=== PATIENT | male | born 1945 | race Caucasian/White ===

== ENCOUNTER 2018-08-02 14:25 | Emergency (ER) | payer OTHER ==
--- NOTE | 2018-08-02 15:14 | ED Physician Documentation ---
PD HPI FOCAL NEURO - Stated complaint Stated Complaint: L ARM NUMBNESS - Chief complaint Chief Complaint: Neuro - History obtained from History obtained from: Patient - History of Present Illness Timing - onset: Other (This is a 72-year-old gentleman with history of stroke with left leg deficits not currently bothering him. He has A. fib and is on warfarin with a pacemaker in place. He also has COPD. For the last 3 days he has had intermittent episodes where his left arm will go down on him and he cannot use it at all. He estimates this last for 20-30 minutes at a time and has happened about 3 times each day for the last 3 days. He also feels generally weak, but the left arm is worse. He also has increased cough and shortness of breath with his underlying COPD. He does still smoke.) Review of Systems Ten Systems: 10 systems reviewed and negative Constitutional: reports: Reviewed and negative Throat: reports: Reviewed and negative Cardiac: reports: Reviewed and negative Respiratory: reports: Dyspnea, Cough GI: reports: Reviewed and negative PD PAST MEDICAL HISTORY - Past Medical History Cardiovascular: Hypertension, Arrhythmia Respiratory: None Endocrine/Autoimmune: None GI: Other : None HEENT: Other Psych: None Musculoskeletal: Rheumatoid arthritis - Past Surgical History Past Surgical History: Yes Ortho: Other Cardiovascular: Pacemaker - Present Medications Home Medications: Ambulatory Orders Medication Instructions Recorded Confirmed Lisinopril/Hydrochlorothiazide 1 mg ORAL DAILY 07/06/15 07/06/15 [Lisinopril-Hctz 10-12.5 mg Tab] RX: Adalimumab [Humira Pediatric 40 mg SUBQ TITR 07/06/15 07/06/15 Crohn's] RX: Albuterol [Ventolin Hfa] 1 puffs INH Q4H PRN 07/06/15 07/06/15 RX: Budesonide [Pulmicort 1 inh INH DAILY 07/06/15 07/06/15 Flexhaler] RX: Docusate Sodium [Col-Rite] 250 mg ORAL BID 07/06/15 07/06/15 RX: Folic Acid 1 mg ORAL DAILY 07/06/15 07/06/15 RX: Gabapentin 300 mg ORAL BID 07/06/15 07/06/15 RX: Methotrexate 2.5 mg ORAL TITR 07/06/15 07/06/15 RX: Metoprolol Tartrate 100 mg ORAL BID 07/06/15 07/06/15 RX: Multivitamin [Multivitamins] 1 tab ORAL DAILY 07/06/15 07/06/15 RX: Psyllium [Metamucil] 1 each ORAL BID 07/06/15 07/06/15 RX: Warfarin [Coumadin] 2.5 mg ORAL DAILY 07/06/15 07/06/15 RX: Warfarin [Coumadin] 5 mg ORAL DAILY 07/06/15 07/06/15 RX: Cetirizine [ZyrTEC] 08/02/18 08/02/18 - Allergies Allergies/Adverse Reactions: Allergies Allergy/AdvReac Type Severity Reaction Status Date / Time No Known Drug Allergies Allergy Verified 08/02/18 14:38 - Social History Does the pt smoke?: Yes Smoking Status: Current every day smoker Does the pt drink ETOH?: No Does the pt have substance abuse?: No - Immunizations Immunizations are current?: Yes PD ED PE NORMAL - Vitals Vital signs reviewed: Yes - General General: Alert and oriented X 3, No acute distress - HEENT HEENT: PERRL, EOMI - Neck Neck: Supple, no meningeal sign, No bony TTP - Cardiac Cardiac: RRR, No murmur - Respiratory Respiratory: No respiratory distress, Other (Diminished throughout without focal findings) - Abdomen Abdomen: Soft, Non tender - Extremities Extremities: No edema, No calf tenderness / cord - Neuro Neuro: Alert and oriented X 3, roof truss machine tender 2-12 intact, Normal speech - Psych Psych: Normal mood, Normal affect NIHSS - Time Time: 15:10 - Level of Consciousness Level of consciousness: (0) Alert, Keenly responsive LOC Questions: (0) Answers both Q's correct LOC Commands: (0) Performs both correctly - Gaze Best Gaze: (0) Normal - Visual Visual: (0) No loss - Facial Palsy Facial Palsy: (0) Normal, symmetrical movement - Motor Arms (both separate) Motor Arm (right): (0) No drift Motor Arm (left): (0) No drift - Motor Legs (both separate) Motor Leg (right): (0) No drift Motor Leg (left): (0) No drift - Limb Ataxia Limb Ataxia: (0) Absent - Sensory Sensory: (0) Normal - Best Language Best Language: (0) No aphasia - Dysarthria Dysarthria: (0) Normal - Extinction and Inattention (formally neg Extinction and inattention: (0) No abnormality - Total Score/Results Total Score/Result: 0 Results - Vitals Vitals: Vital Signs - 24 hr 08/02/18 08/02/18 14:33 20:32 Temperature 36.8 C 36.2 C L Heart Rate 80 68 Respiratory 25 H 20 Rate Blood Pressure 145/93 H 114/70 O2 Saturation 95 98 Oxygen O2 Source Room air - EKG (time done) 1440 Rate: Rate (enter#) (68) Rhythm: NSR [place]: Normal Intervals: Normal IN Ischemia: Non specific changes Computer interpretation: Agree with computer - Labs Labs: Laboratory Tests 08/02/18 08/02/18 08/02/18 15:19 15:19 15:19 WBC 10.5 RBC 4.29 L Hgb 16.6 Hct 47.6 MCV 111.0 H MCH 38.7 H MCHC 34.8 RDW 14.8 Plt Count 233 MPV 8.2 Neut # (Auto) 7.7 H Lymph # (Auto) 1.8 [place] # (Auto) 0.6 Eos # (Auto) 0.2 Baso # (Auto) 0.1 Absolute Nucleated RBC 0.01 Nucleated RBC % 0.1 PT 24.3 H INR 2.2 H Sodium 137 Potassium 3.8 Chloride 103 Carbon Dioxide 24 Anion Gap 10.0 BUN 20 Creatinine 1.3 H Estimated GFR (MDRD) 54 L Glucose 157 H Calcium 9.0 Total Bilirubin 0.5 AST 25 ALT 27 Alkaline Phosphatase 74 Troponin I Total Protein 7.3 Albumin 3.8 Globulin 3.5 Albumin/Globulin Ratio 1.1 Lipase 197 H Blood Type Blood Type Recheck 08/02/18 08/02/18 08/02/18 15:19 15:19 18:45 WBC RBC Hgb Hct MCV MCH MCHC RDW Plt Count MPV Neut # (Auto) Lymph # (Auto) [place] # (Auto) Eos # (Auto) Baso # (Auto) Absolute Nucleated RBC Nucleated RBC % PT INR Sodium Potassium Chloride Carbon Dioxide Anion Gap BUN Creatinine Estimated GFR (MDRD) Glucose Calcium Total Bilirubin AST ALT Alkaline Phosphatase Troponin I < 0.04 Total Protein Albumin Globulin Albumin/Globulin Ratio Lipase Blood Type O POSITIVE Blood Type Recheck O POSITIVE - Rads (name of study) CT Head Radiology: EMP read contemporaneously (Acute right parietal stroke with hemorrhagic transformation) CT Head neck Radiology: EMP read contemporaneously (Carotid plaques with less than 50% stenosis bilaterally, poor visualization of the left vertebral, no large vessel occlusion.) PD MEDICAL DECISION MAKING - ED course ED course: 72-year-old gentleman with history of atrial fibrillation on warfarin presents with strokelike symptoms that are intermittent. On CT he looks like he had a right parietal stroke with a small amount of hemorrhagic transformation. [facility] was called and I spoke with Dr. Goodwin who will review the images and call me back. Updated daughter Meghan by phone [phone]. Dr. Goodwin reviewed the images and feels he should be transported down there. Recommended giving K Centra which was ordered to reverse his INR. [facility] and do not have beds. We spoke with the [facility]. Note that we did not have the full dose of K Centra in the hospital. Only 1500 units were available so we also transfused a unit of FFP. - Critical Care Time(min): 42 Time Includes: Direct patient care, Review records, Reassess patient, Document care, Coordinate care, Medical consult, Family consult for tx dec Data interpretation: Labs Procedures included in critical care time: Peripheral IV Procedures excluded from critical care time: EKG Departure - Departure Disposition: 02 Transfer Acute Care Hosp Clinical Impression: Cerebrovascular accident (CVA), Subarachnoid bleed Condition: Serious
[2018-08-02] MEDS ORDERED: IOVERSOL 320 100 ML VIAL IVP ONE (15:25)
[2018-08-02 15:29] LABS: BASOPHILS # (AUTO) 0.1 10^3/uL (0.0-0.1); BASOPHILS % (AUTO) 1.3 %; EOSINOPHILS # (AUTO) 0.2 10^3/uL (0.0-0.7); EOSINOPHILS % (AUTO) 1.8 %; HGB - HEMOGLOBIN 16.6 g/dL (14.0-18.0); LYMPHOCYTES # (AUTO) 1.8 10^3/uL (1.5-3.5); LYMPHOCYTES % (AUTO) 17.5 %; MEAN CORPUSCULAR HEMOGLOBIN 38.7 pg (27.0-31.0); MEAN CORPUSCULAR HGB CONC 34.8 g/dL (32.0-36.0); MEAN PLATELET VOLUME 8.2 fL (7.4-11.4); MONOCYTES # (AUTO) 0.6 10^3/uL (0.0-1.0); NEUTROPHILS # (AUTO) 7.7 10^3/uL (1.5-6.6); NEUTROPHILS % (AUTO) 73.4 %; PLT - PLATELET COUNT 233 10^3/uL (130-450); RED BLOOD COUNT 4.29 10^6/uL (4.70-6.10); RED CELL DISTRIBUTION WIDTH 14.8 % (12.0-15.0); WHITE BLOOD COUNT 10.5 x10^3/uL (4.8-10.8)
[2018-08-02 15:33] LABS: INR 2.2 (0.8-1.2); PT - PROTHROMBIN TIME 24.3 secs (9.9-12.6)
[2018-08-02 15:39] LABS: ALBUMIN 3.8 g/dL (3.2-5.5); ALBUMIN/GLOBULIN RATIO 1.1 (1.0-2.2); BILIRUBIN,TOTAL 0.5 mg/dL (0.2-1.0); CREATININE 1.3 mg/dL (0.6-1.2); TOTAL PROTEIN 7.3 g/dL (6.7-8.2)
--- NOTE | 2018-08-02 15:43 | XRAY Report ---
Reason: dyspnea Procedure Date: 08/02/2018 Accession Number: [id number] / [id number] Procedure: XR - Chest 1 View X-Ray CPT Code: 42014 FULL RESULT: EXAM: CHEST RADIOGRAPHY EXAM DATE: 08/02/2018 03:25 PM. CLINICAL HISTORY: Dyspnea. Increasing week with cough, shortness of breath, history of COPD. COMPARISON: ABDOMEN/PELVIS W/O 07/06/2015 11:04 AM. TECHNIQUE: 1 view. FINDINGS: Left mid and lower lung opacification is new, could represent layering pleural effusion, airspace disease and/or consolidation. Mass not excluded. An upright PA and lateral chest x-ray or chest CT could further evaluate. Multiple old left lateral rib fracture deformities are again noted. Pacemaker. IMPRESSION: Left mid and lower lung opacification is new, could represent layering pleural effusion, airspace disease and/or consolidation. Mass not excluded. An upright PA and lateral chest x-ray or chest CT could further evaluate. RADIA
[2018-08-02] MEDS: IOVERSOL 320 100 ML VIAL IVP ONE (16:11)
--- NOTE | 2018-08-02 16:53 | CT Report ---
Reason: L sided arm weak Procedure Date: 08/02/2018 Accession Number: [id number] / [id number] Procedure: CT - Head W/O CPT Code: FULL RESULT: EXAM: CT HEAD EXAM DATE: 08/02/2018 04:02 PM. CLINICAL HISTORY: L sided arm weak. COMPARISON: None. TECHNIQUE: Multiaxial CT images were obtained from the foramen magnum to the vertex. Reformats: Coronal. IV contrast: None. In accordance with CT protocol optimization, one or more of the following dose reduction techniques were utilized for this exam: automated exposure control, adjustment of mA and/or KV based on patient size, or use of iterative reconstructive technique. FINDINGS: Parenchyma: A subtle increased density primarily cortical involving right posterior parietal lobe and extending to the vertex with minimal localized mass-effect. No midline shift. No other evidence of hemorrhage. Diffuse chronic microangiopathic white matter changes. Extraaxial Spaces: Normal for age. No subdural or epidural collections. Ventricles: The ventricles and cortical sulci are enlarged, consistent with age-related tissue loss. Sinuses and orbits: Opacification of small left maxillary sinus. Right maxillary sinus mucus retention cyst. Mucosal thickening in ethmoid air cells. No air-fluid level. Bones: Unremarkable. Other: None. IMPRESSION: 1. Acute right posterior parietal infarction with subtle hemorrhagic changes. 2. Underlying atrophy with associated chronic findings. 3. Chronic sinusitis. RADIA The above findings were discussed with Jose Li by Dr. Franissco Mohan at 16:52 hrs on 08/02/18.
--- NOTE | 2018-08-02 17:04 | CT Report ---
Reason: L sided arm weak Procedure Date: 08/02/2018 Accession Number: [id number] / [id number] Procedure: CT - Head Angio CPT Code: FULL RESULT: EXAM: CT ANGIOGRAM HEAD AND NECK. CT SCAN HEAD WITH CONTRAST. EXAM DATE:08/02/2018 04:02 PM. CLINICAL HISTORY:72-year-old with left-sided arm weakness. COMPARISON:Noncontrast CT head 08/02/2018. TECHNIQUE: Routine axial helical CTA imaging was performed from the aortic arch through the [place] of [place]. Routine axial CT imaging of the head was performed following contrast administration. Reconstructions: Routine multiplanar 3D MIP reconstructions. IV contrast: 80 cc Optiray 320. NASCET Criteria are used for stenosis measurements. In accordance with CT protocol optimization, one or more of the following dose reduction techniques were utilized for this exam: automated exposure control, adjustment of mA and/or KV based on patient size, or use of iterative reconstructive technique. FINDINGS: POSTCONTRAST CT HEAD: Parenchyma: No acute parenchymal hemorrhage, mass, or midline shift. There is mild to moderate bilateral areas of white matter hypoattenuation seen that are age-indeterminate but appear chronic. There is no convincing CT evidence of acute infarct. There is mild to moderate cortical volume loss that appears age-appropriate. No abnormal postcontrast enhancement. Extraaxial Spaces: There is small volume subarachnoid hemorrhage seen within the sulci of the right central sulcus unchanged from earlier noncontrast CT 08/02/2018. No new abnormal extra axial fluid collection/mass seen. Ventricles: Normal in size and position. Sinuses and orbits: The orbits appear normal. There is moderate right maxillary mucosal retention cyst versus polyp. There is atretic left maxillary sinus that is totally opacified. There is mild to moderate mucosal thickening of the ethmoid air cells. Mastoid air cells and middle ear cavities are clear. Bones: No evidence of fracture or calvarial defect. Other: Vascular calcifications of the cavernous ICA segments. CT ANGIOGRAM HEAD AND NECK: Mild atherosclerotic plaque involving the aortic arch with no significant stenosis. There is normal three-vessel takeoff of the great vessels. There is atherosclerotic plaque involving the origins of the left subclavian artery, left common carotid artery, right brachiocephalic artery, right subclavian artery, and right common carotid artery with no high-grade stenosis. RIGHT: Common Carotid Artery: Patent without significant stenosis. Carotid Bulb: There is moderate atherosclerotic plaque at the bifurcation and siphon. Stenosis at the bifurcation by NASCET criteria: Less than 50% stenosis. Internal Carotid Artery: The cervical ICA appears normal. There is vascular calcifications of the cavernous ICA segment with no definite high-grade stenosis seen. No evidence of aneurysm along the intracranial ICA. External Carotid Artery: Unremarkable. Vertebral Artery: There is atherosclerotic plaque involving the origin of the right vertebral artery with no high-grade stenosis. The remainder of the right vertebral artery appears patent with no definite dissection or stenosis seen. No aneurysm. Anterior Cerebral Artery: Patent without significant stenosis, aneurysm, or vascular malformation. Middle Cerebral Artery: Patent without significant stenosis, aneurysm, or vascular malformation. Posterior Cerebral Artery: Patent without significant stenosis, aneurysm, or vascular malformation. Posterior Communicating Artery: Patent. No aneurysm. LEFT: Common Carotid Artery: Patent without significant stenosis. Carotid Bulb: There is moderate atherosclerotic plaque at the bifurcation and siphon. Stenosis at the bifurcation by NASCET criteria: Less than 50% stenosis. Internal Carotid Artery: The cervical ICA appears normal. There is vascular calcifications of the cavernous ICA segment with no definite high-grade stenosis seen. No evidence of aneurysm along the intracranial ICA. External Carotid Artery: Unremarkable. Vertebral Artery: Poor visualization of the origin of the left vertebral artery due to surrounding streak artifact from high density contrast within the venous system. The remainder of the left vertebral artery appears normal with no definite dissection or stenosis seen. No aneurysm. Anterior Cerebral Artery: Patent without significant stenosis, aneurysm, or vascular malformation. Middle Cerebral Artery: Patent without significant stenosis, aneurysm, or vascular malformation. Posterior Cerebral Artery: Patent without significant stenosis, aneurysm, or vascular malformation. Posterior Communicating Artery: Patent. No aneurysm. CENTRAL: Anterior Communicating Artery: Patent. No aneurysm. Basilar Artery: Patent without significant stenosis. No aneurysm. DURAL VENOUS SINUSES AND MAJOR CENTRAL VEINS: Patent. OTHER: The visualized pharynx and larynx appear normal. Major salivary glands appear normal. Thyroid gland appears normal. No cervical lymphadenopathy or necrotic lymph nodes seen. Soft tissues of the neck appear normal. Mild right and moderate left pleural parenchymal scarring. No acute fracture or traumatic subluxation of the cervical spine. Multilevel degenerative changes. No suspicious osseous lesion. IMPRESSION: CT SCAN HEAD: 1. Small volume subarachnoid hemorrhage seen within the sulci of the right central sulcus unchanged from earlier noncontrast CT 08/02/2018. Given location finding may be posttraumatic or secondary to reversible vasoconstrictive syndrome. 2. No definite acute infarct, parenchymal hemorrhage, mass, hydrocephalus, or midline shift. No abnormal postcontrast enhancement. 3. Mild to moderate white matter changes that are age-indeterminate but appear chronic suggesting potential sequelae of chronic small vessel ischemic disease. CT ANGIOGRAM NECK: 1. Poor visualization of the origin of the left vertebral artery due to surrounding streak artifact from high density contrast within the venous system. The remainder of the left vertebral artery appears patent. 2. Moderate atherosclerotic plaque seen at the carotid bifurcations with less than 50% stenosis seen bilaterally, right greater than left. CT ANGIOGRAM HEAD: 1. No definite large vessel occlusion. 2. No definite intracranial aneurysm. No high-grade stenosis. RADIA
[2018-08-02] MEDS: PROTHROMBIN COMPLEX CONC 500 UNIT VIAL IVP STA ×2 (19:03→19:21)
[2018-08-02 20:32] VITALS: BP 114/70
== END 2018-08-02 20:50 | disposition short-term general hospital (02) ==
LOC: ED 14:25
DX: I60.9 Nontraumatic subarachnoid hemorrhage, unspecified (principal); I69.398 Other sequelae of cerebral infarction; I48.91 Unspecified atrial fibrillation; Z79.01 Long term (current) use of anticoagulants; Z95.0 Presence of cardiac pacemaker; I10 Essential (primary) hypertension; F17.200 Nicotine dependence, unspecified, uncomplicated
CPT/HCPCS: 36415; 36430; 70450; 70496; 70498; 71045; 80053; 83690; 84484; 85025; 85610; 86900; 86901; 93005; 96374; 99284; 99291; C9132; P9017; Q9967

== ENCOUNTER 2018-08-08 09:04 | Outpatient (CLI) | payer OTHER | END 2018-08-08 09:05 | disposition short-term general hospital (02) | LOC: EMS 09:04 | PROVIDERS: ATTEND Surgery | DX: R53.1 Weakness (principal); R51 Headache | CPT/HCPCS: A0425; A0427 ==

== ENCOUNTER 2019-05-07 08:36 | Outpatient (CLI) | payer OTHER | END 2019-05-07 08:37 | disposition critical access hospital (66) | LOC: EMS 08:36 | PROVIDERS: ATTEND Surgery | DX: R52 Pain, unspecified (principal); R05 Cough | CPT/HCPCS: A0425; A0429 ==

== ENCOUNTER 2019-05-07 08:48 | Emergency (ER) | payer OTHER ==
[2019-05-07] MEDS ORDERED: SODIUM CHLORIDE 0.9% 1,000 ML IV ONE (09:10)
--- NOTE | 2019-05-07 09:13 | ED Physician Documentation ---
History of Present Illness - Stated complaint Stated Complaint: GENERAL WEAKNESS - Chief complaint Chief Complaint: General - History obtained from History obtained from: Patient - History of Present Illness Timing: How many days ago (3) - Additonal information Additional information: 73-year-old male with a prior history of a hemorrhagic transformation CVA in [facility] of last year left him with some left-sided weakness as weakness confusion and headache today. He states that he has been working on this for about 3 days with increasing weakness. He felt today that if he got up his legs would not hold him up. He called the ambulance. He does not have diarrhea or vomiting. Review of Systems Constitutional: denies: Fever Eyes: denies: Decreased vision Ears: denies: Ear pain Nose: denies: Congestion Throat: denies: Sore throat Cardiac: denies: Chest pain / pressure, Palpitations, Pedal edema, Calf pain Respiratory: reports: Cough, Wheezing. denies: Dyspnea GI: reports: Nausea. denies: Abdominal Pain, Vomiting, Constipation, Diarrhea : denies: Dysuria, Frequency Skin: denies: Rash Musculoskeletal: denies: Neck pain, Back pain, Extremity pain PD PAST MEDICAL HISTORY - Past Medical History Cardiovascular: Hypertension, Arrhythmia Respiratory: None Endocrine/Autoimmune: None GI: Other : None HEENT: Other Psych: None Musculoskeletal: Rheumatoid arthritis - Past Surgical History Past Surgical History: Yes Ortho: Other Cardiovascular: Pacemaker - Present Medications Home Medications: Ambulatory Orders Medication Instructions Recorded Confirmed Adalimumab [Humira Pediatric 40 mg SUBQ OAW 07/06/15 05/07/19 Crohn's] Albuterol [Ventolin Hfa] 1 puffs INH Q4H PRN 07/06/15 05/07/19 Folic Acid 1 mg ORAL DAILY 07/06/15 05/07/19 Gabapentin 300 mg ORAL DAILY 07/06/15 05/07/19 Lisinopril/Hydrochlorothiazide 1 tab ORAL DAILY 07/06/15 05/07/19 [Lisinopril-Hctz 10-12.5 mg Tab] Methotrexate 8 tab PO OAW 07/06/15 05/07/19 Multivitamin [Multivitamins] 1 tab ORAL DAILY 07/06/15 05/07/19 Cetirizine [ZyrTEC] 10 mg PO BID 08/02/18 05/07/19 Apixaban [Eliquis] 5 mg PO BID 05/07/19 05/07/19 Atorvastatin Calcium 40 mg PO DAILY PM 05/07/19 05/07/19 Cholecalciferol (Vitamin D3) 1,000 unit PO DAILY 05/07/19 05/07/19 [Vitajoy Daily D] Levetiracetam [Keppra] 2 tab PO BID 05/07/19 05/07/19 Methocarbamol 750 mg PO TID PRN 05/07/19 05/07/19 Metoprolol Succinate 75 mg PO BID 05/07/19 05/07/19 Prednisone [Manasa] 1 mg PO DAILY 05/07/19 05/07/19 - Allergies Allergies/Adverse Reactions: Allergies Allergy/AdvReac Type Severity Reaction Status Date / Time No Known Drug Allergies Allergy Verified 05/07/19 08:55 - Social History Does the pt smoke?: Yes Smoking Status: Current every day smoker Does the pt drink ETOH?: No Does the pt have substance abuse?: No - Immunizations Immunizations are current?: Yes PD ED PE NORMAL - Vitals Vital signs reviewed: Yes (normal ) - General General: Alert and oriented X 3, No acute distress, Well developed/nourished - HEENT HEENT: Atraumatic, PERRL, EOMI - Neck Neck: Supple, no meningeal sign, No bony TTP - Cardiac Cardiac: RRR, No murmur - Respiratory Respiratory: No respiratory distress, Clear bilaterally - Abdomen Abdomen: Soft, Non tender - Back Back: No CVA TTP, No spinal TTP - Derm Derm: Normal color, Warm and dry, No rash - Extremities Extremities: No deformity, No edema - Neuro Neuro: Alert and oriented X 3, chief librarian branch 2-12 intact, No motor deficit, No sensory deficit, Normal speech Eye Opening: Spontaneous Motor: Obeys Commands Verbal: Oriented GCS Score: 15 - Psych Psych: Normal mood, Normal affect Results - Vitals Vitals: Vital Signs - 24 hr 05/07/19 05/07/19 05/07/19 08:52 10:55 11:10 Temperature 36.5 C Heart Rate 89 75 71 Respiratory 15 15 16 Rate Blood Pressure 119/75 108/73 O2 Saturation 97 98 05/07/19 05/07/19 12:00 14:00 Temperature Heart Rate 71 87 Respiratory 18 20 Rate Blood Pressure 96/58 L 123/85 H O2 Saturation 95 96 Oxygen O2 Source Room air - Labs Labs: Laboratory Tests 05/07/19 05/07/19 05/07/19 09:30 09:30 11:21 WBC 8.8 RBC 4.26 L Hgb 16.2 Hct 46.9 MCV 110.1 H MCH 38.0 H MCHC 34.5 RDW 13.7 Plt Count 163 MPV 10.6 Neut # (Auto) 6.2 Lymph # (Auto) 1.5 [place] # (Auto) 0.7 Eos # (Auto) 0.3 Baso # (Auto) 0.1 Absolute Nucleated RBC 0.00 Nucleated RBC % 0.0 Sodium 137 Potassium 3.9 Chloride 102 Carbon Dioxide 26 Anion Gap 9.0 BUN 22 H Creatinine 1.1 Estimated GFR (MDRD) 65 L Glucose 168 H Calcium 9.2 Total Bilirubin 0.7 AST 24 ALT 27 Alkaline Phosphatase 73 Total Protein 7.4 Albumin 3.8 Globulin 3.6 Albumin/Globulin Ratio 1.1 Lipase 39 Urine Color DARK YELLOW Urine Clarity CLEAR Urine pH 6.0 Ur Specific [place] 1.020 Urine Protein NEGATIVE Urine Glucose (UA) NEGATIVE Urine Ketones NEGATIVE Urine Occult Blood NEGATIVE Urine Nitrite NEGATIVE Urine Bilirubin NEGATIVE Urine Urobilinogen 0.2 (NORMAL) Ur Leukocyte Esterase NEGATIVE Ur Microscopic Review NOT INDICATED Urine Culture Comments NOT INDICATED - Rads (name of study) CT head without Radiology: Prelim report reviewed (Impression: No acute intracranial hemorrhage or calvarial fracture detected.), EMP read indepedently, See rad report Chest Radiology: Prelim report reviewed (Impression: No acute consolidations or pulmonary edema detected.), EMP read indepedently, See rad report Procedures - IVC sono (time) 0900 Bedside IVC sono: IVC measures (cm) (1.22), Dehydration (est 1 liter deficit) PD MEDICAL DECISION MAKING - ED course Complexity details: reviewed old records, reviewed results, re-evaluated patient, considered differential, d/w patient, d/w family ED course: 73-year-old male with prior history of CVA with hemorrhagic transformation is on Eliquis and he has developed weakness to the. He feels he is more weak on the left side than the right and he is generally weak. He is found to be dehydrated on interrogation the inferior vena cava and he has mildly elevated BUN and he is on some hydrochlorothiazide with lisinopril. He is administered intravenous saline with some improvement. He is road tested in the ED and he does well with this. The social media editor is consulted in the case and is able to provide additional resources for [place] Departure - Departure Disposition: 01 Home, Self Care Clinical Impression: Dehydration Condition: Stable Instructions: ED Dehydration Follow-Up: [facility] [Provider Group]
[2019-05-07 09:41] LABS: BASOPHILS # (AUTO) 0.1 10^3/uL (0.0-0.1); BASOPHILS % (AUTO) 0.7 %; EOSINOPHILS # (AUTO) 0.3 10^3/uL (0.0-0.7); EOSINOPHILS % (AUTO) 2.8 %; HGB - HEMOGLOBIN 16.2 g/dL (14.0-18.0); LYMPHOCYTES # (AUTO) 1.5 10^3/uL (1.5-3.5); LYMPHOCYTES % (AUTO) 16.7 %; MEAN CORPUSCULAR HGB CONC 34.5 g/dL (32.0-36.0); MEAN CORPUSCULAR VOLUME 110.1 fL (80.0-94.0); MEAN PLATELET VOLUME 10.6 fL (7.4-11.4); MONOCYTES # (AUTO) 0.7 10^3/uL (0.0-1.0); MONOCYTES % (AUTO) 7.8 %; NEUTROPHILS # (AUTO) 6.2 10^3/uL (1.5-6.6); NEUTROPHILS % (AUTO) 70.4 %; PLT - PLATELET COUNT 163 10^3/uL (130-450); RED BLOOD COUNT 4.26 10^6/uL (4.70-6.10); RED CELL DISTRIBUTION WIDTH 13.7 % (12.0-15.0); WHITE BLOOD COUNT 8.8 x10^3/uL (4.8-10.8)
--- NOTE | 2019-05-07 09:48 | XRAY Report ---
Reason: chest pain Procedure Date: 05/07/2019 Accession Number: [id number] / [id number] Procedure: XR - Chest 1 View X-Ray CPT Code: 60793 FULL RESULT: EXAM: CHEST RADIOGRAPHY EXAM DATE: 05/07/2019 09:21 AM. CLINICAL HISTORY: Chest pain. COMPARISON: CHEST 1 VIEW 08/02/2018 3:14 PM. TECHNIQUE: 1 view. FINDINGS: Lungs/Pleura: No acute consolidation is identified. Evidence of healed previous posterior and lateral left rib fractures. Slight hemithorax volume loss on the left appears stable. Mediastinum: Within exam limitations, the cardiomediastinal contour is normal. Other: Bipolar cardiac pacer left chest. IMPRESSION: No acute consolidations or pulmonary edema detected. RADIA
[2019-05-07 10:01] LABS: ALBUMIN 3.8 g/dL (3.2-5.5); ALBUMIN/GLOBULIN RATIO 1.1 (1.0-2.2); BILIRUBIN,TOTAL 0.7 mg/dL (0.2-1.0); CALCIUM 9.2 mg/dL (8.5-10.3); CREATININE 1.1 mg/dL (0.6-1.2); TOTAL PROTEIN 7.4 g/dL (6.7-8.2)
--- NOTE | 2019-05-07 10:18 | CT Report ---
Reason: weakness headache prior bleed Procedure Date: 05/07/2019 Accession Number: [id number] / [id number] Procedure: CT - HEAD WO CPT Code: FULL RESULT: EXAM: CT HEAD EXAM DATE: 05/07/2019 09:41 AM. CLINICAL HISTORY: Weakness, headache, prior bleed. COMPARISON: HEAD ANGIO 08/02/2018 3:45 PM HEAD W/O 08/02/2018 3:45 PM NECK ANGIO 08/02/2018 3:45 PM. TECHNIQUE: Multiaxial CT images were obtained from the foramen magnum to the vertex. Reformats: Sagittal and coronal. IV contrast: None. In accordance with CT protocol optimization, one or more of the following dose reduction techniques were utilized for this exam: automated exposure control, adjustment of mA and/or KV based on patient size, or use of iterative reconstructive technique. FINDINGS: Parenchyma: No intraparenchymal hemorrhage. No evidence of mass, midline shift, or CT findings of infarction. Deshpande-white differentiation is distinct. Extraaxial Spaces: Normal for age. No subdural or epidural collections identified. Ventricles: Normal in size and position. Sinuses and Orbits: Soft tissue opacification of hypoplastic left maxillary sinus. Mucous retention cyst in right maxillary sinus. Bones: No evidence of fracture or calvarial defect. Other: None. IMPRESSION: No acute intracranial hemorrhage or calvarial fracture detected. RADIA
[2019-05-07] MEDS ORDERED: IPRATROPIUM/ALBUTEROL 3 ML NEB INH STA (10:44)
[2019-05-07 11:31] LABS: BILIRUBIN,URINE NEGATIVE (NEGATIVE); GLUCOSE, URINE (UA) NEGATIVE (NEGATIVE); KETONES,URINE (UA) NEGATIVE (NEGATIVE); LEUKOCYTE ESTERASE, URINE NEGATIVE (NEGATIVE); NITRITE,URINE NEGATIVE (NEGATIVE); OCCULT BLOOD,URINE NEGATIVE (NEGATIVE); PROTEIN,URINE NEGATIVE (NEGATIVE); UROBILINOGEN,URINE 0.2 (NORMAL) E.U./dL (NORMAL)
[2019-05-07 11:32] LABS: CLARITY,URINE CLEAR (CLEAR)
[2019-05-07 14:03] VITALS: BP 123/85
== END 2019-05-07 14:32 | disposition home or self-care (01) ==
LOC: EDUNIT# → ED 08:48
DX: E86.0 Dehydration (principal); I69.354 Hemiplegia and hemiparesis following cerebral infarction affecting left non-dominant side; Z79.01 Long term (current) use of anticoagulants; I10 Essential (primary) hypertension; F17.200 Nicotine dependence, unspecified, uncomplicated
CPT/HCPCS: 36415; 70450; 71045; 80053; 81001; 81003; 83690; 85025; 87040; 87086; 94640; 96360; 99284

== ENCOUNTER 2019-05-15 15:16 | Outpatient (CLI) | payer OTHER ==
[2019-05-15 19:14] LABS: ALBUMIN 3.9 g/dL (3.2-5.5); ALKALINE PHOSPHATASE 82 IU/L (42-121); ALT ALANINE AMINOTRANSFERASE 41 IU/L (10-60); AST ASPARTATE AMINOTRANSFERASE 35 IU/L (10-42); BASOPHILS # (AUTO) 0.1 10^3/uL (0.0-0.1); BASOPHILS % (AUTO) 0.7 %; BILIRUBIN,DIRECT 0.2 mg/dL (0.1-0.5); BILIRUBIN,TOTAL 1.1 mg/dL (0.2-1.0); BUN - BLOOD UREA NITROGEN 8 mg/dL (6-20); CALCIUM 9.4 mg/dL (8.5-10.3); CARBON DIOXIDE - CO2 26 mmol/L (21-32); CHLORIDE 104 mmol/L (101-111); CHOL/HDL RATIO 3.3 (<5.0); CHOLESTEROL 116 mg/dL; EOSINOPHILS # (AUTO) 0.2 10^3/uL (0.0-0.7); GFR - MDRD 73 (>89); GLUCOSE 123 mg/dL (70-100); HDL CHOLESTEROL 35 mg/dL; LDL CHOLESTEROL,CALCULATED 55 mg/dL; LDL/HDL RATIO 1.6 (<3.6); LYMPHOCYTES # (AUTO) 1.7 10^3/uL (1.5-3.5); LYMPHOCYTES % (AUTO) 18.7 %; MEAN CORPUSCULAR HGB CONC 33.9 g/dL (32.0-36.0); MEAN CORPUSCULAR VOLUME 112.1 fL (80.0-94.0); MEAN PLATELET VOLUME 11.9 fL (7.4-11.4); MONOCYTES # (AUTO) 0.5 10^3/uL (0.0-1.0); MONOCYTES % (AUTO) 5.4 %; NEUTROPHILS # (AUTO) 6.6 10^3/uL (1.5-6.6); NEUTROPHILS % (AUTO) 72.4 %; PLT - PLATELET COUNT 208 10^3/uL (130-450); RED BLOOD COUNT 4.21 10^6/uL (4.70-6.10); RED CELL DISTRIBUTION WIDTH 13.6 % (12.0-15.0); SODIUM 138 mmol/L (135-145); TOTAL PROTEIN 7.9 g/dL (6.7-8.2); VLDL CHOLESTEROL 26 mg/dL; WHITE BLOOD COUNT 9.1 x10^3/uL (4.8-10.8)
[2019-05-15 19:36] LABS: PLATELET ESTIMATE, MANUAL NORMAL (130-450,000) (NORMAL); PLATELET MORPHOLOGY NORMAL APPEARANCE (NORMAL)
[2019-05-15 19:39] LABS: HB2 TOTAL 15.9 g/dL; HEMOGLOBIN A1C 0.78 g/dL; HEMOGLOBIN A1C % 6.6 % (4.6-6.2)
== END 2019-05-15 23:59 | disposition home or self-care (01) ==
LOC: LAB.N 15:16
PROVIDERS: ATTEND Family Medicine
DX: L40.50 Arthropathic psoriasis, unspecified (principal); M19.90 Unspecified osteoarthritis, unspecified site; M06.9 Rheumatoid arthritis, unspecified; E78.5 Hyperlipidemia, unspecified; I10 Essential (primary) hypertension
CPT/HCPCS: 36415; 80053; 80061; 80076; 83036; 83721; 84443; 85025

== ENCOUNTER 2019-05-29 15:19 | Outpatient (CLI) | payer MEDICARE, OTHER | END 2019-05-29 23:59 | disposition home or self-care (01) | LOC: LAB.N 15:19 | PROVIDERS: ATTEND Family Medicine | DX: R06.09 Other forms of dyspnea (principal) | CPT/HCPCS: 36415; 83880 ==

== ENCOUNTER 2019-06-10 14:34 | Outpatient (CLI) | payer MEDICARE, OTHER ==
--- NOTE | 2019-06-10 16:41 | XRAY Report ---
Reason: DYSPNEA ON EXERTION Procedure Date: 06/10/2019 Accession Number: [id number] / [id number] Procedure: XR - Chest 2 View X-Ray CPT Code: 14394 FULL RESULT: EXAM: Chest 2 View X-Ray DATE: 06/10/2019 3:01 PM CLINICAL HISTORY: DYSPNEA ON EXERTION COMPARISON: 05/07/2019 TECHNIQUE: 2 views. FINDINGS: Lungs/Pleura: Possible developing density left midlung and right base, early airspace disease not excluded. Chronic changes left base and CP angle.. Clear upper lungs.. No pneumothorax or pleural effusion. Mediastinum: Borderline heart size. Dual-lead left subclavian transvenous pacemaker. Other: Mild degenerative change in the spine. Healed deformity left ribs. IMPRESSION: Possible developing left midlung and right basilar airspace disease. Chronic changes left base. Suggest follow-up chest x-ray 6-8 weeks.
== END 2019-06-10 14:35 | disposition home or self-care (01) ==
LOC: DI 14:34
PROVIDERS: ATTEND Family Medicine
DX: R06.00 Dyspnea, unspecified (principal)
CPT/HCPCS: 71046

== ENCOUNTER 2019-07-03 08:27 | Outpatient (CLI) | payer MEDICARE, OTHER ==
--- NOTE | 2019-07-07 08:23 | CT Report ---
Reason: DYSPNEA ON EXERTION, COPD Procedure Date: 07/03/2019 Accession Number: [id number] / [id number] Procedure: CT - CHEST WO CPT Code: Final Report FULL RESULT: EXAM: CT CHEST EXAM DATE: 07/03/2019 08:44 AM. CLINICAL HISTORY: Dyspnea on exertion, COPD. COMPARISONS: CHEST 1 VIEW 08/02/2018 3:14 PM. TECHNIQUE: Routine helical CT imaging was performed through the chest. IV contrast: None. Reconstructions: Coronal and sagittal. In accordance with CT protocol optimization, one or more of the following dose reduction techniques were utilized for this exam: automated exposure control, adjustment of mA and/or KV based on patient size, or use of iterative reconstructive technique. FINDINGS: Lungs/Pleura: Chronic left hemithorax volume loss. Minimal paraseptal emphysematous cystic changes anterior and lateral right upper lobe. No significant interstitial thickening within either lung. No lung consolidations or pleural fluid collection. Minimal atelectasis versus thickening along the left major fissure. Mediastinum: Mild aneurysmal dilatation of the ascending thoracic aorta, measured at 4.5 cm transversely. No aneurysm of the aortic arch or descending thoracic aorta. Coronary arterial calcifications. Bones: Healed previous lateral and posterior left rib fractures. Visualized Abdomen: Cystic foci of both mildly atrophic kidneys. The abdomen is partially imaged. Other: Cardiac pacer left chest. IMPRESSION: Chronic left hemithorax volume loss. Minimal emphysematous changes right upper lung. No significant fibrotic changes. Mild aneurysm of the ascending thoracic aorta. RADIA
== END 2019-07-03 08:28 | disposition home or self-care (01) ==
LOC: DI 08:27
PROVIDERS: ATTEND Family Medicine
DX: J44.9 Chronic obstructive pulmonary disease, unspecified (principal); I71.2 Thoracic aortic aneurysm, without rupture
CPT/HCPCS: 71250

== ENCOUNTER 2019-07-15 10:00 | Outpatient (CLI) | payer MEDICARE, OTHER | END 2019-07-15 10:01 | disposition home or self-care (01) | LOC: DI 10:00 | PROVIDERS: ATTEND Family Medicine | DX: R01.1 Cardiac murmur, unspecified (principal); I27.20 Pulmonary hypertension, unspecified; I77.810 Thoracic aortic ectasia; I51.7 Cardiomegaly | CPT/HCPCS: 93306 ==

== ENCOUNTER 2019-07-23 13:22 | Outpatient (CLI) | payer MEDICARE, OTHER ==
[2019-07-23] MEDS ORDERED: ALBUTEROL NEB 2.5 MG/3 ML INH SCH (13:55)
== END 2019-07-23 13:23 | disposition home or self-care (01) ==
LOC: RT 13:22
PROVIDERS: ATTEND Family Medicine
DX: R06.09 Other forms of dyspnea (principal)
CPT/HCPCS: 94060

== ENCOUNTER 2019-08-11 17:10 | Outpatient (CLI) | payer OTHER | END 2019-08-11 17:11 | disposition critical access hospital (66) | LOC: EMS 17:10 | PROVIDERS: ATTEND Surgery | DX: S59.902A Unspecified injury of left elbow, initial encounter (principal); W10.2XXA Fall (on)(from) incline, initial encounter; Y93.01 Activity, walking, marching and hiking; Y92.008 Other place in unspecified non-institutional (private) residence as the place of occurrence of the external cause | CPT/HCPCS: A0425; A0429 ==

== ENCOUNTER 2019-08-11 17:22 | Emergency (ER) | payer OTHER ==
--- NOTE | 2019-08-11 18:26 | XRAY Report ---
Reason: fall, elbow pain Procedure Date: 08/11/2019 Accession Number: [id number] / [id number] Procedure: XR - Elbow 3 View LT CPT Code: Final Report FULL RESULT: EXAM: LEFT ELBOW RADIOGRAPHY EXAM DATE: 08/11/2019 06:00 PM. CLINICAL HISTORY: Fall, elbow pain. COMPARISON: None. TECHNIQUE: 4 views. FINDINGS: Bones: Intra-articular fracture of the proximal ulna. Possible fracture of the radial head. Joints: Joint effusion at the elbow. Soft Tissues: Normal. No soft tissue swelling. IMPRESSION: 1. Intra-articular fracture of the proximal ulna. 2. Possible fracture of the radial head. RADIA
[2019-08-11] MEDS ORDERED: HYDROmorphone 1 MG/ML CARPUJECT IM STA (18:32)
--- NOTE | 2019-08-11 18:33 | ED Physician Documentation ---
History of Present Illness - Stated complaint Stated Complaint: FALL - Chief complaint Chief Complaint: Trauma Ext - History obtained from History obtained from: Patient, EMS - History of Present Illness Timing: Today Pain level max: 9 Pain level now: 9 - Additonal information Additional information: 73-year-old male was walking on a wheelchair ramp, slipped fell landing on the left elbow. Faulk a crack and has pain. Declined pain medication at the ambulance. Worse with movement and better with rest. He is right-handed. Review of Systems Ten Systems: 10 systems reviewed and negative Constitutional: denies: Fever, Chills GI: denies: Vomiting, Diarrhea Skin: denies: Rash Musculoskeletal: denies: Neck pain, Back pain Neurologic: denies: Headache PD PAST MEDICAL HISTORY - Past Medical History Cardiovascular: Hypertension, Arrhythmia Respiratory: None Neuro: CVA Endocrine/Autoimmune: None GI: Other : None HEENT: Other Psych: None Musculoskeletal: Rheumatoid arthritis Derm: None - Past Surgical History Past Surgical History: Yes Ortho: Other Cardiovascular: Pacemaker - Present Medications Home Medications: Ambulatory Orders Medication Instructions Recorded Confirmed Adalimumab [Humira Pediatric 40 mg SUBQ OAW 07/06/15 05/07/19 Crohn's] Albuterol [Ventolin Hfa] 1 puffs INH Q4H PRN 07/06/15 05/07/19 Folic Acid 1 mg ORAL DAILY 07/06/15 05/07/19 Gabapentin 300 mg ORAL DAILY 07/06/15 05/07/19 Lisinopril/Hydrochlorothiazide 1 tab ORAL DAILY 07/06/15 05/07/19 [Lisinopril-Hctz 10-12.5 mg Tab] Methotrexate 8 tab PO OAW 07/06/15 05/07/19 Multivitamin [Multivitamins] 1 tab ORAL DAILY 07/06/15 05/07/19 Cetirizine [ZyrTEC] 10 mg PO BID 08/02/18 05/07/19 Apixaban [Eliquis] 5 mg PO BID 05/07/19 05/07/19 Atorvastatin Calcium 40 mg PO DAILY PM 05/07/19 05/07/19 Cholecalciferol (Vitamin D3) 1,000 unit PO DAILY 05/07/19 05/07/19 [Vitajoy Daily D] Levetiracetam [Keppra] 2 tab PO BID 05/07/19 05/07/19 Methocarbamol 750 mg PO TID PRN 05/07/19 05/07/19 Metoprolol Succinate 75 mg PO BID 05/07/19 05/07/19 Prednisone [Manasa] 1 mg PO DAILY 05/07/19 05/07/19 Oxycodone HCl/Acetaminophen 1 - 2 each PO Q6H PRN #14 tablet 08/11/19 [Percocet 5-325 mg Tablet] - Allergies Allergies/Adverse Reactions: Allergies Allergy/AdvReac Type Severity Reaction Status Date / Time No Known Drug Allergies Allergy Verified 08/11/19 17:31 - Social History Does the pt smoke?: Yes Smoking Status: Current every day smoker Does the pt drink ETOH?: No Does the pt have substance abuse?: No - Immunizations Immunizations are current?: Yes PD ED PE NORMAL - Vitals Vital signs reviewed: Yes - General General: Alert and oriented X 3, No acute distress, Well developed/nourished - HEENT HEENT: Atraumatic, PERRL, Moist mucous membranes - Neck Neck: Supple, no meningeal sign, No bony TTP - Cardiac Cardiac: RRR, Strong equal pulses - Respiratory Respiratory: No respiratory distress, Clear bilaterally - Abdomen Abdomen: Soft, Non tender, Non distended - Back Back: No spinal TTP - Derm Derm: Warm and dry - Extremities Extremities: Other (Swelling and tenderness to the left elbow.Neurovascular intact.) - Neuro Neuro: Alert and oriented X 3 - Psych Psych: Normal mood, Normal affect Results - Vitals Vitals: Vital Signs - 24 hr 08/11/19 08/11/19 08/11/19 17:27 19:07 19:20 Temperature 37.1 C Heart Rate 77 82 90 Respiratory 20 18 18 Rate Blood Pressure 119/69 124/69 O2 Saturation 96 97 100 08/11/19 21:04 Temperature Heart Rate 84 Respiratory 18 Rate Blood Pressure 122/74 O2 Saturation 98 Oxygen O2 Source Room air - Rads (name of study) L elbow xray Radiology: Prelim report reviewed, EMP read contemporaneously, See rad report (1. Intra-articular fracture of the proximal ulna. 2. Possible fracture of the r adial head. ) Procedures - Splint (location) L arm Splint applied by: Physician, Tech Type of splint: Long arm, Posterior Other: Patient tolerated well, No complications, Neurovascular intact, Good alignment, Sling provided PD MEDICAL DECISION MAKING - ED course Complexity details: reviewed results, re-evaluated patient, considered differential, d/w patient, d/w [employer] consultant ED course: 73-year-old male presents to the emergency department with a left elbow fracture. Discussed the case with Dr. Perez, orthopedics who recommends posterior splint and sling. He did recommend that I contact [facility]. I contacted [facility] orthopedics and spoke with Dr. Michael Oconnor. He recommends following up in their clinic in 1 week. He states that this will likely need operative repair. Patient placed into the splint and sling. Neurovascularly intact. No compartment syndrome. No dislocation. The clinic numbers were given to the patient. Patient counseled regarding signs and symptoms for which I believe and urgent re-evaluation would be necessary. Patient with good understanding of and agreement to plan and is comfortable going home at this time This document was made in part using voice recognition software. While efforts are made to proofread this document, sound alike and grammatical errors may occur. Chart notes can be faxed to [phone] Departure - Departure Disposition: 01 Home, Self Care Clinical Impression: Elbow fracture, left Qualifiers: Encounter type: initial encounter Fracture type: closed Qualified Code(s): S42.402A - Unspecified fracture of lower end of left humerus, initial encounter for closed fracture Condition: Good Instructions: ED Fx Elbow Follow-Up: [facility] [Provider Group] - Within 1 week Prescriptions: Oxycodone HCl/Acetaminophen [Percocet 5-325 mg Tablet] 1 - 2 each PO Q6H PRN #14 tablet PRN Reason: pain Comments: Follow-up with orthopedics for further care. Return if you worsen. Do not drink alcohol or drive while on narcotic pain medicine. Note that many narcotic pain relievers also contain tylenol/acetaminophen. Please ensure that your total dose of acetaminophen from all sources does not exceed 3 grams (3000mg) per day. You may constipated on this medication, take a stool softener such as "Colace" twice a day while you are on it. Also recommend a [id number] laxative such as senna or MiraLAX any day that you do not have a bowel movement. If you received narcotic pain medication in the emergency department, do not drive or operate machinery for the next [address] with [address] Michael hutchinson, call the orthopedic office at [phone] or [phone] for a follow-up appointment. Discharge Date/Time: 08/11/19 21:04
[2019-08-11] MEDS ORDERED: oxyCODONE 5 MG TABLET PO STA (19:04)
[2019-08-11] MEDS ORDERED: oxyCODONE/ACET 5/325 Prepack 4 PO STA (20:49)
[2019-08-11 21:05] VITALS: BP 122/74
== END 2019-08-11 21:04 | disposition home or self-care (01) ==
LOC: EDUNIT# → EDBD → ED 17:22
DX: S52.002A Unspecified fracture of upper end of left ulna, initial encounter for closed fracture (principal); W10.2XXA Fall (on)(from) incline, initial encounter; Y93.01 Activity, walking, marching and hiking; I10 Essential (primary) hypertension; Z86.73 Personal history of transient ischemic attack (TIA), and cerebral infarction without residual deficits; Z79.01 Long term (current) use of anticoagulants; F17.200 Nicotine dependence, unspecified, uncomplicated
CPT/HCPCS: 29105; 73080; 96372; 99283; 99284; A9270; J1170

== ENCOUNTER 2019-08-15 16:08 | Emergency (ER) | payer MEDICARE, OTHER ==
[2019-08-15 16:18] VITALS: BP 146/90
--- NOTE | 2019-08-15 16:38 | ED Physician Documentation ---
History of Present Illness - Stated complaint Stated Complaint: LT ELBOW PX/RECENT FX - Chief complaint Chief Complaint: Trauma Ext - History obtained from History obtained from: Patient - History of Present Illness Timing: How many days ago (4) Pain level max: 7 Pain level now: 7 - Additonal information Additional information: L elbow px s/p fracture 4 days ago. [place] [facility] [place]. Nothing makes it better or worse. No numbness or tingling. He is out of Percocet and would like his splint redone. Review of Systems Constitutional: denies: Fever, Chills GI: denies: Vomiting Skin: denies: Rash Musculoskeletal: denies: Neck pain, Back pain Neurologic: denies: Headache PD PAST MEDICAL HISTORY - Past Medical History Cardiovascular: Hypertension, Arrhythmia Respiratory: None Neuro: CVA Endocrine/Autoimmune: None GI: Other : None HEENT: Other Psych: None Musculoskeletal: Rheumatoid arthritis Derm: None - Past Surgical History Past Surgical History: Yes Ortho: Other Cardiovascular: Pacemaker - Present Medications Home Medications: Ambulatory Orders Medication Instructions Recorded Confirmed Adalimumab [Humira Pediatric 40 mg SUBQ OAW 07/06/15 05/07/19 Crohn's] Albuterol [Ventolin Hfa] 1 puffs INH Q4H PRN 07/06/15 05/07/19 Folic Acid 1 mg ORAL DAILY 07/06/15 05/07/19 Gabapentin 300 mg ORAL DAILY 07/06/15 05/07/19 Lisinopril/Hydrochlorothiazide 1 tab ORAL DAILY 07/06/15 05/07/19 [Lisinopril-Hctz 10-12.5 mg Tab] Methotrexate 8 tab PO OAW 07/06/15 05/07/19 Multivitamin [Multivitamins] 1 tab ORAL DAILY 07/06/15 05/07/19 Cetirizine [ZyrTEC] 10 mg PO BID 08/02/18 05/07/19 Apixaban [Eliquis] 5 mg PO BID 05/07/19 05/07/19 Atorvastatin Calcium 40 mg PO DAILY PM 05/07/19 05/07/19 Cholecalciferol (Vitamin D3) 1,000 unit PO DAILY 05/07/19 05/07/19 [Vitajoy Daily D] Levetiracetam [Keppra] 2 tab PO BID 05/07/19 05/07/19 Metoprolol Succinate 75 mg PO BID 05/07/19 05/07/19 Prednisone [Manasa] 1 mg PO DAILY 05/07/19 05/07/19 methocarbamoL [Methocarbamol] 750 mg PO TID PRN 05/07/19 05/07/19 Oxycodone HCl/Acetaminophen 1 - 2 each PO Q6H PRN #14 tablet 08/11/19 [Percocet 5-325 mg Tablet] Oxycodone HCl/Acetaminophen 1 - 2 each PO Q6H PRN #20 tablet 08/15/19 [Percocet 5-325 mg Tablet] - Allergies Allergies/Adverse Reactions: Allergies Allergy/AdvReac Type Severity Reaction Status Date / Time No Known Drug Allergies Allergy Verified 08/15/19 16:17 - Social History Does the pt smoke?: Yes Smoking Status: Current every day smoker Does the pt drink ETOH?: No Does the pt have substance abuse?: No - Immunizations Immunizations are current?: Yes PD ED PE NORMAL - Vitals Vital signs reviewed: Yes - General General: Alert and oriented X 3, No acute distress - HEENT HEENT: Moist mucous membranes - Neck Neck: Supple, no meningeal sign - Cardiac Cardiac: RRR - Derm Derm: Warm and dry - Extremities Extremities: Other (Tender to palpation over the left elbow. Neurovascular intact. Mild swelling. Compartments are soft.) - Neuro Neuro: Alert and oriented X 3 Results - Vitals Vitals: Vital Signs - 24 hr 08/15/19 16:13 Temperature 36.4 C L Heart Rate 81 Respiratory 16 Rate Blood Pressure 146/90 H O2 Saturation 94 Oxygen O2 Source Room air Procedures - Splint (location) L elbow Splint applied by: Physician, Nurse Type of splint: Fiberglass, Long arm, Posterior Other: Patient tolerated well, No complications, Neurovascular intact, Sling provided PD MEDICAL DECISION MAKING - ED course Complexity details: reviewed old records, considered differential, d/w patient ED course: Sling replaced. Will prescribe Percocet for pain. We will have him follow-up with orthopedics as scheduled. No evidence of compartment syndrome. Neurovascular intact. Patient counseled regarding signs and symptoms for which I believe and urgent re-evaluation would be necessary. Patient with good understanding of and agreement to plan and is comfortable going home at this time This document was made in part using voice recognition software. While efforts are made to proofread this document, sound alike and grammatical errors may occur. Departure - Departure Disposition: 01 Home, Self Care Clinical Impression: Elbow fracture, left Qualifiers: Encounter type: initial encounter Fracture type: closed Qualified Code(s): S42.402A - Unspecified fracture of lower end of left humerus, initial encounter for closed fracture Condition: Good Instructions: ED Fx Elbow Follow-Up: orthopedics,as scheduled [Other] Prescriptions: Oxycodone HCl/Acetaminophen [Percocet 5-325 mg Tablet] 1 - 2 each PO Q6H PRN #20 tablet PRN Reason: pain Comments: Follow-up with orthopedics on August 19 as scheduled. Return if you worsen. Your splint was changed today. Do not drink alcohol or drive while on narcotic pain medicine. Note that many narcotic pain relievers also contain tylenol/acetaminophen. Please ensure that your total dose of acetaminophen from all sources does not exceed 3 grams (3000mg) per day. You may constipated on this medication, take a stool softener such as "Colace" twice a day while you are on it. Also recommend a [id number] laxative such as senna or MiraLAX any day that you do not have a bowel movement. If you received narcotic pain medication in the emergency department, do not drive or operate machinery for the next 24 hours. Elevate your arm whenever possible.
== END 2019-08-15 17:26 | disposition home or self-care (01) ==
LOC: ED 16:08
DX: S42.402A Unspecified fracture of lower end of left humerus, initial encounter for closed fracture (principal); W01.0XXA Fall on same level from slipping, tripping and stumbling without subsequent striking against object, initial encounter; I10 Essential (primary) hypertension; Z86.73 Personal history of transient ischemic attack (TIA), and cerebral infarction without residual deficits; Z79.01 Long term (current) use of anticoagulants; F17.200 Nicotine dependence, unspecified, uncomplicated
CPT/HCPCS: 29105

== ENCOUNTER 2019-08-25 09:11 | Emergency (ER) | payer MEDICARE, OTHER ==
[2019-08-25 09:24] VITALS: BP 142/102
[2019-08-25] MEDS ORDERED: LORazepam 1 MG TABLET PO STA (10:07)
--- NOTE | 2019-08-25 10:16 | ED Physician Documentation ---
History of Present Illness - Stated complaint Stated Complaint: LT ARM PX - Chief complaint Chief Complaint: Ext Problem - History obtained from History obtained from: Patient - History of Present Illness Timing: How many weeks ago (2) Pain level max: 6 Pain level now: 4 - Additonal information Additional information: 73-year-old male with a left elbow fracture. Had a cast applied at the [facility]. He states that he is feeling claustrophobic from the cast. He feels anxious. Nothing makes it better or worse. Review of Systems Constitutional: denies: Fever GI: denies: Vomiting Skin: denies: Rash Musculoskeletal: denies: Neck pain, Back pain PD PAST MEDICAL HISTORY - Past Medical History Cardiovascular: Hypertension, Arrhythmia Respiratory: None Neuro: CVA Endocrine/Autoimmune: None GI: Other : None HEENT: Other Psych: None Musculoskeletal: Rheumatoid arthritis Derm: None - Past Surgical History Past Surgical History: Yes Ortho: Other Cardiovascular: Pacemaker - Present Medications Home Medications: Ambulatory Orders Medication Instructions Recorded Confirmed Adalimumab [Humira Pediatric 40 mg SUBQ OAW 07/06/15 05/07/19 Crohn's] Albuterol [Ventolin Hfa] 1 puffs INH Q4H PRN 07/06/15 05/07/19 Folic Acid 1 mg ORAL DAILY 07/06/15 05/07/19 Gabapentin 300 mg ORAL DAILY 07/06/15 05/07/19 Lisinopril/Hydrochlorothiazide 1 tab ORAL DAILY 07/06/15 05/07/19 [Lisinopril-Hctz 10-12.5 mg Tab] Methotrexate 8 tab PO OAW 07/06/15 05/07/19 Multivitamin [Multivitamins] 1 tab ORAL DAILY 07/06/15 05/07/19 Cetirizine [ZyrTEC] 10 mg PO BID 08/02/18 05/07/19 Apixaban [Eliquis] 5 mg PO BID 05/07/19 05/07/19 Atorvastatin Calcium 40 mg PO DAILY PM 05/07/19 05/07/19 Cholecalciferol (Vitamin D3) 1,000 unit PO DAILY 05/07/19 05/07/19 [Vitajoy Daily D] Levetiracetam [Keppra] 2 tab PO BID 05/07/19 05/07/19 Metoprolol Succinate 75 mg PO BID 05/07/19 05/07/19 Prednisone [Manasa] 1 mg PO DAILY 05/07/19 05/07/19 methocarbamoL [Methocarbamol] 750 mg PO TID PRN 05/07/19 05/07/19 Oxycodone HCl/Acetaminophen 1 - 2 each PO Q6H PRN #14 tablet 08/11/19 [Percocet 5-325 mg Tablet] Oxycodone HCl/Acetaminophen 1 - 2 each PO Q6H PRN #20 tablet 08/15/19 [Percocet 5-325 mg Tablet] LORazepam [Ativan] 1 mg PO Q8H PRN #10 tablet 08/25/19 - Allergies Allergies/Adverse Reactions: Allergies Allergy/AdvReac Type Severity Reaction Status Date / Time No Known Drug Allergies Allergy Verified 08/25/19 09:24 - Social History Does the pt smoke?: Yes Smoking Status: Current every day smoker Does the pt drink ETOH?: No Does the pt have substance abuse?: No - Immunizations Immunizations are current?: Yes - POLST Patient has POLST: No PD ED PE NORMAL - Vitals Vital signs reviewed: Yes - General General: Alert and oriented X 3, No acute distress, Well developed/nourished - HEENT HEENT: PERRL, Moist mucous membranes - Neck Neck: Supple, no meningeal sign - Cardiac Cardiac: RRR, Strong equal pulses - Respiratory Respiratory: No respiratory distress, Clear bilaterally - Abdomen Abdomen: Soft, Non tender, Non distended - Derm Derm: Warm and dry - Extremities Extremities: Other (Left arm is in a cast. Neurovascular intact. No evidence of compartment syndrome) - Neuro Neuro: Alert and oriented X 3 - Psych Psych: Normal mood, Normal affect Results - Vitals Vitals: Vital Signs - 24 hr 08/25/19 09:21 Temperature 36.3 C L Heart Rate 76 Respiratory 16 Rate Blood Pressure 142/102 H O2 Saturation 97 Oxygen O2 Source Room air PD MEDICAL DECISION MAKING - ED course Complexity details: considered differential, d/w patient ED course: Patient with what appears to be anxiety secondary to confinement from the cast. Given Ativan and feels better. Will prescribe a small amount of Ativan for home. No evidence of compartment syndrome. The cast is loose at the hand and humerus. Patient counseled regarding signs and symptoms for which I believe and urgent re-evaluation would be necessary. Patient with good understanding of and agreement to plan and is comfortable going home at this time This document was made in part using voice recognition software. While efforts are made to proofread this document, sound alike and grammatical errors may occur. Departure - Departure Disposition: 01 Home, Self Care Clinical Impression: Anxiety Condition: Good Instructions: ED Panic Attack Follow-Up: MOHAN LARA MD [Primary Care Provider] - Within 1 week Prescriptions: LORazepam [Ativan] 1 mg PO Q8H PRN #10 tablet PRN Reason: Anxiety Comments: Return if you worsen. Follow-up with your doctor for further care. Do not drive or operate heavy machinery while taking the Ativan.
== END 2019-08-25 10:20 | disposition home or self-care (01) ==
LOC: ED 09:11
DX: F41.9 Anxiety disorder, unspecified (principal); S42.402D Unspecified fracture of lower end of left humerus, subsequent encounter for fracture with routine healing; X58.XXXD Exposure to other specified factors, subsequent encounter; I10 Essential (primary) hypertension; Z86.73 Personal history of transient ischemic attack (TIA), and cerebral infarction without residual deficits; Z79.01 Long term (current) use of anticoagulants; F17.200 Nicotine dependence, unspecified, uncomplicated
CPT/HCPCS: 99282; 99284; J8499

== ENCOUNTER 2019-08-28 10:00 | Emergency (ER) | payer MEDICARE, OTHER ==
--- NOTE | 2019-08-28 11:26 | XRAY Report ---
Reason: GLF// RT SIDED RIB PAIN Procedure Date: 08/28/2019 Accession Number: [id number] / [id number] Procedure: XR - Ribs w/PA Chest RT CPT Code: Final Report FULL RESULT: EXAM: RIGHT RIB RADIOGRAPHY EXAM DATE: 08/28/2019 11:11 AM. CLINICAL HISTORY: Right-sided rib pain after ground-level fall COMPARISON: CHEST 2 VIEW 06/10/2019 2:41 PM CHEST 1 VIEW 05/07/2019 9:05 AM CHEST 1 VIEW 08/02/2018 3:14 PM CHEST W/O 07/03/2019 8:38 AM. TECHNIQUE: 1 view of the chest and 2 views of the right ribs. FINDINGS: Bones: No fracture or bone lesion is seen. Lungs: Chronic mild elevation of the left hemidiaphragm. Mild right basilar reticular opacity, possibly representing fibrosis or interstitial lung disease given the appearance of the right base on prior CT chest. No focal consolidation, pleural effusion or pneumothorax. Mediastinum: Unchanged borderline cardiomegaly. The aortic arch is mildly tortuous, as before. Left-sided bipolar pacemaker generator with atrial and ventricular leads in similar positions. Other: None. IMPRESSION: No acute cardiopulmonary or bony abnormality. RADIA
--- NOTE | 2019-08-28 12:20 | ED Physician Documentation ---
History of Present Illness - Stated complaint Stated Complaint: RIB PX - Chief complaint Chief Complaint: General - History obtained from History obtained from: Patient (73-year-old gentleman who about 2 weeks ago sustained a fall, had an elbow fracture which is been treated conservatively by the [facility]. Subsequent to that has noted that he also injured the right chest wall during that fall. He has pain near the eighth rib, anterior to mid axillary line on the right. He is not more short of breath than normal, he is a heavy smoker and has COPD. He has a constant cough which is not worse than normal, but it hurts to cough. No fevers, chills. No leg pain or pedal edema.) Review of Systems Constitutional: denies: Fever, Chills Cardiac: denies: Chest pain / pressure, Palpitations Respiratory: reports: Dyspnea, Cough GI: denies: Abdominal Pain, Nausea, Vomiting PD PAST MEDICAL HISTORY - Past Medical History Cardiovascular: Hypertension, Murmur, Arrhythmia, Valve disorder Respiratory: None Neuro: CVA Endocrine/Autoimmune: None GI: Other : None HEENT: Other Psych: Anxiety Musculoskeletal: Osteoarthritis, Rheumatoid arthritis Derm: None - Past Surgical History Past Surgical History: Yes Ortho: Other Cardiovascular: Pacemaker - Present Medications Home Medications: Ambulatory Orders Medication Instructions Recorded Confirmed Adalimumab [Humira Pediatric 40 mg SUBQ OAW 07/06/15 05/07/19 Crohn's] Albuterol [Ventolin Hfa] 1 puffs INH Q4H PRN 07/06/15 05/07/19 Folic Acid 1 mg ORAL DAILY 07/06/15 05/07/19 Gabapentin 300 mg ORAL DAILY 07/06/15 05/07/19 Lisinopril/Hydrochlorothiazide 1 tab ORAL DAILY 07/06/15 05/07/19 [Lisinopril-Hctz 10-12.5 mg Tab] Methotrexate 8 tab PO OAW 07/06/15 05/07/19 Multivitamin [Multivitamins] 1 tab ORAL DAILY 07/06/15 05/07/19 Cetirizine [ZyrTEC] 10 mg PO BID 08/02/18 05/07/19 Apixaban [Eliquis] 5 mg PO BID 05/07/19 05/07/19 Atorvastatin Calcium 40 mg PO DAILY PM 05/07/19 05/07/19 Cholecalciferol (Vitamin D3) 1,000 unit PO DAILY 05/07/19 05/07/19 [Vitajoy Daily D] Levetiracetam [Keppra] 2 tab PO BID 05/07/19 05/07/19 Metoprolol Succinate 75 mg PO BID 05/07/19 05/07/19 Prednisone [Manasa] 1 mg PO DAILY 05/07/19 05/07/19 methocarbamoL [Methocarbamol] 750 mg PO TID PRN 05/07/19 05/07/19 Oxycodone HCl/Acetaminophen 1 - 2 each PO Q6H PRN #14 tablet 08/11/19 [Percocet 5-325 mg Tablet] Oxycodone HCl/Acetaminophen 1 - 2 each PO Q6H PRN #20 tablet 08/15/19 [Percocet 5-325 mg Tablet] LORazepam [Ativan] 1 mg PO Q8H PRN #10 tablet 08/25/19 Oxycodone HCl/Acetaminophen 1 - 2 each PO Q6H PRN #14 tablet 08/28/19 [Percocet 5-325 mg Tablet] - Allergies Allergies/Adverse Reactions: Allergies Allergy/AdvReac Type Severity Reaction Status Date / Time No Known Drug Allergies Allergy Verified 08/28/19 10:03 - Social History Does the pt smoke?: Yes Smoking Status: Current every day smoker Does the pt drink ETOH?: No Does the pt have substance abuse?: No - Immunizations Immunizations are current?: Yes - POLST Patient has POLST: No PD ED PE NORMAL - Vitals Vital signs reviewed: Yes - General General: Alert and oriented X 3, No acute distress - Neck Neck: Supple, no meningeal sign, No bony TTP - Cardiac Cardiac: RRR, No murmur - Respiratory Respiratory: No respiratory distress, Other (Wheezy and rhonchorous throughout without focal findings, tender about rib 8 anterior axillary line. No overlying evidence of trauma or deformity.) - Abdomen Abdomen: Non tender - Extremities Extremities: No edema, No calf tenderness / cord - Neuro Neuro: Normal speech Results - Vitals Vitals: Vital Signs - 24 hr 08/28/19 10:03 Temperature 36.5 C Heart Rate 88 Respiratory 16 Rate Blood Pressure 146/92 H O2 Saturation 96 Oxygen O2 Source Room air - Rads (name of study) X-rays the right ribs and chest Radiology: EMP read contemporaneously (Negative) PD MEDICAL DECISION MAKING - ED course ED course: 73-year-old gentleman with a right chest wall injury, x-rays were negative. He wanted refills of both Ativan and Percocet, I discussed with him that I was unwilling to do both, but was happy to refill his pain medications. Departure - Departure Disposition: 01 Home, Self Care Clinical Impression: Chest wall contusion Qualifiers: Encounter type: initial encounter Laterality: right Qualified Code(s): S20.211A - Contusion of right front wall of thorax, initial encounter Condition: Good Record reviewed to determine appropriate education?: Yes Instructions: ED Contusion Rib Prescriptions: Oxycodone HCl/Acetaminophen [Percocet 5-325 mg Tablet] 1 - 2 each PO Q6H PRN #14 tablet PRN Reason: pain Comments: As discussed, I am happy to refill your pain medication, further refills must come from your primary care physician, I cannot safely refill both pain medications and benzodiazepines at the same time. Call your doctor to arrange a follow-up appointment, make the next available appointment. In the interim, return anytime if worse or if new symptoms develop. Do not drink or drive while taking narcotic pain medication. Note that many narcotic pain relievers also contain Tylenol/acetaminophen. Please ensure that your total dose of acetaminophen from all sources does not exceed 3 g (3000 mg) per day. You may get constipated while on this medication. Take a stool softener such as Colace twice a day while you are on it. Also add an [id number] laxative such as senna or MiraLAX on any day that you do not have a bowel movement. If you received a narcotic pain medication or sedative while in the emergency department, do not drive for the next 24 hours.
[2019-08-28 12:30] VITALS: BP 137/93
== END 2019-08-28 12:30 | disposition home or self-care (01) ==
LOC: ED 10:00
DX: S20.211A Contusion of right front wall of thorax, initial encounter (principal); W19.XXXA Unspecified fall, initial encounter; F17.200 Nicotine dependence, unspecified, uncomplicated; J44.9 Chronic obstructive pulmonary disease, unspecified; R05 Cough; I10 Essential (primary) hypertension; I38 Endocarditis, valve unspecified; F41.9 Anxiety disorder, unspecified; M06.9 Rheumatoid arthritis, unspecified; M19.90 Unspecified osteoarthritis, unspecified site; Z79.891 Long term (current) use of opiate analgesic; Z79.51 Long term (current) use of inhaled steroids; Z79.01 Long term (current) use of anticoagulants; Z79.52 Long term (current) use of systemic steroids; Z86.73 Personal history of transient ischemic attack (TIA), and cerebral infarction without residual deficits; Z95.0 Presence of cardiac pacemaker
CPT/HCPCS: 99283; 99284

== ENCOUNTER 2019-09-16 08:00 | Outpatient (CLI) | payer MEDICARE, OTHER | END 2019-09-16 08:01 | disposition home or self-care (01) | LOC: LAB.N 08:00 | PROVIDERS: ATTEND Internal Medicine Cardiovascular Disease | DX: R06.09 Other forms of dyspnea (principal) | CPT/HCPCS: 36415; 83880 ==

== ENCOUNTER 2019-10-27 09:31 | Emergency (ER) | payer MEDICARE, OTHER ==
[2019-10-27 10:08] LABS: BASOPHILS % (AUTO) 0.4 %; EOSINOPHILS # (AUTO) 0.4 10^3/uL (0.0-0.7); EOSINOPHILS % (AUTO) 4.8 %; HGB - HEMOGLOBIN 15.6 g/dL (14.0-18.0); LYMPHOCYTES # (AUTO) 1.6 10^3/uL (1.5-3.5); LYMPHOCYTES % (AUTO) 17.1 %; MEAN CORPUSCULAR HEMOGLOBIN 35.5 pg (27.0-31.0); MEAN CORPUSCULAR HGB CONC 32.3 g/dL (32.0-36.0); MEAN PLATELET VOLUME 10.6 fL (7.4-11.4); MONOCYTES # (AUTO) 0.5 10^3/uL (0.0-1.0); MONOCYTES % (AUTO) 5.7 %; NEUTROPHILS # (AUTO) 6.5 10^3/uL (1.5-6.6); NEUTROPHILS % (AUTO) 71.3 %; PLT - PLATELET COUNT 145 10^3/uL (130-450); RED BLOOD COUNT 4.39 10^6/uL (4.70-6.10); RED CELL DISTRIBUTION WIDTH 15.5 % (12.0-15.0); WHITE BLOOD COUNT 9.1 x10^3/uL (4.8-10.8)
[2019-10-27] MEDS ORDERED: IPRATROPIUM/ALBUTEROL 3 ML NEB INH STA (10:08)
[2019-10-27] MEDS ORDERED: methylPREDNISolone SUCCINATE 125 MG/2 ML VIAL IVP STA (10:08)
[2019-10-27] MEDS ORDERED: DILTIAZEM 50 MG/10 ML VIAL IVP STA (10:08)
--- NOTE | 2019-10-27 10:10 | ED Physician Documentation ---
PD HPI DYSPNEA - Stated complaint Stated Complaint: SOA/WEAKNESS/COUGH - Chief complaint Chief Complaint: Resp - History obtained from History obtained from: Patient - History of Present Illness Timing - onset: Last night (74-year-old gentleman with history of COPD and atrial fibrillation presents with shortness of breath since last night. It is worse when he is flat or exerting himself. He denies chest pain. He does have a mild cough but no other upper respiratory symptoms. The cough is nonproductive. No pedal edema or calf pain. Has been taking his inhalers at home without improvement.) Review of Systems Constitutional: reports: Myalgias, Fatigue. denies: Fever, Chills Nose: denies: Rhinorrhea / runny nose Throat: denies: Sore throat Cardiac: denies: Chest pain / pressure, Palpitations, Pedal edema, Calf pain Respiratory: reports: Dyspnea, Cough PD PAST MEDICAL HISTORY - Past Medical History Cardiovascular: Hypertension, Murmur, Arrhythmia, Valve disorder Respiratory: None Neuro: CVA Endocrine/Autoimmune: None GI: Other : None HEENT: Other Psych: Anxiety Musculoskeletal: Osteoarthritis, Rheumatoid arthritis Derm: None - Past Surgical History Past Surgical History: Yes Ortho: Other Cardiovascular: Pacemaker - Present Medications Home Medications: Ambulatory Orders Medication Instructions Recorded Confirmed Adalimumab [Humira Pediatric 40 mg SUBQ OAW 07/06/15 05/07/19 Crohn's] Albuterol [Ventolin Hfa] 1 puffs INH Q4H PRN 07/06/15 05/07/19 Folic Acid 1 mg ORAL DAILY 07/06/15 05/07/19 Gabapentin 300 mg ORAL DAILY 07/06/15 05/07/19 Lisinopril/Hydrochlorothiazide 1 tab ORAL DAILY 07/06/15 05/07/19 [Lisinopril-Hctz 10-12.5 mg Tab] Methotrexate 8 tab PO OAW 07/06/15 05/07/19 Multivitamin [Multivitamins] 1 tab ORAL DAILY 07/06/15 05/07/19 Cetirizine [ZyrTEC] 10 mg PO BID 08/02/18 05/07/19 Apixaban [Eliquis] 5 mg PO BID 05/07/19 05/07/19 Atorvastatin Calcium 40 mg PO DAILY PM 05/07/19 05/07/19 Cholecalciferol (Vitamin D3) 1,000 unit PO DAILY 05/07/19 05/07/19 [Vitajoy Daily D] Levetiracetam [Keppra] 2 tab PO BID 05/07/19 05/07/19 Metoprolol Succinate 75 mg PO BID 05/07/19 05/07/19 Prednisone [Manasa] 1 mg PO DAILY 05/07/19 05/07/19 methocarbamoL [Methocarbamol] 750 mg PO TID PRN 05/07/19 05/07/19 Oxycodone HCl/Acetaminophen 1 - 2 each PO Q6H PRN #14 tablet 08/11/19 [Percocet 5-325 mg Tablet] Oxycodone HCl/Acetaminophen 1 - 2 each PO Q6H PRN #20 tablet 08/15/19 [Percocet 5-325 mg Tablet] LORazepam [Ativan] 1 mg PO Q8H PRN #10 tablet 08/25/19 Oxycodone HCl/Acetaminophen 1 - 2 each PO Q6H PRN #14 tablet 08/28/19 [Percocet 5-325 mg Tablet] Furosemide [Lasix] 20 mg PO DAILY #3 tablet 10/27/19 Potassium Chloride 10 meq PO DAILY #3 tablet.er 10/27/19 predniSONE [Deltasone] 20 mg PO [id number] #21 tab 10/27/19 - Allergies Allergies/Adverse Reactions: Allergies Allergy/AdvReac Type Severity Reaction Status Date / Time No Known Drug Allergies Allergy Verified 10/27/19 09:46 - Social History Does the pt smoke?: Yes Smoking Status: Current every day smoker Does the pt drink ETOH?: No Does the pt have substance abuse?: No - Family History Family history: reports: Non contributory - Immunizations Immunizations are current?: Yes - POLST Patient has POLST: No PD ED PE NORMAL - Vitals Vital signs reviewed: Yes - General General: Alert and oriented X 3, No acute distress - HEENT HEENT: PERRL, EOMI - Neck Neck: Supple, no meningeal sign, No bony TTP - Cardiac Cardiac: Other (Irregularly irregular without murmur, tachycardic) - Respiratory Respiratory: Other (Wheezy and rhonchorous throughout) - Abdomen Abdomen: Soft, Non tender - Back Back: No CVA TTP, No spinal TTP - Derm Derm: Normal color, Warm and dry - Extremities Extremities: No edema, No calf tenderness / cord - Neuro Neuro: Alert and oriented X 3, Normal speech Results - Vitals Vitals: Vital Signs - 24 hr 10/27/19 10/27/19 10/27/19 09:42 10:20 10:27 Temperature 36.0 C L Heart Rate 115 H 127 H 85 Respiratory 20 24 20 Rate Blood Pressure 127/100 H 132/119 H O2 Saturation 97 96 10/27/19 10/27/19 10/27/19 10:31 10:43 11:08 Temperature Heart Rate 79 88 95 Respiratory 19 20 20 Rate Blood Pressure 94/75 105/83 H 108/73 O2 Saturation 99 94 95 Oxygen O2 Source Room air - EKG (time done) 0944 Rate: Rate (enter#) (134) Rhythm: Atrial fibrillation (With frequent PVCs) Ischemia: Other (Inferior Q waves with lateral ST depression, no ST elevation.). No: ST elevation c/w ischemia Compare to prior EKG: Changed from prior EKG (Compared with most recent EKG on the chart dated August 022017, he is now in atrial fibrillation which he was not then. The anterior Q waves are old and the lateral ST depression is worse than prior but potentially rate related since at that time the rate was in the 60s.) Computer interpretation: Agree with computer - Labs Labs: Laboratory Tests 10/27/19 10/27/19 10/27/19 09:50 09:50 09:50 WBC 9.1 RBC 4.39 L Hgb 15.6 Hct 48.3 MCV 110.0 H MCH 35.5 H MCHC 32.3 RDW 15.5 H Plt Count 145 MPV 10.6 Neut # (Auto) 6.5 Lymph # (Auto) 1.6 [place] # (Auto) 0.5 Eos # (Auto) 0.4 Baso # (Auto) 0.0 Absolute Nucleated RBC 0.02 Nucleated RBC % 0.2 Sodium 139 Potassium 3.4 L Chloride 102 Carbon Dioxide 28 Anion Gap 9.0 BUN 19 Creatinine 1.1 Estimated GFR (MDRD) 65 L Glucose 141 H Calcium 9.1 Total Bilirubin 0.9 AST 23 ALT 28 Alkaline Phosphatase 81 Troponin I High Sens 33.5 H* B-Natriuretic Peptide Total Protein 7.6 Albumin 3.8 Globulin 3.8 Albumin/Globulin Ratio 1.0 Lipase 23 03/16/20 03/16/20 09:50 11:38 WBC RBC Hgb Hct MCV MCH MCHC RDW Plt Count MPV Neut # (Auto) Lymph # (Auto) [place] # (Auto) Eos # (Auto) Baso # (Auto) Absolute Nucleated RBC Nucleated RBC % Sodium Potassium Chloride Carbon Dioxide Anion Gap BUN Creatinine Estimated GFR (MDRD) Glucose Calcium Total Bilirubin AST ALT Alkaline Phosphatase Troponin I High Sens 29.6 H* B-Natriuretic Peptide 847 H Total Protein Albumin Globulin Albumin/Globulin Ratio Lipase - Rads (name of study) 1v chest Radiology: EMP read contemporaneously (Pulmonary vascular congestion and left pleural effusion compatible with CHF) PD MEDICAL DECISION MAKING - ED course ED course: 74-year-old gentleman presents with some respiratory complaints that seems like a combination of COPD and CHF with a little bit of atrial fibrillation with RVR. After the administration of a DuoNeb here and some IV diltiazem he was feeling and looking much better. He was able to ambulate in the department with a walker without supplemental oxygen and no hypoxemia. We will start him on some extra diuretics and prednisone for the next few days pending follow-up. Departure - Departure Disposition: Home, Self Care Clinical Impression: Moderate COPD (chronic obstructive pulmonary disease) Congestive heart failure Qualifiers: Heart failure type: unspecified Heart failure chronicity: acute Qualified Code(s): I50.9 - Heart failure, unspecified Condition: Good Record reviewed to determine appropriate education?: Yes Instructions: COPD Dc Prescriptions: Furosemide [Lasix] 20 mg PO DAILY #3 tablet Potassium Chloride 10 meq PO DAILY #3 tablet.er predniSONE [Deltasone] 20 mg PO [id number] #21 tab Comments: Follow-up with your doctor in 2 to 3 days for recheck, return for new or worsening symptoms. In addition to your usual medications we are putting you on some steroids which should help with your lungs and some Lasix, a diuretic which should help with your heart. Along with the Lasix you do need to take potassium supplementation. Continue your efforts to try to quit smoking, if your physician has not done an echocardiogram recently he or she may want to order one on you.
[2019-10-27] MEDS ORDERED: diltiaZEM INJ 5 MG/ML VIAL IVP STA (10:14)
[2019-10-27 10:19] LABS: ALBUMIN 3.8 g/dL (3.2-5.5); BILIRUBIN,TOTAL 0.9 mg/dL (0.2-1.0); CALCIUM 9.1 mg/dL (8.5-10.3); CREATININE 1.1 mg/dL (0.6-1.2); TOTAL PROTEIN 7.6 g/dL (6.7-8.2)
--- NOTE | 2019-10-27 10:43 | XRAY Report ---
Reason: dyspnea Procedure Date: 10/27/2019 Accession Number: [id number] / [id number] Procedure: XR - Chest 1 View X-Ray CPT Code: 57188 Final Report FULL RESULT: EXAM: CHEST RADIOGRAPHY EXAM DATE: 10/27/2019 10:24 AM. CLINICAL HISTORY: Dyspnea. COMPARISON: RIBS W/PA CHEST RT 08/28/2019 10:55 AM. TECHNIQUE: 1 view. FINDINGS: Lungs/Pleura: Interval development of pulmonary vascular congestion and interstitial edema. Interval increase in size of the left pleural effusion obscuration of the left lower lobe laterally. The right costophrenic recess is sharp. No pneumothorax bilaterally. Mediastinum: Cardiomegaly. Tortuous thoracic aorta with arteriosclerosis. Stable position of the dual lead left subclavian cardiac pacer and battery pack. Other: Multilevel cervical and thoracic spondylosis. Stable multiple healed posterior and lateral left rib fractures. IMPRESSION: 1. Interval development of pulmonary vascular congestion, interstitial edema, left pleural effusion and cardiomegaly, compatible with congestive heart failure. 2. Other stable chronic degenerative, posttraumatic and postsurgical changes. RADIA
[2019-10-27] MEDS ORDERED: FUROSEMIDE 40 MG/4 ML VIAL IVP STA (10:50)
[2019-10-27 12:39] VITALS: BP 126/90
== END 2019-10-27 12:39 | disposition home or self-care (01) ==
LOC: ED 09:31
DX: I11.0 Hypertensive heart disease with heart failure (principal); I50.9 Heart failure, unspecified; J44.9 Chronic obstructive pulmonary disease, unspecified; F17.210 Nicotine dependence, cigarettes, uncomplicated
CPT/HCPCS: 36415; 71045; 80053; 83690; 83880; 84484; 85025; 93005; 94640; 94664; 96374; 96375; 99284

== ENCOUNTER 2019-12-20 05:10 | Inpatient (IN) | payer MEDICARE, OTHER ==
--- NOTE | 2019-12-20 05:19 | ED Physician Documentation ---
History of Present Illness - Stated complaint Stated Complaint: SOA - History obtained from History obtained from: Patient (The patient is a 74-year-old male who presents he is got a known history of COPD as well as congestive heart failure and atrial fibrillation. He reports a worsening cough without hemoptysis and denies fevers.) Review of Systems Constitutional: reports: Reviewed and negative Eyes: reports: Reviewed and negative Ears: reports: Reviewed and negative Nose: reports: Reviewed and negative Throat: reports: Reviewed and negative Cardiac: reports: Palpitations Respiratory: reports: Dyspnea, Cough GI: reports: Reviewed and negative : reports: Reviewed and negative Skin: reports: Reviewed and negative Musculoskeletal: reports: Reviewed and negative Neurologic: reports: Reviewed and negative Psychiatric: reports: Reviewed and negative Endocrine: reports: Reviewed and negative Immunocompromised: reports: Reviewed and negative PD PAST MEDICAL HISTORY - Past Medical History Cardiovascular: Hypertension, Murmur, Arrhythmia, Valve disorder Respiratory: None Neuro: CVA Endocrine/Autoimmune: None GI: Other : None HEENT: Other Psych: Anxiety Musculoskeletal: Osteoarthritis, Rheumatoid arthritis Derm: None - Past Surgical History Past Surgical History: Yes Ortho: Other Cardiovascular: Pacemaker - Present Medications Home Medications: Ambulatory Orders Medication Instructions Recorded Confirmed Folic Acid 2 mg PO DAILY 07/06/15 12/20/19 Methotrexate 20 mg PO MO@1400 07/06/15 12/20/19 Apixaban [Eliquis] 5 mg PO BID 05/07/19 12/20/19 Atorvastatin Calcium 40 mg PO QPM 05/07/19 12/20/19 Cholecalciferol (Vitamin D3) 1,000 unit PO DAILY 05/07/19 12/20/19 [Vitajoy Daily D] Metoprolol Succinate 75 mg PO BID 05/07/19 12/20/19 Adalimumab [Humira(Cf) Pen] 40 mg SUBQ SA@1200 12/20/19 12/20/19 Albuterol Sulfate [Albuterol 2 puffs INH Q4H PRN 12/20/19 12/20/19 Sulfate Hfa] Aspirin [Aspirin EC] 81 mg PO DAILY 12/20/19 12/20/19 Budesonide/Formoterol Fumarate 2 puffs INH BID 12/20/19 12/20/19 [Symbicort 160-4.5 Mcg Inhaler] Cetirizine HCl 10 mg PO BID 12/20/19 12/20/19 Gabapentin 600 mg PO TID PRN 12/20/19 12/20/19 Hydrochlorothiazide 12.5 mg PO DAILY 12/20/19 12/20/19 Multivitamin W/Minerals [Theragran 1 tab PO DAILY 12/20/19 12/20/19 M] Ondansetron [Ondansetron Odt] 4 mg PO Q6H PRN 12/20/19 12/20/19 Oxycodone HCl/Acetaminophen 2 tab PO Q6H PRN 12/20/19 12/20/19 [Oxycodone-Acetaminophen 5-325] levETIRAcetam [Levetiracetam] 1,000 mg PO BID 12/20/19 12/20/19 predniSONE [Prednisone] 2 mg PO DAILY 12/20/19 12/20/19 - Allergies Allergies/Adverse Reactions: Allergies Allergy/AdvReac Type Severity Reaction Status Date / Time No Known Drug Allergies Allergy Verified 10/27/19 09:46 - Social History Does the pt smoke?: Yes Smoking Status: Current every day smoker Does the pt drink ETOH?: No Does the pt have substance abuse?: No - Immunizations Immunizations are current?: Yes - POLST Patient has POLST: No PD ED PE NORMAL - Vitals Vital signs reviewed: Yes - General General: Alert and oriented X 3, Other (Dyspneic on exertion) - HEENT HEENT: Atraumatic, PERRL - Neck Neck: Supple, no meningeal sign, No JVD - Cardiac Cardiac: Other (Irregularly irregular) - Respiratory Respiratory: Other (Tachypneic, no use of accessory muscles diffuse crackles at the bases bilaterally diffuse wheezing throughout bilateral lung ramos as well) - Abdomen Abdomen: Normal bowel sounds, Soft, Non tender, Non distended - Back Back: No CVA TTP, No spinal TTP - Derm Derm: Normal color, Warm and dry, No rash - Extremities Extremities: No deformity, Other (1+ edema to bilateral lower extremities) - Neuro Neuro: Alert and oriented X 3, tile mechanic 2-12 intact, No motor deficit, No sensory deficit, Normal speech - Psych Psych: Normal mood, Normal affect Results - Vitals Vitals: Vital Signs - 24 hr 12/20/19 12/20/19 12/20/19 05:15 05:49 06:09 Temperature 36.5 C Heart Rate 109 H 106 H 99 Respiratory 40 H 24 22 Rate Blood Pressure 131/97 H 130/96 H O2 Saturation 96 96 12/20/19 12/20/19 12/20/19 06:32 08:06 08:16 Temperature 36.9 C Heart Rate 120 H 108 H 115 H Respiratory 22 22 20 Rate Blood Pressure 122/79 106/82 H O2 Saturation 96 93 12/20/19 12/20/19 08:50 09:04 Temperature Heart Rate 144 H 116 H Respiratory 24 22 Rate Blood Pressure 107/89 H O2 Saturation 87 L 94 Oxygen O2 Source Room air - EKG (time done) 05:25 Rate: Other (no stemi) - Labs Labs: Laboratory Tests 12/20/19 12/20/19 12/20/19 05:30 05:30 05:30 WBC 12.0 H RBC 3.48 L Hgb 15.1 Hct 45.8 MCV 112.5 H MCH 36.4 H MCHC 32.3 RDW 18.3 H Plt Count 175 MPV 10.9 Neut # (Auto) 9.3 H Lymph # (Auto) 1.6 [place] # (Auto) 0.6 Eos # (Auto) 0.4 Baso # (Auto) 0.1 Absolute Nucleated RBC 0.00 Nucleated RBC % 0.0 Manual Slide Review Indicated Platelet Estimate NORMAL (130-450,000) Platelet Morphology NORMAL APPEARANCE RBC Morph Micro Appear 2+ MACROCYTOSIS PT 15.9 H INR 1.4 H APTT 30.3 Sodium 138 Potassium 3.4 L Chloride 104 Carbon Dioxide 25 Anion Gap 9.0 BUN 18 Creatinine 1.0 Estimated GFR (MDRD) 73 L Glucose 143 H Calcium 8.8 Total Bilirubin 1.0 AST 25 ALT 24 Alkaline Phosphatase 74 Total Creatine Kinase 45 Troponin I High Sens B-Natriuretic Peptide Total Protein 7.1 Albumin 3.5 Globulin 3.6 Albumin/Globulin Ratio 1.0 Lipase 27 12/20/19 12/20/19 05:30 05:30 WBC RBC Hgb Hct MCV MCH MCHC RDW Plt Count MPV Neut # (Auto) Lymph # (Auto) [place] # (Auto) Eos # (Auto) Baso # (Auto) Absolute Nucleated RBC Nucleated RBC % Manual Slide Review Platelet Estimate Platelet Morphology RBC Morph Micro Appear PT INR APTT Sodium Potassium Chloride Carbon Dioxide Anion Gap BUN Creatinine Estimated GFR (MDRD) Glucose Calcium Total Bilirubin AST ALT Alkaline Phosphatase Total Creatine Kinase Troponin I High Sens 32.1 H* B-Natriuretic Peptide 997 H Total Protein Albumin Globulin Albumin/Globulin Ratio Lipase PD MEDICAL DECISION MAKING - ED course Complexity details: considered differential (COPD, CHF, atrial fibrillation, Pneumonia, bronchitis), other (Patient turned over to Dr. Lyons at shift change.) Departure - Departure Disposition: 66 [facility] DC/Xfer Clinical Impression: Dyspnea, Hypoxia COPD (chronic obstructive pulmonary disease) Qualifiers: COPD type: unspecified COPD Qualified Code(s): J44.9 - Chronic obstructive pulmonary disease, unspecified Atrial fibrillation Qualifiers: Atrial fibrillation type: unspecified Qualified Code(s): I48.91 - Unspecified atrial fibrillation CHF (congestive heart failure) Qualifiers: Heart failure type: unspecified Heart failure chronicity: unspecified Qualified Code(s): I50.9 - Heart failure, unspecified Condition: Stable Discharge Date/Time: 12/20/19 10:36
[2019-12-20] MEDS ORDERED: ALBUTEROL 1 PUFF INH STA (05:56)
[2019-12-20] MEDS ORDERED: methylPREDNISolone SUCCINATE 125 MG/2 ML VIAL IVP STA (05:57)
[2019-12-20] MEDS ORDERED: cefTRIAXone 1 GM in SODIUM CHLORIDE 0.9% MINIBAG 100 ML IV STA (05:57)
[2019-12-20 06:09] LABS: BASOPHILS # (AUTO) 0.1 10^3/uL (0.0-0.1); BASOPHILS % (AUTO) 0.7 %; EOSINOPHILS # (AUTO) 0.4 10^3/uL (0.0-0.7); EOSINOPHILS % (AUTO) 2.9 %; HGB - HEMOGLOBIN 15.1 g/dL (14.0-18.0); LYMPHOCYTES # (AUTO) 1.6 10^3/uL (1.5-3.5); LYMPHOCYTES % (AUTO) 13.2 %; MEAN PLATELET VOLUME 10.9 fL (7.4-11.4); MONOCYTES # (AUTO) 0.6 10^3/uL (0.0-1.0); MONOCYTES % (AUTO) 5.1 %; NEUTROPHILS # (AUTO) 9.3 10^3/uL (1.5-6.6); NEUTROPHILS % (AUTO) 77.2 %; PLT - PLATELET COUNT 175 10^3/uL (130-450); RED BLOOD COUNT 3.48 10^6/uL (4.70-6.10); RED CELL DISTRIBUTION WIDTH 18.3 % (12.0-15.0)
[2019-12-20] MEDS ORDERED: MORPHINE 2 MG/ML CARPUJECT IVP STA (06:14)
[2019-12-20] MEDS ORDERED: ONDANSETRON 4 MG/2 ML VIAL IVP STA (06:14)
[2019-12-20 06:16] LABS: INR 1.4 (0.8-1.2); PT - PROTHROMBIN TIME 15.9 secs (9.9-12.6)
[2019-12-20 06:21] LABS: ALBUMIN 3.5 g/dL (3.2-5.5); CALCIUM 8.8 mg/dL (8.5-10.3); TOTAL PROTEIN 7.1 g/dL (6.7-8.2)
[2019-12-20 06:23] LABS: PARTIAL THROMBOPLASTIN TIME 30.3 secs (24.9-33.3)
[2019-12-20] MEDS ORDERED: FUROSEMIDE 40 MG/4 ML VIAL IVP STA ×2 (06:41→07:55)
--- NOTE | 2019-12-20 07:01 | XRAY Report ---
Reason: sob Procedure Date: 12/20/2019 Accession Number: [id number] / [id number] Procedure: XR - Chest 2 View X-Ray CPT Code: 86034 Final Report FULL RESULT: EXAM: CHEST RADIOGRAPHY EXAM DATE: 12/20/2019 06:31 AM CLINICAL HISTORY: Sob. COMPARISON: CHEST 1 VIEW 10/27/2019 10:05 AM. TECHNIQUE: 2 views. FINDINGS: Lungs/Pleura: Mild interstitial and airspace opacities throughout both lungs. No pleural effusion. No pneumothorax. Mediastinum: Mild cardiomegaly. Other: Cardiac device with tips in the regions of the right atrial appendage and right ventricular apex. IMPRESSION: Interstitial and airspace opacities throughout both lungs, which may reflect mild pulmonary edema. Limited evaluation on the frontal projection due to technique/underpenetration. RADIA
[2019-12-20 07:51] LABS: MEAN CORPUSCULAR VOLUME 112.5 fL (80.0-94.0)
[2019-12-20 07:52] LABS: MEAN CORPUSCULAR HEMOGLOBIN 36.4 pg (27.0-31.0); MEAN CORPUSCULAR HGB CONC 32.3 g/dL (32.0-36.0)
[2019-12-20] MEDS ORDERED: IPRATROPIUM/ALBUTEROL 3 ML NEB INH STA (07:55)
[2019-12-20] MEDS ORDERED: METOPROLOL 5 MG/5 ML VIAL IVP STA (07:56)
[2019-12-20 08:16] LABS: PLATELET ESTIMATE, MANUAL NORMAL (130-450,000) (NORMAL); PLATELET MORPHOLOGY NORMAL APPEARANCE (NORMAL)
--- NOTE | 2019-12-20 09:19 | ED Physician Documentation ---
ED Addendum - Addendum Addendum: 12/20/19 09:14 The patient was seen after change of shift. He is conversant with some conversational dyspnea but able to speak in full sentences. His oxygenation is running between 92 and 95% but he is still having some work of breathing with prolonged expiratory phase. Exam shows diffuse expiratory wheezing and prolonged expiratory phase. There is also some crackles at the bases and the lower third of the lung ramos bilaterally. He has only mild 1+ edema in both legs. His heart rate is running at 10 5-1 15 in fibrillation. He states he is in chronic fibrillation but typically runs 60-80 heart rate. His blood pressure is normal. Treatment he had not urinated from the first diuretic dose. He is given Lasix 40 mg repeat dose. He is also given a DuoNeb nebulizer treatment. He is given metoprolol 5 mg IV to decrease his fibrillation rate. Some of that may be appro priate reflex tachycardia from the trouble breathing but he does have an element of failure as well. After the repeat interventions with repeat nebulizer and slowing his heart rate, his oxygenation is still adequate at rest but walking just in the room just several yards or so, he desaturates to 87% and is quite dyspneic and generally weak. He does not normally use oxygen at home. I think there is enough concurrent factors and persistent minimal exertion hypoxia to warrant further treatment in the hospital. Diagnoses acute dyspnea with exertional hypoxia #2 rapid rate atrial fibrillation #3 exacerbation of COPD #4 congestive heart failure exacerbation Disposition I will talk to the hospitalist for further care and in the hospital.
[2019-12-20] MEDS ORDERED: MORPHINE 2 MG/ML CARPUJECT IVP PRN (10:29)
[2019-12-20] MEDS ORDERED: ONDANSETRON 4 MG/2 ML VIAL IVP PRN (10:29)
[2019-12-20] MEDS ORDERED: ACETAMINOPHEN 325 MG TABLET PO PRN ×2 (10:29→19:37)
[2019-12-20] MEDS ORDERED: SODIUM CHLORIDE 0.9% 500 ML IV SCH (11:00)
[2019-12-20] MEDS: guaiFENesin 600 MG TABLET PO SCH ×2 (11:14→20:27)
[2019-12-20] MEDS: POTASSIUM CHLOR 10 MEQ/100 ML 10 MEQ/100 ML BAG IV SCH ×3 (11:19→15:21)
--- NOTE | 2019-12-20 11:24 | PHARMACY PROGRESS NOTE ---
- Best Possible Medication History Admit Date and Time: 12/20/19927 Processed by: Pharmacy Medication History completed: Yes Patient Interview: Completed Secondary Source(s): Prescription bottles, Pharmacy records, Insurance records As the person ultimately responsible for medication therapy, providers are able to order a medication from an existing home medication list in [facility] via the "Reconcile Routine" prior to Confirmation of that medication by learning support resource room teacher. Such practice is discouraged except when the physician, in their clinical judgment, deems that a medical need exists for a medication without regard to previous use.
[2019-12-20] MEDS: NICOTINE 21 MG PATCH TOP SCH (11:44)
[2019-12-20] MEDS: methylPREDNISolone SUCCINATE 40 MG/ML VIAL IVP SCH ×2 (13:40→21:52)
[2019-12-20] MEDS: SODIUM CHLORIDE FLUSH 0.9% 10 ML SYRINGE IVP PRN ×2 (13:41→21:57)
[2019-12-20] MEDS: FUROSEMIDE 20 MG/2 ML VIAL IVP SCH (13:41)
[2019-12-20] MEDS ORDERED: AZITHROMYCIN 250 MG TABLET PO SCH (15:00)
[2019-12-20] MEDS: SODIUM CHLORIDE FLUSH 0.9% 10 ML SYRINGE IVP SCH (16:35)
[2019-12-20] MEDS ORDERED: GABAPENTIN 300 MG CAPSULE PO PRN (18:27)
[2019-12-20] MEDS ORDERED: oxyCODONE/ACET 5/325 Prepack 4 PO PRN (18:27)
[2019-12-20] MEDS: APIXABAN 5 MG TABLET PO SCH (20:25)
[2019-12-20] MEDS: FAMOTIDINE 20 MG TABLET PO SCH (20:26)
[2019-12-20] MEDS: ATORVASTATIN 40 MG TABLET PO SCH (20:26)
[2019-12-20] MEDS: CETIRIZINE 10 MG TABLET PO SCH (20:27)
[2019-12-20] MEDS: levETIRAcetam 250 MG TABLET PO SCH (20:27)
[2019-12-20] MEDS: MONTELUKAST 10 MG TABLET PO SCH (20:30)
[2019-12-20] MEDS ORDERED: ALBUTEROL 1 PUFF INH PRN (21:18)
[2019-12-20] MEDS: METOPROLOL SUCCINATE 50 MG TABLET PO SCH (21:52)
--- NOTE | 2019-12-20 22:29 | HISTORY & PHYSICAL EXAMINATION ---
DATE OF SERVICE: 12/20/2019 Physician: Liss Vergara MD HISTORY OF PRESENT ILLNESS: This is a 74-year-old white male with a history of atrial fibrillation, on anticoagulation and a pacemaker, history of CHF, unknown if it is systolic or diastolic, and a history of chronic obstructive pulmonary disease, an ex-smoker who has decreased down to two cigarettes per day. The patient presents with complaints of two days of orthopnea, dyspnea on exertion for two days, and a wet cough. He denies any fever. There has been no leg edema. In the emergency room, he was worked up and found to have CHF on chest x-ray and BNP in the 1000s (his baseline BNP is in the 500s). He was given a puffer treatment, as well as a DuoNeb nebulizer treatment, and still had dyspnea and desaturated on room air to 87% with walking. He was given Lasix IV x2 and had continued shortness of breath despite some diuresis. He was also found to have atrial fibrillation with a rate of 120. He is being admitted for the above. PAST MEDICAL HISTORY 1. Chronic atrial fibrillation, on Eliquis. 2. History of prior CVAs with left-sided weakness. 3. COPD. 4. CHF, unknown type. 5. Pacemaker. 6. Rheumatoid arthritis, on immunosuppressive therapy. SOCIAL HISTORY: The patient lives alone; he has been an on and off smoker for 50 years, most recently tapering down to two cigarettes per day. He drinks no alcohol, uses no illicit drugs. He used to have [facility], but no longer. He has two potato chip cooker machine at [facility]. REVIEW OF SYSTEMS: A comprehensive review of systems was performed, and the pertinent positives are listed, the rest are negative. FAMILY HISTORY: No inherited diseases in the family. ALLERGIES: NONE. MEDICATIONS 1. Albuterol inhaler p.r.n. 2. Symbicort inhaler b.i.d. 3. Ondansetron tablets p.r.n. nausea. 4. HCTZ 12.5 mg daily. 5. Prednisone 2 mg daily. 6. Humira pen every week. 7. Eliquis 5 mg b.i.d. 8. Baby aspirin daily. 9. Lipitor 40 mg every night. 10. Cetirizine 10 mg b.i.d. PHYSICAL EXAMINATION GENERAL: Elderly white male. He has mild respiratory distress, wearing nasal cannula oxygen. He is breathing with pursed lips and needing to take breaths between sentences. VITAL SIGNS: Blood pressure 108/81, pulse 90-100 in atrial fibrillation, room air saturation was 91%, which decreased to 87% with walking, now he is saturating at 93% on nasal cannula at 2 liters per minute. He is afebrile. HEENT: Moist oral mucosa. He has a large white dacosta. He appears well kempt. NECK: Not visible because of the dacosta. CHEST: Diffuse prolonged expiratory phase and scattered wheezes. There are bibasilar rales as well. CARDIAC: Heart sounds distant, tachycardic. ABDOMEN: Soft, mildly distended, nontender. Normal bowel sounds. EXTREMITIES: 1+ edema of the left ankle and no edema on the right. NEUROLOGIC: Grossly intact with mild weakness of the left upper extremity only. LABORATORY DATA: Sodium 138, potassium 3.4, BUN 18, creatinine 1.0. Normal liver tests. Troponin high sensitivity 32 and the next is 27. BNP 997. Liver tests normal. White blood count 12 with a left shift, hemoglobin 15 with MCV of 112, platelet count 175. Coagulation tests show an INR of 1.4, but this is not reliable in a patient on Eliquis. IMAGING: Chest x-ray shows mild interstitial bilateral edema. EKG: Atrial fibrillation, rate 105. There were rare ventricular demand pacing seen and a single PVC. IMPRESSION/DIAGNOSES 1. Atrial fibrillation with rapid ventricular response. 2. Chronic obstructive pulmonary disease with exacerbation. 3. COVID suspected. 4. Congestive heart failure exacerbation. 5. Tobacco abuse. 6. Hypokalemia. 7. Elevated troponin. 8. Elevated white blood count. 9. Rheumatoid arthritis, on immunosuppressants. 10. Thoracic aortic aneurysm history (this was seen on echo in July 2019 and measured 4.7 cm). 11. History of cerebrovascular accident with left-sided weakness. 12. Immunosuppressed status, on steroids and Humira and Methotrexate. PLAN: Admit the patient to a telemetry bed med/surg unit. Continue with nebulizers for his COPD exacerbation and start high-dose steroids IV. Obtain sputum for culture and start empiric Zithromax to treat a COPD exacerbation with bronchitis. Follow his CBC daily. Continue with IV b.i.d. diuretics, follow the BNP daily. The troponins appear to be flat, indicating he is ruling out for acute coronary event. Obtain an echo to establish LV and RV contractility. Continue with oxygen supplemental. Continue with his medications for rate control, probably increasing his metoprolol for better rate. Offer a nicotine patch for his tobacco use. Replace the low potassium and follow BMP daily. Continue with his methotrexate and Humira as being dosed, and because he was on steroids, the high dose Solu-Medrol for his COPD will substitute for a stress dose of steroids for his immunosuppressed state. The patient may need an oxygen walk test to determine if he needs chronic home O2. CODE STATUS: FULL CODE. DEEP VENOUS THROMBOSIS PROPHYLAXIS: SCDs and pharmacotherapy. ATTESTATION: The patient is expected to be discharged or transferred to another facility within 96 hours: Yes. cc: Valentino Corado MD TD: 12/20/2019 18:47 MTDD
[2019-12-21] MEDS: SODIUM CHLORIDE FLUSH 0.9% 10 ML SYRINGE IVP SCH ×3 (00:03→21:50)
[2019-12-21] MEDS: diphenhydrAMINE 25 MG CAPSULE PO PRN ×2 (00:15→22:11)
[2019-12-21] MEDS: oxyCODONE 5 MG TABLET PO PRN ×2 (05:26→18:36)
[2019-12-21] MEDS: methylPREDNISolone SUCCINATE 40 MG/ML VIAL IVP SCH ×3 (05:28→22:05)
[2019-12-21] MEDS: SODIUM CHLORIDE FLUSH 0.9% 10 ML SYRINGE IVP PRN (05:30)
[2019-12-21] MEDS: FUROSEMIDE 20 MG/2 ML VIAL IVP SCH (05:36)
[2019-12-21 05:45] LABS: BASOPHILS % (AUTO) 0.1 %; HGB - HEMOGLOBIN 14.8 g/dL (14.0-18.0); LYMPHOCYTES # (AUTO) 0.5 10^3/uL (1.5-3.5); LYMPHOCYTES % (AUTO) 3.9 %; MEAN CORPUSCULAR HEMOGLOBIN 41.3 pg (27.0-31.0); MEAN CORPUSCULAR HGB CONC 35.8 g/dL (32.0-36.0); MEAN CORPUSCULAR VOLUME 115.4 fL (80.0-94.0); MEAN PLATELET VOLUME 10.9 fL (7.4-11.4); MONOCYTES # (AUTO) 0.3 10^3/uL (0.0-1.0); MONOCYTES % (AUTO) 1.9 %; NEUTROPHILS # (AUTO) 12.5 10^3/uL (1.5-6.6); NEUTROPHILS % (AUTO) 93.4 %; PLT - PLATELET COUNT 155 10^3/uL (130-450); RED BLOOD COUNT 3.58 10^6/uL (4.70-6.10); RED CELL DISTRIBUTION WIDTH 15.9 % (12.0-15.0); WHITE BLOOD COUNT 13.4 x10^3/uL (4.8-10.8)
[2019-12-21 05:50] LABS: CALCIUM 8.7 mg/dL (8.5-10.3); CREATININE 1.2 mg/dL (0.6-1.2); MAGNESIUM 1.7 mg/dL (1.7-2.8)
[2019-12-21 06:46] LABS: RBC MORPHOLOGY (MULTIPLE) 2+ MACROCYTOSIS (NORMAL)
[2019-12-21 06:47] LABS: PLATELET ESTIMATE, MANUAL NORMAL (130-450,000) (NORMAL); PLATELET MORPHOLOGY NORMAL APPEARANCE (NORMAL)
[2019-12-21] MEDS: LEVALBUTEROL 1.25 MG/3 ML NEB INH PRN ×3 (07:39→21:29)
[2019-12-21] MEDS: METOPROLOL SUCCINATE 50 MG TABLET PO SCH ×3 (09:00→22:06)
[2019-12-21] MEDS: NICOTINE 21 MG PATCH TOP SCH (09:18)
[2019-12-21] MEDS: levETIRAcetam 250 MG TABLET PO SCH ×2 (09:19→22:05)
[2019-12-21] MEDS: CHOLECALCIFEROL 1,000 UNIT TABLET PO SCH (09:19)
[2019-12-21] MEDS: ASPIRIN EC 81 MG TABLET PO SCH (09:20)
[2019-12-21] MEDS: MULTIVITAMIN W/MINERALS TABLET PO SCH (09:20)
[2019-12-21] MEDS: CETIRIZINE 10 MG TABLET PO SCH ×2 (09:20→22:06)
[2019-12-21] MEDS: guaiFENesin 600 MG TABLET PO SCH ×2 (09:20→22:06)
[2019-12-21] MEDS: APIXABAN 5 MG TABLET PO SCH ×2 (09:20→22:06)
[2019-12-21] MEDS: FOLIC ACID 1 MG TABLET PO SCH (09:21)
[2019-12-21] MEDS: AZITHROMYCIN 250 MG TABLET PO SCH (09:21)
[2019-12-21] MEDS: FAMOTIDINE 20 MG TABLET PO SCH ×2 (09:27→22:10)
--- NOTE | 2019-12-21 15:49 | PROVIDER PROGRESS NOTE ---
Assessment/Plan - Problem List (1) Atrial fibrillation with RVR Assessment/Plan: HR is controlled now on current meds (2) COPD with exacerbation Assessment/Plan: Better with iv steroids nebs, Mucinex. Will add chest PT. Continue O2 supplemental He will need a walk test at [facility] to see if he needs home O2, in which he is very interested. (3) CHF exacerbation Assessment/Plan: iv Lasix helped leg edema and SOB. Awaiting Echo to evaluate EF (today is Sun and we have no rf technician [facility]) (4) Hypokalemia Assessment/Plan: Replace Follow BMP (5) Rheumatoid arthritis Assessment/Plan: Mild hand deformity noted (6) Thoracic aortic aneurysm (TAA) Assessment/Plan: As per Hx (7) History of CVA (cerebrovascular accident) Assessment/Plan: Some trivial weakness and memory problem (8) Immunosuppressed status Assessment/Plan: For his RA he was on MTX, a monthly immuno med and daily steroid. Stress dose steroids ordered now, for COPD - Current Meds Current Meds: Current Medications Generic Name Dose Route Start Last Admin Trade Name Freq PRN Reason Stop Dose Admin Acetaminophen 325 mg 12/20/19 19:37 12/21/19 05:26 Tylenol PO 325 mg Q6HR PRN Administration PAIN Apixaban 5 mg 12/20/19 21:00 12/21/19 09:20 Eliquis PO 5 mg BID BERTHA Administration Aspirin 81 mg 12/21/19 09:00 12/21/19 09:20 Ecotrin PO 81 mg DAILY BERTHA Administration Atorvastatin Calcium 40 mg 12/20/19 21:00 12/20/19 20:26 Lipitor PO 40 mg QPM BERTHA Administration Azithromycin 250 mg 12/21/19 09:00 12/21/19 09:21 Zithromax PO 12/25/19 00:00 250 mg DAILY BERTHA Administration Cetirizine HCl 10 mg 12/20/19 21:00 12/21/19 09:20 Zyrtec PO 10 mg BID BERTHA Administration Cholecalciferol 1,000 unit 12/21/19 09:00 12/21/19 09:19 Vitamin D3 PO 1,000 unit DAILY BERTHA Administration Diltiazem HCl 60 mg 12/21/19 13:00 12/21/19 14:01 Cardizem PO 60 mg Q8H BERTHA Administration Diphenhydramine HCl 25 mg 12/20/19 23:07 12/21/19 00:15 Benadryl PO 25 mg QPM PRN Administration Insomnia Famotidine 20 mg 12/20/19 21:00 12/21/19 09:27 Pepcid PO 20 mg BID BERTHA Administration Folic Acid 2 mg 12/21/19 09:00 12/21/19 09:21 PO 2 mg DAILY BERTHA Administration Gabapentin 600 mg 12/20/19 18:27 12/21/19 09:20 Neurontin PO 600 mg TID PRN Administration BACK PAIN Guaifenesin 600 mg 12/20/19 11:00 12/21/19 09:20 Mucinex PO 600 mg BID BERTHA Administration Levalbuterol HCl 1.25 mg 12/20/19 15:00 12/21/19 14:36 Xopenex INH 1.25 mg RTQ4H PRN Administration SHORTNESS OF AIR/WHEEZING Levetiracetam 1,000 mg 12/20/19 21:00 12/21/19 09:19 Keppra PO 1,000 mg BID BERTHA Administration Methylprednisolone 80 mg 12/20/19 14:00 12/21/19 14:02 Solu-Medrol (40mg Vial) IVP 40 mg TID BERTHA Administration Metoprolol Succinate 50 mg 12/21/19 12:13 12/21/19 12:47 Toprol Xl PO 50 mg BID BERTHA Administration Montelukast Sodium 10 mg 12/20/19 21:00 12/20/19 20:30 Singulair PO 10 mg QPM BERTHA Administration Multivitamins/Minerals 1 tab 12/21/19 09:00 12/21/19 09:20 Theragran M PO 1 tab DAILY BERTHA Administration Nicotine 1 patch 12/20/19 11:00 12/21/19 09:18 Nicoderm TOP 1 patch DAILY BERTHA Administration Oxycodone HCl 5 mg 12/20/19 19:36 12/21/19 05:26 Roxicodone PO 5 mg Q6HR PRN Administration PAIN Sodium Chloride 10 ml 12/20/19 10:29 12/21/19 05:30 Normal Saline Flush 0.9% IVP 10 ml PRN PRN Administration NEEDED PER PROVIDER ORDERS Sodium Chloride 10 ml 12/20/19 17:00 12/21/19 09:22 Normal Saline Flush 0.9% IVP 10 ml 0100,0900,1700 BERTHA Administration - Lab Result Fish Bone Diagrams: 12/22/19 05:12 12/22/19 05:12 - Additional Planning My Orders: My Active Orders 12/20/19 15:00 Levalbuterol [Xopenex] 1.25 mg INH RTQ4H PRN 12/20/19 17:00 Sodium Chloride Flush 0.9% [Normal Saline Flush 0.9%] 10 ml IVP 0100,0900,1700 12/20/19 18:27 Gabapentin [Neurontin] 600 mg PO TID PRN 12/20/19 19:36 oxyCODONE [Roxicodone] 5 mg PO Q6HR PRN 12/20/19 19:37 Acetaminophen [Tylenol] 325 mg PO Q6HR PRN 12/20/19 20:45 CUL, RESPIRATORY [RM] Urgent 12/20/19 21:00 Apixaban [Eliquis] 5 mg PO BID Atorvastatin [Lipitor] 40 mg PO QPM Cetirizine [ZyrTEC] 10 mg PO BID Famotidine [Pepcid] 20 mg PO BID Montelukast [Singulair] 10 mg PO QPM levETIRAcetam [Keppra] 1,000 mg PO BID 12/21/19 09:00 Aspirin EC [Ecotrin] 81 mg PO DAILY Azithromycin [Zithromax] 250 mg PO DAILY Cholecalciferol [Vitamin D3] 1,000 unit PO DAILY Folic Acid 2 mg PO DAILY Multivitamin W/Minerals [Theragran M] 1 tab PO DAILY 12/21/19 12:13 Metoprolol Succinate [Toprol Xl] 50 mg PO BID 12/21/19 13:00 diltiaZEM [Cardizem] 60 mg PO Q8H 12/22/19 05:00 BMP - BASIC METABOLIC PANEL [CHEM] DAILYLAB BNP - B-NATRIURETIC PEPTIDE [IAI] DAILYLAB CBC - COMP BLD CT W/AUTO DIFF [HEME] DAILYLAB MAGNESIUM [CHEM] DAILYLAB 12/22/19 08:00 Echo Transthoracic Complete [ECHO] Routine 12/22/19 09:00 Furosemide [Lasix] 20 mg PO DAILY 12/22/19 14:00 Methotrexate 20 mg PO MO@1400 12/23/19 05:00 BMP - BASIC METABOLIC PANEL [CHEM] DAILYLAB CBC - COMP BLD CT W/AUTO DIFF [HEME] DAILYLAB MAGNESIUM [CHEM] DAILYLAB 12/27/19 12:00 Adalimumab [Humira(Cf) Pen] 40 mg SUBQ SA@1200 Subjective - Subjective Patient Reports: Feeling Better (Slightly improved dyspnea, still orthopneic but less SOB with walking) Objective Vital Signs: Vital Signs - 24 hr 12/20/19 12/20/19 12/20/19 16:00 17:00 20:40 Temperature 36.2 C L 36.3 C L Heart Rate Heart Rate [ 95 105 H Brachial] Respiratory 18 18 Rate Blood Pressure 120/78 Blood Pressure [Left Brachial artery] Blood Pressure 108/81 H 101/74 [Right Brachial artery] O2 Saturation 93 95 12/20/19 12/20/19 12/21/19 21:52 23:52 00:03 Temperature 36.8 C Heart Rate Heart Rate [ 99 92 Brachial] Respiratory 18 Rate Blood Pressure 114/73 Blood Pressure 98/72 114/73 [Left Brachial artery] Blood Pressure 101/76 104/77 [Right Brachial artery] O2 Saturation 94 12/21/19 12/21/19 12/21/19 05:23 05:35 07:40 Temperature 36.5 C Heart Rate 101 H Heart Rate [ 105 H Brachial] Respiratory 19 16 Rate Blood Pressure 111/88 H Blood Pressure [Left Brachial artery] Blood Pressure 111/88 H [Right Brachial artery] O2 Saturation 93 12/21/19 12/21/19 12/21/19 07:50 08:15 12:20 Temperature 36.3 C L 36.3 C L 36.5 C Heart Rate 84 Heart Rate [ 84 100 Brachial] Respiratory 20 16 20 Rate Blood Pressure Blood Pressure 95/69 124/81 H [Left Brachial artery] Blood Pressure [Right Brachial artery] O2 Saturation 97 93 96 12/21/19 12/21/19 14:01 14:36 Temperature Heart Rate 84 Heart Rate [ Brachial] Respiratory 16 Rate Blood Pressure 124/81 H Blood Pressure [Left Brachial artery] Blood Pressure [Right Brachial artery] O2 Saturation Oxygen O2 Source Nasal cannula I&O (Last 24 Hrs): Intake and Output Totals x24h 12/19/19 12/20/19 12/21/19 23:59 23:59 23:59 Intake Total 2320 1260 Output Total 2410 275 Balance -90 985 General: Alert, Oriented x3 HEENT: Mucous membr. moist/pink Neck: Supple, Other (Large dacosta prevents neck exam) Neuro: Alert, Non Focal Cardiovascular: Regular rate, No murmurs Respiratory: Other (Prolonged exp phase, scattered wheezes and rales) Abdomen: Soft, Other (Obese) Extremities: No edema - Results Results: Laboratory Results WBC 13.4 x10^3/uL (4.8-10.8) H 12/21/19 04:30 RBC 3.58 10^6/uL (4.70-6.10) L 12/21/19 04:30 Hgb 14.8 g/dL (14.0-18.0) 12/21/19 04:30 Hct 41.3 % (42.0-52.0) L 12/21/19 04:30 MCV 115.4 fL (80.0-94.0) H 12/21/19 04:30 MCH 41.3 pg (27.0-31.0) H 12/21/19 04:30 MCHC 35.8 g/dL (32.0-36.0) 12/21/19 04:30 RDW 15.9 % (12.0-15.0) H 12/21/19 04:30 Plt Count 155 10^3/uL (130-450) 12/21/19 04:30 MPV 10.9 fL (7.4-11.4) 12/21/19 04:30 Neut # (Auto) 12.5 10^3/uL (1.5-6.6) H 12/21/19 04:30 Lymph # (Auto) 0.5 10^3/uL (1.5-3.5) L 12/21/19 04:30 [place] # (Auto) 0.3 10^3/uL (0.0-1.0) 12/21/19 04:30 Eos # (Auto) 0.0 10^3/uL (0.0-0.7) 12/21/19 04:30 Baso # (Auto) 0.0 10^3/uL (0.0-0.1) 12/21/19 04:30 Absolute Nucleated RBC 0.00 x10^3/uL 12/21/19 04:30 Nucleated RBC % 0.0 /100WBC 12/21/19 04:30 Manual Slide Review Indicated 12/21/19 04:30 WBC Morphology NORMAL APPEARANCE (NORMAL) 12/21/19 04:30 Platelet Estimate NORMAL (130-450,000) (NORMAL) 12/21/19 04:30 Platelet Morphology NORMAL APPEARANCE (NORMAL) 12/21/19 04:30 RBC Morph Micro Appear 1+ ANISOCYTOSIS (NORMAL) 2+ MACROCYTOSIS (NORMAL) 12/20/19 05:30 RBC Morph Micro Appear 2+ MACROCYTOSIS (NORMAL) 12/21/19 04:30 PT 15.9 secs (9.9-12.6) H 12/20/19 05:30 INR 1.4 (0.8-1.2) H 12/20/19 05:30 APTT 30.3 secs (24.9-33.3) 12/20/19 05:30 Sodium 136 mmol/L (135-145) 12/21/19 04:30 Potassium 4.1 mmol/L (3.5-5.0) 12/21/19 04:30 Chloride 100 mmol/L (101-111) L 12/21/19 04:30 Carbon Dioxide 29 mmol/L (21-32) 12/21/19 04:30 Anion Gap 7.0 (6-13) 12/21/19 04:30 BUN 24 mg/dL (6-20) H 12/21/19 04:30 Creatinine 1.2 mg/dL (0.6-1.2) 12/21/19 04:30 Estimated GFR (MDRD) 59 (>89) L 12/21/19 04:30 Glucose 188 mg/dL (70-100) H 12/21/19 04:30 Calcium 8.7 mg/dL (8.5-10.3) 12/21/19 04:30 Magnesium 1.7 mg/dL (1.7-2.8) 12/21/19 04:30 Total Bilirubin 1.0 mg/dL (0.2-1.0) 12/20/19 05:30 AST 25 IU/L (10-42) 12/20/19 05:30 ALT 24 IU/L (10-60) 12/20/19 05:30 Alkaline Phosphatase 74 IU/L (42-121) 12/20/19 05:30 Total Creatine Kinase 45 IU/L (22-269) 12/20/19 05:30 Troponin I High Sens 26.8 ng/L (2.3-19.7) H* 12/20/19 11:01 B-Natriuretic Peptide 494 pg/mL (5-100) H 12/21/19 04:30 Total Protein 7.1 g/dL (6.7-8.2) 12/20/19 05:30 Albumin 3.5 g/dL (3.2-5.5) 12/20/19 05:30 Globulin 3.6 g/dL (2.1-4.2) 12/20/19 05:30 Albumin/Globulin Ratio 1.0 (1.0-2.2) 12/20/19 05:30 Lipase 27 U/L (22-51) 12/20/19 05:30 Coronavirus (PCR) NEGATIVE 12/20/19 15:14
[2019-12-21] MEDS: ATORVASTATIN 40 MG TABLET PO SCH (22:05)
[2019-12-21] MEDS: MONTELUKAST 10 MG TABLET PO SCH (22:11)
[2019-12-22] MEDS: SODIUM CHLORIDE FLUSH 0.9% 10 ML SYRINGE IVP SCH ×3 (00:09→17:28)
[2019-12-22 05:56] LABS: BASOPHILS % (AUTO) 0.2 %; HGB - HEMOGLOBIN 13.9 g/dL (14.0-18.0); LYMPHOCYTES # (AUTO) 0.5 10^3/uL (1.5-3.5); LYMPHOCYTES % (AUTO) 2.6 %; MEAN CORPUSCULAR HEMOGLOBIN 36.7 pg (27.0-31.0); MEAN CORPUSCULAR HGB CONC 32.9 g/dL (32.0-36.0); MEAN CORPUSCULAR VOLUME 111.3 fL (80.0-94.0); MONOCYTES # (AUTO) 0.5 10^3/uL (0.0-1.0); MONOCYTES % (AUTO) 2.8 %; NEUTROPHILS # (AUTO) 17.9 10^3/uL (1.5-6.6); PLT - PLATELET COUNT 144 10^3/uL (130-450); RED BLOOD COUNT 3.79 10^6/uL (4.70-6.10); RED CELL DISTRIBUTION WIDTH 15.8 % (12.0-15.0); WHITE BLOOD COUNT 19.2 x10^3/uL (4.8-10.8)
[2019-12-22 06:05] LABS: CALCIUM 8.5 mg/dL (8.5-10.3); CREATININE 1.4 mg/dL (0.6-1.2); MAGNESIUM 1.9 mg/dL (1.7-2.8)
[2019-12-22] MEDS: SODIUM CHLORIDE FLUSH 0.9% 10 ML SYRINGE IVP PRN ×2 (06:16→22:01)
[2019-12-22] MEDS: methylPREDNISolone SUCCINATE 40 MG/ML VIAL IVP SCH ×3 (06:16→22:00)
[2019-12-22 06:22] LABS: PLATELET ESTIMATE, MANUAL NORMAL (130-450,000) (NORMAL); PLATELET MORPHOLOGY NORMAL APPEARANCE (NORMAL); RBC MORPHOLOGY (MULTIPLE) 2+ MACROCYTOSIS (NORMAL)
[2019-12-22] MEDS: LEVALBUTEROL 1.25 MG/3 ML NEB INH PRN ×2 (07:12→13:31)
[2019-12-22] MEDS: guaiFENesin 600 MG TABLET PO SCH ×2 (09:41→20:45)
[2019-12-22] MEDS: levETIRAcetam 250 MG TABLET PO SCH ×2 (09:41→20:48)
[2019-12-22] MEDS: ASPIRIN EC 81 MG TABLET PO SCH (09:41)
[2019-12-22] MEDS: AZITHROMYCIN 250 MG TABLET PO SCH (09:41)
[2019-12-22] MEDS: APIXABAN 5 MG TABLET PO SCH ×2 (09:41→20:45)
[2019-12-22] MEDS: FUROSEMIDE 20 MG TABLET PO SCH (09:41)
[2019-12-22] MEDS: CHOLECALCIFEROL 1,000 UNIT TABLET PO SCH (09:41)
[2019-12-22] MEDS: METOPROLOL SUCCINATE 50 MG TABLET PO SCH ×2 (09:42→20:45)
[2019-12-22] MEDS: FAMOTIDINE 20 MG TABLET PO SCH ×2 (09:42→20:45)
[2019-12-22] MEDS: FOLIC ACID 1 MG TABLET PO SCH (09:42)
[2019-12-22] MEDS: MULTIVITAMIN W/MINERALS TABLET PO SCH (09:42)
[2019-12-22] MEDS: NICOTINE 21 MG PATCH TOP SCH (09:42)
[2019-12-22] MEDS: CETIRIZINE 10 MG TABLET PO SCH ×2 (09:42→20:45)
[2019-12-22] MEDS ORDERED: METHOTREXATE 2.5 MG TABLET PO SCH (14:00)
[2019-12-22] MEDS: diphenhydrAMINE 25 MG CAPSULE PO PRN (20:45)
[2019-12-22] MEDS: MONTELUKAST 10 MG TABLET PO SCH (20:45)
[2019-12-22] MEDS: ATORVASTATIN 40 MG TABLET PO SCH (20:45)
--- NOTE | 2019-12-22 20:46 | PROVIDER PROGRESS NOTE ---
Assessment/Plan - Problem List (1) COPD with exacerbation Assessment/Plan: Even better after chest PT was done, but his ribs hurt from that, will use it prn. Continue nebs, steroids, O2 tapering down. Continue empiric antibiotic for his cough. COVID was ruled out, isolation discontinued He will need an oxygen sat test with walking at [facility] for possibly needing new Home O2. (2) CHF exacerbation Assessment/Plan: Echo was done today, prelim report showed mildly depressed LVEF, awaiting final report. Continue diuresis Follow I's and O's and daily wts (3) Atrial fibrillation Qualifiers: Atrial fibrillation type: unspecified Qualified Code(s): I48.91 - Unspecified atrial fibrillation Assessment/Plan: HR is now controlled on current meds and with less dyspnea. (4) Hypokalemia Assessment/Plan: Resolved with replacement Follow BMP and Mg daily (5) Rheumatoid arthritis Assessment/Plan: Per Hx (6) Thoracic aortic aneurysm (TAA) Assessment/Plan: Per Hx (7) History of CVA (cerebrovascular accident) Assessment/Plan: Minimal weakness and memory problem sequalae. (8) Immunosuppressed status Assessment/Plan: He was on Methotrexate, daily Prednisone and monthly immuno suppressant for his RA. - Current Meds Current Meds: Current Medications Generic Name Dose Route Start Last Admin Trade Name Freq PRN Reason Stop Dose Admin Acetaminophen 325 mg 12/20/19 19:37 12/21/19 05:26 Tylenol PO 325 mg Q6HR PRN Administration PAIN Apixaban 5 mg 12/20/19 21:00 12/22/19 09:41 Eliquis PO 5 mg BID BERTHA Administration Aspirin 81 mg 12/21/19 09:00 12/22/19 09:41 Ecotrin PO 81 mg DAILY BERTHA Administration Atorvastatin Calcium 40 mg 12/20/19 21:00 12/21/19 22:05 Lipitor PO 40 mg QPM BERTHA Administration Azithromycin 250 mg 12/21/19 09:00 12/22/19 09:41 Zithromax PO 12/25/19 00:00 250 mg DAILY BERTHA Administration Cetirizine HCl 10 mg 12/20/19 21:00 12/22/19 09:42 Zyrtec PO 10 mg BID BERTHA Administration Cholecalciferol 1,000 unit 12/21/19 09:00 12/22/19 09:41 Vitamin D3 PO 1,000 unit DAILY BERTHA Administration Diltiazem HCl 60 mg 12/21/19 13:00 12/22/19 13:58 Cardizem PO 60 mg Q8H BERTHA Administration Diphenhydramine HCl 25 mg 12/20/19 23:07 12/21/19 22:11 Benadryl PO 25 mg QPM PRN Administration Insomnia Famotidine 20 mg 12/20/19 21:00 12/22/19 09:42 Pepcid PO 20 mg BID BERTHA Administration Folic Acid 2 mg 12/21/19 09:00 12/22/19 09:42 PO 2 mg DAILY BERTHA Administration Furosemide 20 mg 12/22/19 09:00 12/22/19 09:41 Lasix PO 20 mg DAILY BERTHA Administration Gabapentin 600 mg 12/20/19 18:27 12/21/19 09:20 Neurontin PO 600 mg TID PRN Administration BACK PAIN Guaifenesin 600 mg 12/20/19 11:00 12/22/19 09:41 Mucinex PO 600 mg BID BERTHA Administration Levalbuterol HCl 1.25 mg 12/20/19 15:00 12/22/19 13:31 Xopenex INH 1.25 mg RTQ4H PRN Administration SHORTNESS OF AIR/WHEEZING Levetiracetam 1,000 mg 12/20/19 21:00 12/22/19 09:41 Keppra PO 1,000 mg BID BERTHA Administration Methotrexate Sodium 20 mg 12/22/19 14:00 12/22/19 13:59 PO 20 mg MO@1400 BERTHA Administration Methylprednisolone 80 mg 12/20/19 14:00 12/22/19 14:00 Solu-Medrol (40mg Vial) IVP 80 mg TID BERTHA Administration Metoprolol Succinate 50 mg 12/21/19 12:13 12/22/19 09:42 Toprol Xl PO 50 mg BID BERTHA Administration Montelukast Sodium 10 mg 12/20/19 21:00 12/21/19 22:11 Singulair PO 10 mg QPM BERTHA Administration Multivitamins/Minerals 1 tab 12/21/19 09:00 12/22/19 09:42 Theragran M PO 1 tab DAILY BERTHA Administration Nicotine 1 patch 12/20/19 11:00 12/22/19 09:42 Nicoderm TOP 1 patch DAILY BERTHA Administration Oxycodone HCl 5 mg 12/20/19 19:36 12/21/19 18:36 Roxicodone PO 5 mg Q6HR PRN Administration PAIN Sodium Chloride 10 ml 12/20/19 10:29 12/22/19 06:16 Normal Saline Flush 0.9% IVP 10 ml PRN PRN Administration NEEDED PER PROVIDER ORDERS Sodium Chloride 10 ml 12/20/19 17:00 12/22/19 17:28 Normal Saline Flush 0.9% IVP 10 ml 0100,0900,1700 BERTHA Administration - Lab Result Fish Bone Diagrams: 12/22/19 05:12 12/22/19 05:12 - Additional Planning My Orders: My Active Orders 12/22/19 Evaluate and Treat OT [OT] Routine Evaluate and Treat PT [PT] Routine 12/22/19 08:00 Echo Transthoracic Complete [ECHO] Routine 12/22/19 09:00 Docusate Sodium 250Mg Capsule [Colace 250Mg Capsule] 250 - 500 mg PO DAILY Furosemide [Lasix] 20 mg PO DAILY polyethylene glycoL 3350 [Miralax] 17 gm PO DAILY 12/22/19 14:00 Methotrexate 20 mg PO MO@1400 12/23/19 05:00 BMP - BASIC METABOLIC PANEL [CHEM] DAILYLAB CBC - COMP BLD CT W/AUTO DIFF [HEME] DAILYLAB MAGNESIUM [CHEM] DAILYLAB 12/27/19 12:00 Adalimumab [Humira(Cf) Pen] 40 mg SUBQ SA@1200 Objective Vital Signs: Vital Signs - 24 hr 12/21/19 12/21/19 12/21/19 21:00 21:30 22:11 Temperature 36.8 C Heart Rate 88 Heart Rate [ 103 H Brachial] Heart Rate [ Sitting] Respiratory 19 18 Rate Blood Pressure 113/82 H Blood Pressure [Left Brachial artery] Blood Pressure 113/82 H [Right Brachial artery] Blood Pressure [Sitting] O2 Saturation 96 O2 Saturation [ Sitting] 12/22/19 12/22/19 12/22/19 00:50 05:00 05:52 Temperature 36.6 C 36.3 C L Heart Rate Heart Rate [ 102 H 61 Brachial] Heart Rate [ Sitting] Respiratory 16 20 Rate Blood Pressure 97/60 Blood Pressure [Left Brachial artery] Blood Pressure 112/73 83/55 L [Right Brachial artery] Blood Pressure [Sitting] O2 Saturation 94 96 O2 Saturation [ Sitting] 12/22/19 12/22/19 12/22/19 06:00 07:00 07:20 Temperature Heart Rate 84 Heart Rate [ 88 Brachial] Heart Rate [ Sitting] Respiratory 18 Rate Blood Pressure Blood Pressure 97/60 [Left Brachial artery] Blood Pressure [Right Brachial artery] Blood Pressure [Sitting] O2 Saturation 94 O2 Saturation [ Sitting] 12/22/19 12/22/19 12/22/19 08:10 11:10 11:20 Temperature 36.7 C 36.4 C L Heart Rate Heart Rate [ 116 H 106 H Brachial] Heart Rate [ 143 H Sitting] Respiratory 20 20 Rate Blood Pressure Blood Pressure [Left Brachial artery] Blood Pressure 133/87 H 125/85 H [Right Brachial artery] Blood Pressure 125/85 H [Sitting] O2 Saturation 92 94 O2 Saturation [ Sitting] 12/22/19 12/22/19 12/22/19 12:45 13:32 13:58 Temperature Heart Rate 84 Heart Rate [ Brachial] Heart Rate [ 110 H Sitting] Respiratory 20 Rate Blood Pressure 118/84 H Blood Pressure [Left Brachial artery] Blood Pressure [Right Brachial artery] Blood Pressure 117/71 [Sitting] O2 Saturation O2 Saturation [ 96 Sitting] 12/22/19 15:55 Temperature 36.3 C L Heart Rate Heart Rate [ 109 H Brachial] Heart Rate [ Sitting] Respiratory 20 Rate Blood Pressure Blood Pressure [Left Brachial artery] Blood Pressure 103/79 [Right Brachial artery] Blood Pressure [Sitting] O2 Saturation 94 O2 Saturation [ Sitting] Oxygen O2 Source Room air I&O (Last 24 Hrs): Intake and Output Totals x24h 12/20/19 12/21/19 12/22/19 23:59 23:59 23:59 Intake Total 2320 2110 840 Output Total 2410 675 1500 Balance -90 1435 -660 General: Alert, Oriented x3 HEENT: Mucous membr. moist/pink Neck: Supple, Other (LKarge dacosta prevents neck exam) Neuro: Alert, Non Focal Cardiovascular: Regular rate, No murmurs Respiratory: Other (Scattered wheezes and rales) Abdomen: Soft, Other (Obese with pannus) Extremities: Other (1+ edema above ankles) - Results Results: Laboratory Results WBC 19.2 x10^3/uL (4.8-10.8) H 12/22/19 05:12 RBC 3.79 10^6/uL (4.70-6.10) L 12/22/19 05:12 Hgb 13.9 g/dL (14.0-18.0) L 12/22/19 05:12 Hct 42.2 % (42.0-52.0) 12/22/19 05:12 MCV 111.3 fL (80.0-94.0) H 12/22/19 05:12 MCH 36.7 pg (27.0-31.0) H 12/22/19 05:12 MCHC 32.9 g/dL (32.0-36.0) 12/22/19 05:12 RDW 15.8 % (12.0-15.0) H 12/22/19 05:12 Plt Count 144 10^3/uL (130-450) 12/22/19 05:12 MPV 11.0 fL (7.4-11.4) 12/22/19 05:12 Neut # (Auto) 17.9 10^3/uL (1.5-6.6) H 12/22/19 05:12 Lymph # (Auto) 0.5 10^3/uL (1.5-3.5) L 12/22/19 05:12 [place] # (Auto) 0.5 10^3/uL (0.0-1.0) 12/22/19 05:12 Eos # (Auto) 0.0 10^3/uL (0.0-0.7) 12/22/19 05:12 Baso # (Auto) 0.0 10^3/uL (0.0-0.1) 12/22/19 05:12 Absolute Nucleated RBC 0.02 x10^3/uL 12/22/19 05:12 Nucleated RBC % 0.1 /100WBC 12/22/19 05:12 Manual Slide Review Indicated 12/22/19 05:12 WBC Morphology NORMAL APPEARANCE (NORMAL) 12/21/19 04:30 Platelet Estimate NORMAL (130-450,000) (NORMAL) 12/22/19 05:12 Platelet Morphology NORMAL APPEARANCE (NORMAL) 12/22/19 05:12 RBC Morph Micro Appear 2+ MACROCYTOSIS (NORMAL) 12/21/19 04:30 RBC Morph Micro Appear 2+ MACROCYTOSIS (NORMAL) 12/22/19 05:12 PT 15.9 secs (9.9-12.6) H 12/20/19 05:30 INR 1.4 (0.8-1.2) H 12/20/19 05:30 APTT 30.3 secs (24.9-33.3) 12/20/19 05:30 Sodium 133 mmol/L (135-145) L 12/22/19 05:12 Potassium 3.8 mmol/L (3.5-5.0) 12/22/19 05:12 Chloride 97 mmol/L (101-111) L 12/22/19 05:12 Carbon Dioxide 27 mmol/L (21-32) 12/22/19 05:12 Anion Gap 9.0 (6-13) 12/22/19 05:12 BUN 39 mg/dL (6-20) H 12/22/19 05:12 Creatinine 1.4 mg/dL (0.6-1.2) H 12/22/19 05:12 Estimated GFR (MDRD) 49 (>89) L 12/22/19 05:12 Glucose 191 mg/dL (70-100) H 12/22/19 05:12 Calcium 8.5 mg/dL (8.5-10.3) 12/22/19 05:12 Magnesium 1.9 mg/dL (1.7-2.8) 12/22/19 05:12 Total Bilirubin 1.0 mg/dL (0.2-1.0) 12/20/19 05:30 AST 25 IU/L (10-42) 12/20/19 05:30 ALT 24 IU/L (10-60) 12/20/19 05:30 Alkaline Phosphatase 74 IU/L (42-121) 12/20/19 05:30 Total Creatine Kinase 45 IU/L (22-269) 12/20/19 05:30 Troponin I High Sens 26.8 ng/L (2.3-19.7) H* 12/20/19 11:01 B-Natriuretic Peptide 239 pg/mL (5-100) H 12/22/19 05:12 Total Protein 7.1 g/dL (6.7-8.2) 12/20/19 05:30 Albumin 3.5 g/dL (3.2-5.5) 12/20/19 05:30 Globulin 3.6 g/dL (2.1-4.2) 12/20/19 05:30 Albumin/Globulin Ratio 1.0 (1.0-2.2) 12/20/19 05:30 Lipase 27 U/L (22-51) 12/20/19 05:30 Coronavirus (PCR) NEGATIVE 12/20/19 15:14
[2019-12-23] MEDS: SODIUM CHLORIDE FLUSH 0.9% 10 ML SYRINGE IVP SCH ×2 (00:32→09:20)
[2019-12-23] MEDS: ASPIRIN EC 81 MG TABLET PO SCH (05:12)
[2019-12-23] MEDS: NICOTINE 21 MG PATCH TOP SCH (05:12)
[2019-12-23] MEDS: SODIUM CHLORIDE FLUSH 0.9% 10 ML SYRINGE IVP PRN ×3 (05:29→14:53)
[2019-12-23] MEDS: methylPREDNISolone SUCCINATE 40 MG/ML VIAL IVP SCH (05:29)
[2019-12-23 06:25] LABS: BASOPHILS # (AUTO) 0.1 10^3/uL (0.0-0.1); BASOPHILS % (AUTO) 0.3 %; LYMPHOCYTES # (AUTO) 0.5 10^3/uL (1.5-3.5); LYMPHOCYTES % (AUTO) 2.4 %; MEAN CORPUSCULAR HEMOGLOBIN 36.4 pg (27.0-31.0); MEAN CORPUSCULAR HGB CONC 32.9 g/dL (32.0-36.0); MEAN CORPUSCULAR VOLUME 110.7 fL (80.0-94.0); MEAN PLATELET VOLUME 10.7 fL (7.4-11.4); MONOCYTES # (AUTO) 0.7 10^3/uL (0.0-1.0); MONOCYTES % (AUTO) 3.6 %; NEUTROPHILS # (AUTO) 17.5 10^3/uL (1.5-6.6); NEUTROPHILS % (AUTO) 92.1 %; PLT - PLATELET COUNT 172 10^3/uL (130-450); RED BLOOD COUNT 4.12 10^6/uL (4.70-6.10); RED CELL DISTRIBUTION WIDTH 16.2 % (12.0-15.0)
[2019-12-23 06:37] LABS: CREATININE 1.1 mg/dL (0.6-1.2); MAGNESIUM 2.2 mg/dL (1.7-2.8)
[2019-12-23] MEDS ORDERED: METOPROLOL SUCCINATE 50 MG TABLET PO SCH (09:00)
[2019-12-23] MEDS ORDERED: diltiaZEM CD 120 MG CAPSULE PO SCH ×2 (09:00→11:00)
[2019-12-23] MEDS: CETIRIZINE 10 MG TABLET PO SCH (09:11)
[2019-12-23] MEDS: FOLIC ACID 1 MG TABLET PO SCH (09:12)
[2019-12-23] MEDS: CHOLECALCIFEROL 1,000 UNIT TABLET PO SCH (09:12)
[2019-12-23] MEDS: FAMOTIDINE 20 MG TABLET PO SCH (09:12)
[2019-12-23] MEDS: MULTIVITAMIN W/MINERALS TABLET PO SCH (09:12)
[2019-12-23] MEDS: AZITHROMYCIN 250 MG TABLET PO SCH (09:12)
[2019-12-23] MEDS: FUROSEMIDE 20 MG TABLET PO SCH (09:13)
[2019-12-23] MEDS: levETIRAcetam 250 MG TABLET PO SCH (09:13)
[2019-12-23] MEDS: guaiFENesin 600 MG TABLET PO SCH (09:13)
[2019-12-23] MEDS: APIXABAN 5 MG TABLET PO SCH (09:13)
[2019-12-23] MEDS ORDERED: methylPREDNISolone SUCCINATE 125 MG/2 ML VIAL IVP SCH (14:00)
--- NOTE | 2019-12-23 14:11 | ADVANCE CARE PLANNING NOTE ---
Advance Care Planning - Planning Encounter Date: 12/23/19 Time: 11:00 Purpose: advanced care plan for pt Parties in Attendance: pt and me Decisional Capacity of the Patient: pt is alert and oriented and has capacity to make her own decision - Diagnosis for Encounter (1) Congestive heart failure Qualifiers: Heart failure type: unspecified Heart failure chronicity: unspecified Qualified Code(s): I50.9 - Heart failure, unspecified - Encounter Subjective/Patient's Story: Patient reports he is living alone, and that he has been on and off smoking for 50 years, recently down to 2 cigarettes/day. he drinks no alcohol or use no illicit drug use. Patient say he still see his manager grocery couple months ago. the manager grocery say he has no issue for his heart. We have the echo and the radio frequency technician report he had a mild systolic heart failure. Finally report of ECHO is still pending. Patient report he requested oxygen to home but he never was assessed by his primary care or another physician, so patient hope we could do some oxygen study and to see whether or not he will be qualified for home oxygen. For quality life patient still request full code, and enjoy do what he is liking to do. pt is alert and oriented plus three. social worker school tried to arrange car to sent pt go to home after d/c from hospital, but pt refused, and he wanted to drive his car by himself. Objective/Medical Story: This is a 74 years old white male with a medical history of atrial fibrillation on anticoagulation Eliquis and a pacemaker. patient with history of CHF but unknow it is a systolic or diastolic and history COPD but pt is still smoking two cigarette per day per his report. pt was found to have dyspnea, elevated BNP, and COPD exacerbation. Goals of Care: discuss with pt and try to have advance care plan for pt Plan: pt report he still enjoy his quality of his life, want to keep his full code status. Code Status: Attempt Resuscitation Time spent on advance care plannin
--- NOTE | 2019-12-23 15:35 | Discharge Plan ---
Discharge Plan Problem Reviewed?: Yes Disposition: Home, Self Care Condition: Poor Prescriptions: Azithromycin [Zithromax] 250 mg PO DAILY #4 tablet diltiaZEM CD [Cardizem Cd] 120 mg PO DAILY #10 capsule Furosemide [Lasix] 20 mg PO DAILY #10 tablet Potassium Chloride 10 meq PO DAILY #10 tablet.er Diet: Cardiac Activity Restrictions: Activity as Tolerated Shower Restrictions: No (fall precaution) Instruction Topics: Heart Failure, COPD Dc, Atrial Fibrillation, Prednisone tablets Health Concerns: COPD exacerbation, heart failure Plan of Treatment: you were found to have COPD exacerbation, advise you quit cigarette smoking, resume your home as the scheduled, followup commodity director as out-pt, you are prescribed waned off lower dosage of Prednisone and short period of antibiotics Azithromycin. You were found to have afib with RVR and mild systolic heart failure. you are prescribed Cardizem and lower dosage of Lasix, advise you followup your senior instrumentation engineer as out-pt Care Goals: stabilization and improvement of your medical conditions Assessment: discussed with you the care plan, you understood Additional Instructions or Follow Up instructions: you may followup your PCP in one week, followup your commodity director and senior instrumentation engineer as out-pt. Should your symptoms return or worsen, you may present ER or call 911 for help. [facility] Care: [facility], [facility] No Smoking: If you smoke, Please STOP! Call for help. Follow-up with: MOHAN LARA MD [Primary Care Provider] -
--- NOTE | 2019-12-23 15:51 | DISCHARGE SUMMARY ---
Discharge Summary Admit Date: 12/20/19 Discharge Date: 12/23/19 Discharging Provider: Jordan Mir Primary Care Provider: Robb Levin Condition at Discharge: Poor Discharge Disposition: 01 Home, Self Care Discharge Facility Name: home - DIAGNOSES Admission Diagnoses: (1) Atrial fibrillation with RVR (2) COPD with exacerbation (3) CHF exacerbation (4) Hypokalemia (5) Rheumatoid arthritis (6) Thoracic aortic aneurysm (TAA) (7) History of CVA (cerebrovascular accident) (8) Immunosuppressed status Discharge Diagnoses with Status of Each Condition: (1) Atrial fibrillation with RVR stable and controlled. pt denies chest pain or palpitations. pt is prescribed Cardizem at lower dosage 120mg daily. advise pt followup brim pouncing machine operator as out-pt (2) COPD with exacerbation stable/ chronic. pt has 94% O2 sat on room air. pt had O2 desat study, pt is not qualified for home O2. pt is prescribed short period time of steroid and waned off dosage. advise pt followup board operator as out-pt Covid 19 test is negative (3) CHF exacerbation stable/chronic. pt is prescribed lower dosage of Lasix an 10 meq potassium (4) Hypokalemia resolved (5) Rheumatoid arthritis stable (6) Thoracic aortic aneurysm (TAA) stable, followup his surgeon as out-pt (7) History of CVA (cerebrovascular accident) stable (8) Immunosuppressed status stable - HPI History of Present Illness: This is a 74 years old male with a chief complaint of shortness of breath for 2 days.in the ER patient also show a fibrillation with rapid response from the ventricular.Patient was found to have COPD exacerbation,Patient was also found to have fluids overloaded - HOSPITAL COURSE Hospital Course: Patient was admitted for atrial fibrillation with RVR, COPD exacerbation, flu overloaded. After the patient was treated with sterile, breath treatment, and the patient was treated with diuretics, and the patient was given Cardizem for pulses control, Patient was stable can be discharged, detailed hospital course is as below. (1) Atrial fibrillation with RVR stable and controlled. pt denies chest pain or palpitations. pt is prescribed Cardizem at lower dosage 120mg daily. advise pt followup brim pouncing machine operator as out-pt (2) COPD with exacerbation stable/ chronic. pt has 94% O2 sat on room air. pt had O2 desat study, pt is not qualified for home O2. pt is prescribed short period time of steroid and waned off dosage. advise pt followup board operator as out-pt Covid 19 test is negative (3) CHF exacerbation stable/chronic. pt is prescribed lower dosage of Lasix an 10 meq potassium (4) Hypokalemia resolved (5) Rheumatoid arthritis stable (6) Thoracic aortic aneurysm (TAA) stable, followup his surgeon as out-pt (7) History of CVA (cerebrovascular accident) stable (8) Immunosuppressed status stable - ALLERGIES Allergies/Adverse Reactions: Allergies Allergy/AdvReac Type Severity Reaction Status Date / Time No Known Drug Allergies Allergy Verified 10/27/19 09:46 - MEDICATIONS Home Medications: Ambulatory Orders Medication Instructions Recorded Confirmed Folic Acid 2 mg PO DAILY 07/06/15 12/20/19 Methotrexate 20 mg PO MO@1400 07/06/15 12/20/19 Apixaban [Eliquis] 5 mg PO BID 05/07/19 12/20/19 Atorvastatin Calcium 40 mg PO QPM 05/07/19 12/20/19 Cholecalciferol (Vitamin D3) 1,000 unit PO DAILY 05/07/19 12/20/19 [Vitajoy Daily D] Metoprolol Succinate 75 mg PO BID 05/07/19 12/20/19 Adalimumab [Humira(Cf) Pen] 40 mg SUBQ SA@1200 12/20/19 12/20/19 Albuterol Sulfate [Albuterol 2 puffs INH Q4H PRN 12/20/19 12/20/19 Sulfate Hfa] Aspirin [Aspirin EC] 81 mg PO DAILY 12/20/19 12/20/19 Budesonide/Formoterol Fumarate 2 puffs INH BID 12/20/19 12/20/19 [Symbicort 160-4.5 Mcg Inhaler] Cetirizine HCl 10 mg PO BID 12/20/19 12/20/19 Gabapentin 600 mg PO TID PRN 12/20/19 12/20/19 Multivitamin W/Minerals [Theragran 1 tab PO DAILY 12/20/19 12/20/19 M] Ondansetron [Ondansetron Odt] 4 mg PO Q6H PRN 12/20/19 12/20/19 Oxycodone HCl/Acetaminophen 2 tab PO Q6H PRN 12/20/19 12/20/19 [Oxycodone-Acetaminophen 5-325] levETIRAcetam [Levetiracetam] 1,000 mg PO BID 12/20/19 12/20/19 predniSONE [Prednisone] 2 mg PO DAILY 12/20/19 12/20/19 Azithromycin [Zithromax] 250 mg PO DAILY #4 tablet 12/23/19 Furosemide [Lasix] 20 mg PO DAILY #10 tablet 12/23/19 Potassium Chloride 10 meq PO DAILY #10 tablet.er 12/23/19 diltiaZEM CD [Cardizem Cd] 120 mg PO DAILY #10 capsule 12/23/19 predniSONE [Deltasone] 10 mg PO [id number] #16 tab 12/23/19 - PHYSICAL EXAM AT DISCHARGE General Appearance: positive: No acute distress, Alert. negative: Lethargic Eyes Bilateral: positive: Normal inspection, PERRL, No lid inflammation ENT: positive: ENT inspection nml, Pharynx nml, No signs of dehydration. negative: Purulent nasal drainage Neck: positive: Nml inspection, Thyroid nml, No JVD, Trachea midline. negative: Thyromegaly, Stiff neck, Tracheal deviation Respiratory: positive: Chest non-tender, No respiratory distress. negative: Wheezes, Rales, Rhonchi Cardiovascular: positive: No murmur, No gallop, Irregularly irregular. negative: Tachycardia, Bradycardia, Systolic murmur, Diastolic murmur Peripheral Pulses: positive: 2+ Abdomen: positive: Non-tender, No organomegaly, Nml bowel sounds, No distention. negative: Tenderness, Guarding, Rebound Back: positive: Nml inspection. negative: CVA tenderness (R), CVA tenderness (L) Skin: positive: Color nml, No rash, Warm, Dry. negative: Cyanosis, Diaphoresis, Pallor Extremities: positive: Non-tender, Full ROM, Nml appearance. negative: Calf tenderness, Leonid's sign/cords Neurologic/Psychiatric: positive: Oriented x3, Motor nml, Sensation nml, Mood/affect nml. negative: Weakness, Sensory loss, Facial droop, Slurred/abnml speech - LABS Result Diagrams: 12/23/19 06:09 12/23/19 06:09 - FOLLOW UP Follow Up: you were found to have COPD exacerbation, advise you quit cigarette smoking, resume your home as the scheduled, followup board operator as out-pt, you are prescribed waned off lower dosage of Prednisone and short period of antibiotics Azithromycin. You were found to have afib with RVR and mild systolic heart failure. you are prescribed Cardizem and lower dosage of Lasix, advise you followup your brim pouncing machine operator as out-pt you may followup your PCP in one week, followup your board operator and brim pouncing machine operator as out-pt. Should your symptoms return or worsen, you may present ER or call 911 for help. - TIME SPENT Time Spent in Discharge (Minutes): 30
[2019-12-23 16:02] VITALS: BP 118/81
== END 2019-12-23 16:25 | disposition home or self-care (01) | DRG 292 ==
LOC: ED 05:10 → MS2 09:28 → UNDOADMIN 09:41 → MS2 09:41
PROVIDERS: ADMIT Internal Medicine; ATTEND Nurse Practitioner Gerontology
DX: I11.0 Hypertensive heart disease with heart failure (principal); I48.20 Chronic atrial fibrillation, unspecified; J44.1 Chronic obstructive pulmonary disease with (acute) exacerbation; I69.954 Hemiplegia and hemiparesis following unspecified cerebrovascular disease affecting left non-dominant side; I50.20 Unspecified systolic (congestive) heart failure; Z20.828 Contact with and (suspected) exposure to other viral communicable diseases; E87.6 Hypokalemia; M06.9 Rheumatoid arthritis, unspecified; I71.2 Thoracic aortic aneurysm, without rupture; F17.210 Nicotine dependence, cigarettes, uncomplicated; D72.829 Elevated white blood cell count, unspecified; R79.89 Other specified abnormal findings of blood chemistry; Z95.0 Presence of cardiac pacemaker; Z79.01 Long term (current) use of anticoagulants; Z79.899 Other long term (current) drug therapy; Z79.51 Long term (current) use of inhaled steroids; Z79.52 Long term (current) use of systemic steroids; Z79.82 Long term (current) use of aspirin
CPT/HCPCS: 36415; 71046; 80048; 80053; 82550; 83690; 83735; 83880; 84484; 85025; 85610; 85730; 87070; 87205; 87635; 93005; 93306; 94640; 94664; 94667; 94668; 96365; 96366; 96375; 96376; 97162; 97166; 99283; 99285; A9270; J8610; 81599

== ENCOUNTER 2020-01-15 22:42 | Outpatient (CLI) | payer OTHER | END 2020-01-15 22:43 | disposition critical access hospital (66) | LOC: EMS 22:42 | PROVIDERS: ATTEND Surgery | DX: R06.00 Dyspnea, unspecified (principal); R07.89 Other chest pain | CPT/HCPCS: A0425; A0427 ==

== ENCOUNTER 2020-01-15 22:53 | Inpatient (IN) | payer MEDICARE, OTHER ==
--- NOTE | 2020-01-15 22:57 | ED Physician Documentation ---
History of Present Illness - Stated complaint Stated Complaint: DYSPNEA - History obtained from History obtained from: Patient (Patient is a 74-year-old male who arrives via with chief complaint of shortness of breath and productive cough without fevers he reports worsening lower extremity swelling he is a daily smoker with a known history of congestive heart failure as well as COPD not on oxygen currently not taking any diuretics or steroids. Denies any chest pain currently patient has a known history of atrial fibrillation on Eliquis he has pacemaker as well.) Review of Systems Constitutional: reports: Reviewed and negative Eyes: reports: Reviewed and negative Ears: reports: Reviewed and negative Nose: reports: Reviewed and negative Throat: reports: Reviewed and negative Cardiac: reports: Pedal edema Respiratory: reports: Dyspnea, Cough, Wheezing GI: reports: Reviewed and negative : reports: Reviewed and negative Skin: reports: Reviewed and negative Musculoskeletal: reports: Reviewed and negative Neurologic: reports: Reviewed and negative Psychiatric: reports: Reviewed and negative Endocrine: reports: Reviewed and negative Immunocompromised: reports: Reviewed and negative PD PAST MEDICAL HISTORY - Past Medical History Cardiovascular: Hypertension, Atrial fibrillation, Murmur, Arrhythmia, Valve disorder Respiratory: None Neuro: CVA Endocrine/Autoimmune: None GI: Other : None HEENT: Other Psych: Anxiety Musculoskeletal: Osteoarthritis, Rheumatoid arthritis Derm: None - Past Surgical History Past Surgical History: Yes Ortho: Other Cardiovascular: Pacemaker - Present Medications Home Medications: Ambulatory Orders Medication Instructions Recorded Confirmed Folic Acid 2 mg PO DAILY 07/06/15 01/15/20 Methotrexate 20 mg PO MO@1400 07/06/15 01/15/20 Apixaban [Eliquis] 5 mg PO BID 05/07/19 01/15/20 Atorvastatin Calcium 40 mg PO QPM 05/07/19 01/15/20 Metoprolol Succinate 200 mg PO BID 05/07/19 01/15/20 Adalimumab [Humira(Cf) Pen] 40 mg SUBQ SA@1200 12/20/19 01/15/20 Albuterol Sulfate [Albuterol 2 puffs INH Q4H PRN 12/20/19 01/15/20 Sulfate Hfa] Aspirin [Aspirin EC] 81 mg PO DAILY 12/20/19 01/15/20 Budesonide/Formoterol Fumarate 2 puffs INH BID 12/20/19 01/15/20 [Symbicort 160-4.5 Mcg Inhaler] Cetirizine HCl 10 mg PO BID 12/20/19 01/15/20 Gabapentin 600 mg PO TID PRN 12/20/19 01/15/20 levETIRAcetam [Levetiracetam] 500 mg PO BID 12/20/19 01/15/20 predniSONE [Prednisone] 1 mg PO DAILY 12/20/19 01/15/20 - Allergies Allergies/Adverse Reactions: Allergies Allergy/AdvReac Type Severity Reaction Status Date / Time No Known Drug Allergies Allergy Verified 01/15/20 23:10 - Social History Does the pt smoke?: Yes Smoking Status: Current every day smoker Does the pt drink ETOH?: No Does the pt have substance abuse?: No - Immunizations Immunizations are current?: Yes - POLST Patient has POLST: No PD ED PE NORMAL - Vitals Vital signs reviewed: Yes - General General: Alert and oriented X 3, No acute distress, Other - HEENT HEENT: Atraumatic, PERRL, Dentition benign - Neck Neck: Supple, no meningeal sign - Cardiac Cardiac: No murmur, Strong equal pulses, Other (Irregularly irregular) - Respiratory Respiratory: Other (Breath sounds are present bilaterally, trachea midline, diffuse adventitious sounds to include crackles and rhonchi in bilateral lung ramos.) - Abdomen Abdomen: Normal bowel sounds, Soft, Non tender, Non distended, Other (No midline abdominal pulsatile mass) - Back Back: No CVA TTP, No spinal TTP - Derm Derm: Normal color, Warm and dry, No rash - Extremities Extremities: No deformity, Other (2+ pitting edema Gladys pretibial to bilateral lower extremities but symmetric.) - Neuro Neuro: Alert and oriented X 3, engineer station mainline 2-12 intact, No motor deficit, No sensory deficit, Normal speech - Psych Psych: Normal mood, Normal affect Results - Vitals Vitals: Vital Signs - 24 hr 01/15/20 01/15/20 01/15/20 22:58 23:05 23:19 Temperature 36.7 C Heart Rate 83 86 Respiratory 32 H 18 18 Rate Blood Pressure 104/91 H O2 Saturation 98 95 01/15/20 01/16/20 01/16/20 23:28 00:25 00:59 Temperature Heart Rate 101 H 95 78 Respiratory 22 19 17 Rate Blood Pressure 123/91 H O2 Saturation 94 87 L 01/16/20 01/16/20 01:03 01:07 Temperature Heart Rate 84 Respiratory 19 Rate Blood Pressure 110/83 H O2 Saturation 93 96 Oxygen O2 Source Nasal cannula Oxygen Flow Rate 3 - EKG (time done) 23:01 Rate: Other (no stemi) - Labs Labs: Laboratory Tests 01/15/20 01/15/20 01/15/20 23:25 23:25 23:25 WBC 7.5 RBC 3.76 L Hgb 14.6 Hct 43.3 MCV 115.2 H MCH 38.8 H MCHC 33.7 RDW 15.7 H Plt Count 176 MPV 10.3 Neut # (Auto) 5.7 Lymph # (Auto) 1.3 L Ogle # (Auto) 0.3 Eos # (Auto) 0.3 Baso # (Auto) 0.0 Absolute Nucleated RBC 0.00 Nucleated RBC % 0.0 Manual Slide Review Indicated Platelet Estimate NORMAL (130-450,000) Platelet Morphology NORMAL APPEARANCE RBC Morph Micro Appear 2+ MACROCYTOSIS PT 18.9 H INR 1.7 H APTT 33.3 Sodium 139 Potassium 3.7 Chloride 102 Carbon Dioxide 30 Anion Gap 7.0 BUN 14 Creatinine 0.9 Estimated GFR (MDRD) 82 L Glucose 130 H Lactic Acid Calcium 9.0 Total Bilirubin 1.3 H AST 17 ALT 21 Alkaline Phosphatase 78 Total Creatine Kinase 30 Troponin I High Sens B-Natriuretic Peptide Total Protein 6.4 L Albumin 3.2 Globulin 3.2 Albumin/Globulin Ratio 1.0 Lipase 26 Urine Color Urine Clarity Urine pH Ur Specific [place] Urine Protein Urine Glucose (UA) Urine Ketones Urine Occult Blood Urine Nitrite Urine Bilirubin Urine Urobilinogen Ur Leukocyte Esterase Ur Microscopic Review Urine Culture Comments Urine Opiates Screen Ur Oxycodone Screen Urine Methadone Screen Ur Propoxyphene Screen Ur Barbiturates Screen Ur Tricyclics Screen Ur Phencyclidine Scrn Ur Amphetamine Screen U Methamphetamines Scrn U Benzodiazepines Scrn Urine Cocaine Screen U Cannabinoids Screen Ethyl Alcohol < 5.0 01/15/20 01/15/20 01/15/20 23:25 23:25 23:25 WBC RBC Hgb Hct MCV MCH MCHC RDW Plt Count MPV Neut # (Auto) Lymph # (Auto) Ogle # (Auto) Eos # (Auto) Baso # (Auto) Absolute Nucleated RBC Nucleated RBC % Manual Slide Review Platelet Estimate Platelet Morphology RBC Morph Micro Appear PT INR APTT Sodium Potassium Chloride Carbon Dioxide Anion Gap BUN Creatinine Estimated GFR (MDRD) Glucose Lactic Acid 0.8 Calcium Total Bilirubin AST ALT Alkaline Phosphatase Total Creatine Kinase Troponin I High Sens 31.1 H* B-Natriuretic Peptide 1205 H Total Protein Albumin Globulin Albumin/Globulin Ratio Lipase Urine Color Urine Clarity Urine pH Ur Specific [place] Urine Protein Urine Glucose (UA) Urine Ketones Urine Occult Blood Urine Nitrite Urine Bilirubin Urine Urobilinogen Ur Leukocyte Esterase Ur Microscopic Review Urine Culture Comments Urine Opiates Screen Ur Oxycodone Screen Urine Methadone Screen Ur Propoxyphene Screen Ur Barbiturates Screen Ur Tricyclics Screen Ur Phencyclidine Scrn Ur Amphetamine Screen U Methamphetamines Scrn U Benzodiazepines Scrn Urine Cocaine Screen U Cannabinoids Screen Ethyl Alcohol 01/16/20 00:15 WBC RBC Hgb Hct MCV MCH MCHC RDW Plt Count MPV Neut # (Auto) Lymph # (Auto) Ogle # (Auto) Eos # (Auto) Baso # (Auto) Absolute Nucleated RBC Nucleated RBC % Manual Slide Review Platelet Estimate Platelet Morphology RBC Morph Micro Appear PT INR APTT Sodium Potassium Chloride Carbon Dioxide Anion Gap BUN Creatinine Estimated GFR (MDRD) Glucose Lactic Acid Calcium Total Bilirubin AST ALT Alkaline Phosphatase Total Creatine Kinase Troponin I High Sens B-Natriuretic Peptide Total Protein Albumin Globulin Albumin/Globulin Ratio Lipase Urine Color YELLOW Urine Clarity CLEAR Urine pH 7.0 Ur Specific [place] 1.010 Urine Protein NEGATIVE Urine Glucose (UA) NEGATIVE Urine Ketones NEGATIVE Urine Occult Blood TRACE-INTA Urine Nitrite NEGATIVE Urine Bilirubin NEGATIVE Urine Urobilinogen 0.2 (NORMAL) Ur Leukocyte Esterase NEGATIVE Ur Microscopic Review NOT INDICATED Urine Culture Comments NOT INDICATED Urine Opiates Screen NEGATIVE Ur Oxycodone Screen NEGATIVE Urine Methadone Screen NEGATIVE Ur Propoxyphene Screen NEGATIVE Ur Barbiturates Screen NEGATIVE Ur Tricyclics Screen NEGATIVE Ur Phencyclidine Scrn NEGATIVE Ur Amphetamine Screen NEGATIVE U Methamphetamines Scrn NEGATIVE U Benzodiazepines Scrn NEGATIVE Urine Cocaine Screen NEGATIVE U Cannabinoids Screen NEGATIVE Ethyl Alcohol PD MEDICAL DECISION MAKING - ED course Complexity details: reviewed old records, reviewed results, re-evaluated patient, considered differential (Atrial fibrillation, COPD exacerbation, congestive heart failure.), d/w patient - Consults Consults: Discussed case with (dr. longo. will admit patient.) - Critical Care Time(min): 30 Time Includes: Direct patient care, Review records, Reassess patient, Document care, Coordinate care, Medical consult Data interpretation: Labs Procedures included in critical care time: Peripheral IV Procedures excluded from critical care time: EKG Departure - Departure Disposition: 66 [facility] DC/Xfer Clinical Impression: Acute decompensated heart failure COPD (chronic obstructive pulmonary disease) Qualifiers: COPD type: unspecified COPD Qualified Code(s): J44.9 - Chronic obstructive pulmonary disease, unspecified Condition: Stable Discharge Date/Time: 01/16/20 01:50
[2020-01-15] MEDS ORDERED: methylPREDNISolone SUCCINATE 125 MG/2 ML VIAL IVP STA (23:09)
[2020-01-15] MEDS ORDERED: FUROSEMIDE 40 MG/4 ML VIAL IVP STA (23:10)
[2020-01-15] MEDS ORDERED: IPRATROPIUM/ALBUTEROL 3 ML NEB INH STA (23:10)
[2020-01-15] MEDS ORDERED: ALBUTEROL 1 PUFF INH STA (23:19)
[2020-01-15] MEDS ORDERED: SODIUM CHLORIDE 0.9% 1,000 ML IV STA (23:21)
[2020-01-15 23:30] LABS: BASOPHILS % (AUTO) 0.4 %; EOSINOPHILS # (AUTO) 0.3 10^3/uL (0.0-0.7); EOSINOPHILS % (AUTO) 3.3 %; HGB - HEMOGLOBIN 14.6 g/dL (14.0-18.0); LYMPHOCYTES # (AUTO) 1.3 10^3/uL (1.5-3.5); LYMPHOCYTES % (AUTO) 16.7 %; MEAN CORPUSCULAR HEMOGLOBIN 38.8 pg (27.0-31.0); MEAN CORPUSCULAR HGB CONC 33.7 g/dL (32.0-36.0); MEAN CORPUSCULAR VOLUME 115.2 fL (80.0-94.0); MEAN PLATELET VOLUME 10.3 fL (7.4-11.4); MONOCYTES # (AUTO) 0.3 10^3/uL (0.0-1.0); NEUTROPHILS # (AUTO) 5.7 10^3/uL (1.5-6.6); NEUTROPHILS % (AUTO) 74.9 %; PLT - PLATELET COUNT 176 10^3/uL (130-450); RED BLOOD COUNT 3.76 10^6/uL (4.70-6.10); RED CELL DISTRIBUTION WIDTH 15.7 % (12.0-15.0); WHITE BLOOD COUNT 7.5 x10^3/uL (4.8-10.8)
[2020-01-15 23:35] LABS: INR 1.7 (0.8-1.2); PT - PROTHROMBIN TIME 18.9 secs (9.9-12.6)
[2020-01-15 23:42] LABS: PARTIAL THROMBOPLASTIN TIME 33.3 secs (24.9-33.3)
[2020-01-15 23:45] LABS: ALBUMIN 3.2 g/dL (3.2-5.5); ALKALINE PHOSPHATASE 78 IU/L (42-121); ALT ALANINE AMINOTRANSFERASE 21 IU/L (10-60); AST ASPARTATE AMINOTRANSFERASE 17 IU/L (10-42); BILIRUBIN,TOTAL 1.3 mg/dL (0.2-1.0); BUN - BLOOD UREA NITROGEN 14 mg/dL (6-20); CARBON DIOXIDE - CO2 30 mmol/L (21-32); CHLORIDE 102 mmol/L (101-111); CK- CREATINE KINASE 30 IU/L (22-269); CREATININE 0.9 mg/dL (0.6-1.2); GLUCOSE 130 mg/dL (70-100); LIPASE 26 U/L (22-51); SODIUM 139 mmol/L (135-145); TOTAL PROTEIN 6.4 g/dL (6.7-8.2)
[2020-01-15 23:53] LABS: PLATELET ESTIMATE, MANUAL NORMAL (130-450,000) (NORMAL); PLATELET MORPHOLOGY NORMAL APPEARANCE (NORMAL); RBC MORPHOLOGY (MULTIPLE) 2+ MACROCYTOSIS (NORMAL)
[2020-01-16 00:27] LABS: BILIRUBIN,URINE NEGATIVE (NEGATIVE); GLUCOSE, URINE (UA) NEGATIVE (NEGATIVE); KETONES,URINE (UA) NEGATIVE (NEGATIVE); LEUKOCYTE ESTERASE, URINE NEGATIVE (NEGATIVE); MUDS CUTOFF CONCENTRATIONS CUTOFF CONC BELOW:; NITRITE,URINE NEGATIVE (NEGATIVE); OCCULT BLOOD,URINE TRACE-INTA (NEGATIVE); PROTEIN,URINE NEGATIVE (NEGATIVE); UROBILINOGEN,URINE 0.2 (NORMAL) E.U./dL (NORMAL)
[2020-01-16 00:28] LABS: CLARITY,URINE CLEAR (CLEAR)
[2020-01-16 00:38] LABS: AMPHETAMINE SCREEN,URINE NEGATIVE (NEGATIVE); BENZODIAZEPINES SCREEN, URINE NEGATIVE (NEGATIVE); COCAINE SCREEN URINE NEGATIVE (NEGATIVE); METHADONE SCREEN, URINE NEGATIVE (NEGATIVE); METHAMPHETAMINES SCREEN, URINE NEGATIVE (NEGATIVE); OPIATE SCREEN, URINE NEGATIVE (NEGATIVE); OXYCODONE SCREEN, URINE NEGATIVE (NEGATIVE); PROPOXYPHENE SCREEN, URINE NEGATIVE (NEGATIVE); TRICYCLIC ANTIDEPRESSANT,URINE NEGATIVE (NEGATIVE)
[2020-01-16] MEDS ORDERED: SODIUM CHLORIDE FLUSH 0.9% 10 ML SYRINGE IVP PRN (01:13)
[2020-01-16] MEDS ORDERED: IPRATROPIUM/ALBUTEROL 3 ML NEB INH PRN (01:19)
--- NOTE | 2020-01-16 01:21 | HISTORY & PHYSICAL EXAMINATION ---
Chief Complaint - Chief Complaint Chief Complaint: dyspnea History of Present Illness - Admitted From Admitted From:: [facility] ED - History Obtained From Records Reviewed: yes History obtained from: patient and ED physician - History of Present Illness HPI Comment/Other: Patient is a 74 y/o male with Hx of CHF, COPD, Atrial fibrillation on eliquis and rheumatoid arthritis on immunosuppresants who presented to the ED via EMS with complain of dyspnea. It has been going on for the past 2 weeks but was significantly worse today. He lives alone and does not use oxygen at home. However he has been getting progressively dyspneic. Ambulating from the bedroom to the kitchen has become more difficult. He uses about 3-5 pillows to prop himself up at night to sleep. He has a 2+ lower extremity edema. In the ED he had an O2Sat of 87 on room air. He was found to have a BNP of 1200. his last BNP prior to this was 240. He is currently very drowsy. He denied chest pain, abd pain, fever or chills. he reports occasional nausea and a clear productive cough. As a result of his presentation, he is being admitted for further treatment. History - Past Medical History Cardiovascular: reports: Hypertension, Atrial fibrillation, Murmur, Arrhythmia, Valve disorder Respiratory: reports: None Neuro: reports: CVA Endocrine/Autoimmune: reports: None GI: reports: Other : reports: None HEENT: reports: Other Psych: reports: Anxiety Musculoskeletal: reports: Osteoarthritis, Rheumatoid arthritis Derm: reports: None MRSA Hx?: No - Past Surgical History Ortho: reports: Other Cardiovascular: reports: Pacemaker - Family & Social History Family History Comment/Other: No significant family history reported Living arrangement: At home Living Situation: Alone Social History Notes: He has smoked on and off for 50 years. He denies alcohol or illicit drug use. He use to have [facility] [place], but not any longer. His cardiologists are out of [place] - POLST Patient has POLST: No POLST Status: Full Code Meds/Allgy - Home Medications Home Medications: Ambulatory Orders Medication Instructions Recorded Confirmed Folic Acid 2 mg PO DAILY 07/06/15 01/15/20 Methotrexate 20 mg PO MO@1400 07/06/15 01/15/20 Apixaban [Eliquis] 5 mg PO BID 05/07/19 01/15/20 Atorvastatin Calcium 40 mg PO QPM 05/07/19 01/15/20 Metoprolol Succinate 200 mg PO BID 05/07/19 01/15/20 Adalimumab [Humira(Cf) Pen] 40 mg SUBQ SA@1200 12/20/19 01/15/20 Albuterol Sulfate [Albuterol 2 puffs INH Q4H PRN 12/20/19 01/15/20 Sulfate Hfa] Aspirin [Aspirin EC] 81 mg PO DAILY 12/20/19 01/15/20 Budesonide/Formoterol Fumarate 2 puffs INH BID 12/20/19 01/15/20 [Symbicort 160-4.5 Mcg Inhaler] Cetirizine HCl 10 mg PO BID 12/20/19 01/15/20 Gabapentin 600 mg PO TID PRN 12/20/19 01/15/20 levETIRAcetam [Levetiracetam] 500 mg PO BID 12/20/19 01/15/20 predniSONE [Prednisone] 1 mg PO DAILY 12/20/19 01/15/20 - Allergies Allergies/Adverse Reactions: Allergies Allergy/AdvReac Type Severity Reaction Status Date / Time No Known Drug Allergies Allergy Verified 01/15/20 23:10 Review of Systems - Constitutional Constitutional: reports: Fatigue. denies: Fever, Chills - Eyes Eyes: denies: Pain - Ears, Nose & Throat Ears, Nose & Throat: denies: Ear pain, Vertigo - Cardiovascular Cariovascular: reports: Irregular heart rate, Edema, Exertional dyspnea. denies: Chest pain, Lightheadedness, Syncope - Respiratory Respiratory: reports: Cough, Sputum production, Wheezing, SOB at rest, SOB with exertion - Gastrointestinal Gastrointestinal: reports: Nausea. denies: Abdominal pain, Vomiting - Genitourinary Genitourinary: denies: Dysuria, Frequency, Urgency, Hematuria - Musculoskeletal Musculoskeletal: denies: Muscle pain, Muscle aches - Integumentary Integumentary: denies: Rash, Pruritis, Lesions - Neurological Neurological: reports: General weakness. denies: Headache - Psychiatric Psychiatric: denies: Depression, Anxiety - Endocrine Endocrine: denies: Polyuria, Polydypsia - Hematologic/Lymphatic Hematologic/Lymphatic: denies: Anemia, Bruising, Petechiae Prior Level of Functionality: He lives alone and is usually independent of activities of daily living Exam - Vital Signs Vital Signs: Vital Signs x48h Temp Pulse Resp BP Pulse Ox 01/16/20 01:16 82 17 97 01/16/20 01:07 84 96 01/16/20 01:03 19 110/83 H 93 01/16/20 00:59 78 17 87 L 01/16/20 00:25 95 19 123/91 H 94 01/15/20 23:28 101 H 22 01/15/20 23:19 18 01/15/20 23:05 86 18 95 01/15/20 22:58 36.7 C 83 32 H 104/91 H 98 - Physical Exam General Appearance: positive: Mild distress, Lethargic Eyes Bilateral: positive: PERRL, EOMI ENT: positive: No signs of dehydration Neck: positive: No JVD, Trachea midline Respiratory: positive: Chest non-tender, No respiratory distress, Wheezes Cardiovascular: positive: Irregularly irregular Abdomen: positive: Non-tender, No organomegaly, Nml bowel sounds, Other (obese abdomen). negative: Guarding, Rebound Back: positive: Nml inspection Skin: positive: Color nml, No rash, Warm, Dry Extremities: positive: Non-tender, Pedal edema (2+ pitting) Neurologic/Psychiatric: positive: Oriented x3, Depressed mood/affect Conclusion/Plan - Problem List (1) CHF exacerbation Conclusion/Plan: Patient given lasix 40mg IV in the ED Will continue lasix 20mg IV bid Daily weits. Low sodium diet Will continue metoprolol succinate once verified In light or recent 2D echo done within the past 1 month, I will not repeat an echo (2) Atrial fibrillation Conclusion/Plan: Rate controlled on metoprolol Will continue eliquis Qualifiers: Atrial fibrillation type: unspecified Qualified Code(s): I48.91 - Unspecified atrial fibrillation (3) COPD (chronic obstructive pulmonary disease) Conclusion/Plan: Not in exacerbation On formeterol and budesonid Duoneb ordered prn Patient given 1 dose of solumedrol in the ED. Will not continue Qualifiers: COPD type: unspecified COPD Qualified Code(s): J44.9 - Chronic obstructive pulmonary disease, unspecified (4) Rheumatoid arthritis Conclusion/Plan: On humira and methotrexate once a week on Saturdays and Mondays respectively (5) History of CVA (cerebrovascular accident) Conclusion/Plan: On atorvastatin, eliquis and aspiri - Lab Results Fish Bones: 01/15/20 23:25 01/15/20 23:25 Core Measures - Anticipated LOS I expect patient to be DC'd or transferred within 96 hours.: Yes - DVT/VTE - Prophylaxis VTE/DVT Device ordered at admit?: Yes VTE/DVT Prophylaxis med ordered at admit?: Yes
[2020-01-16 05:35] LABS: EOSINOPHILS % (AUTO) 0.1 %; HGB - HEMOGLOBIN 15.5 g/dL (14.0-18.0); LYMPHOCYTES # (AUTO) 0.2 10^3/uL (1.5-3.5); LYMPHOCYTES % (AUTO) 3.1 %; MEAN CORPUSCULAR HEMOGLOBIN 39.1 pg (27.0-31.0); MEAN CORPUSCULAR HGB CONC 33.5 g/dL (32.0-36.0); MEAN CORPUSCULAR VOLUME 116.7 fL (80.0-94.0); MEAN PLATELET VOLUME 10.6 fL (7.4-11.4); MONOCYTES # (AUTO) 0.1 10^3/uL (0.0-1.0); MONOCYTES % (AUTO) 0.8 %; NEUTROPHILS # (AUTO) 6.8 10^3/uL (1.5-6.6); NEUTROPHILS % (AUTO) 95.2 %; PLT - PLATELET COUNT 165 10^3/uL (130-450); RED BLOOD COUNT 3.96 10^6/uL (4.70-6.10); RED CELL DISTRIBUTION WIDTH 15.5 % (12.0-15.0); WHITE BLOOD COUNT 7.2 x10^3/uL (4.8-10.8)
[2020-01-16 05:45] LABS: CALCIUM 8.9 mg/dL (8.5-10.3); CREATININE 0.8 mg/dL (0.6-1.2)
[2020-01-16 05:58] LABS: PLATELET MORPHOLOGY NORMAL APPEARANCE (NORMAL); RBC MORPHOLOGY (MULTIPLE) 2+ MACROCYTOSIS (NORMAL)
[2020-01-16 05:59] LABS: PLATELET ESTIMATE, MANUAL NORMAL (130-450,000) (NORMAL)
[2020-01-16] MEDS: FUROSEMIDE 20 MG/2 ML VIAL IVP SCH ×2 (06:36→14:09)
[2020-01-16] MEDS: BUDESONIDE 0.5 MG/2 ML NEB INH SCH ×2 (07:23→19:22)
[2020-01-16] MEDS: FORMOTEROL FUMARATE NEB 20 MCG/2 ML INH SCH ×2 (07:23→19:22)
--- NOTE | 2020-01-16 08:05 | XRAY Report ---
Reason: sob Procedure Date: 01/15/2020 Accession Number: [id number] / [id number] Procedure: XR - Chest 1 View X-Ray CPT Code: 90772 Final Report FULL RESULT: PROCEDURE: Chest 1 View X-Ray INDICATIONS: sob TECHNIQUE: One view of the chest was acquired. COMPARISON: Chest x-ray 12/20/2019, 06/10/2019 FINDINGS: Surgical changes and devices: None. Lungs and pleura: There is a persistent appearance of left basilar opacitysince 10/27/2019. Superimposed increased appearance of pulmonary vascularity is present more prominent when compared to prior exam. Mediastinum: Mediastinal contours appear normal. Heart size is enlarged. Bones and chest wall: No suspicious bony lesions. Overlying soft tissues appear unremarkable. IMPRESSION: Persistent appearance of left basilar opacity suggestive chronic consolidative or effusion process. However, increased pulmonary vascularity is present suggestive of superimposed acute edema. Developing areas of acute airspace disease such as pneumonia and/or atelectasis cannot be excluded. The above findings are concordant with preliminary report. Reviewed by: Anita Thakur MD on 01/16/2020 8:04 AM PDT Approved by: Anita Thakur MD on 01/16/2020 8:04 AM PDT Station ID: [id number]
--- NOTE | 2020-01-16 08:41 | PHARMACY PROGRESS NOTE ---
- Best Possible Medication History Admit Date and Time: 01/16/20 0113 Processed by: Nursing Medication History completed: Yes As the person ultimately responsible for medication therapy, providers are able to order a medication from an existing home medication list in [facility] via the "Reconcile Routine" prior to Confirmation of that medication by operations support manager. Such practice is discouraged except when the physician, in their clinical judgment, deems that a medical need exists for a medication without regard to previous use.
[2020-01-16] MEDS ORDERED: GABAPENTIN 300 MG CAPSULE PO PRN (08:59)
[2020-01-16] MEDS ORDERED: levETIRAcetam 250 MG TABLET PO SCH (09:00)
[2020-01-16] MEDS: SODIUM CHLORIDE FLUSH 0.9% 10 ML SYRINGE IVP SCH ×2 (09:47→20:32)
[2020-01-16] MEDS: FOLIC ACID 1 MG TABLET PO SCH (09:47)
[2020-01-16] MEDS: APIXABAN 5 MG TABLET PO SCH ×2 (09:47→20:32)
[2020-01-16] MEDS: ASPIRIN EC 81 MG TABLET PO SCH (09:47)
[2020-01-16] MEDS: CETIRIZINE 10 MG TABLET PO SCH ×2 (09:47→20:33)
--- NOTE | 2020-01-16 12:18 | PHARMACY PROGRESS NOTE ---
- Best Possible Medication History Admit Date and Time: 01/16/20 0113 Processed by: Pharmacy Medication History completed: Yes Patient Interview: Completed Secondary Source(s): Physician records, Pharmacy records, Insurance records (PREVIOUS MEDICATION HISTORY BY NURSING,UPDATED CURRENTLY BY PHARMACIST) As the person ultimately responsible for medication therapy, providers are able to order a medication from an existing home medication list in [facility] via the "Reconcile Routine" prior to Confirmation of that medication by it support engineer. Such practice is discouraged except when the physician, in their clinical judgment, deems that a medical need exists for a medication without regard to previous use.
[2020-01-16 12:43] LABS: FOLATE > 49.60 ng/mL (5.90 - >24.8)
[2020-01-16] MEDS: guaiFENesin 600 MG TABLET PO SCH ×2 (14:09→20:33)
[2020-01-16] MEDS: IPRATROPIUM/ALBUTEROL 3 ML NEB INH PRN (19:22)
[2020-01-16] MEDS: MONTELUKAST 10 MG TABLET PO SCH (20:32)
[2020-01-16] MEDS: METOPROLOL SUCCINATE 50 MG TABLET PO SCH (20:32)
[2020-01-16] MEDS: ATORVASTATIN 40 MG TABLET PO SCH (20:33)
[2020-01-16] MEDS: levETIRAcetam 250 MG TABLET PO SCH (20:33)
[2020-01-17] MEDS: SODIUM CHLORIDE FLUSH 0.9% 10 ML SYRINGE IVP SCH ×3 (01:24→17:51)
[2020-01-17] MEDS: IPRATROPIUM/ALBUTEROL 3 ML NEB INH PRN ×3 (03:14→19:12)
[2020-01-17 05:23] LABS: BASOPHILS % (AUTO) 0.2 %; EOSINOPHILS % (AUTO) 0.1 %; HGB - HEMOGLOBIN 14.3 g/dL (14.0-18.0); LYMPHOCYTES # (AUTO) 0.9 10^3/uL (1.5-3.5); LYMPHOCYTES % (AUTO) 8.6 %; MEAN CORPUSCULAR HEMOGLOBIN 39.2 pg (27.0-31.0); MEAN CORPUSCULAR HGB CONC 34.3 g/dL (32.0-36.0); MEAN CORPUSCULAR VOLUME 114.2 fL (80.0-94.0); MEAN PLATELET VOLUME 10.2 fL (7.4-11.4); MONOCYTES # (AUTO) 0.6 10^3/uL (0.0-1.0); MONOCYTES % (AUTO) 5.4 %; NEUTROPHILS # (AUTO) 9.3 10^3/uL (1.5-6.6); NEUTROPHILS % (AUTO) 85.1 %; PLT - PLATELET COUNT 181 10^3/uL (130-450); RED BLOOD COUNT 3.65 10^6/uL (4.70-6.10); RED CELL DISTRIBUTION WIDTH 15.5 % (12.0-15.0)
[2020-01-17 05:37] LABS: CALCIUM 8.8 mg/dL (8.5-10.3); CREATININE 1.1 mg/dL (0.6-1.2)
[2020-01-17 06:02] LABS: RBC MORPHOLOGY (MULTIPLE) 2+ MACROCYTOSIS (NORMAL)
[2020-01-17 06:03] LABS: PLATELET ESTIMATE, MANUAL NORMAL (130-450,000) (NORMAL); PLATELET MORPHOLOGY NORMAL APPEARANCE (NORMAL)
[2020-01-17] MEDS: FUROSEMIDE 20 MG/2 ML VIAL IVP SCH ×2 (06:46→13:38)
[2020-01-17] MEDS: FORMOTEROL FUMARATE NEB 20 MCG/2 ML INH SCH ×2 (07:50→19:12)
[2020-01-17] MEDS: BUDESONIDE 0.5 MG/2 ML NEB INH SCH ×2 (07:50→19:12)
[2020-01-17] MEDS: ASPIRIN EC 81 MG TABLET PO SCH (08:27)
[2020-01-17] MEDS: APIXABAN 5 MG TABLET PO SCH ×2 (08:27→21:05)
[2020-01-17] MEDS: CETIRIZINE 10 MG TABLET PO SCH ×2 (08:27→21:05)
[2020-01-17] MEDS: guaiFENesin 600 MG TABLET PO SCH ×2 (08:27→21:05)
[2020-01-17] MEDS: FOLIC ACID 1 MG TABLET PO SCH (08:27)
[2020-01-17] MEDS: levETIRAcetam 250 MG TABLET PO SCH ×2 (08:28→21:04)
[2020-01-17] MEDS: METOPROLOL SUCCINATE 50 MG TABLET PO SCH ×2 (08:28→21:04)
[2020-01-17] MEDS ORDERED: ADALIMUMAB 40 MG SUBQ SCH (12:00)
[2020-01-17] MEDS: polyethylene glycoL 3350 17 GM PACKET PO SCH (13:38)
--- NOTE | 2020-01-17 16:12 | ADVANCE CARE PLANNING NOTE ---
Advance Care Planning - Planning Encounter Date: 01/17/20 Time: 15:00 Purpose: To confirm his CODE BLUE status wishes. To define his wishes regarding medical management and answer questions regarding his condition and prognosis. Parties in Attendance: I first spoke to the daughter, Meghan Yoder, by phone ( for 20 min) to get update her on his status and to get background information including her understanding of his CODE BLUE wishes. I then spoke to the patient in his room (for 30 min), who was in his bed, and his nurse, Garth walked in for a portion of the conversation. Decisional Capacity of the Patient: Patient admits that he has occasional short-term memory problems. He has occasional difficulty with the details of what have been told to him. There is a history of a stroke from 2019. He also had brain hemorrhage in his remote past. Overall the patient does make all his decisions, can carry on a conversation and appears lucid and able to make decisions. - Diagnosis for Encounter (1) Acute decompensated heart failure Summary: Patient has a history of chronic diastolic heart failure. The daughter admitted that he often cheats on a proper low-salt, cardiac diet because he requests pizza and Kielbasa. When I asked him about these dietary indiscretions, he said he only eats little bits and it is because everything else tastes bad. The daughter makes food for meetings, she has brought him healthy food and he wants either more sauce or different flavors and she has stopped bringing him meals that she makes. He has tried Meals on Wheels and it is not to his appetite and refuses to get it again. - Encounter Subjective/Patient's Story: This is a 74-year-old man who was not involved in his children's life except for holidays, he now lives alone, a daughter who lives on [facility] has stepped in to help him with driving him places, helping him with finances, decisions, checks on him, is his DPOA. The patient has a history of COPD, diastolic heart failure, atrial fib, has a pacemaker, [facility]. He lives alone and is planning to get a warehouse packaging supervisor/domestic aid. He was given resources for this at his admission 6 weeks ago and claims that he has not called anybody because he is letting his daughter interviewed the people and also because "he has not had time". This has been during the time that he is at home in COVID isolation. He claims that he has been hospitalized and therefore had no time: He has been hospitalized 4 days here, 4 days in [place] and 3 days here during this 6 weeks since those resources were given to him. Objective/Medical Story: This 74-year-old male has a history of diastolic heart failure, A. fib with recent RVRWhen his daughter picked him up he told her he had 2 clots that were found, 1 in the lung and 1 in the heart, records were reviewed from that [place] hospitalization and they found a nodule in his lung, no clot and an aortic aneurysm, no clot in the heart [place],. He is admitted now with CHF exacerbation which is improving with IV Lasix. This he had a hospitalization he Lasix was removed in order to give him fluids back to treat tachycardia. The patient wonders why his pacemaker can possibly still have battery life present which I explained to him. The patient states that this hospital food is terrible. The patient has refused to work with physical therapy because he claims he can walk the distance that he needs to walk at home which is approximately only 10 feet now. In his recent past he could walk about 60 feet 8, to the mailbox and back. 6 weeks ago the patient wanted to be full resuscitation which I confirmed with him, I repeated those comments to him. Patient now states he must of been crazy because his life is terrible and he does not want his life prolonged. He definitely repeats that he wants to be a DNR, DNI and is ready to sign a POLST form. 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 The daughter had told me that he is clean and hygienic and very tidy in his house. The daughter had told me she thinks he is forgetting his medications and request that a nurses aide check his medicines at home. The patient claims that he makes his own meals and does not like what his daughter brings which was supposedly "healthy food" but he does not like her cooking. The patient wants selective care and definitely wants to sign a POLST form indicating DNR, DNI, allow natural . Plan: Patient wanted to sign out AMA earlier today but agrees to stay. Patient understood the plan that was outlined for him regarding management of his CHF. The patient is requesting a better cane to use for ambulation, which will be requested of his nurse to get from central supply. He was told that he needs to be able to walk the distance that he needs to walk in his home and must show me this before he is discharged. A POLST form will be filled out and signed by himself and me. DNR orders will be started today. Code Status: Do Not Attempt Resuscitation Time spent on advance care plannin min
--- NOTE | 2020-01-17 16:24 | PROVIDER PROGRESS NOTE ---
Assessment/Plan - Problem List (1) Acute on chronic diastolic heart failure Assessment/Plan: The reason for going into heart failure appears to be dietary indiscretion which was reviewed at length with him today and the fact that he was taken off of Lasix when in [place] being treated for A. fib with RVR. Limited echo, 2D only yesterday, showed preserved LV systolic function and RV dilated. These findings were essentially unchanged from an echo done 1 month ago BNP is improving on IV twice daily Lasix. He still has rales but nearly no ankle edema now. We will change to p.o. diuretics starting tomorrow. (2) COPD without exacerbation Assessment/Plan: He requested to be on Mucinex for pulmonary toilet. His inhalers were changed to nebulizers while here. He does not need steroids, there was no exacerbation of his COPD this time. (3) Dementia Assessment/Plan: Patient forgot that he wants to be a full code just 6 weeks ago. Alternatively he may have change his mind since being admitted to [place] and back here again. The patient thought he had 2 clots found when he was in [place], on his heart and one in his lungs but I reviewed the discharge summary and that was not the proper diagnosis: He has a nodule in the lungs not a clot and he has an aortic aneurysm, not a clot in the heart. I spoke to the daughter today who agreed that his memory is failing. Patient himself says that he has bouts of very poor memory (forgets what he is doing when he walks into a room). The daughter had requested that a nurse be referred to the home to check his medications. I will order Home Health for bath aide and RN. (4) Atrial fibrillation Qualifiers: Atrial fibrillation type: unspecified Qualified Code(s): I48.91 - Unspecified atrial fibrillation Assessment/Plan: The heart rate has been upper end of normal since he has been here, because his metoprolol succinate 150 twice daily was decreased down to 100 twice daily. (5) Generalized weakness Assessment/Plan: I ordered PT to start today. The patient refused to work with PT saying that "he does not need to go to a gym and needs no PT in the house". He explained that he can only walk 10 feet now and is not planning to walk anything further. I said that he needs to show me he can at least do the distance that he needs to walk in his house before he can be safely discharged and the patient agreed. He would not go to SNF for rehab he stated. - Current Meds Current Meds: Current Medications Generic Name Dose Route Start Last Admin Trade Name Freq PRN Reason Stop Dose Admin Albuterol/Ipratropium 3 ml 01/16/20 08:40 01/17/20 07:50 Duoneb INH 3 ml RTQ4H PRN Administration Wheezing Apixaban 5 mg 01/16/20 09:00 01/17/20 08:27 Eliquis PO 5 mg BID BERTHA Administration Aspirin 81 mg 01/16/20 09:00 01/17/20 08:27 Ecotrin PO 81 mg DAILY BERTHA Administration Atorvastatin Calcium 40 mg 01/16/20 21:00 01/16/20 20:33 Lipitor PO 40 mg QPM BERTHA Administration Budesonide 0.5 mg 01/16/20 07:00 01/17/20 07:50 Pulmicort INH 0.5 mg RTBID BERTHA Administration Cetirizine HCl 10 mg 01/16/20 09:00 01/17/20 08:27 Zyrtec PO 10 mg BID BERTHA Administration Folic Acid 2 mg 01/16/20 09:00 01/17/20 08:27 PO 2 mg DAILY BERTHA Administration Formoterol Fumarate 20 mcg 01/16/20 07:00 01/17/20 07:50 Perforomist INH 20 mcg RTBID BERTHA Administration Furosemide 20 mg 01/16/20 06:00 01/17/20 13:38 Lasix Inj 20mg Vial IVP 01/17/20 17:00 20 mg BIDDIURETIC BERTHA Administration Guaifenesin 600 mg 01/16/20 14:00 01/17/20 08:27 Mucinex PO 600 mg BID BERTHA Administration Levetiracetam 1,000 mg 01/16/20 21:00 01/17/20 08:28 Keppra PO 1,000 mg BID BERTHA Administration Metoprolol Succinate 100 mg 01/16/20 21:00 01/17/20 08:28 Toprol Xl PO 100 mg BID BERTHA Administration Montelukast Sodium 10 mg 01/16/20 21:00 01/16/20 20:32 Singulair PO 10 mg QPM BERTHA Administration Polyethylene Glycol 17 gm 01/17/20 13:00 01/17/20 13:38 Miralax PO 17 gm DAILY BERTHA Administration Sodium Chloride 10 ml 01/16/20 01:13 01/16/20 06:36 Normal Saline Flush 0.9% IVP 10 ml PRN PRN Administration NEEDED PER PROVIDER ORDERS Sodium Chloride 10 ml 01/16/20 09:00 01/17/20 06:46 Normal Saline Flush 0.9% IVP 10 ml 0100,0900,1700 BERTHA Administration - Lab Result Fish Bone Diagrams: 01/17/20 04:45 01/17/20 04:45 - Additional Planning My Orders: My Active Orders 01/16/20 21:00 Atorvastatin [Lipitor] 40 mg PO QPM Metoprolol Succinate [Toprol Xl] 100 mg PO BID Montelukast [Singulair] 10 mg PO QPM levETIRAcetam [Keppra] 1,000 mg PO BID 01/17/20 Social Work Consult [CONS] Routine Evaluate and Treat PT [PT] Routine 01/17/20 13:00 polyethylene glycoL 3350 [Miralax] 17 gm PO DAILY 01/18/20 05:00 A1C [CHEM] DAILYLAB 01/18/20 09:00 Furosemide [Lasix] 40 mg PO DAILY 01/19/20 12:00 Adalimumab [Humira(Cf) Pen] 40 mg SUBQ MO@1200 01/19/20 14:00 Methotrexate 20 mg PO MO@1400 Subjective - Subjective Patient Reports: Other (Patient thinks that the food here is awful, that "this [facility] is a 711", that everyone is just "ordering things to raise health care costs". The patient refused to work with physical therapy today. Patient stated that his cane was lost and they gave him 1 from our [employer] that is crooked and unusable.) Objective Vital Signs: Vital Signs - 24 hr 01/16/20 01/16/20 01/17/20 19:22 20:47 00:53 Temperature 36.9 C 36.9 C Heart Rate 99 Heart Rate [ 104 H 99 Brachial] Respiratory 18 20 18 Rate Blood Pressure [Left Brachial artery] Blood Pressure 103/72 92/66 [Right Brachial artery] O2 Saturation 94 93 01/17/20 01/17/20 01/17/20 03:10 04:38 07:50 Temperature 36.3 C L Heart Rate 88 101 H Heart Rate [ 89 Brachial] Respiratory 18 18 20 Rate Blood Pressure [Left Brachial artery] Blood Pressure 93/59 L [Right Brachial artery] O2 Saturation 95 01/17/20 01/17/20 01/17/20 08:04 08:26 12:47 Temperature 36.4 C L 36.5 C Heart Rate Heart Rate [ 49 L 75 91 Brachial] Respiratory 22 24 Rate Blood Pressure 119/59 L [Left Brachial artery] Blood Pressure 147/124 H 95/71 [Right Brachial artery] O2 Saturation 96 93 01/17/20 15:42 Temperature 36.5 C Heart Rate Heart Rate [ 47 L Brachial] Respiratory 22 Rate Blood Pressure [Left Brachial artery] Blood Pressure 106/60 [Right Brachial artery] O2 Saturation 93 Oxygen O2 Source Room air Oxygen Flow Rate 3 I&O (Last 24 Hrs): Intake and Output Totals x24h 01/15/20 01/16/20 01/17/20 23:59 23:59 23:59 Intake Total 2410 1020 Output Total 3285 Balance -875 1020 General: Alert, Oriented x3 HEENT: Atraumatic, EOMI Neck: Supple, Other (Long large dacosta down to his nipple line) Neuro: Alert, Non Focal Cardiovascular: Regular rate, No murmurs Respiratory: Rales, Other (Bibasilar Rales, no wheezes) Abdomen: Soft, Other (Obese with a pannus versus ascites) Extremities: Other (Trace ankle edema) - Results Results: Laboratory Results WBC 11.0 x10^3/uL (4.8-10.8) H 01/17/20 04:45 RBC 3.65 10^6/uL (4.70-6.10) L 01/17/20 04:45 Hgb 14.3 g/dL (14.0-18.0) 01/17/20 04:45 Hct 41.7 % (42.0-52.0) L 01/17/20 04:45 MCV 114.2 fL (80.0-94.0) H 01/17/20 04:45 MCH 39.2 pg (27.0-31.0) H 01/17/20 04:45 MCHC 34.3 g/dL (32.0-36.0) 01/17/20 04:45 RDW 15.5 % (12.0-15.0) H 01/17/20 04:45 Plt Count 181 10^3/uL (130-450) 01/17/20 04:45 MPV 10.2 fL (7.4-11.4) 01/17/20 04:45 Neut # (Auto) 9.3 10^3/uL (1.5-6.6) H 01/17/20 04:45 Lymph # (Auto) 0.9 10^3/uL (1.5-3.5) L 01/17/20 04:45 Latimer # (Auto) 0.6 10^3/uL (0.0-1.0) 01/17/20 04:45 Eos # (Auto) 0.0 10^3/uL (0.0-0.7) 01/17/20 04:45 Baso # (Auto) 0.0 10^3/uL (0.0-0.1) 01/17/20 04:45 Absolute Nucleated RBC 0.04 x10^3/uL 01/17/20 04:45 Nucleated RBC % 0.4 /100WBC 01/17/20 04:45 Manual Slide Review Indicated 01/17/20 04:45 WBC Morphology NORMAL APPEARANCE (NORMAL) 01/17/20 04:45 Platelet Estimate NORMAL (130-450,000) (NORMAL) 01/17/20 04:45 Platelet Morphology NORMAL APPEARANCE (NORMAL) 01/17/20 04:45 RBC Morph Micro Appear 2+ MACROCYTOSIS (NORMAL) 01/17/20 04:45 PT 18.9 secs (9.9-12.6) H 01/15/20 23:25 INR 1.7 (0.8-1.2) H 01/15/20 23:25 APTT 33.3 secs (24.9-33.3) 01/15/20 23:25 Sodium 138 mmol/L (135-145) 01/17/20 04:45 Potassium 3.7 mmol/L (3.5-5.0) 01/17/20 04:45 Chloride 98 mmol/L (101-111) L 01/17/20 04:45 Carbon Dioxide 32 mmol/L (21-32) 01/17/20 04:45 Anion Gap 8.0 (6-13) 01/17/20 04:45 BUN 21 mg/dL (6-20) H 01/17/20 04:45 Creatinine 1.1 mg/dL (0.6-1.2) 01/17/20 04:45 Estimated GFR (MDRD) 65 (>89) L 01/17/20 04:45 Glucose 183 mg/dL (70-100) H 01/17/20 04:45 Lactic Acid 0.8 mmol/L (0.5-2.2) 01/15/20 23:25 Calcium 8.8 mg/dL (8.5-10.3) 01/17/20 04:45 Total Bilirubin 1.3 mg/dL (0.2-1.0) H 01/15/20 23:25 AST 17 IU/L (10-42) 01/15/20 23:25 ALT 21 IU/L (10-60) 01/15/20 23:25 Alkaline Phosphatase 78 IU/L (42-121) 01/15/20 23:25 Total Creatine Kinase 30 IU/L (22-269) 01/15/20 23:25 Troponin I High Sens 17.0 ng/L (2.3-19.7) 01/16/20 11:10 B-Natriuretic Peptide 372 pg/mL (5-100) H 01/17/20 04:45 Total Protein 6.4 g/dL (6.7-8.2) L 01/15/20 23:25 Albumin 3.2 g/dL (3.2-5.5) 01/15/20 23:25 Globulin 3.2 g/dL (2.1-4.2) 01/15/20 23:25 Albumin/Globulin Ratio 1.0 (1.0-2.2) 01/15/20 23:25 Lipase 26 U/L (22-51) 01/15/20 23:25 Vitamin B12 696 pg/mL (180-914) 01/16/20 11:10 Folate > 49.60 ng/mL (5.90 - >24.8) 01/16/20 11:10 Urine Color YELLOW 01/16/20 00:15 Urine Clarity CLEAR (CLEAR) 01/16/20 00:15 Urine pH 7.0 PH (5.0-7.5) 01/16/20 00:15 Ur Specific [place] 1.010 (1.002-1.030) 01/16/20 00:15 Urine Protein NEGATIVE mg/dL (NEGATIVE) 01/16/20 00:15 Urine Glucose (UA) NEGATIVE mg/dL (NEGATIVE) 01/16/20 00:15 Urine Ketones NEGATIVE mg/dL (NEGATIVE) 01/16/20 00:15 Urine Occult Blood TRACE-INTA (NEGATIVE) 01/16/20 00:15 Urine Nitrite NEGATIVE (NEGATIVE) 01/16/20 00:15 Urine Bilirubin NEGATIVE (NEGATIVE) 01/16/20 00:15 Urine Urobilinogen 0.2 (NORMAL) E.U./dL (NORMAL) 01/16/20 00:15 Ur Leukocyte Esterase NEGATIVE (NEGATIVE) 01/16/20 00:15 Ur Microscopic Review NOT INDICATED 01/16/20 00:15 Urine Culture Comments NOT INDICATED 01/16/20 00:15 Urine Opiates Screen NEGATIVE (NEGATIVE) 01/16/20 00:15 Ur Oxycodone Screen NEGATIVE (NEGATIVE) 01/16/20 00:15 Urine Methadone Screen NEGATIVE (NEGATIVE) 01/16/20 00:15 Ur Propoxyphene Screen NEGATIVE (NEGATIVE) 01/16/20 00:15 Ur Barbiturates Screen NEGATIVE (NEGATIVE) 01/16/20 00:15 Ur Tricyclics Screen NEGATIVE (NEGATIVE) 01/16/20 00:15 Ur Phencyclidine Scrn NEGATIVE (NEGATIVE) 01/16/20 00:15 Ur Amphetamine Screen NEGATIVE (NEGATIVE) 01/16/20 00:15 U Methamphetamines Scrn NEGATIVE (NEGATIVE) 01/16/20 00:15 U Benzodiazepines Scrn NEGATIVE (NEGATIVE) 01/16/20 00:15 Urine Cocaine Screen NEGATIVE (NEGATIVE) 01/16/20 00:15 U Cannabinoids Screen NEGATIVE (NEGATIVE) 01/16/20 00:15 Ethyl Alcohol < 5.0 mg/dL 01/15/20 23:25
[2020-01-17] MEDS ORDERED: traZODone 50 MG TABLET PO SCH (21:00)
[2020-01-17] MEDS: ATORVASTATIN 40 MG TABLET PO SCH (21:05)
[2020-01-17] MEDS: MONTELUKAST 10 MG TABLET PO SCH (21:05)
[2020-01-18] MEDS: SODIUM CHLORIDE FLUSH 0.9% 10 ML SYRINGE IVP SCH ×2 (01:04→10:22)
[2020-01-18 05:07] LABS: BASOPHILS # (AUTO) 0.1 10^3/uL (0.0-0.1); BASOPHILS % (AUTO) 0.6 %; EOSINOPHILS # (AUTO) 0.1 10^3/uL (0.0-0.7); EOSINOPHILS % (AUTO) 1.6 %; HGB - HEMOGLOBIN 13.7 g/dL (14.0-18.0); LYMPHOCYTES # (AUTO) 1.9 10^3/uL (1.5-3.5); LYMPHOCYTES % (AUTO) 24.3 %; MEAN CORPUSCULAR HEMOGLOBIN 39.4 pg (27.0-31.0); MEAN CORPUSCULAR HGB CONC 33.6 g/dL (32.0-36.0); MEAN CORPUSCULAR VOLUME 117.2 fL (80.0-94.0); MONOCYTES # (AUTO) 0.7 10^3/uL (0.0-1.0); MONOCYTES % (AUTO) 8.9 %; NEUTROPHILS % (AUTO) 63.3 %; PLT - PLATELET COUNT 154 10^3/uL (130-450); RED BLOOD COUNT 3.48 10^6/uL (4.70-6.10); WHITE BLOOD COUNT 7.9 x10^3/uL (4.8-10.8)
[2020-01-18 05:18] LABS: CALCIUM 8.5 mg/dL (8.5-10.3); CREATININE 1.2 mg/dL (0.6-1.2)
[2020-01-18 05:44] LABS: PLATELET ESTIMATE, MANUAL NORMAL (130-450,000) (NORMAL); PLATELET MORPHOLOGY NORMAL APPEARANCE (NORMAL); RBC MORPHOLOGY (MULTIPLE) 2+ MACROCYTOSIS (NORMAL)
[2020-01-18 05:45] LABS: HB2 TOTAL 13.8 g/dL; HEMOGLOBIN A1C 0.73 g/dL
--- NOTE | 2020-01-18 08:39 | Discharge Plan ---
Discharge Plan Problem Reviewed?: Yes Disposition: Home, Self Care Condition: Stable Prescriptions: Furosemide [Lasix] 40 mg PO DAILY #30 tablet guaiFENesin [Mucinex] 600 mg PO BID #30 tablet Montelukast [Singulair] 10 mg PO QPM #30 tablet Diet: Cardiac Activity Restrictions: Activity as Tolerated Shower Restrictions: No Driving Restrictions: Yes (No driving due to poor memory and your legs give-out) Assistance Devices: Cane Weight Bearing: Full Weight Instruction Topics: Tips Using Less Salt, Choices Low Salt, Foods Heart Healthy, COVID-19 [facility], COVID-[address] [facility] Department Statement, Flu and Cold: Nutrition, Prevention and Treatment Tips Health Concerns: You were admitted due to shortness of breath related to fluid overload. You are being discharged with recommendation to resume a daily Lasix tablet. A new prescription for Lasix was sent to your [facility] pharmacy in [place]. You were tested to see if you need oxygen at home, but your oxygen level does not drop when you are active, therefore no new oxygen was ordered. There are new prescriptions at [facility] for Mucinex, to take twice a day, and the nighttime Singulair, which is also for your lungs. Resume all your other medications as prehospitalization, including the recently raised dose of Metoprolol. You do need that higher dose to control a rapid heart rate. Please eat a diet that is low in salt to prevent fluid reaccumulation. Plan of Treatment: As above. Care Goals: Improvement in symptoms and stabilization are the goals. Assessment: The patient understands the plan. Additional Instructions or Follow Up instructions: If you have new or worsening symptoms, call your PCP or [employer] for advice, or come to the emergency. No Smoking: If you smoke, Please STOP! Call for help. Follow-up with: TRENA ORTEGA MD [Primary Care Provider] -
--- NOTE | 2020-01-18 08:56 | DISCHARGE SUMMARY ---
Discharge Summary Admit Date: 01/16/20 Discharge Date: 01/18/20 Discharging Provider: Dr Liss Vergara Primary Care Provider: Dr Alicia Freeman Code Status: Do Not Attempt Resuscitation Condition at Discharge: Stable Discharge Disposition: 01 Home, Self Care - HPI History of Present Illness: From the admission H&P of Dr. Lloyd Kay: Patient is a 74 y/o male with Hx of CHF, COPD, Atrial fibrillation on Eliquis and rheumatoid arthritis on immunosuppresants who presented to the ED via EMS with complain of dyspnea. It has been going on for the past 2 weeks but was significantly worse today. He lives alone and does not use oxygen at home. However he has been getting progressively dyspneic. Ambulating from the bedroom to the kitchen has become more difficult. He uses about 3-5 pillows to prop himself up at night to sleep. He has a 2+ lower extremity edema. In the ED he had an O2Sat of 87 on room air. He was found to have a BNP of 1200. his last BNP prior to this was 240. He is currently very drowsy. He denied chest pain, abd pain, fever or chills. he reports occasional nausea and a clear productive cough. As a result of his presentation, he is being admitted for further treatment. - HOSPITAL COURSE Hospital Course: 1) Acute on chronic diastolic heart failure The reason for going into heart failure appeared to be dietary indiscretion which was reviewed at length with him and the fact that he was taken off of Lasix when hospitalized 1 week previosuly in [place] being treated for A. fib with RVR. A limited echo, 2D only was done that showed preserved LV systolic function and RV dilated. These findings were essentially unchanged from an Echo done 1 month ago. His BNP improved on IV twice daily Lasix. This was changed to po Lasix at disacharge. He underwent an oximetry test while walking and did not desaturate, did not qualify for home oxygen. (2) COPD without exacerbation He requested to be on Mucinex for pulmonary toilet. His inhalers were changed to nebulizers while here. He did not need steroids, there was no exacerbation of his COPD this time. (3) Dementia The admitted to worsening memory: he had reported to his daughter that 2 clots were found when he was an inpatient in [place], one in his heart and one in his lungs but I reviewed the discharge summary and that was not the proper diagnosis. He has a nodule in the lungs, not a clot, and he has an aortic aneurysm, not a clot in the heart. Patient forgot that he requested to be a Full Code when hospitalized here just 6 weeks ago. During this hospitalization, advanced care planning was done, a POLST form was signed, as he was vehement about being a DNR and having selective treatment. The daughter agreed that his memory is failing. The daughter had requested that a nurse be referred to the home to check his medications, but the patient refuses any home visitors, nurses, aides or meals on wheels. (4) Atrial fibrillation The heart rate had been upper end of normal since he was here, because his recently increased Metoprolol Succinate 150 twice daily was decreased here, down to 100 twice daily. At discharge, the dose of Metoprolol Succinate 150 bid was advised to be resumed. He continued his previous Eliquis dose while here. (5) Generalized weakness PT was orderd. The patient refused to work with PT saying that "he does not need to go to a gym and needs no PT in the house". He explained that he can only walk 10 feet now and is not planning to walk anything further. He would not go to SNF for rehab he stated. (6) RA He is on scheduled MTX and Humira. - ALLERGIES Allergies/Adverse Reactions: Allergies Allergy/AdvReac Type Severity Reaction Status Date / Time No Known Drug Allergies Allergy Verified 01/15/20 23:10 - MEDICATIONS Home Medications: Ambulatory Orders Medication Instructions Recorded Confirmed Folic Acid 2 mg PO DAILY 07/06/15 01/16/20 Methotrexate 20 mg PO MO@1400 07/06/15 01/16/20 Apixaban [Eliquis] 5 mg PO BID 05/07/19 01/16/20 Atorvastatin Calcium 40 mg PO QPM 05/07/19 01/16/20 Metoprolol Succinate 150 mg PO BID 05/07/19 01/16/20 Adalimumab [Humira(Cf) Pen] 40 mg SUBQ MO@1200 12/20/19 01/16/20 Albuterol Sulfate [Albuterol 2 puffs INH Q4H PRN 12/20/19 01/16/20 Sulfate Hfa] Budesonide/Formoterol Fumarate 2 puffs INH BID 12/20/19 01/16/20 [Symbicort 160-4.5 Mcg Inhaler] Cetirizine HCl 10 mg PO BID 12/20/19 01/16/20 Gabapentin 600 mg PO TID PRN 12/20/19 01/16/20 levETIRAcetam [Levetiracetam] 1,000 mg PO BID 12/20/19 01/16/20 predniSONE [Prednisone] 2 mg PO QDBREAKFAST 12/20/19 01/16/20 Cholecalciferol (Vitamin D3) 25 mcg PO DAILY 01/16/20 01/16/20 [Vitamin D3] Fluticasone [Flonase] 2 sprays [place] DAILY 01/16/20 01/16/20 Multivitamin W/Minerals [Theragran 1 tab PO DAILY 01/16/20 01/16/20 M] Furosemide [Lasix] 40 mg PO DAILY #30 tablet 01/18/20 Montelukast [Singulair] 10 mg PO QPM #30 tablet 01/18/20 guaiFENesin [Mucinex] 600 mg PO BID #30 tablet 01/18/20 - PHYSICAL EXAM AT DISCHARGE General Appearance: positive: No acute distress, Alert Eyes Bilateral: positive: Normal inspection, EOMI ENT: positive: ENT inspection nml, No signs of dehydration Neck: positive: Other (Not visualized due to a long dacosta.) Respiratory: positive: Rales, Other (Poor air movement, no wheezing) Cardiovascular: positive: Irregularly irregular Abdomen: positive: Non-tender, Other (Obese with pannus) Skin: positive: Color nml Extremities: positive: No pedal edema Neurologic/Psychiatric: positive: Oriented x3, Other (Poor memory) - LABS Result Diagrams: 01/18/20 04:30 01/18/20 04:30 - FOLLOW UP Follow Up: See PCP and Cardiology as previously already scheduled. - TIME SPENT Time Spent in Discharge (Minutes): 60
[2020-01-18] MEDS ORDERED: FUROSEMIDE 40 MG TABLET PO SCH (09:00)
[2020-01-18] MEDS: BUDESONIDE 0.5 MG/2 ML NEB INH SCH (09:20)
[2020-01-18] MEDS: FORMOTEROL FUMARATE NEB 20 MCG/2 ML INH SCH (09:20)
[2020-01-18] MEDS: IPRATROPIUM/ALBUTEROL 3 ML NEB INH PRN (09:20)
[2020-01-18] MEDS: FOLIC ACID 1 MG TABLET PO SCH (10:20)
[2020-01-18] MEDS: levETIRAcetam 250 MG TABLET PO SCH (10:20)
[2020-01-18] MEDS: CETIRIZINE 10 MG TABLET PO SCH (10:20)
[2020-01-18] MEDS: APIXABAN 5 MG TABLET PO SCH (10:20)
[2020-01-18] MEDS: guaiFENesin 600 MG TABLET PO SCH (10:21)
[2020-01-18] MEDS: ASPIRIN EC 81 MG TABLET PO SCH (10:21)
[2020-01-18] MEDS: polyethylene glycoL 3350 17 GM PACKET PO SCH (10:21)
[2020-01-18] MEDS: METOPROLOL SUCCINATE 50 MG TABLET PO SCH (10:24)
[2020-01-18 11:19] VITALS: BP 108/76
[2020-01-19] MEDS ORDERED: ADALIMUMAB 40 MG SUBQ SCH (12:00)
[2020-01-19] MEDS ORDERED: METHOTREXATE 2.5 MG TABLET PO SCH (14:00)
== END 2020-01-18 11:18 | disposition home or self-care (01) | DRG 293 ==
LOC: EDUNIT# → ED 22:53 → MS2 01-16 01:13
PROVIDERS: ADMIT Internal Medicine; ATTEND Internal Medicine
DX: I11.0 Hypertensive heart disease with heart failure (principal); I50.33 Acute on chronic diastolic (congestive) heart failure; J44.9 Chronic obstructive pulmonary disease, unspecified; F03.90 Unspecified dementia, unspecified severity, without behavioral disturbance, psychotic disturbance, mood disturbance, and anxiety; I48.91 Unspecified atrial fibrillation; M06.9 Rheumatoid arthritis, unspecified; Z74.09 Other reduced mobility; Z66 Do not resuscitate; Z79.01 Long term (current) use of anticoagulants; Z86.73 Personal history of transient ischemic attack (TIA), and cerebral infarction without residual deficits; Z95.0 Presence of cardiac pacemaker; Z87.891 Personal history of nicotine dependence; Z79.899 Other long term (current) drug therapy; Z79.51 Long term (current) use of inhaled steroids; Z79.82 Long term (current) use of aspirin
CPT/HCPCS: 36415; 71045; 80048; 80053; 80306; 80320; 81003; 82550; 82607; 82746; 83036; 83605; 83690; 83880; 84484; 85025; 85610; 85730; 93005; 93308; 94640; 94761; 96374; 99285; 99291; A9270; J7626; 81001; 87086

== ENCOUNTER 2020-04-08 12:04 | Outpatient (CLI) | payer OTHER | END 2020-04-08 12:05 | disposition critical access hospital (66) | LOC: EMS 12:04 | PROVIDERS: ATTEND Surgery | DX: R42 Dizziness and giddiness (principal); R06.02 Shortness of breath; R09.89 Other specified symptoms and signs involving the circulatory and respiratory systems | CPT/HCPCS: A0425; A0427 ==

== ENCOUNTER 2020-04-08 12:20 | Observation (INO) | payer OTHER ==
--- NOTE | 2020-04-08 13:26 | XRAY Report ---
PROCEDURE: Chest 1 View X-Ray INDICATIONS: Chest Pain TECHNIQUE: One view of the chest was acquired. COMPARISON: 01/15/2020, 12/20/2019, 10/27/2019 FINDINGS: Surgical changes and devices: A pacer device can be seen. The leads are seen in the expected positi ons. Lungs and pleura: There is a moderately sized left-sided pleural effusion. Overlying presumed atelect asis is seen. On this supine study, no pneumothorax or large right-sided pleural effusion can be seen . Mediastinum: The aorta is prominent and tortuous. The cardiac silhouette is believed to be moderately enlarged, yet is obscured. Interstitial prominence is seen. Bones and chest wall: No suspicious bony lesions. Age-appropriate degenerative changes are seen. O verlying soft tissues appear unremarkable. IMPRESSION: Moderate left-sided pleural effusion, cardiomegaly, and interstitial prominence. Please correlate wit h patient examination, history, and laboratory values for underlying congestive heart failure. Postoperative and degenerative changes are seen. Reviewed by: Christopher Ramsey MD on 04/08/2020 12:25 PM AKDT Approved by: Christopher Ramsey MD on 04/08/2020 12:25 PM AKDT Station ID: [id number]
--- NOTE | 2020-04-08 13:29 | ED Physician Documentation ---
History of Present Illness - Stated complaint Stated Complaint: SOA - Chief complaint Chief Complaint: Neuro - Additonal information Additional information: 74-year-old male presents to the emergency department with chief complaint of dyspnea and difficulty controlling his phlegm. He has a history of CHF, COPD and atrial fibrillation. He is on Eliquis. He also has rheumatoid arthritis. He is on immunosuppressants. He states that for many years he has had a problem with cough and shortness of breath. This morning he stepped outside his home and bent over and did not think that he was going to " make it" He denies fevers or hemoptysis. He denies that he has chest pain but says that it is hard to tell if he has chest pain when he coughs. He denies abdominal pain dysuria urgency or frequency. He states that he is compliant with all of his medications. He has very minimal lower extremity edema right now and he states that for the last week he has been working hard to get the swelling down. Review of Systems Constitutional: denies: Fever, Chills Nose: denies: Rhinorrhea / runny nose, Congestion Cardiac: reports: Chest pain / pressure, Palpitations, Pedal edema. denies: Calf pain Respiratory: reports: Dyspnea, Cough, Wheezing. denies: Hemoptysis GI: reports: Nausea. denies: Abdominal Pain, Abdominal Swelling, Vomiting, Constipation, Diarrhea, Hematemesis : denies: Dysuria, Frequency, Hesitancy, Unable to Void Skin: denies: Rash Musculoskeletal: denies: Neck pain, Back pain Neurologic: denies: Generalized weakness, Focal weakness Endocrine: denies: Polydypsia, Polyuria PD PAST MEDICAL HISTORY - Past Medical History Past Medical History: Yes Cardiovascular: Hypertension, Atrial fibrillation, Murmur, Arrhythmia, Valve disorder Respiratory: None Neuro: CVA Endocrine/Autoimmune: None GI: Other : None HEENT: Other Psych: Anxiety Musculoskeletal: Osteoarthritis, Rheumatoid arthritis Derm: None - Past Surgical History Past Surgical History: Yes Ortho: Other Cardiovascular: Pacemaker - Present Medications Home Medications: Ambulatory Orders Medication Instructions Recorded Confirmed Folic Acid 2 mg PO DAILY 07/06/15 04/08/20 Methotrexate 20 mg PO MO@1400 07/06/15 04/08/20 Apixaban [Eliquis] 5 mg PO BID 05/07/19 04/08/20 Atorvastatin Calcium 40 mg PO QPM 05/07/19 04/08/20 Metoprolol Succinate 150 mg PO BID 05/07/19 04/08/20 Adalimumab [Humira(Cf) Pen] 40 mg SUBQ MO@1200 12/20/19 04/08/20 Albuterol Sulfate [Albuterol 2 puffs INH Q4H PRN 12/20/19 04/08/20 Sulfate Hfa] Budesonide/Formoterol Fumarate 2 puffs INH BID 12/20/19 04/08/20 [Symbicort 160-4.5 Mcg Inhaler] Cetirizine HCl 10 mg PO BID 12/20/19 04/08/20 Gabapentin 600 mg PO TID PRN 12/20/19 04/08/20 levETIRAcetam [Levetiracetam] 1,000 mg PO BID 12/20/19 04/08/20 predniSONE [Prednisone] 2 mg PO QDBREAKFAST 12/20/19 04/08/20 Cholecalciferol (Vitamin D3) 25 mcg PO DAILY 01/16/20 04/08/20 [Vitamin D3] Fluticasone [Flonase] 2 sprays [place] DAILY 01/16/20 04/08/20 Multivitamin W/Minerals [Theragran 1 tab PO DAILY 01/16/20 04/08/20 M] Furosemide [Lasix] 40 mg PO DAILY #30 tablet 01/18/20 04/08/20 Montelukast [Singulair] 10 mg PO QPM #30 tablet 01/18/20 04/08/20 guaiFENesin [Mucinex] 600 mg PO BID #30 tablet 01/18/20 04/08/20 - Allergies Allergies/Adverse Reactions: Allergies Allergy/AdvReac Type Severity Reaction Status Date / Time No Known Drug Allergies Allergy Verified 04/08/20 12:40 - Social History Does the pt smoke?: Yes Smoking Status: Current every day smoker Does the pt drink ETOH?: No Does the pt have substance abuse?: No - Immunizations Immunizations are current?: Yes - POLST Patient has POLST: No POLST Status: Full Code PD ED PE EXPANDED - General General: Alert, Anxious, Other (obese male supine in bed with dyspnea) - HEENT HEENT: Atraumatic, PERRL, EOMI, Moist mucous membranes - Neck Neck: Supple w/out meningeal sx. No: Adenopathy - Respiratory Respiratory: Labored, Wheezing, Rhonchi, Decreased breath sounds (Globally diminished breath sounds most dominant on the left side), Other (tachypnea) - Abdomen Abdomen: Normal Bowel sounds. No: Tender to palpation - Derm Derm: Normal color, Warm and dry - Extremities Extremities: Normal - Neuro Neuro: Alert and Oriented X 3, CNII-XII intact, Normal speech. No: Confused - GCS Eye Opening: Spontaneous Motor: Obeys Commands Verbal: Oriented Total: 15 Results - Vitals Vitals: Vital Signs - 24 hr 04/08/20 12:35 Temperature 36.8 C Heart Rate 83 Respiratory 14 Rate Blood Pressure 100/73 O2 Saturation 94 Oxygen O2 Source Room air - EKG (time done) 1231 Rate: Rate (enter#) (84) Rhythm: Atrial fibrillation [place]: LAD Intervals: Normal LA QRS: LVH Ischemia: Normal ST segments Compare to prior EKG: Unchanged from prior EKG Computer interpretation: Agree with computer - Labs Labs: Laboratory Tests 04/08/20 04/08/20 04/08/20 13:20 13:20 13:20 WBC 8.7 RBC 4.14 L Hgb 16.2 Hct 46.8 MCV 113.0 H MCH 39.1 H MCHC 34.6 RDW 13.8 Plt Count 147 MPV 10.5 Neut # (Auto) Not Reportable Lymph # (Auto) Not Reportable [place] # (Auto) Not Reportable Eos # (Auto) Not Reportable Baso # (Auto) Not Reportable Absolute Nucleated RBC Not Reportable Total Counted 100 Band Neuts % (Manual) 0 Abnorm Lymph % (Manual) 0 Nucleated RBC % Not Reportable Neutrophils # (Manual) 6.6 Lymphocytes # (Manual) 1.5 Monocytes # (Manual) 0.4 Eosinophils # (Manual) 0.2 Basophils # (Manual) 0.0 Differential Comment MANUAL DIFFERENTIAL WBC Morphology NORMAL APPEARANCE Platelet Estimate NORMAL (130-450,000) Platelet Morphology NORMAL ALCIDES RBC Morph Micro Appear 1+ MACROCYTOSIS Sodium 140 Potassium 3.5 Chloride 99 L Carbon Dioxide 31 Anion Gap 10.0 BUN 17 Creatinine 1.1 Estimated GFR (MDRD) 65 L Glucose 151 H Calcium 9.3 Total Bilirubin 1.5 H AST 21 ALT 22 Alkaline Phosphatase 90 Troponin I High Sens 17.3 B-Natriuretic Peptide Total Protein 6.6 L Albumin 3.7 Globulin 2.9 Albumin/Globulin Ratio 1.3 Lipase 33 04/08/20 13:20 WBC RBC Hgb Hct MCV MCH MCHC RDW Plt Count MPV Neut # (Auto) Lymph # (Auto) [place] # (Auto) Eos # (Auto) Baso # (Auto) Absolute Nucleated RBC Total Counted Band Neuts % (Manual) Abnorm Lymph % (Manual) Nucleated RBC % Neutrophils # (Manual) Lymphocytes # (Manual) Monocytes # (Manual) Eosinophils # (Manual) Basophils # (Manual) Differential Comment WBC Morphology Platelet Estimate Platelet Morphology RBC Morph Micro Appear Sodium Potassium Chloride Carbon Dioxide Anion Gap BUN Creatinine Estimated GFR (MDRD) Glucose Calcium Total Bilirubin AST ALT Alkaline Phosphatase Troponin I High Sens B-Natriuretic Peptide 223 H Total Protein Albumin Globulin Albumin/Globulin Ratio Lipase - Rads (name of study) cxr Radiology: Final report received (Moderate left-sided pleural effusion, cardiomegaly and interstitial prominence. Please correlate with patient examination history and laboratory values for underlying congestive heart amaury gorman.) PD MEDICAL DECISION MAKING - ED course Complexity details: reviewed results, considered differential, d/w patient, d/w family ED course: 74-year-old male presented to the emergency department with chief complaint that when he bent over this after noon he could not catch his air and felt very dizzy. He has been working hard over the last few weeks to help reduce his water weight. In fact he has very little edema on his lower extremities. On evaluation this gentleman he is not hypoxic but does appear to get dizzy with minimal ambulation. His chest x-ray shows a persistent left-sided pleural effusion not markedly different from baseline however there is very little cephalization of the vessels likely indicating that he is dry. His BNP is in fact less than 300 which is atypical for him. His EKG is nonischemic he remains in rate controlled atrial fib with a negative troponin. I have spoken with Dr. Aleksandra jauregui. At this time is appropriate to bring him in for a near syncopal episode likely related to volume depletion. He will be allowed to regain his volume status and likely discharged home tomorrow with medication optimization Departure - Departure Disposition: ED Place in Observation Clinical Impression: Heart failure Qualifiers: Heart failure type: diastolic Heart failure chronicity: acute on chronic Qualified Code(s): I50.33 - Acute on chronic diastolic (congestive) heart failure Atrial fibrillation Qualifiers: Atrial fibrillation type: longstanding persistent Qualified Code(s): I48.11 - Longstanding persistent atrial fibrillation
[2020-04-08 13:30] LABS: BASOPHILS % (AUTO) 0.5 %; HGB - HEMOGLOBIN 16.2 g/dL (14.0-18.0); LYMPHOCYTES % (AUTO) 13.8 %; MEAN CORPUSCULAR HEMOGLOBIN 39.1 pg (27.0-31.0); MEAN CORPUSCULAR HGB CONC 34.6 g/dL (32.0-36.0); MEAN PLATELET VOLUME 10.5 fL (7.4-11.4); MONOCYTES % (AUTO) 3.7 %; PLT - PLATELET COUNT 147 10^3/uL (130-450); RED BLOOD COUNT 4.14 10^6/uL (4.70-6.10); RED CELL DISTRIBUTION WIDTH 13.8 % (12.0-15.0); WHITE BLOOD COUNT 8.7 x10^3/uL (4.8-10.8)
[2020-04-08 13:34] LABS: ABNORMAL LYMPHS % (MANUAL) 0 %; BAND NEUTROPHILS % (MANUAL) 0 %
[2020-04-08 13:41] LABS: ALBUMIN 3.7 g/dL (3.2-5.5); ALBUMIN/GLOBULIN RATIO 1.3 (1.0-2.2); BILIRUBIN,TOTAL 1.5 mg/dL (0.2-1.0); CALCIUM 9.3 mg/dL (8.5-10.3); CREATININE 1.1 mg/dL (0.6-1.2); TOTAL PROTEIN 6.6 g/dL (6.7-8.2)
[2020-04-08 13:53] LABS: EOSINOPHILS # (MANUAL) 0.2 10^3/uL (0-0.7); LYMPHOCYTES # (MANUAL) 1.5 10^3/uL (1.5-3.5); LYMPHOCYTES % (MANUAL) 17 %; MONOCYTES # (MANUAL) 0.4 10^3/uL (0.0-1.0)
[2020-04-08 13:55] LABS: DIFFERENTIAL COMMENT MANUAL DIFFERENTIAL; PLATELET ESTIMATE, MANUAL NORMAL (130-450,000) (NORMAL); PLATELET MORPHOLOGY NORMAL APP (NORMAL); RBC MORPHOLOGY (MULTIPLE) 1+ MACROCYTOSIS (NORMAL)
[2020-04-08] MEDS ORDERED: SODIUM CHLORIDE FLUSH 0.9% 10 ML SYRINGE IVP PRN (15:39)
[2020-04-08] MEDS ORDERED: GABAPENTIN 300 MG CAPSULE PO PRN (15:50)
[2020-04-08] MEDS ORDERED: ALBUTEROL 1 PUFF INH PRN (15:55)
--- NOTE | 2020-04-08 16:20 | PHARMACY PROGRESS NOTE ---
- Best Possible Medication History Admit Date and Time: 04/08/20 1539 Processed by: Nursing Medication History completed: Yes As the person ultimately responsible for medication therapy, providers are able to order a medication from an existing home medication list in [facility] via the "Reconcile Routine" prior to Confirmation of that medication by clinical support associate. Such practice is discouraged except when the physician, in their clinical judgment, deems that a medical need exists for a medication without regard to previous use.
--- NOTE | 2020-04-08 17:49 | HISTORY & PHYSICAL EXAMINATION ---
Chief Complaint - Chief Complaint Chief Complaint: got up to got my pills, balance off, vision changeescaught self on way down History of Present Illness - Admitted From Admitted From:: ED (advised by PCP to go to ED - History Obtained From Records Reviewed: ED History obtained from: Patient and ED - History of Present Illness HPI Comment/Other: Mr Bocanegra is a 74 year old man who lives alone in a 3 bedroom trailer near [place] who after getting up this morning with his usual routine to get his morning meds and transmit his VS, weight to [facility] via his check in device, and get his coffee felt his balance was off, and the visual changes he gets ~ 2x/ day were more pronounced. he could tell he was going to fall, and was able to grab onto furniture to keep from falling. The whole event was "worse than usual" , called his PCP who advised him to go to the ED. He denies any associated chest pain, light headedness, admits shortness of breath but says hes "always" short of breath when gets up. No diaphroesis. Had not yet taken his morning pills. He denies that he lost consciousness, Thinks maybe he had to slowly speak , more deliberately "as usual with these episodes" but no dysarthria, or word ffinding difficulty. No one sided weakness He notes that he has had vision changes/occas diplopia depending on direction he is looking due to what he thinks is cataracts (Sep 13 surgery canceled due to Covid), and double vision that happens ~ 2 x / day, and all of a sudden his depth per spective will get funky. Today was especially bad. In the ED they note his complaint was of dyspnea and diffulty managing pheglm (of note was here 6/5 for progressive dyspnea, volume overload, orthopnea and acute diastolic heart failure w/ BNP 1200, RA sat 87% and required diuresis. Admits he does still smoke "maybe 3 cigs/ day" He denies any change in his medications since his January discharge although he admits theyre (admits) all running together. He is supposed to use CPAP but does not due to drooling into his dacosta Say s he has lost "5-6 lbs/ week since January. Was 320 last year, thinks he's about 240 now (264 by todays weight 120.2kg) Since ~ 1/2 year ago, his activity tolerance is much reduced. He spends much of his day in bed, might sit out on his deck with his coffee. Barely can do his housekeeping him self any more (trailer as noted). He can drive to the grocery store if he needs and rides the scooter, or his daughter helps He has a cane, walker and wheelchair at home History - Past Medical History Cardiovascular: reports: Hypertension, Atrial fibrillation (has pacemaker), Murmur, Arrhythmia, Valve disorder Respiratory: reports: None Neuro: reports: CVA Endocrine/Autoimmune: reports: None GI: reports: Other : reports: None HEENT: reports: Other Psych: reports: Anxiety Musculoskeletal: reports: Osteoarthritis, Rheumatoid arthritis Derm: reports: None MRSA Hx?: No - Past Surgical History Ortho: reports: Other Cardiovascular: reports: Pacemaker - Family & Social History Family History Comment/Other: No significant family history reported Living arrangement: At home (in a 3 BR trailer alone, daughter does check in on hime) Living Situation: Alone Social History Notes: He has smoked on and off for 50 years. he says he now smokes about 3 cigarettes/ day (although daughter reports likley closer to a pack) He denies alcohol or illicit drug use. Followed By Dr Zamudio from the [place]. His cardiologists are out of [facility] Patient has POLST: No POLST Status: Full Code Meds/Allgy - Home Medications Home Medications: Ambulatory Orders Medication Instructions Recorded Confirmed Folic Acid 2 mg PO DAILY 07/06/15 04/08/20 Methotrexate 20 mg PO MO@1400 07/06/15 04/08/20 Apixaban [Eliquis] 5 mg PO BID 05/07/19 04/08/20 Atorvastatin Calcium 40 mg PO QPM 05/07/19 04/08/20 Adalimumab [Humira(Cf) Pen] 40 mg SUBQ MO@1200 12/20/19 04/08/20 Albuterol Sulfate [Albuterol 2 puffs INH Q4H PRN 12/20/19 04/08/20 Sulfate Hfa] Budesonide/Formoterol Fumarate 2 puffs INH BID 12/20/19 04/08/20 [Symbicort 160-4.5 Mcg Inhaler] Cetirizine HCl 10 mg PO BID 12/20/19 04/08/20 Gabapentin 600 mg PO TID PRN 12/20/19 04/08/20 levETIRAcetam [Levetiracetam] 1,000 mg PO BID 12/20/19 04/08/20 predniSONE [Prednisone] 2 mg PO QDBREAKFAST 12/20/19 04/08/20 Cholecalciferol (Vitamin D3) 25 mcg PO DAILY 01/16/20 04/08/20 [Vitamin D3] Fluticasone [Flonase] 2 sprays [place] DAILY 01/16/20 04/08/20 Multivitamin W/Minerals [Theragran 1 tab PO DAILY 01/16/20 04/08/20 M] Furosemide [Lasix] 40 mg PO DAILY #30 tablet 01/18/20 04/08/20 Montelukast [Singulair] 10 mg PO QPM #30 tablet 01/18/20 04/08/20 guaiFENesin [Mucinex] 600 mg PO BID #30 tablet 01/18/20 04/08/20 Digoxin [Lanoxin] 125 mcg PO DAILY tablet 04/09/20 Metoprolol Succinate 200 mg PO BID #0 04/09/20 04/08/20 - Allergies Allergies/Adverse Reactions: Allergies Allergy/AdvReac Type Severity Reaction Status Date / Time No Known Drug Allergies Allergy Verified 04/08/20 12:40 Review of Systems - Constitutional Constitutional: reports: Weakness (less activity tolerance (not different than January)), Weight loss ("5-6 lbs per week since january, I used to weight ~ 320, now I'm ~ 240"). denies: Fever, Chills, Diaphoresis - Eyes Eyes: reports: Corrective lenses - Cardiovascular Cariovascular: reports: Edema (just pedal), Lightheadedness (as per HPI), Decr. exercise tolerance (as per HPI). denies: Palpitations, Chest pain - Respiratory Respiratory: reports: Cough (chornic, cant remember if he's taking mucinex Rx'd last discharge,), Sputum production (daily phlegm, denies different), SOB with exertion (unchanged from baseline, as per HPI), Other (not using CPAP for MEI bc drool gets in dacosta) - Gastrointestinal Gastrointestinal: denies: Abdominal pain, Constipation, Diarrhea, Black stools, Poor appetite - Genitourinary Genitourinary: denies: Dysuria, Frequency, Urgency - Musculoskeletal Musculoskeletal: denies: Muscle pain - Neurological Neurological: reports: Memory problems (all the hosopitalizations are "running together") - Endocrine Endocrine: denies: Polyuria, Polydypsia Exam - Vital Signs Vital Signs: Vital Signs x48h Temp Pulse Pulse Pulse Pulse Pulse Resp 04/08/20 16:23 36.3 C L 95 16 04/08/20 16:07 88 22 04/08/20 15:34 83 90 86 04/08/20 12:35 36.8 C 83 14 BP BP BP BP BP Pulse Ox 04/08/20 16:23 126/84 H 98 04/08/20 16:07 113/90 H 96 04/08/20 15:34 109/93 H 110/78 104/86 H 04/08/20 12:35 100/73 94 - Physical Exam General Appearance: positive: No acute distress, Other (pleasant male with long white hair, long dacosta lying in bed, NAD, alert, oriented, appropriate but admits he cant recall details of recent admits and cardiology visits bc they all run together) Eyes Bilateral: positive: Normal inspection, EOMI, Other (bifocals at bedside) Neck: positive: Nml inspection. negative: Lymphadenopathy (R), Lymphadenopathy (L), Carotid bruit Respiratory: positive: Chest non-tender, No respiratory distress, Breath sounds nml. negative: Wheezes, Rhonchi Cardiovascular: positive: Regular rate & rhythm (telemetry atrial fibrillation 70's to 80's, Telemetry caught rate breifly 2o 20's 30 (with mid QRS pacer spike when rate vey briefly 20.), Irregularly irregular. negative: Systolic murmur (slightly irregular on tele) Peripheral Pulses: positive: 2+ Abdomen: positive: No organomegaly (cant appreciate organomegaly due to habitus), Nml bowel sounds, Other (very generous abdomen, pannus, tolerating dinner). negative: No distention, Tenderness, Guarding, Rebound Back: negative: CVA tenderness (R), CVA tenderness (L) Skin: positive: Warm, Dry Extremities: positive: Pedal edema (slightly jaylen feet when dependent, 1+ pedal edema, no pretibial edema,) Neurologic/Psychiatric: positive: Oriented x3, Sensation nml, Mood/affect nml Conclusion/Plan - Problem List (1) Near syncope Conclusion/Plan: Initially over diuresis suspect, but not orthostatic and ~euvolemic on exam. CXR no acute pulm congestion, BNP 228 , well below BNP in January as is his weight He suspects altered depth perception and balance issues due to his occasional double vision Possible Pacer malfunction, tele print out suggestive of demand rate < 20 (?) Viewed by Dr Graham as well Otherwise in rate controlled afib ~ 70's, 80's If demand rate set too low, possibly having frequent brief episodes of br adycardia, Pacer from 2018, ? battery end of life [employer] rep contacted (Elder, ) contacted and will come tomorrow He advised battery trial w/ magnet. Afib ~ 80 before trial, V paced ~ 87 with magnet, per Elder, indicates intact battery Pacer check tomorrow -Will try to reach [facility] cardiology or Dr Zamudio ([place] cardiology ) tomorrow to learn what was recently changed -Do not suspect medication effect -Will check 02Sat with activity if alos having hypoxia w/ activity (not on 02, not using CPAP -Has been significantly macrocytic, ? is he not taking his folate w/ MTX? check B12, MMA, folate (? could that be cause of weakness and ocular problems) (2) Atrial fibrillation Conclusion/Plan: rate controlled, continue eliquis Qualifiers: Atrial fibrillation type: longstanding persistent Qualified Code(s): I48.11 - Longstanding persistent atrial fibrillation (3) Chronic diastolic heart failure Conclusion/Plan: compensated will hold tonighs lasix, but bid Lasix is maintaining euvolemia at home continue rate control with metoprolol 150 bid (4) COPD (chronic obstructive pulmonary disease) Conclusion/Plan: no exacerbation, chest clear continue prn albuterol sulfate, symbicort substitute Pulmicort here (5) Do not resuscitate status Conclusion/Plan: Patient indicated he prefers DNR "wouldnt want to wind up with more problems", "I err on the side of not wanting it" "unless you knew it would work (6) Muscular deconditioning Conclusion/Plan: PT eval (he refused last time, said "not going to gym, will only walkk 10 feet in his trailer, ), OT eval has been declining over ~ 1/2 yr, refused HHRN last time as well in January admit he is agreeable to consult (7) Macrocytosis without anemia Conclusion/Plan: as per #1; checking B12, folate MMA, incase not taking folate w/ his MTX tx for RA ? could that be affecting his vision/ falls? (8) Rheumatoid arthritis Conclusion/Plan: psoriatic arthritis/ on weekly MTX, continue daily folic acid - Lab Results Fish Bones: 04/09/20 06:40 04/09/20 06:40 - Diagnostic Imaging Results Diagnostic Imaging Results: positive: Final report reviewed (enlarged heart, mild increased vascularity,moderate L pleural effusion)
[2020-04-08] MEDS: SODIUM CHLORIDE FLUSH 0.9% 10 ML SYRINGE IVP SCH ×2 (18:27→23:38)
[2020-04-08 19:41] LABS: BILIRUBIN,URINE NEGATIVE (NEGATIVE); GLUCOSE, URINE (UA) >=1000 mg/dL (NEGATIVE); KETONES,URINE (UA) NEGATIVE (NEGATIVE); LEUKOCYTE ESTERASE, URINE NEGATIVE (NEGATIVE); NITRITE,URINE NEGATIVE (NEGATIVE); OCCULT BLOOD,URINE TRACE-INTA (NEGATIVE); PROTEIN,URINE NEGATIVE (NEGATIVE); UROBILINOGEN,URINE 1 (NORMAL) E.U./dL (NORMAL)
[2020-04-08 19:43] LABS: CLARITY,URINE CLEAR (CLEAR)
[2020-04-08] MEDS: levETIRAcetam 250 MG TABLET PO SCH (20:51)
[2020-04-08] MEDS: APIXABAN 5 MG TABLET PO SCH (20:51)
[2020-04-08] MEDS: METOPROLOL SUCCINATE 50 MG TABLET PO SCH (20:52)
[2020-04-08] MEDS ORDERED: ATORVASTATIN 40 MG TABLET PO SCH (21:00)
[2020-04-08] MEDS ORDERED: MONTELUKAST 10 MG TABLET PO SCH (21:00)
[2020-04-09] MEDS ORDERED: IPRATROPIUM/ALBUTEROL 3 ML NEB INH PRN (01:35)
[2020-04-09 06:48] LABS: HGB - HEMOGLOBIN 15.4 g/dL (14.0-18.0); MEAN CORPUSCULAR HEMOGLOBIN 38.7 pg (27.0-31.0); MEAN CORPUSCULAR HGB CONC 34.2 g/dL (32.0-36.0); MEAN CORPUSCULAR VOLUME 113.1 fL (80.0-94.0); MEAN PLATELET VOLUME 10.7 fL (7.4-11.4); RED BLOOD COUNT 3.98 10^6/uL (4.70-6.10); RED CELL DISTRIBUTION WIDTH 13.8 % (12.0-15.0)
[2020-04-09 06:59] LABS: ALBUMIN 3.4 g/dL (3.2-5.5); ALBUMIN/GLOBULIN RATIO 1.1 (1.0-2.2); BILIRUBIN,TOTAL 1.5 mg/dL (0.2-1.0); CALCIUM 9.1 mg/dL (8.5-10.3); CREATININE 1.2 mg/dL (0.6-1.2); TOTAL PROTEIN 6.4 g/dL (6.7-8.2)
[2020-04-09] MEDS ORDERED: BUDESONIDE 0.5 MG/2 ML NEB INH SCH (07:00)
[2020-04-09] MEDS ORDERED: FORMOTEROL FUMARATE NEB 20 MCG/2 ML INH SCH (07:00)
[2020-04-09] MEDS ORDERED: predniSONE 1 MG TABLET PO SCH (08:00)
[2020-04-09] MEDS: levETIRAcetam 250 MG TABLET PO SCH (08:36)
[2020-04-09] MEDS: METOPROLOL SUCCINATE 50 MG TABLET PO SCH (08:37)
[2020-04-09] MEDS: APIXABAN 5 MG TABLET PO SCH (08:38)
[2020-04-09] MEDS: SODIUM CHLORIDE FLUSH 0.9% 10 ML SYRINGE IVP SCH ×2 (08:39→17:25)
[2020-04-09] MEDS ORDERED: FLUTICASONE NASAL SPRAY NAS SCH (09:00)
[2020-04-09] MEDS ORDERED: guaiFENesin 600 MG TABLET PO SCH (09:00)
[2020-04-09] MEDS ORDERED: FOLIC ACID 1 MG TABLET PO SCH (09:00)
[2020-04-09] MEDS ORDERED: MULTIVITAMIN W/MINERALS TABLET PO SCH (09:00)
[2020-04-09] MEDS ORDERED: METOPROLOL SUCCINATE 50 MG TABLET PO SCH ×2 (11:00→13:04)
[2020-04-09] MEDS ORDERED: DOCUSATE SODIUM 250 MG CAPSULE PO SCH (12:00)
--- NOTE | 2020-04-09 12:49 | Discharge Plan ---
Discharge Plan Problem Reviewed?: Yes Disposition: Home Health Service Diet: Low Sodium Activity Restrictions: Activity as Tolerated (use your walker or cane or wheel chair as needed) Assistance Devices: Wheelchair, Walker, Cane Health Concerns: You came to the hospital after getting up in the morning and on your way to the kitchen you started to feel some imbalance along with the double vision /worsened depth perception that you sometimes get but it was worse than usual, you almost fell but were able to grab on to things. Dr Zamudio advised you to come to the ED. You clarified that you did not passout or get light headed. Oxygen level with activity was fine mid 90's In the ED you mentioned that you felt you had more trouble with phlegm . Your chest X ray did not show pneumonia or significant heart failure (fluid congestion in the lungs) like in January when you were here. Low blood pressure (lower than normal for you) Your blood pressure was much lower than usual with 100/60, 92/62, 107/85 and your heart rate was controlled (no Atrial fibrillation with rapid ventricular response) [facility] 200 twice daily and that Cardiology confirmed that dose with you 04/01 They also started digoxin 04/01 and you said you had started that drug (for atrial fibrillation rate control) They also ordered lisinopril 5 mg on 04/01. You indicated you have not yet started that. They also ordered Jardiance, . You noted you got that prescription in the mail but you have not started it. (so the lisinopril and jardiance are obviously NOT why your pressure is too low) >> Per cardiology [facility]; DO NOT START THE LISINOPRIL DO NOT START THE JARDIANCE You were not orthostatic (blood pressure did not drop changing from lying to sitting) , so it does not look like you were too "dried out"/diuresed from your lasix. Your weight was 248 lbs which might be precisely your "dry " weight or ideal body fluid weight. (if you diurese just a little below 148 you may get a little light headed with position change along with all your medications We held your metoprolol pm dose 04/08, and am dose on 04/09 because your pressure was still low 92/62 n the moring. Your lasix was held as well By mid day your blood pressure was improved 107/85. We gave you 100 mg metoprolol to be sure you tolerate the dose and your blood pressure did not drop OK to resume your 200 mg twice daily metoprolol. Resume all your home medications BUT do not start the lisinopril or the jardiance (empagliflozin) Lasix; Hold off on your daily Lasix until Sunday Continue your daily weights (and weigh yourself when you get home) As discussed before LOW SALT DIET IS VERY IMPORTANT. 3 GRAMS DAILY LIMIT (IT IS IN FOOD , LOOK AT THE LABELS) HOME HEALTH Services; were set up with [facility] for a nursing visit to make sure medication orders understood and for home health Occupational Therapy Follow-Up Care: Home Health - RN No Smoking: If you smoke, Please STOP! Call for help.
[2020-04-09] MEDS ORDERED: DIGOXIN 125 MCG TABLET PO SCH (13:06)
[2020-04-09 15:51] VITALS: BP 110/80
--- NOTE | 2020-04-09 19:50 | DISCHARGE SUMMARY ---
Discharge Summary Admit Date: 04/08/20 Discharge Date: 04/09/20 Discharging Provider: HEATH Andrade Primary Care Provider: Alicia Rodriguez JUICE [employer] TEAM MEMBER/cardiology Code Status: Do Not Attempt Resuscitation Condition at Discharge: Stable Discharge Disposition: Home Health Service [facility] - DIAGNOSES Admission Diagnoses: Near syncope Atrial fibrillation Pacemaker Chronic diastolic heart falure COPD Physical deconditioning Rheumatoid arthritis/Psoriatic arthritis Discharge Diagnoses with Status of Each Condition: Near syncope; no tachy/ron dysrhthmia, possible mild overdiuresis stable, no repeat episode near syncope Atrial fibrillation Chronic diastolic heart falure; no exacerbation/ Discharge weight 114 kg Pacemaker/ no malfunction COPD stable no exacerbation Physical deconditioning ; evaluated by PT, and OT, has needed assistive devices; for memory impairment HHRN and OT and continues [facility] Rheumatoid arthritis/Psoriatic arthritis stable - HPI History of Present Illness: Mr Bocanegra is a 74 year old man who lives alone in [place] 3 bedroom [place] who after getting up this morning with his usual routine to get his pills and use his "check-in" device (sends vitals and weight to [place]", and get his coffee felt his balance was off, and the visual changes he gets ~ 2x/ day were more pronounced. he could tell he was going to fall, and was able to grab onto furniture to keep from falling. The whole event was "worse than usual" , called his PCP who advised him to go to the ED. There is an element of "light headedness after he got up" and he denies vertiginous. He denies any associated chest pain, vertigo, admits shortness of breath but says hes "always" short of breath when gets up. No diaphroesis. Had not yet taken his morning pills. He denies that he lost consciousness, Thinks maybe he had to slowly speak , more deliberately "as usual with these episodes" but no dysarthria, or word finding difficulty. No one sided weakness He notes that he has had vision changes due to what he thinks is cataracts (Sep 2019 surgery canceled due to Covid), and double vision that happens ~ 2 x / day, and all of a sudden his depth perspective will get funky. Today was especially bad. In the ED his presentation was thought to be syncopal event, but he did not have syncope. Per the ED note he reported difficulty managing pheglm Mr Bocanegra was last admitted here early January ~ 2.5 mos ago for pregressive dyspnea, volume overload,significant LE edema, orthopnea and acute diastolic heart failure w/ BNP 1200, RA sat 87% and required diuresis. He does not have signs of volume overload this presentation, w BNP ~ 224 and no pretiobial edema, mild pedal edema and a weight of ~ 113 kg. He denies any change in his medications since his January discharge and he takes them as prescribed and adamantly denies missed doses. He is supposed to use CPAP but does not due to drooling into his dacosta Say s he has lost "5-6 lbs/ week since January. Was 320 last year, thinks he's about 240 now Since ~ 1/2 year ago, his activity tolerance is much reduced. He spends much of his day in bed, might sit out on his deck with his coffee. Barely can do his housekeeping him self any more (trailer as noted). He can drive to the grocery store if he needs and rides the scooter, or his daughter helps - CONSULTS | PROCEDURES Consultations: no subspecialist consultation, PT, OT eval Procedures: none - HOSPITAL COURSE Hospital Course: (1) Near syncope Conclusion/Plan: Likely multifactorial w/ very mild overdiuresis with full dose metoprolol resolved w/ holding doses 1 day. He was not orthostatic in the ED however his systolic was relatively low w/ SBP ~ 100. Metoprolol held pm of admission, and lasix held 04/09. BNP 223, high sens troponin 17 He was monitored on tele, no tachy or ron dysrhthmia (at one point pacer malfunction was suspect as it appeared the demand rate was set very low, however this proved to be due to a manipulation of calibration on the telemetry printout. There was no bradycardia , and after d/w [employer] rep, a battery check w/ magnet showed battery poser intact. There was no hypoxemia, ambulatory Sa02 mid 90's No evident infection Initially over diuresis suspect, but not orthostatic and euvolemic on exam In d/w his [facility] RN and [facility] cardiology JUICE BAR TEAM MEMBER, his metoprolol dose is 200 bid and as of 04/01 dig 0.125 mg daily rx'd (which he reports taking. His recent outpatient weights had been 249, 251.3, 253, 255. His weight here was ~ 248lb. As outpatient he was instructed to take lasix 40 daily and extra pm dose if weight up or edema. It may have been that his dry weight is right ~ 248 and slight diuresis beyond that along with his normal dose metoprolol resulted in mild orthostasis and near syncope. His BP tolerated a "test" dose of 100 mg metoprolol of afternoon of discharge w/ no orthostatic change and he was advised to resume his home dose of metoprolol 200 mg bid, hold daily lasix x 48 hrs til sunday am, continue dig. Per [place] cardiology JUICE BAR TEAM MEMBER Pete, they had ordered ACEI and empagliflozin due to systolics at home > 140 Per HAYLIE Freeman; He is NOT to start the lisinopril 5mg daily nor the empagliflozin which he just got in the mail.(and had not started) Reiterated importance of low salt / ~ 3 gram diet (he currently eats liberally despite instruction) Dr Zamudio [phone] [place] [phone] on future admissions request MANUAL BP checks by nursing, due to afib, the electronic BP measure was ~ 10-12 mmHg than palpated or auscultated BP (2) Atrial fibrillation on eliquis with history of RVR rate controlled, he continues on the metoprolol 200 mg bid, and digoxin 0.125 daily (per [place] cardiology) continues eliquis (Cardiology JUICE BAR TEAM MEMBER Pete ([place]) suggested he was not compliant w/ eliquis if his pre sentation represented TIA. he adamantly denies missing eliquis doses, he notes that "having more eliquis than he should have if taking as Rx'd was because excess bottles were delivered to him , not because of noncompliance/missed doses) (3) Physical deconditioning and memory deficit w/ complex self medial management eval (he refused eval January admit) but agreed to PT / OT eval w/ cognitive eval given his report of spending most time in bed. Daughter notes she thinks he is doing a little better since early summer. PT and OT noted decreased endurance w/ ADL and poor memory of which he is aware and concerned PT noted patient at baseline functional performance and has adequate DME at home OT recommended HHOT to address functional cognition to promote independence and HH nursing to help manage//ensure understanding of patients medications HEALTH Services; were set up with [facility] for RN to and for home health Occupational Therapy Pt is CGA-Charan with additional time for all ADL d/t decreased endurance and limited L UE function. Pt is CGA for sit to stand (4) Chronic diastolic heart failure Conclusion/Plan: compensated as above dry weight ~ 248 lbs (with mild pedal edema) resuming home meds and holding daily lasix til Wednesday 04/11 (5) COPD (chronic obstructive pulmonary disease) Conclusion/Plan: no exacerbation, chest clear continue prn albuterol sulfate, symbicort , mucinex prn for phlegm (6) Do not resuscitate status Conclusion/Plan: Patient indicated he prefers DNR "wouldnt want to wind up with more problems", "I err on the side of not wanting it" "unless you knew it would work 7) Macrocytosis; patient taking folic acid with MTX for psoriatic arthritis Folate level not low (>700) Given macrocytosis, B12 ordered with question of whether B12 def could contribute to his vision change, occas imbalance. B12 in low end of normal, MMA pending continues his weekly MTX and folic acid - ALLERGIES Allergies/Adverse Reactions: Allergies Allergy/AdvReac Type Severity Reaction Status Date / Time No Known Drug Allergies Allergy Verified 04/08/20 12:40 - MEDICATIONS Home Medications: Ambulatory Orders Medication Instructions Recorded Confirmed Folic Acid 2 mg PO DAILY 07/06/15 04/08/20 Methotrexate 20 mg PO MO@1400 07/06/15 04/08/20 Apixaban [Eliquis] 5 mg PO BID 05/07/19 04/08/20 Atorvastatin Calcium 40 mg PO QPM 05/07/19 04/08/20 Adalimumab [Humira(Cf) Pen] 40 mg SUBQ MO@1200 12/20/19 04/08/20 Albuterol Sulfate [Albuterol 2 puffs INH Q4H PRN 12/20/19 04/08/20 Sulfate Hfa] Budesonide/Formoterol Fumarate 2 puffs INH BID 12/20/19 04/08/20 [Symbicort 160-4.5 Mcg Inhaler] Cetirizine HCl 10 mg PO BID 12/20/19 04/08/20 Gabapentin 600 mg PO TID PRN 12/20/19 04/08/20 levETIRAcetam [Levetiracetam] 1,000 mg PO BID 12/20/19 04/08/20 predniSONE [Prednisone] 2 mg PO QDBREAKFAST 12/20/19 04/08/20 Cholecalciferol (Vitamin D3) 25 mcg PO DAILY 01/16/20 04/08/20 [Vitamin D3] Fluticasone [Flonase] 2 sprays [place] DAILY 01/16/20 04/08/20 Multivitamin W/Minerals [Theragran 1 tab PO DAILY 01/16/20 04/08/20 M] Furosemide [Lasix] 40 mg PO DAILY #30 tablet 01/18/20 04/08/20 Montelukast [Singulair] 10 mg PO QPM #30 tablet 01/18/20 04/08/20 guaiFENesin [Mucinex] 600 mg PO BID #30 tablet 01/18/20 04/08/20 Digoxin [Lanoxin] 125 mcg PO DAILY tablet 04/09/20 Metoprolol Succinate 200 mg PO BID #0 04/09/20 04/08/20 Home Medications Other | Comments: as per detail in summary patient to hold (not start) the lisisnopril and Jardiance that were just sent to him (Per JUICE BAR TEAM MEMBER Freeman) patient to hold Lasix one day and resume wednesday 04/11 40 mg daily as before - PHYSICAL EXAM AT DISCHARGE General Appearance: positive: No acute distress, Alert, Other (sitting up in chair, verbalizing understanding of discharge plan and teach back) Eyes Bilateral: positive: Normal inspection, EOMI Neck: positive: Other (full neck) Respiratory: positive: No respiratory distress, Wheezes (occasional scattered low pitch wheeze, occas (infrequent loose cough)). negative: Breath sounds nml Cardiovascular: positive: Regular rate & rhythm, No murmur, Irregularly irregular (rate ~ 80, I checked manual BP (machine bp SBP 88, manual, 110 sitting, 106 lying, 110 upright) Peripheral Pulses: positive: 2+ Abdomen: positive: Nml bowel sounds, No distention, Other (very generous abdomen with pannus). negative: Tenderness Skin: positive: Warm, Dry. negative: Pallor Extremities: positive: Pedal edema (tr to 1+ pedal edema, NO pretibial edema) Neurologic/Psychiatric: positive: Oriented x3, Sensation nml, Mood/affect nml - LABS Result Diagrams: 04/09/20 06:40 04/09/20 06:40 Other Lab Results: Chest X ray 04/08; Pacer w/ leads in expected positions, Moderate sized L pleural effusion, overlying presumed atelectasis, cardiomegaly - DIAGNOSTIC IMAGING Diagnostic Imaging Results: Final report reviewed (moderate left pleural effusion, cardiomegaly, some interstitial promience)
[2020-04-12 14:41] LABS: METHYLMALONIC ACID 448 nmol/L (87-318)
== END 2020-04-09 18:49 | disposition home health service (06) ==
LOC: EDUNIT# → ED 12:20 → MS2 15:39
PROVIDERS: ADMIT Nurse Practitioner; ATTEND Nurse Practitioner
DX: R55 Syncope and collapse (principal); I48.91 Unspecified atrial fibrillation; I50.32 Chronic diastolic (congestive) heart failure; I11.0 Hypertensive heart disease with heart failure; J44.9 Chronic obstructive pulmonary disease, unspecified; F17.210 Nicotine dependence, cigarettes, uncomplicated; M06.9 Rheumatoid arthritis, unspecified; L40.50 Arthropathic psoriasis, unspecified; D75.89 Other specified diseases of blood and blood-forming organs; R41.3 Other amnesia; R53.1 Weakness; H26.9 Unspecified cataract; H53.2 Diplopia; H53.8 Other visual disturbances; Z66 Do not resuscitate; Z95.0 Presence of cardiac pacemaker; Z79.51 Long term (current) use of inhaled steroids; Z79.01 Long term (current) use of anticoagulants; Z79.52 Long term (current) use of systemic steroids; Z79.899 Other long term (current) drug therapy; Z91.19 Patient's noncompliance with other medical treatment and regimen
CPT/HCPCS: 36415; 71045; 80053; 81003; 82248; 82607; 82747; 83690; 83880; 83921; 84484; 85025; 85027; 93005; 94640; 94761; 97161; 97165; 99285; A9270; G0378; J7512; J7626; 80048; 81001; 87086

== ENCOUNTER 2020-12-23 11:00 | Outpatient (CLI) | payer MEDICARE, OTHER | END 2020-12-23 11:01 | disposition critical access hospital (66) | LOC: EMS 11:00 | DX: R41.0 Disorientation, unspecified (principal); H53.8 Other visual disturbances; R42 Dizziness and giddiness | CPT/HCPCS: A0425; A0429 ==

== ENCOUNTER 2020-12-23 11:15 | Emergency (ER) | payer OTHER ==
[2020-12-23] MEDS ORDERED: ACETAMINOPHEN 325 MG TABLET PO STA (12:04)
[2020-12-23 12:16] LABS: BASOPHILS % (AUTO) 0.4 %; EOSINOPHILS # (AUTO) 0.2 10^3/uL (0.0-0.7); EOSINOPHILS % (AUTO) 1.8 %; HCT - HEMATOCRIT 48.5 % (42.0-52.0); HGB - HEMOGLOBIN 17.2 g/dL (14.0-18.0); LYMPHOCYTES # (AUTO) 1.6 10^3/uL (1.5-3.5); LYMPHOCYTES % (AUTO) 16.2 %; MEAN CORPUSCULAR HEMOGLOBIN 39.8 pg (27.0-31.0); MEAN CORPUSCULAR HGB CONC 35.5 g/dL (32.0-36.0); MEAN CORPUSCULAR VOLUME 112.3 fL (80.0-94.0); MEAN PLATELET VOLUME 10.9 fL (7.4-11.4); MONOCYTES # (AUTO) 0.5 10^3/uL (0.0-1.0); NEUTROPHILS # (AUTO) 7.7 10^3/uL (1.5-6.6); NEUTROPHILS % (AUTO) 75.9 %; PLT - PLATELET COUNT 143 10^3/uL (130-450); RED BLOOD COUNT 4.32 10^6/uL (4.70-6.10); RED CELL DISTRIBUTION WIDTH 13.6 % (12.0-15.0); WHITE BLOOD COUNT 10.1 x10^3/uL (4.8-10.8)
--- NOTE | 2020-12-23 12:17 | CT Report ---
PROCEDURE: Head W/O Stroke Protocol INDICATIONS: blindness in right eye resolved TECHNIQUE: Noncontrast 4.5 mm thick angled axial sections acquired from the foramen magnum to the vertex, with c oronal reformats. For radiation dose reduction, the following was used: automated exposure control, adjustment of mA and/or kV according to patient size. COMPARISON: CT brain 05/07/2019, 08/02/2018, CTA head and neck 08/02/2018 FINDINGS: Image quality: Excellent. The ventricular system and cortical sulci demonstrate atrophy, consistent for patient's stated age. There are areas of hypodensity in the periventricular and subcortical white matter. There is no acut e intra or extra-axial fluid collection. No acute hemorrhage, mass lesion or midline shift. Brainst em is unremarkable. Globes are symmetrical. Sinuses demonstrate mucosal thickening of the left maxillary sinus. Osseous s tructures are intact. IMPRESSION: 1. No acute intracranial process. 2. Mild to moderate atrophy and chronic microvascular ischemic changes. The above findings were discussed with Jyothi Fuentes RN, on 12/23/2020 at 12:10 PM, as Dr. Carl w as not immediately available for consultation. This study fulfills neurological imaging criteria for inclusion or exclusion of acute stroke therapie s based on available published neurological imaging guidelines. Reviewed by: Anita Thakur MD on 12/23/2020 12:15 PM PDT Approved by: Anita Thakur MD on 12/23/2020 12:15 PM PDT Station ID: [id number]
[2020-12-23 12:18] LABS: SLIDE REVIEW? Indicated
[2020-12-23 12:28] LABS: ALBUMIN 3.9 g/dL (3.2-5.5); ALBUMIN/GLOBULIN RATIO 1.2 (1.0-2.2); CALCIUM 9.4 mg/dL (8.5-10.3); TOTAL PROTEIN 7.2 g/dL (6.7-8.2)
[2020-12-23 12:36] LABS: RBC MORPHOLOGY (MULTIPLE) 4+ MACROCYTOSIS (NORMAL)
--- NOTE | 2020-12-23 13:54 | ED Physician Documentation ---
PD HPI FOCAL NEURO - Stated complaint Stated Complaint: R EYE BLURRY VISION - Chief complaint Chief Complaint: Neuro - History obtained from History obtained from: Patient - History of Present Illness Timing - onset: Enter time (1999), Last night Timing - duration: Minutes (10) Timing - details: Abrupt onset, Now resolved Severity of deficit: Severe Weakness: No: Face, Arm, Hand, Leg, Foot, Right, Left, Other Numbness: No: Face, Arm, Hand, Leg, Foot, Right, Left, Other Associated symptoms: Back pain. No: Headache, Nausea / vomiting, Seizure, Syncope, Fall, Head injury, Chest pain, Neck pain, Fever, Other Contributing factors: positive: Anticoagulated, Atrial fibrillation Baseline status: positive: A&OX3, ambulatory, indep, Cane, Walker Similar symptoms before: Diagnosis (TIA) Recently seen: Not recently seen - Additional information Additional information: 75-year-old male with a history of atrial fibrillation on Eliquis and a history of CHF and COPD, CVA, thoracic aortic aneurism, reports an episode last night of complete blindness into the right eye lasting 10 to 15 minutes. He states his symptoms did resolve he does have some pain in his eyes and feels that he may be has some photophobia today but nothing spectacular. He has his usual pains which are all over and he reports that at his home he requires a walker or cane to get around is unable to get outside spends most of his time in bed. He has had his cataracts fixed this year states it is far away site is now normal. Review of Systems Constitutional: denies: Fever Eyes: reports: Loss of vision, Photophobia. denies: Discharge Ears: denies: Ear pain Nose: reports: Rhinorrhea / runny nose, Congestion Throat: denies: Sore throat Cardiac: denies: Chest pain / pressure, Palpitations Respiratory: reports: Dyspnea (usual), Cough (smokers cough) GI: denies: Abdominal Pain, Nausea, Vomiting, Constipation, Diarrhea : denies: Dysuria Skin: denies: Rash Musculoskeletal: reports: Neck pain, Back pain, Joint pain Neurologic: denies: Generalized weakness, Focal weakness, Numbness, Difficulty speaking, Altered mental status, Headache, Head injury, LOC PD PAST MEDICAL HISTORY - Past Medical History Cardiovascular: Hypertension, Atrial fibrillation (has pacemaker), Murmur, Arrhythmia, Valve disorder Respiratory: None Neuro: CVA Endocrine/Autoimmune: None GI: Other : None HEENT: Other Psych: Anxiety Musculoskeletal: Osteoarthritis, Rheumatoid arthritis Derm: None - Past Surgical History Past Surgical History: Yes Ortho: Other Cardiovascular: Pacemaker - Present Medications Home Medications: Ambulatory Orders Medication Instructions Recorded Confirmed Folic Acid 2 mg PO DAILY 07/06/15 12/23/20 Methotrexate [Methotrexate Sodium] 20 mg PO MO@1400 07/06/15 12/23/20 Apixaban [Eliquis] 5 mg PO BID 05/07/19 12/23/20 Atorvastatin Calcium 40 mg PO QPM 05/07/19 12/23/20 Adalimumab [Humira(Cf) Pen] 40 mg SUBQ MO@1200 12/20/19 12/23/20 Albuterol Sulfate [Albuterol 2 puffs INH Q4H PRN 12/20/19 12/23/20 Sulfate Hfa] Budesonide/Formoterol Fumarate 2 puffs INH BID 12/20/19 12/23/20 [Symbicort 160-4.5 Mcg Inhaler] Cetirizine HCl 10 mg PO BID 12/20/19 04/08/20 Gabapentin 600 mg PO TID PRN 12/20/19 12/23/20 levETIRAcetam [Levetiracetam] 1,000 mg PO BID 12/20/19 04/08/20 predniSONE [Prednisone] 2 mg PO QDBREAKFAST 12/20/19 12/23/20 Cholecalciferol (Vitamin D3) 25 mcg PO DAILY 01/16/20 12/23/20 [Vitamin D3] Fluticasone [Flonase] 2 sprays [place] DAILY 01/16/20 04/08/20 Multivitamin W/Minerals [Theragran 1 tab PO DAILY 01/16/20 12/23/20 M] Furosemide [Lasix] 40 mg PO DAILY #30 tablet 01/18/20 12/23/20 Montelukast [Singulair] 10 mg PO QPM #30 tablet 01/18/20 12/23/20 guaiFENesin [Mucinex] 600 mg PO BID #30 tablet 01/18/20 04/08/20 Digoxin [Lanoxin] 125 mcg PO DAILY tablet 04/09/20 12/23/20 Metoprolol Succinate 200 mg PO BID #0 04/09/20 12/23/20 Empagliflozin [Jardiance] 10 mg PO DAILY 12/23/20 12/23/20 Lisinopril [Prinivil] 5 mg PO DAILY 12/23/20 12/23/20 - Allergies Allergies/Adverse Reactions: Allergies Allergy/AdvReac Type Severity Reaction Status Date / Time No Known Drug Allergies Allergy Verified 04/08/20 12:40 - Social History Does the pt smoke?: Yes Smoking Status: Current every day smoker Does the pt drink ETOH?: No Does the pt have substance abuse?: No - Immunizations Immunizations are current?: Yes - POLST Patient has POLST: No POLST Status: Full Code PD ED PE NORMAL - Vitals Vital signs reviewed: Yes (hypertensive mild ) - General General: Alert and oriented X 3, No acute distress, Well developed/nourished - HEENT HEENT: Atraumatic, PERRL, EOMI - Neck Neck: Supple, no meningeal sign, No bony TTP - Cardiac Cardiac: RRR, No murmur - Respiratory Respiratory: No respiratory distress, Other (diminished breath sounds with scattered wheezes light) - Abdomen Abdomen: Soft, Non tender - Back Back: No CVA TTP, No spinal TTP - Derm Derm: Normal color, Warm and dry, No rash - Extremities Extremities: No deformity, No edema - Neuro Neuro: Alert and oriented X 3, jigmaker 2-12 intact, No motor deficit, No sensory deficit, Normal speech Eye Opening: Spontaneous Motor: Obeys Commands Verbal: Oriented GCS Score: 15 - Psych Psych: Normal mood, Normal affect NIHSS - Time Time: 12:14 - Level of Consciousness Level of consciousness: (0) Alert, Keenly responsive LOC Questions: (0) Answers both Q's correct LOC Commands: (0) Performs both correctly - Gaze Best Gaze: (0) Normal - Visual Visual: (0) No loss - Facial Palsy Facial Palsy: (0) Normal, symmetrical movement - Motor Arms (both separate) Motor Arm (right): (0) No drift Motor Arm (left): (0) No drift - Motor Legs (both separate) Motor Leg (right): (0) No drift Motor Leg (left): (0) No drift - Limb Ataxia Limb Ataxia: (0) Absent - Sensory Sensory: (0) Normal - Best Language Best Language: (0) No aphasia - Dysarthria Dysarthria: (0) Normal - Extinction and Inattention (formally neg Extinction and inattention: (0) No abnormality - Total Score/Results Total Score/Result: 0 Results - Vitals Vitals: Vital Signs - 24 hr 12/23/20 12/23/20 12/23/20 11:17 13:48 14:13 Temperature 36.5 C Heart Rate 76 68 66 Respiratory 18 19 12 Rate Blood Pressure 137/81 H 149/103 H 135/108 H O2 Saturation 100 97 97 Oxygen O2 Source [] Room air O2 Source [] Room air O2 Source Room air - EKG (time done) 1229 Rate: Rate (enter#) (70) Rhythm: Paced Compare to prior EKG: Changed from prior EKG ([facility] 04-08-2020 rhythm is now paced) Computer interpretation: Agree with computer - Labs Labs: Laboratory Tests 12/23/20 12/23/20 12:08 12:08 WBC 10.1 RBC 4.32 L Hgb 17.2 Hct 48.5 MCV 112.3 H MCH 39.8 H MCHC 35.5 RDW 13.6 Plt Count 143 MPV 10.9 Neut # (Auto) 7.7 H Lymph # (Auto) 1.6 [place] # (Auto) 0.5 Eos # (Auto) 0.2 Baso # (Auto) 0.0 Absolute Nucleated RBC 0.00 Nucleated RBC % 0.0 Manual Slide Review Indicated RBC Morph Micro Appear 4+ MACROCYTOSIS Sodium 141 Potassium 4.0 Chloride 106 Carbon Dioxide 26 Anion Gap 9.0 BUN 15 Creatinine 1.0 Estimated GFR (MDRD) 73 L Glucose 136 H Calcium 9.4 Total Bilirubin 1.0 AST 20 ALT 22 Alkaline Phosphatase 92 Total Protein 7.2 Albumin 3.9 Globulin 3.3 Albumin/Globulin Ratio 1.2 Lipase 63 H - Rads (name of study) CT head without Radiology: Prelim report reviewed (Impression: 1. No acute intracranial process. Mild to moderate atrophy and chronic microvascular ischemic changes.), EMP read indepedently, See rad report PD MEDICAL DECISION MAKING - ED course Complexity details: reviewed old records, reviewed results, re-evaluated patient, considered differential, d/w patient ED course: Fully vaccinated, 75-year-old male with a history of atrial fibrillation on Eliquis has had a TIA last night leading to transient blindness in the right eye which is now resolved. Here in the emergency department a work-up including electrocardiogram and CT of the head are without further contribution. We do not have capability of MR romo today and I have called and talked to Dr. Cruz and he will accept patient in transfer to [facility]. The patient indicates that he has chronic pain that does not allow him to get outside to walk he has had failure of physical therapy and he is no longer on any type of pain management. He does get acetaminophen and gabapentin. Here in the emergency department each time that he rolls over he makes a loud painful noise. He has a history of rheumatic arthritis on immunosuppressive's. He is given a dose of dexamethasone here in the emergency department for the treatment of his chronic pain. Departure - Departure Disposition: 02 Transfer Acute Care Hosp Clinical Impression: TIA (transient ischemic attack)
[2020-12-23] MEDS ORDERED: CHERRY SYRUP 10 ML UDC PO ONE (13:58)
[2020-12-23] MEDS ORDERED: SODIUM CHLORIDE 0.9% 1,000 ML IV STA (13:58)
[2020-12-23] MEDS ORDERED: DEXAMETHASONE 10 MG/ML VIAL PO STA (13:58)
[2020-12-23 16:16] LABS: B. PARAPERTUSSIS- RESP PCR PAN NOT DETECTED; B. PERTUSSIS- RESP PCR PANEL NOT DETECTED; C. PNEUMONIAE- RESP PCR PANEL NOT DETECTED; CORONAVIRUS 229E-RESP PCR NOT DETECTED; CORONAVIRUS HKU1-RESP PCR NOT DETECTED; CORONAVIRUS NL63-RESP PCR NOT DETECTED; CORONAVIRUS OC43-RESP PCR NOT DETECTED; HUMAN METAPNEUMOVIRUS NOT DETECTED; INFLUENZA A- RESP PCR PANEL NOT DETECTED; INFLUENZA B - RESP PCR PANEL NOT DETECTED; M. PNEUMONIAE- RESP PCR PANEL NOT DETECTED; PARAINFLUENZA VIRUS 1 NOT DETECTED; PARAINFLUENZA VIRUS 2 NOT DETECTED; PARAINFLUENZA VIRUS 3 NOT DETECTED; PARAINFLUENZA VIRUS 4 NOT DETECTED; RHINOVIRUS/ENTEROVIRUS DETECTED; RSV- RESP PCR PANEL NOT DETECTED; SARS-CoV-2 -RESP PCR PANEL NOT DETECTED
[2020-12-23 17:02] VITALS: BP 114/76
== END 2020-12-23 17:14 | disposition short-term general hospital (02) ==
LOC: ED 11:15
DX: G45.9 Transient cerebral ischemic attack, unspecified (principal); H53.121 Transient visual loss, right eye; M06.9 Rheumatoid arthritis, unspecified; Z79.899 Other long term (current) drug therapy; M54.2 Cervicalgia; M54.9 Dorsalgia, unspecified; G89.29 Other chronic pain; Z20.822 Contact with and (suspected) exposure to COVID-19; I48.91 Unspecified atrial fibrillation; Z79.01 Long term (current) use of anticoagulants; Z95.0 Presence of cardiac pacemaker; I11.0 Hypertensive heart disease with heart failure; I50.9 Heart failure, unspecified; J44.9 Chronic obstructive pulmonary disease, unspecified; F17.200 Nicotine dependence, unspecified, uncomplicated
CPT/HCPCS: 0202U; 36415; 70450; 80053; 83690; 85025; 93005; 96360; 99285; A9270

== ENCOUNTER 2020-12-23 17:14 | Outpatient (CLI) | payer OTHER | END 2020-12-23 17:15 | disposition short-term general hospital (02) | LOC: EMS 17:14 | PROVIDERS: ATTEND Emergency Medicine | DX: G45.9 Transient cerebral ischemic attack, unspecified (principal) | CPT/HCPCS: A0425; A0426 ==

== ENCOUNTER 2021-01-17 14:32 | Outpatient (CLI) | payer OTHER | END 2021-01-17 14:33 | disposition critical access hospital (66) | LOC: EMS 14:32 | DX: R06.00 Dyspnea, unspecified (principal); R42 Dizziness and giddiness; R53.1 Weakness | CPT/HCPCS: A0425; A0429 ==

== ENCOUNTER 2021-01-17 14:46 | Emergency (ER) | payer OTHER ==
--- OUTSIDE RECORDS SUMMARY | 2021-01-17 15:09 | EXTERNAL MEDICAL SUMMARY RPT | Continuity of Care Document ---
:1945 Demographics Phone Unavailable Preferred Language Haitian Marital Status Unknown Denominational Affiliation Unknown Race Unknown Ethnic Group Unknown Author Organization [facility] Address [address] [phone] Phone Care Team Providers Name Role Phone Nancy Unavailable Unavailable Allergies Encounters Medications date description facility [id number] 24 HR metoprolol succinate 200 MG Exten ded Release [facility] Tablet 82030144 atorvastatin 40 MG Oral Tablet [facility] [id number] Furosemide 40 MG Oral Tablet [facility] [id number] Loratadine 10 MG Oral Tablet [facility]ital [id number] Lisinopril 5 MG Oral Tablet [facility] [id number] Folic Acid 1 MG Oral Tablet [facility]ital [id number] Cholecalciferol 1000 UNT Oral Tablet [facility] [id number] Prednisone 1 MG Oral Tablet [facility] [id number] Digoxin 0.125 MG Oral Tablet [facility] [id number] apixaban 5 [facility] [id number] Methotrexate 2.5 MG Oral Tablet [facility] Problems date description facility [id number] Unqualified visual loss, right eye, nor mal vision left [facility] eye Procedures date description facility [id number] General Physician [facility] Results Vital Signs date measurement value source 20201223 height_standard 73 in [id number] height_metric 185.42 cm [id number] weight_standard 240.08 lb [id number] weight_metric 108.9 kg [id number] temperature_standard 97.8 F [id number] temperature_metric 36.56 C [id number] respiration_rate 18 /min [id number] heart_rate 64 /min 20201224 BP_systolic 101 mm[Hg] 13659555 BP_diastolic 69 mm[Hg]
--- NOTE | 2021-01-17 15:13 | ED Physician Documentation ---
PD HPI FOCAL NEURO - Stated complaint Stated Complaint: DIZZY/SOA - Chief complaint Chief Complaint: Neuro - History obtained from History obtained from: Patient - Additional information Additional information: 75-year-old gentleman for several years has had intermittent bouts of vertigo. They happen several times a year and last for hours at a time. They are followed by a headache. While is happening he often has diplopia and feels disequilibrium. No Clear diagnosis Given. Review of Systems Ten Systems: 10 systems reviewed and negative Constitutional: denies: Fever, Chills Eyes: reports: Reviewed and negative Ears: reports: Reviewed and negative Nose: reports: Reviewed and negative Throat: reports: Reviewed and negative Cardiac: reports: Reviewed and negative Respiratory: reports: Reviewed and negative PD PAST MEDICAL HISTORY - Past Medical History Cardiovascular: Hypertension, Atrial fibrillation (has pacemaker), Murmur, Arrhythmia, Valve disorder Respiratory: None Neuro: CVA Endocrine/Autoimmune: None GI: Other : None HEENT: Other Psych: Anxiety Musculoskeletal: Osteoarthritis, Rheumatoid arthritis Derm: None - Past Surgical History Past Surgical History: Yes Ortho: Other Cardiovascular: Pacemaker - Present Medications Home Medications: Ambulatory Orders Medication Instructions Recorded Confirmed Folic Acid 2 mg PO DAILY 07/06/15 12/23/20 Methotrexate [Methotrexate Sodium] 20 mg PO MO@1400 07/06/15 12/23/20 Apixaban [Eliquis] 5 mg PO BID 05/07/19 12/23/20 Atorvastatin Calcium 40 mg PO QPM 05/07/19 12/23/20 Adalimumab [Humira(Cf) Pen] 40 mg SUBQ MO@1200 12/20/19 12/23/20 Albuterol Sulfate [Albuterol 2 puffs INH Q4H PRN 12/20/19 12/23/20 Sulfate Hfa] Budesonide/Formoterol Fumarate 2 puffs INH BID 12/20/19 12/23/20 [Symbicort 160-4.5 Mcg Inhaler] Cetirizine HCl 10 mg PO BID 12/20/19 04/08/20 Gabapentin 600 mg PO TID PRN 12/20/19 12/23/20 levETIRAcetam [Levetiracetam] 1,000 mg PO BID 12/20/19 04/08/20 predniSONE [Prednisone] 2 mg PO QDBREAKFAST 12/20/19 12/23/20 Cholecalciferol (Vitamin D3) 25 mcg PO DAILY 01/16/20 12/23/20 [Vitamin D3] Fluticasone [Flonase] 2 sprays [place] DAILY 01/16/20 04/08/20 Multivitamin W/Minerals [Theragran 1 tab PO DAILY 01/16/20 12/23/20 M] Furosemide [Lasix] 40 mg PO DAILY #30 tablet 01/18/20 12/23/20 Montelukast [Singulair] 10 mg PO QPM #30 tablet 01/18/20 12/23/20 guaiFENesin [Mucinex] 600 mg PO BID #30 tablet 01/18/20 04/08/20 Digoxin [Lanoxin] 125 mcg PO DAILY tablet 04/09/20 12/23/20 Metoprolol Succinate 200 mg PO BID #0 04/09/20 12/23/20 Empagliflozin [Jardiance] 10 mg PO DAILY 12/23/20 12/23/20 lisinopriL [Prinivil] 5 mg PO DAILY 12/23/20 12/23/20 SUMAtriptan [Imitrex] 25 mg PO BID PRN #10 tablet 01/17/21 - Allergies Allergies/Adverse Reactions: Allergies Allergy/AdvReac Type Severity Reaction Status Date / Time No Known Drug Allergies Allergy Verified 01/17/21 14:59 - Social History Does the pt smoke?: Yes Smoking Status: Current every day smoker Does the pt drink ETOH?: No Does the pt have substance abuse?: No - Immunizations Immunizations are current?: Yes - POLST Patient has POLST: No POLST Status: Full Code PD ED PE NORMAL - Vitals Vital signs reviewed: Yes - General General: Alert and oriented X 3, No acute distress - HEENT HEENT: PERRL, EOMI - Neck Neck: Supple, no meningeal sign, No bony TTP - Cardiac Cardiac: RRR, No murmur - Respiratory Respiratory: No respiratory distress, Clear bilaterally - Abdomen Abdomen: Normal bowel sounds, Soft, Non tender - Rectal Rectal: Deferred - Back Back: No CVA TTP, No spinal TTP - Derm Derm: Normal color, Warm and dry - Extremities Extremities: No edema, No calf tenderness / cord - Neuro Neuro: Alert and oriented X 3, Normal speech Results - Vitals Vitals: Vital Signs - 24 hr 01/17/21 14:56 Temperature 36.8 C Heart Rate 66 Respiratory 16 Rate Blood Pressure 107/85 H O2 Saturation 97 Oxygen O2 Source [] Room air O2 Source [] Room air O2 Source Room air - EKG (time done) 1450 Rate: Rate (enter#) (65) Rhythm: Paced (ventricular) - Labs Labs: Laboratory Tests 01/17/21 01/17/21 01/17/21 15:22 15:22 15:22 WBC 9.5 RBC 4.55 L Hgb 17.3 Hct 50.8 MCV 111.6 H MCH 38.0 H MCHC 34.1 RDW 14.6 Plt Count 132 MPV 10.3 Neut # (Auto) 6.9 H Lymph # (Auto) 1.4 L [place] # (Auto) 0.9 Eos # (Auto) 0.2 Baso # (Auto) 0.0 Absolute Nucleated RBC 0.00 Nucleated RBC % 0.0 Sodium 138 Potassium 3.8 Chloride 103 Carbon Dioxide 25 Anion Gap 10.0 BUN 15 Creatinine 1.1 Estimated GFR (MDRD) 65 L Glucose 129 H Calcium 9.2 Total Bilirubin 0.6 AST 18 ALT 23 Alkaline Phosphatase 88 Troponin I High Sens 18.8 Total Protein 6.8 Albumin 3.5 Globulin 3.3 Albumin/Globulin Ratio 1.1 Lipase 43 PD MEDICAL DECISION MAKING - ED course ED course: 75-year-old gentleman presents with recurrent vertigo happening several times a year and followed by headache. He is not vertiginous now and I am unable to recreate the vertigo with Vidhi-Hallpike. My suspicion is he is having vestibular migraines. Departure - Departure Disposition: 01 Home, Self Care Clinical Impression: Vestibular migraine Condition: Good Record reviewed to determine appropriate education?: Yes Instructions: ED Headache Migraine Prescriptions: SUMAtriptan [Imitrex] 25 mg PO BID PRN #10 tablet PRN Reason: Headache Comments: As discussed, I think your recurrent episodes of dizziness are likely vestibular migraines given the pattern and the fact that they are followed by a headache. Next time you start to get dizzy, try the Imitrex, take it as early as you can once the symptoms started. If that does not resolve your symptoms please return for reevaluation. Follow-up with your doctor at the [place] regardless.
[2021-01-17 15:28] LABS: BASOPHILS % (AUTO) 0.4 %; EOSINOPHILS # (AUTO) 0.2 10^3/uL (0.0-0.7); HCT - HEMATOCRIT 50.8 % (42.0-52.0); HGB - HEMOGLOBIN 17.3 g/dL (14.0-18.0); LYMPHOCYTES # (AUTO) 1.4 10^3/uL (1.5-3.5); LYMPHOCYTES % (AUTO) 14.6 %; MEAN CORPUSCULAR HGB CONC 34.1 g/dL (32.0-36.0); MEAN CORPUSCULAR VOLUME 111.6 fL (80.0-94.0); MEAN PLATELET VOLUME 10.3 fL (7.4-11.4); MONOCYTES # (AUTO) 0.9 10^3/uL (0.0-1.0); MONOCYTES % (AUTO) 9.6 %; NEUTROPHILS # (AUTO) 6.9 10^3/uL (1.5-6.6); RED BLOOD COUNT 4.55 10^6/uL (4.70-6.10); RED CELL DISTRIBUTION WIDTH 14.6 % (12.0-15.0); WHITE BLOOD COUNT 9.5 x10^3/uL (4.8-10.8)
[2021-01-17 15:32] LABS: PLT - PLATELET COUNT 132 10^3/uL (130-450)
[2021-01-17 15:54] LABS: ALBUMIN 3.5 g/dL (3.2-5.5); ALBUMIN/GLOBULIN RATIO 1.1 (1.0-2.2); BILIRUBIN,TOTAL 0.6 mg/dL (0.2-1.0); CALCIUM 9.2 mg/dL (8.5-10.3); CREATININE 1.1 mg/dL (0.6-1.2); POTASSIUM 3.8 mmol/L (3.5-5.0); TOTAL PROTEIN 6.8 g/dL (6.7-8.2)
--- NOTE | 2021-01-17 15:55 | CT Report ---
PROCEDURE: HEAD WO INDICATIONS: recurrent vertigo, pacemaker TECHNIQUE: Noncontrast 4.5 mm thick angled axial sections acquired from the foramen magnum to the vertex. For r adiation dose reduction, the following was used: automated exposure control, adjustment of mA and/or kV according to patient size. COMPARISON: 12/23/2020. FINDINGS: Image quality: Excellent. CSF spaces: Basal cisterns are patent. No extra-axial fluid collections. Ventricles are normal in size and shape. Brain: No midline shift. No intracranial masses or hemorrhage. Deshpande-white matter interface is norm al. Age-related volume loss and mild to moderate small vessel ischemic change. There are are intracra nial internal carotid artery calcifications. Skull and face: Calvarium and visualized facial bones are intact, without suspicious lesions. Sinuses: Left maxillary sinus is hypoaerated. There was previous of total opacification of the left m axillary sinus. Now appears completely opacified. Patchy ethmoid opacification, progressed since the previous study. IMPRESSION: 1. No evidence acute stroke, hemorrhage, or mass. 2. Age-related volume loss and mild to moderate small vessel ischemic change. 3. Progression of sinus disease. The left maxillary sinus is now completely opacified. There is devel opment of patchy bilateral ethmoid disease. Reviewed by: Jerome Smith MD on 01/17/2021 3:54 PM PDT Approved by: Jerome Smith MD on 01/17/2021 3:54 PM PDT Station ID: [id number]
[2021-01-17 15:58] LABS: PLATELET ESTIMATE, MANUAL NORMAL (130-450,000) (NORMAL); PLATELET MORPHOLOGY NORMAL APPEARANCE (NORMAL); RBC MORPHOLOGY (MULTIPLE) 2+ MACROCYTOSIS (NORMAL)
[2021-01-17 15:59] LABS: WBC MORPHOLOGY (MULTIPLE) NORMAL APPEARANCE (NORMAL)
[2021-01-17 16:49] VITALS: BP 115/87
== END 2021-01-17 16:45 | disposition home or self-care (01) ==
LOC: EDUNIT# → ED 14:46
DX: G43.809 Other migraine, not intractable, without status migrainosus (principal); J32.0 Chronic maxillary sinusitis; J32.2 Chronic ethmoidal sinusitis; I44.7 Left bundle-branch block, unspecified; I48.91 Unspecified atrial fibrillation; Z79.01 Long term (current) use of anticoagulants; Z95.0 Presence of cardiac pacemaker; I10 Essential (primary) hypertension; F17.200 Nicotine dependence, unspecified, uncomplicated
CPT/HCPCS: 36415; 80053; 83690; 84484; 85025; 93005; 99284

== ENCOUNTER 2021-05-26 20:23 | Emergency (ER) | payer OTHER ==
[2021-05-26] MEDS ORDERED: MECLIZINE 12.5 MG TABLET PO STA (21:49)
--- NOTE | 2021-05-26 21:49 | ED Physician Documentation ---
History of Present Illness - Stated complaint Stated Complaint: BALANCE ISSUE,VISION CHANGES - Chief complaint Chief Complaint: Neuro - History obtained from History obtained from: Patient - Additonal information Additional information: 75y[place], [place] [facility] [place] [facility] cva with R eye vision loss, htn, hld, dm2, copd, afib on apixaban, cad, s/p pacemaker 3 months ago, chronic vertigo, p/w worsening vertigo over the past 2 months, acutely worsening X 2 weeks. patient states he was going to the mailbox today and felt like "the world was jumbled like scrambled eggs". patient felt off balance and so his daughter took him to the emergency department. endorses chronic full body pain that is nonworsening. denies new chest pain, shortness of breath, fever, cough, leg swelling, or FND. Social - lives alone, ambulatory with walker/cane. daughter in [employer]. Review of Systems Ten Systems: 10 systems reviewed and negative Constitutional: reports: Myalgias. denies: Fever, Chills Eyes: reports: Loss of vision (chronic) Neurologic: reports: Other (vertigo). denies: Headache, Head injury PD PAST MEDICAL HISTORY - Past Medical History Cardiovascular: Hypertension, Atrial fibrillation, Murmur, Arrhythmia, Valve disorder Respiratory: None Neuro: CVA Endocrine/Autoimmune: None GI: Other : None HEENT: Other Psych: Anxiety Musculoskeletal: Osteoarthritis, Rheumatoid arthritis Derm: None - Past Surgical History Past Surgical History: Yes Ortho: Other Cardiovascular: Pacemaker - Present Medications Home Medications: Ambulatory Orders Medication Instructions Recorded Confirmed Folic Acid 2 mg PO DAILY 07/06/15 01/17/21 Methotrexate [Methotrexate Sodium] 20 mg PO MO@1400 07/06/15 01/17/21 Apixaban [Eliquis] 5 mg PO DAILY 05/07/19 01/17/21 Atorvastatin Calcium 40 mg PO QPM 05/07/19 01/17/21 Adalimumab [Humira(Cf) Pen] 40 mg SUBQ MO@1200 12/20/19 01/17/21 Albuterol Sulfate [Albuterol 2 puffs INH Q4H PRN 12/20/19 01/17/21 Sulfate Hfa] Budesonide/Formoterol Fumarate 2 puffs INH BID 12/20/19 01/17/21 [Symbicort 160-4.5 Mcg Inhaler] Gabapentin 600 mg PO TID PRN 12/20/19 01/17/21 levETIRAcetam [Levetiracetam] 1,000 mg PO BID 12/20/19 01/17/21 predniSONE [Prednisone] 2 mg PO QDBREAKFAST 12/20/19 01/17/21 Cholecalciferol (Vitamin D3) 25 mcg PO DAILY 01/16/20 01/17/21 [Vitamin D3] Fluticasone [Flonase] 2 sprays [place] DAILY 01/16/20 01/17/21 Multivitamin W/Minerals [Theragran 1 tab PO DAILY 01/16/20 01/17/21 M] Furosemide [Lasix] 40 mg PO DAILY #30 tablet 01/18/20 01/17/21 Montelukast [Singulair] 10 mg PO QPM #30 tablet 01/18/20 01/17/21 guaiFENesin [Mucinex] 600 mg PO BID #30 tablet 01/18/20 01/17/21 Digoxin [Lanoxin] 125 mcg PO DAILY tablet 04/09/20 01/17/21 Metoprolol Succinate 200 mg PO BID #0 04/09/20 01/17/21 Empagliflozin [Jardiance] 10 mg PO DAILY 12/23/20 01/17/21 lisinopriL [Prinivil] 5 mg PO DAILY 12/23/20 01/17/21 Meclizine [Antivert] 12.5 mg PO QDAC PRN #30 tablet 05/27/21 - Allergies Allergies/Adverse Reactions: Allergies Allergy/AdvReac Type Severity Reaction Status Date / Time No Known Drug Allergies Allergy Verified 05/26/21 20:40 - Social History Does the pt smoke?: Yes Smoking Status: Current every day smoker Does the pt drink ETOH?: No Does the pt have substance abuse?: No - Immunizations Immunizations are current?: Yes - POLST Patient has POLST: No POLST Status: Full Code PD ED PE NORMAL - Vitals Vital signs reviewed: Yes - General General: Alert and oriented X 3, No acute distress, Other (elderly appearing) - HEENT HEENT: Atraumatic, PERRL, EOMI - Neck Neck: Supple, no meningeal sign - Cardiac Cardiac: RRR - Respiratory Respiratory: No respiratory distress, Clear bilaterally - Abdomen Abdomen: Non tender, Non distended - Derm Derm: Normal color, Warm and dry - Extremities Extremities: No deformity - Neuro Neuro: Alert and oriented X 3, No motor deficit, No sensory deficit, Normal speech, Other (R eye vision loss) - Psych Psych: Normal mood, Normal affect Results - Vitals Vitals: Vital Signs - 24 hr 05/26/21 05/26/21 20:30 22:51 Temperature 37.3 C Heart Rate 73 69 Respiratory 19 15 Rate Blood Pressure 115/67 107/70 O2 Saturation 96 96 Oxygen O2 Source [] Room air O2 Source [] Room air O2 Source Room air - EKG (time done) 2137 Rate: Rate (enter#) (62) Rhythm: Other (atrial ventricular dual rhythm) Ischemia: Non specific changes Compare to prior EKG: Unchanged from prior EKG (prior ekg in January) - Labs Labs: Laboratory Tests 05/26/21 05/26/21 05/26/21 21:58 21:58 21:58 WBC 11.5 H RBC 4.53 L Hgb 17.2 Hct 51.1 MCV 112.8 H MCH 38.0 H MCHC 33.7 RDW 14.7 Plt Count 150 MPV 10.6 Neut # (Auto) 7.9 H Lymph # (Auto) 2.3 [place] # (Auto) 0.8 Eos # (Auto) 0.3 Baso # (Auto) 0.1 Absolute Nucleated RBC 0.00 Nucleated RBC % 0.0 Manual Slide Review Indicated WBC Morphology NORMAL APPEARANCE Platelet Estimate NORMAL (130-450,000) Platelet Morphology NORMAL APPEARANCE RBC Morph Micro Appear 2+ MACROCYTOSIS Sodium 138 Potassium 4.1 Chloride 100 L Carbon Dioxide 28 Anion Gap 10.0 BUN 16 Creatinine 1.3 H Estimated GFR (MDRD) 54 L Glucose 155 H Calcium 9.2 Total Bilirubin 0.8 AST 26 ALT 29 Alkaline Phosphatase 87 Troponin I High Sens 23.0 H* Total Protein 7.4 Albumin 3.9 Globulin 3.5 Albumin/Globulin Ratio 1.1 Lipase 32 05/26/21 23:20 WBC RBC Hgb Hct MCV MCH MCHC RDW Plt Count MPV Neut # (Auto) Lymph # (Auto) [place] # (Auto) Eos # (Auto) Baso # (Auto) Absolute Nucleated RBC Nucleated RBC % Manual Slide Review WBC Morphology Platelet Estimate Platelet Morphology RBC Morph Micro Appear Sodium Potassium Chloride Carbon Dioxide Anion Gap BUN Creatinine Estimated GFR (MDRD) Glucose Calcium Total Bilirubin AST ALT Alkaline Phosphatase Troponin I High Sens 22.2 H* Total Protein Albumin Globulin Albumin/Globulin Ratio Lipase PD MEDICAL DECISION MAKING - ED course ED course: 75yM presents with chronic vertigo symptoms, worsening today. also with chronic full body pain. Patient was here for similar in January of this year. will place on telemetry, obtain labwork. EKG unchanged from previous. patient well appearing and asking to go home. patient feeling asymptomatic s/p meclizine. d/w patient and daughter need for oral hydration given mild estefany and need for outpatient neurology and primary care follow up. return precautions given. Departure - Departure Disposition: Home, Self Care Clinical Impression: Vertigo, Body aches Condition: Good Instructions: ED Vertigo Unspecified Prescriptions: Meclizine [Antivert] 12.5 mg PO QDAC PRN #30 tablet PRN Reason: Vertigo Comments: You were seen in the memergency department for vertigo. Your workup did not show any emergent findings but you will need to call tomorrow to make a follow up appointment with your primary doctor and neurologist. Return to the emergency department if you have any new or worsening symptoms or other concerns.
[2021-05-26 22:04] LABS: BASOPHILS # (AUTO) 0.1 10^3/uL (0.0-0.1); BASOPHILS % (AUTO) 0.6 %; EOSINOPHILS # (AUTO) 0.3 10^3/uL (0.0-0.7); EOSINOPHILS % (AUTO) 2.7 %; HCT - HEMATOCRIT 51.1 % (42.0-52.0); HGB - HEMOGLOBIN 17.2 g/dL (14.0-18.0); LYMPHOCYTES # (AUTO) 2.3 10^3/uL (1.5-3.5); LYMPHOCYTES % (AUTO) 20.1 %; MEAN CORPUSCULAR HGB CONC 33.7 g/dL (32.0-36.0); MEAN CORPUSCULAR VOLUME 112.8 fL (80.0-94.0); MEAN PLATELET VOLUME 10.6 fL (7.4-11.4); MONOCYTES # (AUTO) 0.8 10^3/uL (0.0-1.0); MONOCYTES % (AUTO) 6.6 %; NEUTROPHILS # (AUTO) 7.9 10^3/uL (1.5-6.6); NEUTROPHILS % (AUTO) 68.5 %; PLT - PLATELET COUNT 150 10^3/uL (130-450); RED BLOOD COUNT 4.53 10^6/uL (4.70-6.10); RED CELL DISTRIBUTION WIDTH 14.7 % (12.0-15.0); WHITE BLOOD COUNT 11.5 x10^3/uL (4.8-10.8)
[2021-05-26 22:06] LABS: SLIDE REVIEW? Indicated
--- NOTE | 2021-05-26 22:10 | XRAY Report ---
PROCEDURE: Chest 1 View X-Ray INDICATIONS: Chest Pain TECHNIQUE: One view of the chest was acquired. COMPARISON: 04/08/2020 FINDINGS: Surgical changes and devices: Dual-lead left-sided pacemaker.. Lungs and pleura: Minor right lower lung opacity. Mild volume loss along the lateral left hemithorax with elevation left hemidiaphragm and blunting of the costophrenic sulcus, probably residual scarring or chronic effusion/pleural thickening. No pneumothorax. Mediastinum: Mediastinal contours appear normal. Heart size is normal. Bones and chest wall: No suspicious bony lesions. Overlying soft tissues appear unremarkable. IMPRESSION: 1. Probable right base atelectasis though underlying infection is not excluded. 2. Improved aeration of the left lung with residual left hemithorax volume loss and pleural thickenin g/chronic effusion. Reviewed by: Aleta Chávez MD on 05/26/2021 10:09 PM PDT Approved by: Aleta Chávez MD on 05/26/2021 10:09 PM PDT Station ID: [id number]
[2021-05-26 22:21] LABS: PLATELET ESTIMATE, MANUAL NORMAL (130-450,000) (NORMAL); PLATELET MORPHOLOGY NORMAL APPEARANCE (NORMAL); RBC MORPHOLOGY (MULTIPLE) 2+ MACROCYTOSIS (NORMAL); WBC MORPHOLOGY (MULTIPLE) NORMAL APPEARANCE (NORMAL)
[2021-05-26 22:23] LABS: ALBUMIN 3.9 g/dL (3.2-5.5); ALBUMIN/GLOBULIN RATIO 1.1 (1.0-2.2); BILIRUBIN,TOTAL 0.8 mg/dL (0.2-1.0); CALCIUM 9.2 mg/dL (8.5-10.3); CREATININE 1.3 mg/dL (0.6-1.2); POTASSIUM 4.1 mmol/L (3.5-5.0); TOTAL PROTEIN 7.4 g/dL (6.7-8.2)
[2021-05-27 00:27] VITALS: BP 113/68
== END 2021-05-27 00:37 | disposition home or self-care (01) ==
LOC: ED 20:23
DX: R42 Dizziness and giddiness (principal); R52 Pain, unspecified; N17.9 Acute kidney failure, unspecified; R26.81 Unsteadiness on feet; I69.998 Other sequelae following unspecified cerebrovascular disease; H54.61 Unqualified visual loss, right eye, normal vision left eye; I10 Essential (primary) hypertension; E78.5 Hyperlipidemia, unspecified; I25.10 Atherosclerotic heart disease of native coronary artery without angina pectoris; Z95.0 Presence of cardiac pacemaker; I48.91 Unspecified atrial fibrillation; Z79.01 Long term (current) use of anticoagulants; E11.9 Type 2 diabetes mellitus without complications; Z79.84 Long term (current) use of oral hypoglycemic drugs; J44.9 Chronic obstructive pulmonary disease, unspecified; F17.200 Nicotine dependence, unspecified, uncomplicated
CPT/HCPCS: 36415; 71045; 80053; 83690; 84484; 85025; 93005; 99284; A9270

== ENCOUNTER 2021-06-20 16:35 | Outpatient (CLI) | payer MEDICARE, OTHER | END 2021-06-20 23:59 | disposition critical access hospital (66) | LOC: EMS 16:35 | DX: R53.1 Weakness (principal) | CPT/HCPCS: A0425; A0427 ==

== ENCOUNTER 2021-06-20 16:47 | Emergency (ER) | payer OTHER ==
[2021-06-20 17:43] LABS: BASOPHILS % (AUTO) 0.4 %; EOSINOPHILS # (AUTO) 0.2 10^3/uL (0.0-0.7); EOSINOPHILS % (AUTO) 2.5 %; HCT - HEMATOCRIT 47.8 % (42.0-52.0); HGB - HEMOGLOBIN 16.6 g/dL (14.0-18.0); LYMPHOCYTES # (AUTO) 1.7 10^3/uL (1.5-3.5); LYMPHOCYTES % (AUTO) 17.8 %; MEAN CORPUSCULAR HEMOGLOBIN 39.3 pg (27.0-31.0); MEAN CORPUSCULAR HGB CONC 34.7 g/dL (32.0-36.0); MEAN CORPUSCULAR VOLUME 113.3 fL (80.0-94.0); MONOCYTES # (AUTO) 0.3 10^3/uL (0.0-1.0); MONOCYTES % (AUTO) 3.2 %; NEUTROPHILS % (AUTO) 75.2 %; NRBC ABSOLUTE COUNT (AUTO) 0.05 x10^3/uL; NUCLEATED RED BLOOD CELLS AUTO 0.5 /100WBC; RED BLOOD COUNT 4.22 10^6/uL (4.70-6.10); RED CELL DISTRIBUTION WIDTH 14.6 % (12.0-15.0); WHITE BLOOD COUNT 9.3 x10^3/uL (4.8-10.8)
[2021-06-20 17:50] LABS: ALBUMIN 3.7 g/dL (3.2-5.5); ALBUMIN/GLOBULIN RATIO 1.2 (1.0-2.2); CALCIUM 8.7 mg/dL (8.5-10.3); CREATININE 1.2 mg/dL (0.6-1.2); POTASSIUM 3.7 mmol/L (3.5-5.0); TOTAL PROTEIN 6.8 g/dL (6.7-8.2)
[2021-06-20] MEDS ORDERED: SODIUM CHLORIDE 0.9% 1,000 ML IV STA ×3 (17:54→19:43)
--- NOTE | 2021-06-20 17:56 | XRAY Report ---
PROCEDURE: Chest 1 View X-Ray INDICATIONS: Chest Pain TECHNIQUE: One view of the chest was acquired. COMPARISON: Check x-ray one view, 05/26/2021. FINDINGS: Surgical changes and devices: There is a cardiac pacemaker in stable position. Lungs and pleura: No pleural effusions or pneumothorax. Chronic left basilar opacities most likely a telectasis. Mediastinum: Mediastinal contours appear normal. Heart size is increased. Bones and chest wall: No suspicious bony lesions. Overlying soft tissues appear unremarkable. IMPRESSION: 1. Mild cardiomegaly. 2. Left basilar opacities most likely atelectasis, but superimposed pneumonia cannot excluded. Reviewed by: Marilyn Rodriguez MD on 06/20/2021 5:55 PM PST Approved by: Marilyn Rodriguez MD on 06/20/2021 5:55 PM PST Station ID: [id number]
[2021-06-20 18:03] LABS: MEAN PLATELET VOLUME 10.9 fL (7.4-11.4); PLT - PLATELET COUNT 94 10^3/uL (130-450)
--- NOTE | 2021-06-20 18:03 | ED Physician Documentation ---
History of Present Illness - Stated complaint Stated Complaint: GENERAL WEAKNESS - Chief complaint Chief Complaint: Cardiac - History obtained from History obtained from: Patient, EMS - History of Present Illness Timing: Today Pain level max: 0 Pain level now: 0 - Additonal information Additional information: 75-year-old male brought in by EMS tonight states that he was feeling weak. He states that he was found to be in atrial fibrillation with rapid ventricular response. Given diltiazem by EMS and heart rate slowed. No chest pain. No shortness of breath. Nothing makes it better or worse. He feels lightheaded and near syncopal with standing. No fevers. No chills. No abdominal pain, no nausea or vomiting or diarrhea Review of Systems Ten Systems: 10 systems reviewed and negative Constitutional: denies: Fever, Chills Ears: denies: Ear pain Nose: denies: Rhinorrhea / runny nose, Congestion Respiratory: denies: Cough GI: denies: Abdominal Pain, Vomiting, Diarrhea, Hematemesis, Bloody / black stool Skin: denies: Rash Musculoskeletal: denies: Neck pain, Back pain Neurologic: denies: Headache PD PAST MEDICAL HISTORY - Past Medical History Cardiovascular: Hypertension, Atrial fibrillation, Murmur, Arrhythmia, Valve disorder Respiratory: None Neuro: CVA Endocrine/Autoimmune: None GI: Other : None HEENT: Other Psych: Anxiety Musculoskeletal: Osteoarthritis, Rheumatoid arthritis Derm: None - Past Surgical History Past Surgical History: Yes Ortho: Other Cardiovascular: Pacemaker - Present Medications Home Medications: Ambulatory Orders Medication Instructions Recorded Confirmed Folic Acid 2 mg PO DAILY 07/06/15 01/17/21 Methotrexate [Methotrexate Sodium] 20 mg PO MO@1400 07/06/15 01/17/21 Apixaban [Eliquis] 5 mg PO DAILY 05/07/19 01/17/21 Atorvastatin Calcium 40 mg PO QPM 05/07/19 01/17/21 Adalimumab [Humira(Cf) Pen] 40 mg SUBQ MO@1200 12/20/19 01/17/21 Albuterol Sulfate [Albuterol 2 puffs INH Q4H PRN 12/20/19 01/17/21 Sulfate Hfa] Budesonide/Formoterol Fumarate 2 puffs INH BID 12/20/19 01/17/21 [Symbicort 160-4.5 Mcg Inhaler] Gabapentin 600 mg PO TID PRN 12/20/19 01/17/21 levETIRAcetam [Levetiracetam] 1,000 mg PO BID 12/20/19 01/17/21 predniSONE [Prednisone] 2 mg PO QDBREAKFAST 12/20/19 01/17/21 Cholecalciferol (Vitamin D3) 25 mcg PO DAILY 01/16/20 01/17/21 [Vitamin D3] Fluticasone [Flonase] 2 sprays [place] DAILY 01/16/20 01/17/21 Multivitamin W/Minerals [Theragran 1 tab PO DAILY 01/16/20 01/17/21 M] Furosemide [Lasix] 40 mg PO DAILY #30 tablet 01/18/20 01/17/21 Montelukast [Singulair] 10 mg PO QPM #30 tablet 01/18/20 01/17/21 guaiFENesin [Mucinex] 600 mg PO BID #30 tablet 01/18/20 01/17/21 Digoxin [Lanoxin] 125 mcg PO DAILY tablet 04/09/20 01/17/21 Metoprolol Succinate 200 mg PO BID #0 04/09/20 01/17/21 Empagliflozin [Jardiance] 10 mg PO DAILY 12/23/20 01/17/21 lisinopriL [Prinivil] 5 mg PO DAILY 12/23/20 01/17/21 Meclizine [Antivert] 12.5 mg PO QDAC PRN #30 tablet 05/27/21 - Allergies Allergies/Adverse Reactions: Allergies Allergy/AdvReac Type Severity Reaction Status Date / Time No Known Drug Allergies Allergy Verified 06/20/21 17:02 - Social History Does the pt smoke?: Yes Smoking Status: Current every day smoker Does the pt drink ETOH?: No Does the pt have substance abuse?: No - Immunizations Immunizations are current?: Yes - POLST Patient has POLST: No POLST Status: Full Code PD ED PE NORMAL - Vitals Vital signs reviewed: Yes - General General: Alert and oriented X 3, No acute distress - HEENT HEENT: Moist mucous membranes - Neck Neck: Supple, no meningeal sign - Cardiac Cardiac: Other (Irregularly irregular) - Respiratory Respiratory: No respiratory distress - Abdomen Abdomen: Soft, Non tender, Non distended - Back Back: No spinal TTP - Derm Derm: Warm and dry - Extremities Extremities: No edema, No calf tenderness / cord - Neuro Neuro: Alert and oriented X 3, 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) - Psych Psych: Normal mood, Normal affect Results - Vitals Vitals: Vital Signs - 24 hr 06/20/21 06/20/21 06/20/21 16:57 18:02 18:30 Temperature 36.4 C L Heart Rate 77 77 83 Heart Rate [ Sitting] Heart Rate [ Standing] Heart Rate [ Supine] Respiratory 18 14 18 Rate Blood Pressure 97/71 93/59 L 103/75 Blood Pressure [Sitting] Blood Pressure [Standing] Blood Pressure [Supine] O2 Saturation 95 97 98 06/20/21 06/20/21 06/20/21 18:57 19:00 19:30 Temperature Heart Rate 69 92 Heart Rate [ 83 Sitting] Heart Rate [ 81 Standing] Heart Rate [ 83 Supine] Respiratory 18 20 Rate Blood Pressure 96/71 105/74 Blood Pressure 93/76 [Sitting] Blood Pressure 103/82 H [Standing] Blood Pressure 85/58 L [Supine] O2 Saturation 98 96 06/20/21 06/20/21 06/20/21 20:00 20:30 21:00 Temperature Heart Rate 83 89 90 Heart Rate [ Sitting] Heart Rate [ Standing] Heart Rate [ Supine] Respiratory 15 20 14 Rate Blood Pressure 94/63 114/70 103/72 Blood Pressure [Sitting] Blood Pressure [Standing] Blood Pressure [Supine] O2 Saturation 95 96 95 06/20/21 21:34 Temperature 36.5 C Heart Rate 89 Heart Rate [ Sitting] Heart Rate [ Standing] Heart Rate [ Supine] Respiratory 18 Rate Blood Pressure 110/75 Blood Pressure [Sitting] Blood Pressure [Standing] Blood Pressure [Supine] O2 Saturation 95 Oxygen O2 Source [With Activity] Room air O2 Source [Without Activity] Room air O2 Source Room air - EKG (time done) 1653 Rate: Rate (enter#) (78) Rhythm: Atrial fibrillation, Other (PVC) [place]: Normal Intervals: LBBB - Labs Labs: Laboratory Tests 06/20/21 06/20/21 06/20/21 17:27 17:27 17:27 WBC 9.3 RBC 4.22 L Hgb 16.6 Hct 47.8 MCV 113.3 H MCH 39.3 H MCHC 34.7 RDW 14.6 Plt Count 94 L MPV 10.9 Neut # (Auto) 7.0 H Lymph # (Auto) 1.7 [place] # (Auto) 0.3 Eos # (Auto) 0.2 Baso # (Auto) 0.0 Absolute Nucleated RBC 0.05 Nucleated RBC % 0.5 Manual Slide Review Indicated WBC Morphology NORMAL APPEARANCE Platelet Estimate DECREASED (<130,000) Platelet Morphology NORMAL APPEARANCE RBC Morph Micro Appear 2+ MACROCYTOSIS Sodium 138 Potassium 3.7 Chloride 102 Carbon Dioxide 25 Anion Gap 11.0 BUN 17 Creatinine 1.2 Estimated GFR (MDRD) 59 L Glucose 145 H Calcium 8.7 Total Bilirubin 1.0 AST 21 ALT 24 Alkaline Phosphatase 82 Troponin I High Sens 80.5 H* Total Protein 6.8 Albumin 3.7 Globulin 3.1 Albumin/Globulin Ratio 1.2 Lipase 104 H Last Dose Date Last Dose Time Digoxin 06/20/21 06/20/21 17:27 19:49 WBC RBC Hgb Hct MCV MCH MCHC RDW Plt Count MPV Neut # (Auto) Lymph # (Auto) [place] # (Auto) Eos # (Auto) Baso # (Auto) Absolute Nucleated RBC Nucleated RBC % Manual Slide Review WBC Morphology Platelet Estimate Platelet Morphology RBC Morph Micro Appear Sodium Potassium Chloride Carbon Dioxide Anion Gap BUN Creatinine Estimated GFR (MDRD) Glucose Calcium Total Bilirubin AST ALT Alkaline Phosphatase Troponin I High Sens 86.8 H* Total Protein Albumin Globulin Albumin/Globulin Ratio Lipase Last Dose Date UNKNOWN Last Dose Time UNKOWN Digoxin < 0.2 - Rads (name of study) cxr Radiology: Final report received, EMP read contemporaneously, See rad report (Mild cardiomegaly. Left basilar opacities most likely atelectasis, but superimposed pneumonia cannot be excluded) PD MEDICAL DECISION MAKING - ED course Complexity details: reviewed results, re-evaluated patient, considered differential, d/w patient ED course: Patient was rate controlled with EMS. Remained rate controlled in the emergency department. He was positive for orthostatic hypotension. Received 2 L of IV fluid. Blood pressure stabilized, lightheadedness and near syncopal feeling resolved. Patient did not have any chest pain or shortness of breath. Mildly elevated troponin, no change on the second troponin 2 hours later. No acute is chemic changes on EKG. Patient would like to go home at this time. Ambulating well. Patient counseled regarding signs and symptoms for which I believe and urgent re-evaluation would be necessary. Patient with good understanding of and agreement to plan and is comfortable going home at this time This document was made in part using voice recognition software. While efforts are made to proofread this document, sound alike and grammatical errors may occur. Departure - Departure Disposition: 01 Home, Self Care Clinical Impression: Orthostatic hypotension Atrial fibrillation Qualifiers: Atrial fibrillation type: unspecified Qualified Code(s): I48.91 - Unspecified atrial fibrillation Condition: Good Instructions: ED Afib, ED Hypotension Orthostatic Follow-Up: Provider,Other [Primary Care Provider] - Within 1 week Comments: Continue your current medications at home. Follow-up with your doctor for further care. Return if you worsen. Discharge Date/Time: 06/20/21 21:34
[2021-06-20 18:04] LABS: PLATELET ESTIMATE, MANUAL DECREASED (<130,000) (NORMAL); PLATELET MORPHOLOGY NORMAL APPEARANCE (NORMAL); SLIDE REVIEW? Indicated
[2021-06-20 18:05] LABS: WBC MORPHOLOGY (MULTIPLE) NORMAL APPEARANCE (NORMAL)
[2021-06-20 18:06] LABS: DIGOXIN < 0.2 ng/mL
[2021-06-20 21:35] VITALS: BP 110/75
== END 2021-06-20 21:34 | disposition home or self-care (01) ==
LOC: EDUNIT# → ED 16:47
DX: I95.1 Orthostatic hypotension (principal); I48.91 Unspecified atrial fibrillation; F17.200 Nicotine dependence, unspecified, uncomplicated
CPT/HCPCS: 36415; 80053; 80162; 83690; 84484; 85025; 93005; 96360; 96361; 99285

== ENCOUNTER 2021-08-24 15:47 | Emergency (ER) | payer MEDICARE, OTHER ==
[2021-08-24] MEDS ORDERED: ALBUTEROL 1 PUFF INH STA (16:41)
[2021-08-24 16:44] LABS: BASOPHILS # (AUTO) 0.1 10^3/uL (0.0-0.1); BASOPHILS % (AUTO) 0.9 %; EOSINOPHILS # (AUTO) 0.4 10^3/uL (0.0-0.7); EOSINOPHILS % (AUTO) 6.4 %; HCT - HEMATOCRIT 45.6 % (42.0-52.0); HGB - HEMOGLOBIN 16.1 g/dL (14.0-18.0); LYMPHOCYTES % (AUTO) 14.8 %; MEAN CORPUSCULAR HGB CONC 35.3 g/dL (32.0-36.0); MEAN CORPUSCULAR VOLUME 110.4 fL (80.0-94.0); MEAN PLATELET VOLUME 10.7 fL (7.4-11.4); MONOCYTES # (AUTO) 0.8 10^3/uL (0.0-1.0); MONOCYTES % (AUTO) 12.6 %; NEUTROPHILS # (AUTO) 4.2 10^3/uL (1.5-6.6); NEUTROPHILS % (AUTO) 63.6 %; PLT - PLATELET COUNT 135 10^3/uL (130-450); RED BLOOD COUNT 4.13 10^6/uL (4.70-6.10); RED CELL DISTRIBUTION WIDTH 15.9 % (12.0-15.0); WHITE BLOOD COUNT 6.6 x10^3/uL (4.8-10.8)
--- NOTE | 2021-08-24 16:44 | ED Physician Documentation ---
History of Present Illness - Stated complaint Stated Complaint: HEART PALP - Chief complaint Chief Complaint: Cardiac - Additonal information Additional information: 75-year-old male comes to the emergency department for evaluation of 3 days increased cough, shortness of air as well as palpitations. He reports a history of atrial fibrillation for which she is on eliquis. He typically has rate control with digoxin and metoprolol. Denies missing any of his doses. His heart rate however has typically been just over 100 when it is typically in the 80s and 90s. He has recently run out of his albuterol which he thinks is contributing to his symptoms. He carries a history of COPD but is not yet oxygen dependent. Fully vaccinated for COVID-19. Cough is more productive than normal. No fevers no hemoptysis. Review of Systems Constitutional: denies: Fever, Chills Eyes: reports: Reviewed and negative Ears: reports: Reviewed and negative Nose: reports: Reviewed and negative Throat: reports: Reviewed and negative Cardiac: reports: Palpitations. denies: Chest pain / pressure, Pedal edema, Calf pain Respiratory: reports: Dyspnea, Cough GI: reports: Reviewed and negative : reports: Reviewed and negative Skin: reports: Reviewed and negative Musculoskeletal: reports: Reviewed and negative PD PAST MEDICAL HISTORY - Past Medical History Cardiovascular: Hypertension, Atrial fibrillation, Murmur, Arrhythmia, Valve disorder Respiratory: None Neuro: CVA Endocrine/Autoimmune: None GI: Other : None HEENT: Other Psych: Anxiety Musculoskeletal: Osteoarthritis, Rheumatoid arthritis Derm: None - Past Surgical History Past Surgical History: Yes Ortho: Other Cardiovascular: Pacemaker - Present Medications Home Medications: Ambulatory Orders Medication Instructions Recorded Confirmed Folic Acid 2 mg PO DAILY 07/06/15 01/17/21 Methotrexate [Methotrexate Sodium] 20 mg PO MO@1400 07/06/15 01/17/21 Apixaban [Eliquis] 5 mg PO DAILY 05/07/19 01/17/21 Atorvastatin Calcium 40 mg PO QPM 05/07/19 01/17/21 Adalimumab [Humira(Cf) Pen] 40 mg SUBQ MO@1200 12/20/19 01/17/21 Albuterol Sulfate [Albuterol 2 puffs INH Q4H PRN 12/20/19 01/17/21 Sulfate Hfa] Budesonide/Formoterol Fumarate 2 puffs INH BID 12/20/19 01/17/21 [Symbicort 160-4.5 Mcg Inhaler] Gabapentin 600 mg PO TID PRN 12/20/19 01/17/21 levETIRAcetam [Levetiracetam] 1,000 mg PO BID 12/20/19 01/17/21 predniSONE [Prednisone] 2 mg PO QDBREAKFAST 12/20/19 01/17/21 Cholecalciferol (Vitamin D3) 25 mcg PO DAILY 01/16/20 01/17/21 [Vitamin D3] Fluticasone [Flonase] 2 sprays [place] DAILY 01/16/20 01/17/21 Multivitamin W/Minerals [Theragran 1 tab PO DAILY 01/16/20 01/17/21 M] Furosemide [Lasix] 40 mg PO DAILY #30 tablet 01/18/20 01/17/21 Montelukast [Singulair] 10 mg PO QPM #30 tablet 01/18/20 01/17/21 guaiFENesin [Mucinex] 600 mg PO BID #30 tablet 01/18/20 01/17/21 Digoxin [Lanoxin] 125 mcg PO DAILY tablet 04/09/20 01/17/21 Metoprolol Succinate 200 mg PO BID #0 04/09/20 01/17/21 Empagliflozin [Jardiance] 10 mg PO DAILY 12/23/20 01/17/21 lisinopriL [Prinivil] 5 mg PO DAILY 12/23/20 01/17/21 Meclizine [Antivert] 12.5 mg PO QDAC PRN #30 tablet 05/27/21 Albuterol Sulf [Ventolin Hfa 1 - 2 puffs INH Q4HR PRN #1 inhaler 08/24/21 Inhaler] Azithromycin [Zithromax] 0 mg PO DAILY #6 tablet 08/24/21 predniSONE [Deltasone] 40 mg PO DAILY 5 Days #10 tablet 08/24/21 - Allergies Allergies/Adverse Reactions: Allergies Allergy/AdvReac Type Severity Reaction Status Date / Time No Known Drug Allergies Allergy Verified 08/24/21 16:13 - Social History Does the pt smoke?: Yes Smoking Status: Current every day smoker Does the pt drink ETOH?: No Does the pt have substance abuse?: No - Immunizations Immunizations are current?: Yes - POLST Patient has POLST: No POLST Status: Full Code PD ED PE EXPANDED - General General: Alert, No acute distress - Neck Neck: Supple w/out meningeal sx. No: Adenopathy - Cardiac Cardiac: Irregularly irregular, Radial strong equal, Pedal strong equal, Cap refill < 2 sec. No: Murmur Present - Respiratory Respiratory: Wheezing (wheeze in all lung ramos). No: Distress, Labored - Abdomen Abdomen: Normal Bowel sounds. No: Tender to palpation - Back Back: Normal exam. No: Vertebral tenderness, Soft tissue tenderness - Neuro Neuro: Alert and Oriented X 3, CNII-XII intact - GCS Eye Opening: Spontaneous Motor: Obeys Commands Verbal: Oriented Total: 15 Results - Vitals Vitals: Vital Signs - 24 hr 08/24/21 08/24/21 08/24/21 16:03 16:53 18:07 Temperature 36.4 C L Heart Rate 104 H 104 H 94 Respiratory 24 20 26 H Rate Blood Pressure 102/65 108/69 101/73 O2 Saturation 95 95 97 Oxygen O2 Source [] Room air O2 Source [] Room air O2 Source Room air - EKG (time done) 1606 Rate: Rate (enter#) (104) Rhythm: Atrial fibrillation [place]: Other Intervals: Normal MT QRS: Normal Ischemia: Q waves (anterior), Non specific changes Compare to prior EKG: Unchanged from prior EKG Computer interpretation: Agree with computer - Labs Labs: Laboratory Tests 08/24/21 08/24/21 08/24/21 16:37 16:37 16:37 WBC 6.6 RBC 4.13 L Hgb 16.1 Hct 45.6 MCV 110.4 H MCH 39.0 H MCHC 35.3 RDW 15.9 H Plt Count 135 MPV 10.7 Neut # (Auto) 4.2 Lymph # (Auto) 1.0 L [place] # (Auto) 0.8 Eos # (Auto) 0.4 Baso # (Auto) 0.1 Absolute Nucleated RBC 0.00 Nucleated RBC % 0.0 PT 30.2 H INR 2.7 H Magnesium 1.8 - Rads (name of study) CXR Radiology: Final report received (no acute cardiopulmonary pathology) PD MEDICAL DECISION MAKING - ED course Complexity details: reviewed results, re-evaluated patient, considered differential, d/w patient ED course: 75-year-old male presents emergency department for evaluation of 3 days palpitations. He has also had a new increase in shortness of breath and a productive cough. He has a history of nonoxygen dependent COPD and has been out of his albuterol for a number of days. He does have a history of atrial fib for which he is anticoagulated. Screening EKG here essentially unchanged from previous. Chest x-ray did not reveal any acute focal pathology. On presentation he had saturations about 95% room air but was noted to be modestly wheezing in all his lung ramos. Patient was given some albuterol with marked improvement in his symptoms. We discussed that this likely represents a COPD exacerbation. Patient does not have any chest pain. He will be discharged with prescription for steroid burst as well as some azithromycin. He is to continue his Mucinex. Albuterol will be refilled. Emergent return precautions discussed. Departure - Departure Disposition: 01 Home, Self Care Clinical Impression: COPD with acute exacerbation Condition: Stable Record reviewed to determine appropriate education?: Yes Instructions: COPD Dc Prescriptions: Albuterol Sulf [Ventolin Hfa Inhaler] 1 - 2 puffs INH Q4HR PRN #1 inhaler PRN Reason: Shortness Of Air/Wheezing predniSONE [Deltasone] 40 mg PO DAILY 5 Days #10 tablet Azithromycin [Zithromax] 0 mg PO DAILY #6 tablet Comments: Favio de paz are seen in the emergency department today for 3 days of palpitations, shortness of air and cough. You have recently run out of your albuterol. Your chest x-ray did not reveal any obvious findings but you were very wheezy on presentation. We did give you a breathing treatment as well as some steroids. I feel that you would do well to take a 5-day course of steroids at home as well as some antibiotics. I have also refilled your albuterol inhaler. Your prescriptions have been sent to the [facility] in [place] If at any point you feel that your symptoms are worsening, you cannot catch air, develop chest pain then please return immediately to the ER for a second evaluation. It is important you discuss this ED visit with your primary care provider. Please schedule follow up [facility] Discharge Date/Time: 08/24/21 18:10
[2021-08-24 16:54] LABS: INR 2.7 (0.8-1.2); PT - PROTHROMBIN TIME 30.2 secs (9.9-12.6)
--- NOTE | 2021-08-24 17:05 | XRAY Report ---
PROCEDURE: Chest 1 View X-Ray INDICATIONS: Chest pain TECHNIQUE: One view of the chest was acquired. COMPARISON: FINDINGS: Asymmetric elevation of the left hemidiaphragm as seen on prior studies.. Costophrenic angles are sha rp There is no obvious pleural effusion or pneumothorax. And no abnormal air space opacity identified . Left chest wall cardiac pacing device again noted. Heart size is within normal limits. IMPRESSION: No acute cardiopulmonary process demonstrated radiographically. Reviewed by: Raúl Norris MD on 08/24/2021 4:04 PM [facility] Approved by: Raúl Norris MD on 08/24/2021 4:04 PM [facility] Station ID: [id number]
[2021-08-24 18:10] VITALS: BP 101/73
== END 2021-08-24 18:10 | disposition home or self-care (01) ==
LOC: ED 15:47
DX: J44.1 Chronic obstructive pulmonary disease with (acute) exacerbation (principal); I10 Essential (primary) hypertension; I48.91 Unspecified atrial fibrillation; Z79.01 Long term (current) use of anticoagulants; F17.200 Nicotine dependence, unspecified, uncomplicated
CPT/HCPCS: 36415; 83735; 85025; 85610; 93005; 94640; 94664; 99283; 99284

== ENCOUNTER 2021-11-01 13:58 | Outpatient (CLI) | payer OTHER | END 2021-11-01 13:59 | disposition critical access hospital (66) | LOC: EMS 13:58 | DX: M54.50 Low back pain, unspecified (principal) | CPT/HCPCS: A0425; A0429 ==

== ENCOUNTER 2021-11-01 14:12 | Emergency (ER) | payer MEDICARE, OTHER ==
--- NOTE | 2021-11-01 14:18 | ED Physician Documentation ---
PD HPI ABD PAIN - Stated complaint Stated Complaint: L FLANK PX - History obtained from History obtained from: Patient - History of Present Illness Timing - onset: How many days ago (3) Timing - duration: Days (3) Timing - details: Gradual onset, Still present (increasing in severity) Quality: Cramping, Aching, Other (burning pain per patient, from flank now going to lower left abd.) Location: LLQ Radiation: Left flank (started in flank area) Improved by: Position (better not lying on that side). No: Eating, Laying still Worsened by: Moving, Palpation. No: Eating, Breathing Associated symptoms: No: Fever, Nausea, Vomiting, Diarrhea, Constipation, Dysuria, Hematuria, Loss of appetite Similar symptoms before: Has not had sx before Recently seen: Not recently seen Review of Systems Constitutional: denies: Fever, Chills, Myalgias Nose: denies: Rhinorrhea / runny nose, Congestion Throat: denies: Sore throat Respiratory: denies: Cough GI: denies: Nausea, Vomiting, Constipation, Diarrhea : denies: Dysuria, Frequency, Discharge Skin: denies: Rash Neurologic: denies: Focal weakness, Numbness, Near syncope PD PAST MEDICAL HISTORY - Past Medical History Cardiovascular: Hypertension, Atrial fibrillation, Murmur, Arrhythmia, Valve disorder Respiratory: None Neuro: CVA Endocrine/Autoimmune: None GI: Other : None HEENT: Other Psych: Anxiety Musculoskeletal: Osteoarthritis, Rheumatoid arthritis Derm: None - Past Surgical History Past Surgical History: Yes Ortho: Other Cardiovascular: Pacemaker - Present Medications Home Medications: Ambulatory Orders Medication Instructions Recorded Confirmed Folic Acid 2 mg PO DAILY 07/06/15 01/17/21 Methotrexate [Methotrexate Sodium] 20 mg PO MO@1400 07/06/15 01/17/21 Apixaban [Eliquis] 5 mg PO DAILY 05/07/19 01/17/21 Atorvastatin Calcium 40 mg PO QPM 05/07/19 01/17/21 Adalimumab [Humira(Cf) Pen] 40 mg SUBQ MO@1200 12/20/19 01/17/21 Albuterol Sulfate [Albuterol 2 puffs INH Q4H PRN 12/20/19 01/17/21 Sulfate Hfa] Budesonide/Formoterol Fumarate 2 puffs INH BID 12/20/19 01/17/21 [Symbicort 160-4.5 Mcg Inhaler] Gabapentin 600 mg PO TID PRN 12/20/19 01/17/21 levETIRAcetam [Levetiracetam] 1,000 mg PO BID 12/20/19 01/17/21 predniSONE [Prednisone] 2 mg PO QDBREAKFAST 12/20/19 01/17/21 Cholecalciferol (Vitamin D3) 25 mcg PO DAILY 01/16/20 01/17/21 [Vitamin D3] Fluticasone [Flonase] 2 sprays [place] DAILY 01/16/20 01/17/21 Multivitamin W/Minerals [Theragran 1 tab PO DAILY 01/16/20 01/17/21 M] Furosemide [Lasix] 40 mg PO DAILY #30 tablet 01/18/20 01/17/21 Montelukast [Singulair] 10 mg PO QPM #30 tablet 01/18/20 01/17/21 guaiFENesin [Mucinex] 600 mg PO BID #30 tablet 01/18/20 01/17/21 Digoxin [Lanoxin] 125 mcg PO DAILY tablet 04/09/20 01/17/21 Metoprolol Succinate 200 mg PO BID #0 04/09/20 01/17/21 Empagliflozin [Jardiance] 10 mg PO DAILY 12/23/20 01/17/21 lisinopriL [Prinivil] 5 mg PO DAILY 12/23/20 01/17/21 Meclizine [Antivert] 12.5 mg PO QDAC PRN #30 tablet 05/27/21 Albuterol Sulf [Ventolin Hfa 1 - 2 puffs INH Q4HR PRN #1 inhaler 08/24/21 Inhaler] Azithromycin [Zithromax] 0 mg PO DAILY #6 tablet 08/24/21 predniSONE [Deltasone] 40 mg PO DAILY 5 Days #10 tablet 08/24/21 HYDROcod/ACETAM 5/325 [[place] 5/325] 1 ea PO Q6H PRN #18 tablet 11/01/21 Valacyclovir HCl [Valtrex] 1,000 mg PO TID 5 Days #15 tablet 11/01/21 dexAMETHasone [Decadron] 4 mg PO DAILY #5 tablet 11/01/21 - Allergies Allergies/Adverse Reactions: Allergies Allergy/AdvReac Type Severity Reaction Status Date / Time No Known Drug Allergies Allergy Verified 11/01/21 14:22 - Social History Does the pt smoke?: Yes Smoking Status: Current every day smoker Does the pt drink ETOH?: No Does the pt have substance abuse?: No - Immunizations Immunizations are current?: Yes - POLST Patient has POLST: No POLST Status: Full Code PD ED PE NORMAL - Vitals Vital signs reviewed: Yes - General General: Alert and oriented X 3, Well developed/nourished, Other (appears in pa in and is restless for position.) - Neck Neck: Supple, no meningeal sign, No adenopathy - Cardiac Cardiac: RRR, No murmur - Respiratory Respiratory: Clear bilaterally - Abdomen Abdomen: Normal bowel sounds, Soft, Non distended, No organomegaly, Other (obese so hard to feel for aorta. Has tenderness LLQ and left flank with some tnederness to light touch soft tissue as well. No rash nor sores. ) - Male Male : Deferred - Rectal Rectal: Deferred - Derm Derm: Normal color, Warm and dry, No rash - Extremities Extremities: No deformity, No tenderness to palpate, Normal ROM s pain, No edema, No calf tenderness / cord, Other (normal femoral pulses without bruits. ) - Neuro Neuro: Alert and oriented X 3, No motor deficit, Normal speech Results - Vitals Vitals: Oxygen O2 Source [With Activity] Room air O2 Source [Without Activity] Room air O2 Source Room air - Labs Labs: Laboratory Tests 11/01/21 11/01/21 11/01/21 14:49 14:49 17:55 WBC 8.2 RBC 4.24 L Hgb 16.8 Hct 47.8 MCV 112.7 H MCH 39.6 H MCHC 35.1 RDW 14.5 Plt Count 154 MPV 10.3 Neut # (Auto) 6.0 Lymph # (Auto) 1.4 L [place] # (Auto) 0.5 Eos # (Auto) 0.2 Baso # (Auto) 0.1 Absolute Nucleated RBC 0.02 Nucleated RBC % 0.2 Manual Slide Review Indicated WBC Morphology NORMAL APPEARANCE Platelet Estimate NORMAL (130-450,000) Platelet Morphology NORMAL APPEARANCE RBC Morph Micro Appear 2+ MACROCYTOSIS Sodium 135 Potassium 3.9 Chloride 95 L Carbon Dioxide 30 Anion Gap 10.0 BUN 14 Creatinine 1.3 H Estimated GFR (MDRD) 54 L Glucose 183 H Calcium 9.1 Total Bilirubin 0.8 AST 18 ALT 23 Alkaline Phosphatase 97 Total Protein 7.2 Albumin 3.6 Globulin 3.6 Albumin/Globulin Ratio 1.0 Lipase 31 Urine Color YELLOW Urine Clarity CLEAR Urine pH 6.0 Ur Specific [place] 1.010 Urine Protein NEGATIVE Urine Glucose (UA) >=1000 H Urine Ketones NEGATIVE Urine Occult Blood NEGATIVE Urine Nitrite NEGATIVE Urine Bilirubin NEGATIVE Urine Urobilinogen 0.2 (NORMAL) Ur Leukocyte Esterase NEGATIVE Ur Microscopic Review NOT INDICATED Urine Culture Comments NOT INDICATED - Rads (name of study) abd/pelvic CT Radiology: Prelim report reviewed (No acute process. ), See rad report PD MEDICAL DECISION MAKING - ED course Complexity details: reviewed results, re-evaluated patient, considered differential (has flank pain coursing toward lower abd. Can get CT to eval for aortic process, stones, divertic, get UA for UTI. He has marked pain and some tender to touch in area, so consider developing shingles as is dermatomal pattern. ) ED course: I told him about the likely hemagioma liver cysts noted on CT scan and gave him a copy of the CT report. No acute cause of the pain is identified on CT. Departure - Departure Disposition: 01 Home, Self Care Clinical Impression: Acute flank pain Condition: Stable Record reviewed to determine appropriate education?: Yes Follow-Up: ALTON BALLARD MD [Primary Care Provider] - Prescriptions: dexAMETHasone [Decadron] 4 mg PO DAILY #5 tablet HYDROcod/ACETAM 5/325 [[place] 5/325] 1 ea PO Q6H PRN #18 tablet PRN Reason: Pain Valacyclovir HCl [Valtrex] 1,000 mg PO TID 5 Days #15 tablet Comments: Your CT scan did not show any obvious significant problems. In particular no kidney stones, diverticulitis, other notable cause of the pain. At this point I presume its either muscular although consideration would be for possible nerve type pain such as early shingles or so. For now I would suggest continue usual medications. You can add Decadron steroid anti-inflammatory daily for inflammation so that it does not interfere with your anticoagulation. To that add Tylenol or hydrocodone every 4-6 hours if needed for pain. I am suspicious for early shingles. Consider either Ayah acyclovir 3 times a day for 5 days for potential shingles or you could hold and wait for a day or 2 and see if you did do develop more skin sensitivity or rash to confirm it. I transmitted your prescriptions to [facility] pharmacy in [place]. I am prescribing a short course of narcotic pain medication for you. These are potentially dangerous and addictive medications that should be used carefully. These medications may constipate you. Take an [id number] stool softener such as docusate twice daily with plenty of water while taking these medications. If you go 24 hours without a bowel movement, take [id number] MiraLAX, per package instructions. Do not drink or drive while taking these medications. If you received narcotic or sedating medications while in the emergency department do not drive for 24 hours. Store this medication in a safe, secure place and out of reach of children. It is a violation of federal law to give or sell this medication to another person or to use in a manner other than prescribed. The ED will not refill narcotic prescriptions, including prescriptions lost or stolen. You can dispose of unwanted medications at the [facility] office or at several pharmacies such as [facility]. Discharge Date/Time: 11/01/21 18:36
[2021-11-01] MEDS ORDERED: HYDROmorphone 1 MG/ML CARPUJECT IVP STA ×2 (14:40→17:39)
[2021-11-01] MEDS ORDERED: ONDANSETRON 4 MG/2 ML VIAL IVP STA (14:40)
[2021-11-01] MEDS ORDERED: SODIUM CHLORIDE 0.9% 1,000 ML IV STA (14:41)
[2021-11-01] MEDS ORDERED: IOVERSOL 320 100 ML VIAL IVP ONE ×2 (14:55→20:31)
[2021-11-01 14:58] LABS: BASOPHILS # (AUTO) 0.1 10^3/uL (0.0-0.1); BASOPHILS % (AUTO) 0.6 %; EOSINOPHILS # (AUTO) 0.2 10^3/uL (0.0-0.7); EOSINOPHILS % (AUTO) 2.7 %; HCT - HEMATOCRIT 47.8 % (42.0-52.0); HGB - HEMOGLOBIN 16.8 g/dL (14.0-18.0); LYMPHOCYTES # (AUTO) 1.4 10^3/uL (1.5-3.5); LYMPHOCYTES % (AUTO) 16.8 %; MEAN CORPUSCULAR HEMOGLOBIN 39.6 pg (27.0-31.0); MEAN CORPUSCULAR HGB CONC 35.1 g/dL (32.0-36.0); MEAN CORPUSCULAR VOLUME 112.7 fL (80.0-94.0); MEAN PLATELET VOLUME 10.3 fL (7.4-11.4); MONOCYTES # (AUTO) 0.5 10^3/uL (0.0-1.0); NEUTROPHILS % (AUTO) 72.8 %; NRBC ABSOLUTE COUNT (AUTO) 0.02 x10^3/uL; NUCLEATED RED BLOOD CELLS AUTO 0.2 /100WBC; PLT - PLATELET COUNT 154 10^3/uL (130-450); RED BLOOD COUNT 4.24 10^6/uL (4.70-6.10); RED CELL DISTRIBUTION WIDTH 14.5 % (12.0-15.0); WHITE BLOOD COUNT 8.2 x10^3/uL (4.8-10.8)
[2021-11-01 15:11] LABS: ALBUMIN 3.6 g/dL (3.2-5.5); BILIRUBIN,TOTAL 0.8 mg/dL (0.2-1.0); CALCIUM 9.1 mg/dL (8.5-10.3); CREATININE 1.3 mg/dL (0.6-1.2); POTASSIUM 3.9 mmol/L (3.5-5.0); TOTAL PROTEIN 7.2 g/dL (6.7-8.2)
[2021-11-01 15:51] LABS: SLIDE REVIEW? Indicated
[2021-11-01 15:52] LABS: PLATELET ESTIMATE, MANUAL NORMAL (130-450,000) (NORMAL); PLATELET MORPHOLOGY NORMAL APPEARANCE (NORMAL); RBC MORPHOLOGY (MULTIPLE) 2+ MACROCYTOSIS (NORMAL); WBC MORPHOLOGY (MULTIPLE) NORMAL APPEARANCE (NORMAL)
--- NOTE | 2021-11-01 16:48 | CT Report ---
PROCEDURE: Abdomen/Pelvis W INDICATIONS: Abdominal pain, acute, nonlocalized CONTRAST: IV CONTRAST: Optiray 320 ml: 100 PO CONTRAST: *NO PO CONTRAST TECHNIQUE: After the administration of IV contrast, 5 mm thick sections acquired from the diaphragms to the symp hysis. 5 mm thick coronal and sagittal reformats were acquired. For radiation dose reduction, the f ollowing was used: automated exposure control, adjustment of mA and/or kV according to patient size. COMPARISON: Prior abdominal CT, 07/06/2015 FINDINGS: Image quality: Excellent. ABDOMEN: Lung bases: Lung bases are clear. There is mild cardiomegaly. Pacer leads are seen. Solid organs: The liver demonstrates normal size. Within the right liver, there are 2 areas of focal ly increased enhancement seen, as on series 3 image 17, measuring 13 mm and 16 mm. An additional area of increased enhancement can be seen within the central liver, on series 3 image 20 measuring 16 mm. The spleen demonstrates normal size and demonstrates no suspicious lesions. Gallbladder wall does no t appear thickened. Biliary system is non dilated. Pancreas enhances normally. No adrenal nodule s. Kidneys demonstrate normal size and enhancement, without hydronephrosis. Numerous simple appearing, n onenhancing bilateral renal cysts are seen. Areas of renal artery calcification can be seen. At least one right-sided kidney stone can be seen, measuring 2 to 3 mm, as on series 3 image 31. Peritoneum and bowel: Bowel loops demonstrate normal wall thickness and caliber. No free fluid or a ir. Moderate to prominent distal colonic diverticulosis is seen, without findings of active divertic ulitis. No appendix can be seen, either normal or abnormal. No focal right lower quadrant inflammator y changes are seen. Nodes and vessels: No retroperitoneal or mesenteric adenopathy by size criteria. Aorta and inferior vena cava are normal in size. Miscellaneous: No ventral hernias. PELVIS: Genitourinary: Bladder wall thickness is normal. Miscellaneous: No inguinal hernias or adenopathy. Bones: No suspicious bony lesions. No vertebral body compression fractures. Focal L5-S1 degenerati ve change is seen. Milder degenerative changes are seen elsewhere. IMPRESSION: A cause of acute abdominal pain can be seen. Moderate to prominent distal colonic diverticulosis is seen, without findings of active diverticuliti s. There are 3 enhancing liver lesions seen. Although these are nonspecific, hemangiomas are suspected. If clinically appropriate, please consider a follow-up dedicated liver protocol MRI (without and wit h contrast) for further evaluation (assuming that there is no contraindication). Incidental note is made of: Mild hepatomegaly Pacer leads Several simple appearing bilateral renal cysts Nonobstructing left-sided kidney stone Focal L5-S1 degenerative change Reviewed by: Christopher Ramsey MD on 11/01/2021 3:47 PM AKDT Approved by: Christopher Ramsey MD on 11/01/2021 3:47 PM AKNERY Station ID: [id number]
[2021-11-01] MEDS ORDERED: KETOROLAC 15 MG/ML VIAL IVP STA (17:39)
[2021-11-01 17:59] LABS: BILIRUBIN,URINE NEGATIVE (NEGATIVE); GLUCOSE, URINE (UA) >=1000 mg/dL (NEGATIVE); KETONES,URINE (UA) NEGATIVE (NEGATIVE); LEUKOCYTE ESTERASE, URINE NEGATIVE (NEGATIVE); NITRITE,URINE NEGATIVE (NEGATIVE); OCCULT BLOOD,URINE NEGATIVE (NEGATIVE); PROTEIN,URINE NEGATIVE (NEGATIVE); UROBILINOGEN,URINE 0.2 (NORMAL) E.U./dL (NORMAL)
[2021-11-01 18:02] LABS: CLARITY,URINE CLEAR (CLEAR)
[2021-11-01 18:11] VITALS: BP 102/79
== END 2021-11-01 18:36 | disposition home or self-care (01) ==
LOC: EDUNIT# → ED 14:12
DX: R10.32 Left lower quadrant pain (principal); F17.200 Nicotine dependence, unspecified, uncomplicated
CPT/HCPCS: 36415; 74177; 80053; 81003; 83690; 85025; 96374; 96375; 96376; 99284; J1170; Q9967; 81001; 87086

== ENCOUNTER 2021-12-27 15:58 | Outpatient (CLI) | payer OTHER | END 2021-12-27 15:59 | disposition critical access hospital (66) | LOC: EMS 15:58 | DX: I95.9 Hypotension, unspecified (principal) | CPT/HCPCS: A0425; A0429 ==

== ENCOUNTER 2021-12-27 16:45 | Inpatient (IN) | payer MEDICARE, OTHER ==
[2021-12-27] MEDS ORDERED: SODIUM CHLORIDE 0.9% 500 ML IV STA (16:54)
--- NOTE | 2021-12-27 16:55 | ED Physician Documentation ---
History of Present Illness - Stated complaint Stated Complaint: HYPOTENSION - History obtained from History obtained from: Patient, EMS - Additonal information Additional information: 76-year-old gentleman with multiple comorbidities including A. fib, history of CVAs, COPD, CHF, pacemaker in place, rheumatoid arthritis. He was checking his blood pressure and at home and noticed yesterday that it started to go down with a low check at 77/54 today. He is relatively asymptomatic from it, just feels "slow." He has been on fairly high-dose torsemide 3 times daily. He has no fluid overload at this point. Review of Systems Ten Systems: 10 systems reviewed and negative Constitutional: reports: Fatigue. denies: Fever, Chills Cardiac: denies: Chest pain / pressure, Palpitations Respiratory: reports: Dyspnea. denies: Cough PD PAST MEDICAL HISTORY - Past Medical History Cardiovascular: Hypertension, Atrial fibrillation, Murmur, Arrhythmia, Valve disorder Respiratory: None Neuro: CVA Endocrine/Autoimmune: None GI: Other : None HEENT: Other Psych: Anxiety Musculoskeletal: Osteoarthritis, Rheumatoid arthritis Derm: None - Past Surgical History Past Surgical History: Yes Ortho: Other Cardiovascular: Pacemaker - Present Medications Home Medications: Ambulatory Orders Medication Instructions Recorded Confirmed Folic Acid 2 mg PO DAILY 07/06/15 01/17/21 Methotrexate [Methotrexate Sodium] 20 mg PO MO@1400 07/06/15 01/17/21 Apixaban [Eliquis] 5 mg PO DAILY 05/07/19 01/17/21 Atorvastatin Calcium 40 mg PO QPM 05/07/19 01/17/21 Adalimumab [Humira(Cf) Pen] 40 mg SUBQ MO@1200 12/20/19 01/17/21 Albuterol Sulfate [Albuterol 2 puffs INH Q4H PRN 12/20/19 01/17/21 Sulfate Hfa] Budesonide/Formoterol Fumarate 2 puffs INH BID 12/20/19 01/17/21 [Symbicort 160-4.5 Mcg Inhaler] Gabapentin 600 mg PO TID PRN 12/20/19 01/17/21 levETIRAcetam [Levetiracetam] 1,000 mg PO BID 12/20/19 01/17/21 predniSONE [Prednisone] 2 mg PO QDBREAKFAST 12/20/19 01/17/21 Cholecalciferol (Vitamin D3) 25 mcg PO DAILY 01/16/20 01/17/21 [Vitamin D3] Fluticasone [Flonase] 2 sprays [place] DAILY 01/16/20 01/17/21 Multivitamin W/Minerals [Theragran 1 tab PO DAILY 01/16/20 01/17/21 M] Furosemide [Lasix] 40 mg PO DAILY #30 tablet 01/18/20 01/17/21 Montelukast [Singulair] 10 mg PO QPM #30 tablet 01/18/20 01/17/21 guaiFENesin [Mucinex] 600 mg PO BID #30 tablet 01/18/20 01/17/21 Digoxin [Lanoxin] 125 mcg PO DAILY tablet 04/09/20 01/17/21 Metoprolol Succinate 200 mg PO BID #0 04/09/20 01/17/21 Empagliflozin [Jardiance] 10 mg PO DAILY 12/23/20 01/17/21 lisinopriL [Prinivil] 5 mg PO DAILY 12/23/20 01/17/21 Meclizine [Antivert] 12.5 mg PO QDAC PRN #30 tablet 05/27/21 Albuterol Sulf [Ventolin Hfa 1 - 2 puffs INH Q4HR PRN #1 inhaler 08/24/21 Inhaler] Azithromycin [Zithromax] 0 mg PO DAILY #6 tablet 08/24/21 predniSONE [Deltasone] 40 mg PO DAILY 5 Days #10 tablet 08/24/21 HYDROcod/ACETAM 5/325 [[place] 5/325] 1 ea PO Q6H PRN #18 tablet 11/01/21 Valacyclovir HCl [Valtrex] 1,000 mg PO TID 5 Days #15 tablet 11/01/21 dexAMETHasone [Decadron] 4 mg PO DAILY #5 tablet 11/01/21 - Allergies Allergies/Adverse Reactions: Allergies Allergy/AdvReac Type Severity Reaction Status Date / Time No Known Drug Allergies Allergy Verified 11/01/21 14:22 - Social History Does the pt smoke?: Yes Smoking Status: Current every day smoker Does the pt drink ETOH?: No Does the pt have substance abuse?: No - Immunizations Immunizations are current?: Yes - POLST Patient has POLST: No POLST Status: Full Code PD ED PE NORMAL - Vitals Vital signs reviewed: Yes - General General: Alert and oriented X 3, No acute distress - HEENT HEENT: PERRL, EOMI - Neck Neck: Supple, no meningeal sign, No bony TTP - Respiratory Respiratory: No respiratory distress, Other (diminished) - Abdomen Abdomen: Soft, Non tender - Back Back: No CVA TTP, No spinal TTP - Derm Derm: Normal color, Warm and dry - Extremities Extremities: No edema, No calf tenderness / cord - Neuro Neuro: Alert and oriented X 3, Normal speech Results - Vitals Vitals: Vital Signs - 24 hr 12/27/21 12/27/21 12/27/21 16:54 16:58 17:28 Temperature 37.2 C 37.2 C Heart Rate 62 62 66 Heart Rate [ Sitting] Heart Rate [ Standing] Heart Rate [ Supine] Respiratory 18 18 14 Rate Blood Pressure 85/61 L 85/61 L 87/53 L Blood Pressure [Sitting] Blood Pressure [Standing] Blood Pressure [Supine] O2 Saturation 97 97 99 12/27/21 12/27/21 12/27/21 17:30 17:47 17:48 Temperature Heart Rate 60 65 Heart Rate [ 63 Sitting] Heart Rate [ 74 Standing] Heart Rate [ 69 Supine] Respiratory 16 18 Rate Blood Pressure 87/53 L 81/61 L Blood Pressure 73/52 L [Sitting] Blood Pressure 77/59 L [Standing] Blood Pressure 82/59 L [Supine] O2 Saturation 97 96 12/27/21 12/27/21 12/27/21 18:00 18:17 18:30 Temperature Heart Rate 66 70 70 Heart Rate [ Sitting] Heart Rate [ Standing] Heart Rate [ Supine] Respiratory 14 15 15 Rate Blood Pressure 72/57 L 72/57 L 72/57 L Blood Pressure [Sitting] Blood Pressure [Standing] Blood Pressure [Supine] O2 Saturation 96 98 98 12/27/21 12/27/21 12/27/21 19:00 19:30 20:00 Temperature Heart Rate 65 72 73 Heart Rate [ Sitting] Heart Rate [ Standing] Heart Rate [ Supine] Respiratory 18 20 19 Rate Blood Pressure 88/69 L 84/59 L 90/63 Blood Pressure [Sitting] Blood Pressure [Standing] Blood Pressure [Supine] O2 Saturation 99 95 95 Oxygen O2 Source [With Activity] Room air O2 Source [Without Activity] Room air O2 Source Room air - EKG (time done) 1655 Rate: Rate (enter#) (65) Rhythm: Other (Mostly V Paced with some other beats) Ischemia: Non specific changes - Labs Labs: Laboratory Tests 12/27/21 12/27/21 12/27/21 17:05 17:05 18:15 WBC 14.9 H RBC 3.83 L Hgb 15.1 Hct 43.0 MCV 112.3 H MCH 39.4 H MCHC 35.1 RDW 15.1 H Plt Count 109 L MPV 11.0 Neut # (Auto) 12.2 H Lymph # (Auto) 1.5 [place] # (Auto) 0.8 Eos # (Auto) 0.2 Baso # (Auto) 0.0 Absolute Nucleated RBC 0.02 Nucleated RBC % 0.1 Manual Slide Review Indicated WBC Morphology NORMAL APPEARANCE Platelet Estimate DECREASED (<130,000) Platelet Morphology NORMAL APPEARANCE RBC Morph Micro Appear 1+ POLYCHROMASIA Sodium 136 136 Potassium 4.0 3.5 Chloride 95 L 97 L Carbon Dioxide 28 27 Anion Gap 13.0 12.0 BUN 25 H 24 H Creatinine 1.7 H 1.6 H Estimated GFR (MDRD) 39 L 42 L Glucose 146 H 133 H Lactic Acid Calcium 8.9 8.4 L Magnesium 2.0 Total Bilirubin 0.8 0.7 AST 19 14 ALT 17 16 Alkaline Phosphatase 77 75 Total Protein 6.9 6.6 L Albumin 3.4 3.2 Globulin 3.5 3.4 Albumin/Globulin Ratio 1.0 0.9 L Lipase 28 Urine Color Urine Clarity Urine pH Ur Specific [place] Urine Protein Urine Glucose (UA) Urine Ketones Urine Occult Blood Urine Nitrite Urine Bilirubin Urine Urobilinogen Ur Leukocyte Esterase Urine RBC Urine WBC Ur Squamous Epith Cells Urine Bacteria Urine Culture Comments Digoxin 12/27/21 12/27/21 12/27/21 18:15 18:15 18:31 WBC RBC Hgb Hct MCV MCH MCHC RDW Plt Count MPV Neut # (Auto) Lymph # (Auto) [place] # (Auto) Eos # (Auto) Baso # (Auto) Absolute Nucleated RBC Nucleated RBC % Manual Slide Review WBC Morphology Platelet Estimate Platelet Morphology RBC Morph Micro Appear Sodium Potassium Chloride Carbon Dioxide Anion Gap BUN Creatinine Estimated GFR (MDRD) Glucose Lactic Acid 1.4 Calcium Magnesium Total Bilirubin AST ALT Alkaline Phosphatase Total Protein Albumin Globulin Albumin/Globulin Ratio Lipase Urine Color YELLOW Urine Clarity CLEAR Urine pH 5.5 Ur Specific [place] 1.015 Urine Protein NEGATIVE Urine Glucose (UA) >=1000 H Urine Ketones NEGATIVE Urine Occult Blood NEGATIVE Urine Nitrite NEGATIVE Urine Bilirubin NEGATIVE Urine Urobilinogen 0.2 (NORMAL) Ur Leukocyte Esterase NEGATIVE Urine RBC 0-5 Urine WBC 0-3 Ur Squamous Epith Cells RARE Squamous Urine Bacteria Rare Urine Culture Comments NOT INDICATED Digoxin < 0.2 PD MEDICAL DECISION MAKING - ED course ED course: 76-year-old gentleman presents with hypotension. No pain. No chest pain. Relatively asymptomatic. Not tachycardic. Labs show modest leukocytosis and mild prerenal azotemia. After the administration of 500 mL of normal saline his pressure really did not change much and orthostatics were done at that time which did not show orthostatic changes. Spoke with Dr. Kay for admission approximately 8:05 PM. He would like to see the patient in the department before deciding to admit the patient. Departure - Departure Disposition: ED Place in Observation Clinical Impression: Dehydration Hypotension Qualifiers: Hypotension type: unspecified hypotension type Qualified Code(s): I95.9 - Hypotension, unspecified Pneumonia Qualifiers: Pneumonia type: due to unspecified organism Laterality: left Lung location: lower lobe of lung Qualified Code(s): J18.9 - Pneumonia, unspecified organism Condition: Serious
[2021-12-27 17:16] LABS: BASOPHILS % (AUTO) 0.3 %; EOSINOPHILS # (AUTO) 0.2 10^3/uL (0.0-0.7); HGB - HEMOGLOBIN 15.1 g/dL (14.0-18.0); LYMPHOCYTES # (AUTO) 1.5 10^3/uL (1.5-3.5); LYMPHOCYTES % (AUTO) 10.2 %; MEAN CORPUSCULAR HEMOGLOBIN 39.4 pg (27.0-31.0); MEAN CORPUSCULAR HGB CONC 35.1 g/dL (32.0-36.0); MEAN CORPUSCULAR VOLUME 112.3 fL (80.0-94.0); MONOCYTES # (AUTO) 0.8 10^3/uL (0.0-1.0); MONOCYTES % (AUTO) 5.4 %; NEUTROPHILS # (AUTO) 12.2 10^3/uL (1.5-6.6); NEUTROPHILS % (AUTO) 81.7 %; NRBC ABSOLUTE COUNT (AUTO) 0.02 x10^3/uL; NUCLEATED RED BLOOD CELLS AUTO 0.1 /100WBC; PLT - PLATELET COUNT 109 10^3/uL (130-450); RED BLOOD COUNT 3.83 10^6/uL (4.70-6.10); RED CELL DISTRIBUTION WIDTH 15.1 % (12.0-15.0); WHITE BLOOD COUNT 14.9 x10^3/uL (4.8-10.8)
[2021-12-27 17:26] LABS: ALBUMIN 3.4 g/dL (3.2-5.5); BILIRUBIN,TOTAL 0.8 mg/dL (0.2-1.0); CALCIUM 8.9 mg/dL (8.5-10.3); CREATININE 1.7 mg/dL (0.6-1.2); TOTAL PROTEIN 6.9 g/dL (6.7-8.2)
[2021-12-27] MEDS ORDERED: SODIUM CHLORIDE 0.9% 1,000 ML IV STA (17:45)
--- NOTE | 2021-12-27 18:18 | XRAY Report ---
PROCEDURE: Chest 1 View X-Ray INDICATIONS: hypotension TECHNIQUE: One view of the chest was acquired. COMPARISON: Chest x-ray 08/24/2021 FINDINGS: Surgical changes and devices: Pacemaker. Lungs and pleura: Moderate left effusion, slightly increased compared to prior exam. There is slight costophrenic angle blunting on the right. Mediastinum: Mediastinal contours appear normal. Heart size is normal. Bones and chest wall: No suspicious bony lesions. Overlying soft tissues appear unremarkable. IMPRESSION: Bilateral effusions, left greater than right and slightly progressive. Underlying areas of pneumonia, atelectasis or mass lesion cannot be excluded. Reviewed by: Anita Thakur MD on 12/27/2021 6:17 PM PDT Approved by: Anita Thakur MD on 12/27/2021 6:17 PM PDT Station ID: [id number]
[2021-12-27 18:32] LABS: ALBUMIN 3.2 g/dL (3.2-5.5); ALBUMIN/GLOBULIN RATIO 0.9 (1.0-2.2); BILIRUBIN,TOTAL 0.7 mg/dL (0.2-1.0); CALCIUM 8.4 mg/dL (8.5-10.3); CREATININE 1.6 mg/dL (0.6-1.2); POTASSIUM 3.5 mmol/L (3.5-5.0); TOTAL PROTEIN 6.6 g/dL (6.7-8.2)
[2021-12-27 18:35] LABS: SLIDE REVIEW? Indicated
[2021-12-27 18:36] LABS: PLATELET ESTIMATE, MANUAL DECREASED (<130,000) (NORMAL); PLATELET MORPHOLOGY NORMAL APPEARANCE (NORMAL); WBC MORPHOLOGY (MULTIPLE) NORMAL APPEARANCE (NORMAL)
[2021-12-27] MEDS ORDERED: AZITHROMYCIN INJ 500 MG in SODIUM CHLORIDE 0.9% 250 ML IV STA (18:38)
[2021-12-27] MEDS ORDERED: cefTRIAXone 1 GM in SODIUM CHLORIDE 0.9% MINIBAG 100 ML IV STA (18:38)
[2021-12-27 18:40] LABS: BILIRUBIN,URINE NEGATIVE (NEGATIVE); GLUCOSE, URINE (UA) >=1000 mg/dL (NEGATIVE); KETONES,URINE (UA) NEGATIVE (NEGATIVE); LEUKOCYTE ESTERASE, URINE NEGATIVE (NEGATIVE); NITRITE,URINE NEGATIVE (NEGATIVE); OCCULT BLOOD,URINE NEGATIVE (NEGATIVE); PH,URINE 5.5 PH (5.0-7.5); PROTEIN,URINE NEGATIVE (NEGATIVE); UROBILINOGEN,URINE 0.2 (NORMAL) E.U./dL (NORMAL)
[2021-12-27 18:47] LABS: CLARITY,URINE CLEAR (CLEAR)
[2021-12-27 19:13] LABS: DIGOXIN < 0.2 ng/mL
[2021-12-27 19:16] LABS: RBC,URINE 0-5 /HPF (0-5); WBC,URINE 0-3 /HPF (0-3)
[2021-12-27 19:17] LABS: BACTERIA,URINE Rare /HPF (None Seen); SQUAMOUS EPITHELIAL CELL,UR RARE Squamous (<= Few)
[2021-12-27] MEDS ORDERED: ONDANSETRON 4 MG/2 ML VIAL IVP PRN (21:05)
[2021-12-27] MEDS ORDERED: ACETAMINOPHEN 325 MG TABLET PO PRN (21:05)
--- NOTE | 2021-12-27 21:12 | HISTORY & PHYSICAL EXAMINATION ---
Chief Complaint - Chief Complaint Chief Complaint: hypotension, weakness History of Present Illness - Admitted From Admitted From:: [facility] ED - History Obtained From Records Reviewed: yes History obtained from: patient - History of Present Illness HPI Comment/Other: Patient is a 76-year-old male with medical history significant for CHF, COPD, Valve disorder, arrhythmia, CVA, atrial fibrillation on Xarelto and rheumatoid arthritis who presented to the ED with complaint of hypotension and weakness. Normally his blood pressure runs around 120s. This morning it was 95 and later in the day the systolic blood pressure was 74. After talking with his doctor he was advised to go to the ED so he called EMS. He reports feeling weak and slo wer lately. He denies dizziness. His blood pressure was confirmed to be 72 in the emergency department. He is on several cardiac/antihypertensive medications which include digoxin, metoprolol succinate, diltiazem and torsemide which he reports taking in the morning. He has also had fairly decreased oral intake for the past couple of days because he has mostly been in bed due to weakness. Work-up in the ED also showed a WBC of 14.9. Chest x-ray could not rule out pneumonia. As a result of the above he was presented for admission. At bedside he denied chest pain, dyspnea, abdominal pain, nausea, vomiting, fever or chills. History - Past Medical History Cardiovascular: reports: Hypertension, Atrial fibrillation, Murmur, Arrhythmia, Valve disorder Respiratory: reports: None Neuro: reports: CVA Endocrine/Autoimmune: reports: None GI: reports: Other : reports: None HEENT: reports: Other Psych: reports: Anxiety Musculoskeletal: reports: Osteoarthritis, Rheumatoid arthritis Derm: reports: None MRSA Hx?: No - Past Surgical History Ortho: reports: Other Cardiovascular: reports: Pacemaker - Family & Social History Family History Comment/Other: No significant family history reported Social History Notes: He has smoked on and off for 50 years. he says he now smokes about 3 cigarettes/ day (although daughter reports likley closer to a pack) He denies alcohol or illicit drug use. Followed By Dr Zamudio from the [place]. His cardiologists are out of [place] - POLST Patient has POLST: No POLST Status: Full Code Meds/Allgy - Home Medications Home Medications: Ambulatory Orders Medication Instructions Recorded Confirmed Folic Acid 2 mg PO DAILY 07/06/15 01/17/21 Methotrexate [Methotrexate Sodium] 20 mg PO MO@1400 07/06/15 01/17/21 Apixaban [Eliquis] 5 mg PO DAILY 05/07/19 01/17/21 Atorvastatin Calcium 40 mg PO QPM 05/07/19 01/17/21 Adalimumab [Humira(Cf) Pen] 40 mg SUBQ MO@1200 12/20/19 01/17/21 Albuterol Sulfate [Albuterol 2 puffs INH Q4H PRN 12/20/19 01/17/21 Sulfate Hfa] Budesonide/Formoterol Fumarate 2 puffs INH BID 12/20/19 01/17/21 [Symbicort 160-4.5 Mcg Inhaler] Gabapentin 600 mg PO TID PRN 12/20/19 01/17/21 levETIRAcetam [Levetiracetam] 1,000 mg PO BID 12/20/19 01/17/21 predniSONE [Prednisone] 2 mg PO QDBREAKFAST 12/20/19 01/17/21 Cholecalciferol (Vitamin D3) 25 mcg PO DAILY 01/16/20 01/17/21 [Vitamin D3] Fluticasone [Flonase] 2 sprays [place] DAILY 01/16/20 01/17/21 Multivitamin W/Minerals [Theragran 1 tab PO DAILY 01/16/20 01/17/21 M] Furosemide [Lasix] 40 mg PO DAILY #30 tablet 01/18/20 01/17/21 Montelukast [Singulair] 10 mg PO QPM #30 tablet 01/18/20 01/17/21 guaiFENesin [Mucinex] 600 mg PO BID #30 tablet 01/18/20 01/17/21 Digoxin [Lanoxin] 125 mcg PO DAILY tablet 04/09/20 01/17/21 Metoprolol Succinate 200 mg PO BID #0 04/09/20 01/17/21 Empagliflozin [Jardiance] 10 mg PO DAILY 12/23/20 01/17/21 lisinopriL [Prinivil] 5 mg PO DAILY 12/23/20 01/17/21 Meclizine [Antivert] 12.5 mg PO QDAC PRN #30 tablet 05/27/21 Albuterol Sulf [Ventolin Hfa 1 - 2 puffs INH Q4HR PRN #1 inhaler 08/24/21 Inhaler] Azithromycin [Zithromax] 0 mg PO DAILY #6 tablet 08/24/21 predniSONE [Deltasone] 40 mg PO DAILY 5 Days #10 tablet 08/24/21 HYDROcod/ACETAM 5/325 [[place] 5/325] 1 ea PO Q6H PRN #18 tablet 11/01/21 Valacyclovir HCl [Valtrex] 1,000 mg PO TID 5 Days #15 tablet 11/01/21 dexAMETHasone [Decadron] 4 mg PO DAILY #5 tablet 11/01/21 - Allergies Allergies/Adverse Reactions: Allergies Allergy/AdvReac Type Severity Reaction Status Date / Time No Known Drug Allergies Allergy Verified 11/01/21 14:22 Review of Systems - Constitutional Constitutional: reports: Fatigue, Weakness, Poor appetite. denies: Fever, Chills - Eyes Eyes: denies: Pain - Ears, Nose & Throat Ears, Nose & Throat: denies: Ear pain, Vertigo - Cardiovascular Cariovascular: reports: Irregular heart rate. denies: Palpitations, Chest pain, Edema, Lightheadedness, Syncope - Respiratory Respiratory: denies: Cough, SOB at rest, SOB with exertion - Gastrointestinal Gastrointestinal: denies: Abdominal pain, Abdominal distention, Nausea, Vomiting - Genitourinary Genitourinary: denies: Dysuria, Frequency, Urgency - Musculoskeletal Musculoskeletal: denies: Muscle pain, Back pain, Muscle aches, Stiffness - Integumentary Integumentary: reports: Dryness. denies: Rash, Pruritis, Lesions - Neurological Neurological: reports: General weakness. denies: Focal weakness, Headache, Dizziness - Psychiatric Psychiatric: denies: Depression, Anxiety - Endocrine Endocrine: denies: Polyuria, Polydypsia - Hematologic/Lymphatic Hematologic/Lymphatic: denies: Anemia, Bruising, Petechiae Prior Level of Functionality: Patient lives alone. Has a daughter who lives on [facility]. He is independent of activities of daily living. Exam - Vital Signs Vital Signs: Vital Signs x48h Temp Pulse Pulse Pulse Pulse Resp BP 12/27/21 21:00 75 20 82/62 L 12/27/21 20:30 75 18 120/80 12/27/21 20:00 73 19 90/63 12/27/21 19:30 72 20 84/59 L 12/27/21 19:00 65 18 88/69 L 12/27/21 18:30 70 15 72/57 L 12/27/21 18:17 70 15 72/57 L 12/27/21 18:00 66 14 72/57 L 12/27/21 17:48 63 74 69 12/27/21 17:47 65 18 81/61 L 12/27/21 17:30 60 16 87/53 L 12/27/21 17:28 66 14 87/53 L 12/27/21 16:58 37.2 C 62 18 85/61 L 12/27/21 16:54 37.2 C 62 18 85/61 L BP BP BP Pulse Ox 12/27/21 21:00 98 12/27/21 20:30 98 12/27/21 20:00 95 12/27/21 19:30 95 12/27/21 19:00 99 12/27/21 18:30 98 12/27/21 18:17 98 12/27/21 18:00 96 12/27/21 17:48 73/52 L 77/59 L 82/59 L 12/27/21 17:47 96 12/27/21 17:30 97 12/27/21 17:28 99 12/27/21 16:58 97 12/27/21 16:54 97 - Physical Exam General Appearance: positive: No acute distress, Alert Eyes Bilateral: positive: PERRL, EOMI ENT: positive: No signs of dehydration Neck: positive: No JVD, Trachea midline Respiratory: positive: Chest non-tender, No respiratory distress, Wheezes (mild wheeze) Cardiovascular: positive: Irregularly irregular, Systolic murmur Abdomen: positive: Non-tender, No organomegaly, Nml bowel sounds, No distention. negative: Guarding, Rebound Back: positive: Nml inspection Skin: positive: No rash, Warm, Dry, Other (feet appear hyperemic but non-tender) Extremities: positive: Non-tender, Full ROM, Nml appearance Neurologic/Psychiatric: positive: Oriented x3, Motor nml, Mood/affect nml Conclusion/Plan - Problem List (1) Community acquired pneumonia Conclusion/Plan: This was suspected on Chest x-ray done. White blood cell count was 14.9. Patient started on Rocephin and azithromycin. We will continue. Blood cultures drawn. (2) Hypotension Conclusion/Plan: Suspected to be due to poor oral intake while taking oral medications. Patient's list of potentially antihypertensive medications include metoprolol succinate, diltiazem ER, lisinopril and torsemide. He is also on digoxin. We will hold these medications for now. Patient was given 1.5 L bolus of IV fluid in the ED. We will hold off on any further IV hydration at this time due to patient's history of CHF. Qualifiers: Hypotension type: unspecified hypotension type Qualified Code(s): I95.9 - Hypotension, unspecified (3) Atrial fibrillation Conclusion/Plan: Patient is normally on metoprolol succinate 200 mg daily, Diltiazem, digoxin and Xarelto. We will continue patient's Xarelto. We will hold metoprolol, diltiazem and digoxin Qualifiers: Atrial fibrillation type: unspecified Qualified Code(s): I48.91 - Unspecified atrial fibrillation (4) Congestive heart failure Conclusion/Plan: We will hold patient's cardiac medications while hypotensive. Resume when appropriate to do so. These medications consist of metoprolol succinate, torsemide, lisinopril, digoxin, Qualifiers: Heart failure type: unspecified Heart failure chronicity: unspecified Qualified Code(s): I50.9 - Heart failure, unspecified (5) Rheumatoid arthritis Conclusion/Plan: Patient normally takes prednisone and methotrexate. We will hold these for now while treating for potential pneumonia. (6) Hyperlipidemia Conclusion/Plan: On atorvastatin 40 mg p.o. every afternoon. - Lab Results Fish Bones: 12/27/21 17:05 12/27/21 18:15 Core Measures - Anticipated LOS I expect patient to be DC'd or transferred within 96 hours.: Yes - DVT/VTE - Prophylaxis VTE/DVT Device ordered at admit?: Yes VTE/DVT Prophylaxis med ordered at admit?: Yes
[2021-12-27 22:06] LABS: B. PARAPERTUSSIS- RESP PCR PAN NOT DETECTED; B. PERTUSSIS- RESP PCR PANEL NOT DETECTED; C. PNEUMONIAE- RESP PCR PANEL NOT DETECTED; CORONAVIRUS 229E-RESP PCR NOT DETECTED; CORONAVIRUS HKU1-RESP PCR NOT DETECTED; CORONAVIRUS NL63-RESP PCR NOT DETECTED; CORONAVIRUS OC43-RESP PCR NOT DETECTED; HUMAN METAPNEUMOVIRUS NOT DETECTED; INFLUENZA A- RESP PCR PANEL NOT DETECTED; INFLUENZA B - RESP PCR PANEL NOT DETECTED; M. PNEUMONIAE- RESP PCR PANEL NOT DETECTED; PARAINFLUENZA VIRUS 1 NOT DETECTED; PARAINFLUENZA VIRUS 2 NOT DETECTED; PARAINFLUENZA VIRUS 3 NOT DETECTED; PARAINFLUENZA VIRUS 4 NOT DETECTED; RHINOVIRUS/ENTEROVIRUS DETECTED; RSV- RESP PCR PANEL NOT DETECTED; SARS-CoV-2 -RESP PCR PANEL NOT DETECTED
[2021-12-28] MEDS ORDERED: SODIUM CHLORIDE 0.9% 500 ML IV ONE (00:22)
[2021-12-28] MEDS: SODIUM CHLORIDE FLUSH 0.9% 10 ML SYRINGE IVP SCH ×3 (00:41→17:32)
[2021-12-28 05:41] LABS: BASOPHILS # (AUTO) 0.1 10^3/uL (0.0-0.1); BASOPHILS % (AUTO) 0.5 %; EOSINOPHILS # (AUTO) 0.2 10^3/uL (0.0-0.7); HCT - HEMATOCRIT 39.7 % (42.0-52.0); HGB - HEMOGLOBIN 14.1 g/dL (14.0-18.0); LYMPHOCYTES # (AUTO) 1.7 10^3/uL (1.5-3.5); LYMPHOCYTES % (AUTO) 14.5 %; MEAN CORPUSCULAR HEMOGLOBIN 40.4 pg (27.0-31.0); MEAN CORPUSCULAR HGB CONC 35.5 g/dL (32.0-36.0); MEAN CORPUSCULAR VOLUME 113.8 fL (80.0-94.0); MEAN PLATELET VOLUME 11.1 fL (7.4-11.4); MONOCYTES # (AUTO) 0.8 10^3/uL (0.0-1.0); MONOCYTES % (AUTO) 7.3 %; NEUTROPHILS # (AUTO) 8.4 10^3/uL (1.5-6.6); NEUTROPHILS % (AUTO) 73.8 %; PLT - PLATELET COUNT 94 10^3/uL (130-450); RED BLOOD COUNT 3.49 10^6/uL (4.70-6.10); RED CELL DISTRIBUTION WIDTH 15.2 % (12.0-15.0); WHITE BLOOD COUNT 11.5 x10^3/uL (4.8-10.8)
[2021-12-28 05:48] LABS: CALCIUM 8.7 mg/dL (8.5-10.3); CREATININE 1.4 mg/dL (0.6-1.2); POTASSIUM 3.3 mmol/L (3.5-5.0)
[2021-12-28 05:51] LABS: SLIDE REVIEW? Indicated
[2021-12-28 06:03] LABS: PLATELET ESTIMATE, MANUAL DECREASED (<130,000) (NORMAL); PLATELET MORPHOLOGY NORMAL APPEARANCE (NORMAL); RBC MORPHOLOGY (MULTIPLE) 2+ MACROCYTOSIS (NORMAL); WBC MORPHOLOGY (MULTIPLE) NORMAL APPEARANCE (NORMAL)
[2021-12-28] MEDS ORDERED: NICOTINE 7 MG PATCH TOP PRN (07:45)
[2021-12-28] MEDS ORDERED: LEVALBUTEROL 1.25 MG/3 ML NEB INH PRN (07:47)
--- NOTE | 2021-12-28 07:53 | PROVIDER PROGRESS NOTE ---
Assessment/Plan - Problem List (1) Hypotension Qualifiers: Hypotension type: unspecified hypotension type Qualified Code(s): I95.9 - Hypotension, unspecified Assessment/Plan: His BP is still below 100 systolic. This is due to poor po intake (from staying in beds feeling weak) while taking daily meds (including loop diuretic). He was given 1.5L of saline in ED at admission then no more iv saline was ordered due to his Hx of diastolic heart failure. Will continue to hold Lasix and LUCIAN-I and start a lower dose of Metoprolol and Diltaizem. Will give stress-dose steroids x3 days to prevent Addisonian crisis, since he is on daily Prednisone 20 mg. Will resume Prednsione 20 mg after 3 days. No PT or OT while BP this low. Will order an additional 500 cc of saline given at 83.33cc/hr today (2) Pre-renal azotemia He is dehydrated due to poor po intake (from staying in beds feeling weak) while taking daily meds (including loop diuretic). He was gioven 1.5L of saline in ED at admission and no more was ordered due to his Hx of diastolic heart failure. Will give additional 500 cc of saline given at 83.33cc/hr today. Avoid nephrotoxic medications. Follow BMP daily (3) Hypokalemia This is due to continue loop diuretic use. Will replace Potassium. (4) Community acquired pneumonia Conclusion/Plan: This was suspected on Chest x-ray done. White blood cell count was 14.9. O2 sats are adequate on room air. He tested Covid neg. Patient started on Rocephin and azithromycin. We will continue. Blood cultures drawn. No sputum cx (5) COPD He has mild wheezing, but is not in a full blown COPD exacerbation Will order inhaled steroid (Budesonide) scheduled bid and also Xopenex scheduled t.i.d. and prn q4h, while he has a pneumonia that could exacerbate his COPD. Also, will give stress dose steroids for 3 days, this will help his COPD. O2 saturations above 88% will be acceptable. (6) Atrial fibrillation Conclusion/Plan: Patient is normally on metoprolol succinate 200 mg daily, Diltiazem, digoxin and Xarelto. The Dig level was not measurable (?non-complaint) We will continue patient's Xarelto. To prevent RVR, we will use lower doses of metoprolol and diltiazem while BP is low Will restart digoxin Qualifiers: Atrial fibrillation type: unspecified Qualified Code(s): I48.91 - Unspecified atrial fibrillation (7) Chronic diastolic heart failure Conclusion/Plan: We will hold patient's duretic and LUCIAN-I while hypotensive. Resume when appropriate to do so. Will use lower dose of metoprolol succinate. The Dig will be resumed, as it does not lower BP (8) Rheumatoid arthritis Conclusion/Plan: Patient normally takes prednisone and methotrexate. MTX on hold, and he usually takes it only once a week on a Wed We will not stop the steroids, but will instead give 3 days of stress doses, to prevent Addisonian crisis (9) Hyperlipidemia Conclusion/Plan: On atorvastatin 40 mg p.o. every afternoon. (10) Tobacco use Will order Niicotine patch while here prn cravings - Current Meds Current Meds: Current Medications Generic Name Dose Route Start Last Admin Trade Name Addy PRN Reason Stop Dose Admin Sodium Chloride 10 ml 12/28/21 01:00 12/28/21 00:41 Sodium Chloride Flush 0.9% 10 Ml Syringe IVP 10 ml 0100,0900,1700 BERTHA Administration - Lab Result Fish Bone Diagrams: 12/28/21 05:00 12/28/21 05:00 - Additional Planning My Orders: My Active Orders 12/28/21 07:45 Nicotine 7 mg Patch [Nicoderm] 1 patch TOP DAILY PRN 12/28/21 07:47 Nebulizer/MDI Tx. [RC] QID Resp Teach Nebulizer/MDI [RC] .ONCE Levalbuterol [Xopenex] 1.25 mg INH Q4H PRN 12/28/21 08:00 Levalbuterol [Xopenex] 1.25 mg INH TID 12/28/21 09:00 predniSONE [Deltasone] 40 mg PO DAILY 12/28/21 Lunch DIET [Low Sodium Diet] [DIET] 12/28/21 19:00 Budesonide [Pulmicort] 0.5 mg INH RTBID 12/31/21 09:00 predniSONE [Deltasone] 20 mg PO DAILY Subjective - Subjective Patient Reports: Feeling Better, Cough (Has wheezing and has not gotten any nebs today yet.) Nursing Reports: Other (No desturations but is winded with moving around.) Objective Vital Signs: Vital Signs - 24 hr 12/27/21 12/27/21 12/27/21 16:54 16:58 17:28 Temperature 37.2 C 37.2 C Heart Rate 62 62 66 Heart Rate [ Brachial] Heart Rate [ Sitting] Heart Rate [ Standing] Heart Rate [ Supine] Respiratory 18 18 14 Rate Blood Pressure 85/61 L 85/61 L 87/53 L Blood Pressure [Left Brachial artery] Blood Pressure [Left Radial artery] Blood Pressure [Right Brachial artery] Blood Pressure [Right Radial artery] Blood Pressure [Sitting] Blood Pressure [Standing] Blood Pressure [Supine] O2 Saturation 97 97 99 12/27/21 12/27/21 12/27/21 17:30 17:47 17:48 Temperature Heart Rate 60 65 Heart Rate [ Brachial] Heart Rate [ 63 Sitting] Heart Rate [ 74 Standing] Heart Rate [ 69 Supine] Respiratory 16 18 Rate Blood Pressure 87/53 L 81/61 L Blood Pressure [Left Brachial artery] Blood Pressure [Left Radial artery] Blood Pressure [Right Brachial artery] Blood Pressure [Right Radial artery] Blood Pressure 73/52 L [Sitting] Blood Pressure 77/59 L [Standing] Blood Pressure 82/59 L [Supine] O2 Saturation 97 96 12/27/21 12/27/21 12/27/21 18:00 18:17 18:30 Temperature Heart Rate 66 70 70 Heart Rate [ Brachial] Heart Rate [ Sitting] Heart Rate [ Standing] Heart Rate [ Supine] Respiratory 14 15 15 Rate Blood Pressure 72/57 L 72/57 L 72/57 L Blood Pressure [Left Brachial artery] Blood Pressure [Left Radial artery] Blood Pressure [Right Brachial artery] Blood Pressure [Right Radial artery] Blood Pressure [Sitting] Blood Pressure [Standing] Blood Pressure [Supine] O2 Saturation 96 98 98 12/27/21 12/27/21 12/27/21 19:00 19:30 20:00 Temperature Heart Rate 65 72 73 Heart Rate [ Brachial] Heart Rate [ Sitting] Heart Rate [ Standing] Heart Rate [ Supine] Respiratory 18 20 19 Rate Blood Pressure 88/69 L 84/59 L 90/63 Blood Pressure [Left Brachial artery] Blood Pressure [Left Radial artery] Blood Pressure [Right Brachial artery] Blood Pressure [Right Radial artery] Blood Pressure [Sitting] Blood Pressure [Standing] Blood Pressure [Supine] O2 Saturation 99 95 95 12/27/21 12/27/21 12/27/21 20:30 21:00 21:30 Temperature 36.5 C Heart Rate 75 75 75 Heart Rate [ Brachial] Heart Rate [ Sitting] Heart Rate [ Standing] Heart Rate [ Supine] Respiratory 18 20 20 Rate Blood Pressure 120/80 82/62 L 83/57 L Blood Pressure [Left Brachial artery] Blood Pressure [Left Radial artery] Blood Pressure [Right Brachial artery] Blood Pressure [Right Radial artery] Blood Pressure [Sitting] Blood Pressure [Standing] Blood Pressure [Supine] O2 Saturation 98 98 95 12/27/21 12/27/21 12/28/21 22:21 23:49 00:20 Temperature 36.5 C Heart Rate Heart Rate [ 76 82 Brachial] Heart Rate [ Sitting] Heart Rate [ Standing] Heart Rate [ Supine] Respiratory 20 18 Rate Blood Pressure Blood Pressure [Left Brachial artery] Blood Pressure [Left Radial artery] Blood Pressure 89/67 L 80/33 L [Right Brachial artery] Blood Pressure [Right Radial artery] Blood Pressure [Sitting] Blood Pressure [Standing] Blood Pressure [Supine] O2 Saturation 97 97 12/28/21 12/28/21 12/28/21 00:25 00:30 00:35 Temperature Heart Rate Heart Rate [ 87 Brachial] Heart Rate [ Sitting] Heart Rate [ Standing] Heart Rate [ Supine] Respiratory Rate Blood Pressure Blood Pressure 69/39 L 71/52 L [Left Brachial artery] Blood Pressure [Left Radial artery] Blood Pressure [Right Brachial artery] Blood Pressure 67/46 L [Right Radial artery] Blood Pressure [Sitting] Blood Pressure [Standing] Blood Pressure [Supine] O2 Saturation 12/28/21 12/28/21 00:41 06:30 Temperature 36.5 C Heart Rate Heart Rate [ 87 Brachial] Heart Rate [ Sitting] Heart Rate [ Standing] Heart Rate [ Supine] Respiratory 20 Rate Blood Pressure Blood Pressure 97/56 L [Left Brachial artery] Blood Pressure 82/55 L [Left Radial artery] Blood Pressure [Right Brachial artery] Blood Pressure [Right Radial artery] Blood Pressure [Sitting] Blood Pressure [Standing] Blood Pressure [Supine] O2 Saturation 96 Oxygen O2 Source [With Activity] Room air O2 Source [Without Activity] Room air O2 Source Room air I&O (Last 24 Hrs): Intake and Output Totals x24h 12/26/21 12/27/21 12/28/21 23:59 23:59 23:59 Intake Total 1850 1000 Balance 1850 1000 General: Alert, Oriented x3 HEENT: Mucous membr. moist/pink Neck: Other (Has long dacosta and neck cannot be evaluated for JVP) Neuro: Alert, Non Focal Cardiovascular: No murmurs Respiratory: Wheezes (wheezes in all 4 lung ramos posteriorly and has scattered rhonchi) Abdomen: Normal bowel sounds, Soft Extremities: No clubbing, No edema, No tenderness/swelling, Other (Hands have arthritic deformities) - Results Results: Laboratory Results WBC 11.5 x10^3/uL (4.8-10.8) H 12/28/21 05:00 RBC 3.49 10^6/uL (4.70-6.10) L 12/28/21 05:00 Hgb 14.1 g/dL (14.0-18.0) 12/28/21 05:00 Hct 39.7 % (42.0-52.0) L 12/28/21 05:00 MCV 113.8 fL (80.0-94.0) H 12/28/21 05:00 MCH 40.4 pg (27.0-31.0) H 12/28/21 05:00 MCHC 35.5 g/dL (32.0-36.0) 12/28/21 05:00 RDW 15.2 % (12.0-15.0) H 12/28/21 05:00 Plt Count 94 10^3/uL (130-450) L 12/28/21 05:00 MPV 11.1 fL (7.4-11.4) 12/28/21 05:00 Neut # (Auto) 8.4 10^3/uL (1.5-6.6) H 12/28/21 05:00 Lymph # (Auto) 1.7 10^3/uL (1.5-3.5) 12/28/21 05:00 [place] # (Auto) 0.8 10^3/uL (0.0-1.0) 12/28/21 05:00 Eos # (Auto) 0.2 10^3/uL (0.0-0.7) 12/28/21 05:00 Baso # (Auto) 0.1 10^3/uL (0.0-0.1) 12/28/21 05:00 Absolute Nucleated RBC 0.00 x10^3/uL 12/28/21 05:00 Nucleated RBC % 0.0 /100WBC 12/28/21 05:00 Manual Slide Review Indicated 12/28/21 05:00 WBC Morphology NORMAL APPEARANCE (NORMAL) 12/28/21 05:00 Platelet Estimate DECREASED (<130,000) (NORMAL) 12/28/21 05:00 Platelet Morphology NORMAL APPEARANCE (NORMAL) 12/28/21 05:00 RBC Morph Micro Appear 2+ MACROCYTOSIS (NORMAL) 12/28/21 05:00 Sodium 136 mmol/L (135-145) 12/28/21 05:00 Potassium 3.3 mmol/L (3.5-5.0) L 12/28/21 05:00 Chloride 100 mmol/L (101-111) L 12/28/21 05:00 Carbon Dioxide 27 mmol/L (21-32) 12/28/21 05:00 Anion Gap 9.0 (6-13) 12/28/21 05:00 BUN 24 mg/dL (6-20) H 12/28/21 05:00 Creatinine 1.4 mg/dL (0.6-1.2) H 12/28/21 05:00 Estimated GFR (MDRD) 49 (>89) L 12/28/21 05:00 Glucose 139 mg/dL (70-100) H 12/28/21 05:00 Lactic Acid 1.4 mmol/L (0.5-2.2) 12/27/21 18:15 Calcium 8.7 mg/dL (8.5-10.3) 12/28/21 05:00 Magnesium 2.0 mg/dL (1.7-2.8) 12/27/21 17:05 Total Bilirubin 0.7 mg/dL (0.2-1.0) 12/27/21 18:15 AST 14 IU/L (10-42) 12/27/21 18:15 ALT 16 IU/L (10-60) 12/27/21 18:15 Alkaline Phosphatase 75 IU/L (42-121) 12/27/21 18:15 Total Protein 6.6 g/dL (6.7-8.2) L 12/27/21 18:15 Albumin 3.2 g/dL (3.2-5.5) 12/27/21 18:15 Globulin 3.4 g/dL (2.1-4.2) 12/27/21 18:15 Albumin/Globulin Ratio 0.9 (1.0-2.2) L 12/27/21 18:15 Lipase 28 U/L (22-51) 12/27/21 17:05 Urine Color YELLOW 12/27/21 18:31 Urine Clarity CLEAR (CLEAR) 12/27/21 18:31 Urine pH 5.5 PH (5.0-7.5) 12/27/21 18:31 Ur Specific [place] 1.015 (1.002-1.030) 12/27/21 18:31 Urine Protein NEGATIVE mg/dL (NEGATIVE) 12/27/21 18:31 Urine Glucose (UA) >=1000 mg/dL (NEGATIVE) H 12/27/21 18:31 Urine Ketones NEGATIVE mg/dL (NEGATIVE) 12/27/21 18:31 Urine Occult Blood NEGATIVE (NEGATIVE) 12/27/21 18:31 Urine Nitrite NEGATIVE (NEGATIVE) 12/27/21 18:31 Urine Bilirubin NEGATIVE (NEGATIVE) 12/27/21 18:31 Urine Urobilinogen 0.2 (NORMAL) E.U./dL (NORMAL) 12/27/21 18:31 Ur Leukocyte Esterase NEGATIVE (NEGATIVE) 12/27/21 18:31 Urine RBC 0-5 /HPF (0-5) 12/27/21 18:31 Urine WBC 0-3 /HPF (0-3) 12/27/21 18:31 Ur Squamous Epith Cells RARE Squamous (<= Few) 12/27/21 18:31 Urine Bacteria Rare /HPF (None Seen) 12/27/21 18:31 Urine Culture Comments NOT INDICATED 12/27/21 18:31 Nasal Adenovirus (PCR) NOT DETECTED 12/27/21 19:40 Nasal B. parapertussis DNA (PCR) NOT DETECTED 12/27/21 19:40 Nasal Coronavir 229E PCR NOT DETECTED 12/27/21 19:40 Nasal Coronavir HKU1 PCR NOT DETECTED 12/27/21 19:40 Nasal Coronavir NL63 PCR NOT DETECTED 12/27/21 19:40 Nasal Coronavir OC43 PCR NOT DETECTED 12/27/21 19:40 Nasal Enterovir/Rhinovir PCR DETECTED A 05 19:40 Nasal Influenza B PCR NOT DETECTED 12/27/21 19:40 Nasal Influenza A PCR NOT DETECTED 12/27/21 19:40 Nasal Parainfluen 1 PCR NOT DETECTED 12/27/21 19:40 Nasal Parainfluen 2 PCR NOT DETECTED 12/27/21 19:40 Nasal Parainfluen 3 PCR NOT DETECTED 12/27/21 19:40 Nasal Parainfluen 4 PCR NOT DETECTED 12/27/21 19:40 Nasal RSV (PCR) NOT DETECTED 12/27/21 19:40 Nasal B.pertussis DNA PCR NOT DETECTED 12/27/21 19:40 Nasal C.pneumoniae (PCR) NOT DETECTED 12/27/21 19:40 Rodolfo Human Metapneumo PCR NOT DETECTED 12/27/21 19:40 Nasal M.pneumoniae (PCR) NOT DETECTED 12/27/21 19:40 Nasal SARS-CoV-2 (PCR) NOT DETECTED 12/27/21 19:40 Digoxin < 0.2 ng/mL 12/27/21 18:15
[2021-12-28] MEDS: cefTRIAXone 1 GM in SODIUM CHLORIDE 0.9% MINIBAG 100 ML IV SCH (08:00)
[2021-12-28] MEDS: APIXABAN 5 MG TABLET PO SCH ×2 (08:00→21:11)
[2021-12-28] MEDS ORDERED: AZITHROMYCIN INJ 500 MG in SODIUM CHLORIDE 0.9% 250 ML IV SCH (09:00)
[2021-12-28] MEDS ORDERED: predniSONE 20 MG TABLET PO SCH (09:00)
[2021-12-28] MEDS: AZITHROMYCIN INJ 500 MG in SODIUM CHLORIDE 0.9% 250 ML IV SCH (09:00)
[2021-12-28] MEDS ORDERED: SODIUM CHLORIDE 0.9% 500 ML IV SCH (11:00)
[2021-12-28] MEDS: SODIUM CHLORIDE 0.9% 500 ML IV SCH ×2 (11:22→18:47)
[2021-12-28] MEDS: LEVALBUTEROL 1.25 MG/3 ML NEB INH SCH ×3 (13:56→22:13)
[2021-12-28] MEDS: BUDESONIDE 0.5 MG/2 ML NEB INH SCH ×2 (13:56→22:13)
[2021-12-28] MEDS ORDERED: MIN OIL/DIMETHICON/COCONUT OIL 92 GM TUBE TOP PRN (17:26)
--- NOTE | 2021-12-28 18:59 | PHARMACY PROGRESS NOTE ---
- Best Possible Medication History Admit Date and Time: 12/27/212105 Processed by: Pharmacy Medication History completed: Yes Patient Interview: Completed Secondary Source(s): Written medication list (Pt provided list of meds from [facility] dated 11/29/2021 and verbally confirmed each one.) As the person ultimately responsible for medication therapy, providers are able to order a medication from an existing home medication list in [facility] via the "Reconcile Routine" prior to Confirmation of that medication by help desk support specialist. Such practice is discouraged except when the physician, in their clinical judgment, deems that a medical need exists for a medication without regard to previous use.
[2021-12-28] MEDS: SACCHAROMYCES BOULARDII 250 MG CAPSULE PO SCH (19:32)
[2021-12-28] MEDS: diltiaZEM 30 MG TABLET PO SCH (19:34)
[2021-12-28] MEDS ORDERED: diphenhydrAMINE 25 MG CAPSULE PO PRN (19:46)
[2021-12-28] MEDS ORDERED: ATORVASTATIN 40 MG TABLET PO SCH (21:00)
[2021-12-28] MEDS: CALCIUM CARBONATE CHEW 500 MG TABLET PO SCH (21:11)
[2021-12-28] MEDS: METOPROLOL SUCCINATE 50 MG TABLET PO SCH (21:12)
[2021-12-29] MEDS: diltiaZEM 30 MG TABLET PO SCH ×5 (00:27→23:50)
[2021-12-29] MEDS: SODIUM CHLORIDE FLUSH 0.9% 10 ML SYRINGE IVP SCH ×3 (01:07→15:47)
[2021-12-29 06:24] LABS: CREATININE 1.1 mg/dL (0.6-1.2); MAGNESIUM 1.9 mg/dL (1.7-2.8); POTASSIUM 3.4 mmol/L (3.5-5.0)
[2021-12-29 06:51] LABS: BASOPHILS % (AUTO) 0.3 %; EOSINOPHILS # (AUTO) 0.1 10^3/uL (0.0-0.7); EOSINOPHILS % (AUTO) 0.6 %; HCT - HEMATOCRIT 37.6 % (42.0-52.0); HGB - HEMOGLOBIN 13.2 g/dL (14.0-18.0); LYMPHOCYTES # (AUTO) 1.5 10^3/uL (1.5-3.5); LYMPHOCYTES % (AUTO) 11.2 %; MEAN CORPUSCULAR HEMOGLOBIN 39.5 pg (27.0-31.0); MEAN CORPUSCULAR HGB CONC 35.1 g/dL (32.0-36.0); MEAN CORPUSCULAR VOLUME 112.6 fL (80.0-94.0); MEAN PLATELET VOLUME 11.5 fL (7.4-11.4); MONOCYTES # (AUTO) 1.1 10^3/uL (0.0-1.0); NEUTROPHILS # (AUTO) 10.3 10^3/uL (1.5-6.6); NEUTROPHILS % (AUTO) 78.7 %; PLT - PLATELET COUNT 95 10^3/uL (130-450); RED BLOOD COUNT 3.34 10^6/uL (4.70-6.10); RED CELL DISTRIBUTION WIDTH 15.2 % (12.0-15.0); SLIDE REVIEW? Indicated; WHITE BLOOD COUNT 13.1 x10^3/uL (4.8-10.8)
[2021-12-29 07:04] LABS: PLATELET ESTIMATE, MANUAL DECREASED (<130,000) (NORMAL); PLATELET MORPHOLOGY NORMAL APPEARANCE (NORMAL); RBC MORPHOLOGY (MULTIPLE) 2+ MACROCYTOSIS (NORMAL)
[2021-12-29 07:05] LABS: WBC MORPHOLOGY (MULTIPLE) NORMAL APPEARANCE (NORMAL)
[2021-12-29] MEDS: BUDESONIDE 0.5 MG/2 ML NEB INH SCH ×2 (07:27→20:01)
[2021-12-29] MEDS: LEVALBUTEROL 1.25 MG/3 ML NEB INH SCH ×3 (07:28→20:01)
[2021-12-29] MEDS ORDERED: SACCHAROMYCES BOULARDII 250 MG CAPSULE PO SCH (08:00)
[2021-12-29] MEDS ORDERED: MULTIVITAMIN W/MINERALS TABLET PO SCH (08:00)
[2021-12-29] MEDS ORDERED: GABAPENTIN 300 MG CAPSULE PO PRN ×2 (08:22→09:06)
[2021-12-29] MEDS ORDERED: NON FORMULARY MED (Melatonin [Melatonin] 3 MG Tablet) PO PRN (08:22)
[2021-12-29] MEDS ORDERED: LACTOBACILLUS RHAMNOSUS GG CAPSULE PO SCH (09:00)
[2021-12-29] MEDS ORDERED: APIXABAN 5 MG TABLET PO SCH (09:00)
[2021-12-29] MEDS ORDERED: POTASSIUM CHLORIDE 20 MEQ TABLET PO SCH (09:00)
[2021-12-29] MEDS ORDERED: CHOLECALCIFEROL 25 MCG TABLET PO SCH (09:00)
[2021-12-29] MEDS ORDERED: SODIUM CHLORIDE 0.9% 500 ML IV ONE (09:02)
[2021-12-29] MEDS ORDERED: DIGOXIN 500 MCG/2 ML AMP IVP STA (09:06)
[2021-12-29] MEDS: METOPROLOL SUCCINATE 50 MG TABLET PO SCH ×2 (09:07→20:54)
--- NOTE | 2021-12-29 09:08 | PROVIDER PROGRESS NOTE ---
Assessment/Plan - Problem List (1) Hypotension Qualifiers: Hypotension type: unspecified hypotension type Qualified Code(s): I95.9 - Hypotension, unspecified Assessment/Plan: His BP is still below 100 systolic occaisionally, even when supine. This is due to poor po intake (from staying in beds feeling weak) while taking daily meds (including loop diuretic). He was given 1.5L of saline in ED at admission then an additional 500 cc of saline given at 83.33cc/hr. It did lead to the new ankle edema. This was explained to [facility] pt at length, including that he has a narrow range of good volume status to keep BP up but avoid edema. We are continuing to hold Lasix and LUCIAN-I and ordered a lower dose of Metoprolol and Diltaizem, with holding parameters. Will check a L.A. to assure no sepsis, and WBC did go up from 11 to 13, but possibly from stress dose steroids. We started stress-dose steroids planned for days to prevent Addisonian crisis, since he is on daily Prednisone 20 mg. Then will resume Prednsione 20 mg after that PT may start today, the patient requests it. (2) Afib with RVR This is due to holding of his Cardizem and (high home dose) of Metoprolol, since he still has Hypotension. Will give a dose of iv Dig x1 today. Continue telemetry Continue DOAC, but hold if plt count is < 100. (3) Pre-renal azotemia Improving. He was dehydrated due to poor po intake (from staying in beds feeling weak) while taking daily meds (including loop diuretic). He was gioven 1.5L of saline in ED at admission and no more was ordered due to his Hx of diastolic heart failure. Will give additional 500 cc of saline given at 83.33cc/hr today. Avoid nephrotoxic medications. Follow BMP daily (4) Hypokalemia This is due to his loop diuretic use. Will replace Potassium. (5) Community acquired pneumonia Conclusion/Plan: This was suspected on Chest x-ray done at admission. O2 sats are adequate on room air. He tested Covid neg. Patient started on Rocephin and azithromycin. We will continue. Blood cultures drawn. No sputum cx (6) COPD He has mild wheezing, but is not in a full blown COPD exacerbation. He does still c/o SOB with movement. We started inhaled steroid (Budesonide) scheduled bid and also Xopenex scheduled t.i.d. and prn q4h, while he has a pneumonia which could exacerbate his COPD. Also, planning stress dose steroids for 3 days, this will help his COPD. O2 saturations above 88% will be acceptable. He would agree to home O2 order. Will do oximetry walk test on day of discharge. (7) Chronic diastolic heart failure Conclusion/Plan: We prasanna holding patient's duretic and LUCIAN-I for 2 days now, while hypotensive. Will resume when appropriate to do so. We ordered lower dose of metoprolol succinate. The Dig will be used, as it does not lower BP (8) Rheumatoid arthritis Conclusion/Plan: Patient normally takes prednisone and methotrexate. MTX on hold, and he usually takes it only once a week on a Wed We will not stop the steroids, but will instead give 3 days of stress doses, to prevent Addisonian crisis (9) Hyperlipidemia Conclusion/Plan: On atorvastatin 40 mg p.o. every afternoon. (10) Tobacco use Will order Nicotine patch while here prn cravings - Current Meds Current Meds: Current Medications Generic Name Dose Route Start Last Admin Trade Name Freq PRN Reason Stop Dose Admin Atorvastatin Calcium 40 mg 12/28/21 21:00 12/28/21 21:11 Atorvastatin 40 Mg Tablet PO 40 mg QPM BERTHA Administration Budesonide 0.5 mg 12/28/21 08:00 12/29/21 07:27 Budesonide 0.5 Mg/2 Ml Neb INH 0.5 mg RTBID BERTHA Administration Calcium Carbonate/Glycine 500 mg 12/28/21 21:00 12/28/21 21:11 Calcium Carbonate Chew 500 Mg Tablet PO 500 mg BID BERTHA Administration Diltiazem HCl 30 mg 12/28/21 19:00 12/29/21 05:34 Diltiazem 30 Mg Tablet PO 30 mg Q6HR BERTHA Administration Diphenhydramine HCl 25 mg 12/28/21 19:46 12/28/21 21:11 Diphenhydramine 25 Mg Capsule PO 25 mg QPM PRN Administration Insomnia Ceftriaxone Sodium 1 gm/ 100 mls @ 200 mls/hr 12/28/21 09:00 12/28/21 08:58 Sodium Chloride IV Infused DAILY BERTHA Infusion Azithromycin 500 mg/ Sodium 250 mls @ 250 mls/hr 12/28/21 09:00 12/28/21 10:32 Chloride IV 12/29/21 09:59 Infused DAILY BERTHA Infusion Levalbuterol HCl 1.25 mg 12/28/21 08:00 12/29/21 07:28 Levalbuterol 1.25 Mg/3 Ml Neb INH 1.25 mg TID BERTHA Administration Metoprolol Succinate 50 mg 12/28/21 21:00 12/28/21 21:12 Metoprolol Succinate 50 Mg Tablet PO 50 mg BID BERTHA Administration Nicotine 1 patch 12/28/21 07:45 12/28/21 21:18 Nicotine 7 Mg Patch TOP 1 patch DAILY PRN Administration Nicotine Craving Saccharomyces Boulardii 250 mg 12/28/21 18:38 12/28/21 19:32 Saccharomyces Boulardii 250 Mg Capsule PO 250 mg BIDWM BERTHA Administration Sodium Chloride 10 ml 12/28/21 01:00 12/29/21 01:07 Sodium Chloride Flush 0.9% 10 Ml Syringe IVP 10 ml 0100,0900,1700 BERTHA Administration - Lab Result Fish Bone Diagrams: 12/29/21 04:43 12/29/21 04:33 - Additional Planning My Orders: My Active Orders 12/28/21 Lunch DIET [Low Sodium Diet] [DIET] 12/28/21 18:38 Saccharomyces Boulardii [Florastor] 250 mg PO BIDWM 12/28/21 19:00 diltiaZEM [Cardizem] 30 mg PO Q6HR 12/28/21 21:00 Calcium Carbonate [Tums] 500 mg PO BID Metoprolol Succinate [Toprol Xl] 50 mg PO BID 12/29/21 05:00 LACTIC ACID, VENOUS [CHEM] Urgent 12/29/21 08:19 Orthostatic [Vital Signs - Orthostatic] [RC] DAILY 12/29/21 09:00 Cholecalciferol [Vitamin D3] 50 mcg PO DAILY Folic Acid 5 mg PO DAILY Multivitamin W/Minerals [Theragran M] 1 tab PO DAILY Potassium Chloride [K-Dur] 20 meq PO DAILYWM 12/29/21 09:02 0.9% NS 500ML BOLUS X1 Sodium Chloride 0.9% [Normal Saline 0.9%] 500 ml IV ONCE 12/29/21 09:06 Digoxin Inj [Lanoxin Inj] 250 mcg IVP ONCE STA 12/29/21 09:06 Apixaban [Eliquis] 5 mg PO BID 12/29/21 09:06 Gabapentin [Neurontin] 600 mg PO TID PRN 12/29/21 10:00 Hydrocortisone Succinate [Solu-CORTEF] 100 mg IVP TID 12/29/21 21:00 Atorvastatin [Lipitor] 40 mg PO QPM 12/31/21 09:00 predniSONE [Deltasone] 20 mg PO DAILY Subjective - Subjective Patient Reports: Other (Complaining that he is not being told details of his condition. Feels like "nothing was done". Wants to be "out of here by tomorrow".) Objective Vital Signs: Vital Signs - 24 hr 12/28/21 12/28/21 12/28/21 12:35 14:01 15:45 Temperature 36.6 C 36.5 C Heart Rate 98 Heart Rate [ 97 Brachial] Heart Rate [ 101 H Radial] Respiratory 20 18 16 Rate Blood Pressure Blood Pressure 91/67 [Left Brachial artery] Blood Pressure 116/87 H [Left Radial artery] Blood Pressure [Right Brachial artery] Blood Pressure [Right Radial artery] O2 Saturation 97 97 12/28/21 12/28/21 12/28/21 19:34 21:12 21:15 Temperature 37.1 C Heart Rate Heart Rate [ 90 Brachial] Heart Rate [ Radial] Respiratory 16 Rate Blood Pressure 94/65 Blood Pressure [Left Brachial artery] Blood Pressure [Left Radial artery] Blood Pressure [Right Brachial artery] Blood Pressure 107/66 [Right Radial artery] O2 Saturation 97 12/28/21 12/29/21 12/29/21 22:14 00:27 00:42 Temperature 36.5 C Heart Rate 63 Heart Rate [ Brachial] Heart Rate [ 96 Radial] Respiratory 16 20 Rate Blood Pressure 90/64 Blood Pressure 90/64 [Left Brachial artery] Blood Pressure [Left Radial artery] Blood Pressure [Right Brachial artery] Blood Pressure [Right Radial artery] O2 Saturation 97 12/29/21 12/29/21 12/29/21 05:00 05:34 07:31 Temperature Heart Rate 64 Heart Rate [ Brachial] Heart Rate [ 63 Radial] Respiratory 16 16 Rate Blood Pressure 119/73 Blood Pressure [Left Brachial artery] Blood Pressure [Left Radial artery] Blood Pressure [Right Brachial artery] Blood Pressure 119/73 [Right Radial artery] O2 Saturation 99 12/29/21 08:14 Temperature 37.0 C Heart Rate Heart Rate [ 86 Brachial] Heart Rate [ Radial] Respiratory 18 Rate Blood Pressure Blood Pressure [Left Brachial artery] Blood Pressure [Left Radial artery] Blood Pressure 91/61 [Right Brachial artery] Blood Pressure [Right Radial artery] O2 Saturation 97 Oxygen O2 Source [With Activity] Room air O2 Source [Without Activity] Room air O2 Source Room air I&O (Last 24 Hrs): Intake and Output Totals x24h 12/27/21 12/28/21 12/29/21 23:59 23:59 23:59 Intake Total 1850 3450 676 Output Total 250 125 Balance 1850 3200 551 General: Alert, Oriented x3 HEENT: Mucous membr. moist/pink Neck: Supple, Other (Cannot eval nack due to long dacosta) Neuro: Alert, Non Focal Cardiovascular: Regular rate, Other (1/6 syst murmur at LLB) Respiratory: Wheezes (diffusely), Rhonchi (scattered) Abdomen: Soft, No tenderness Extremities: Other (1+ edema to above ankles) - Results Results: Laboratory Results WBC 13.1 x10^3/uL (4.8-10.8) H 12/29/21 04:43 RBC 3.34 10^6/uL (4.70-6.10) L 12/29/21 04:43 Hgb 13.2 g/dL (14.0-18.0) L 12/29/21 04:43 Hct 37.6 % (42.0-52.0) L 12/29/21 04:43 MCV 112.6 fL (80.0-94.0) H 12/29/21 04:43 MCH 39.5 pg (27.0-31.0) H 12/29/21 04:43 MCHC 35.1 g/dL (32.0-36.0) 12/29/21 04:43 RDW 15.2 % (12.0-15.0) H 12/29/21 04:43 Plt Count 95 10^3/uL (130-450) L 12/29/21 04:43 MPV 11.5 fL (7.4-11.4) H 12/29/21 04:43 Neut # (Auto) 10.3 10^3/uL (1.5-6.6) H 12/29/21 04:43 Lymph # (Auto) 1.5 10^3/uL (1.5-3.5) 12/29/21 04:43 [place] # (Auto) 1.1 10^3/uL (0.0-1.0) H 12/29/21 04:43 Eos # (Auto) 0.1 10^3/uL (0.0-0.7) 12/29/21 04:43 Baso # (Auto) 0.0 10^3/uL (0.0-0.1) 12/29/21 04:43 Absolute Nucleated RBC 0.00 x10^3/uL 12/29/21 04:43 Nucleated RBC % 0.0 /100WBC 12/29/21 04:43 Manual Slide Review Indicated 12/29/21 04:43 WBC Morphology NORMAL APPEARANCE (NORMAL) 12/29/21 04:43 Platelet Estimate DECREASED (<130,000) (NORMAL) 12/29/21 04:43 Platelet Morphology NORMAL APPEARANCE (NORMAL) 12/29/21 04:43 RBC Morph Micro Appear 2+ MACROCYTOSIS (NORMAL) 12/29/21 04:43 Sodium 138 mmol/L (135-145) 12/29/21 04:33 Potassium 3.4 mmol/L (3.5-5.0) L 12/29/21 04:33 Chloride 104 mmol/L (101-111) 12/29/21 04:33 Carbon Dioxide 25 mmol/L (21-32) 12/29/21 04:33 Anion Gap 9.0 (6-13) 12/29/21 04:33 BUN 18 mg/dL (6-20) 12/29/21 04:33 Creatinine 1.1 mg/dL (0.6-1.2) 12/29/21 04:33 Estimated GFR (MDRD) 65 (>89) L 12/29/21 04:33 Glucose 151 mg/dL (70-100) H 12/29/21 04:33 Lactic Acid 1.4 mmol/L (0.5-2.2) 12/27/21 18:15 Calcium 9.0 mg/dL (8.5-10.3) 12/29/21 04:33 Magnesium 1.9 mg/dL (1.7-2.8) 12/29/21 04:33 Total Bilirubin 0.7 mg/dL (0.2-1.0) 12/27/21 18:15 AST 14 IU/L (10-42) 12/27/21 18:15 ALT 16 IU/L (10-60) 12/27/21 18:15 Alkaline Phosphatase 75 IU/L (42-121) 12/27/21 18:15 Total Protein 6.6 g/dL (6.7-8.2) L 12/27/21 18:15 Albumin 3.2 g/dL (3.2-5.5) 12/27/21 18:15 Globulin 3.4 g/dL (2.1-4.2) 12/27/21 18:15 Albumin/Globulin Ratio 0.9 (1.0-2.2) L 12/27/21 18:15 Lipase 28 U/L (22-51) 12/27/21 17:05 Urine Color YELLOW 12/27/21 18:31 Urine Clarity CLEAR (CLEAR) 12/27/21 18:31 Urine pH 5.5 PH (5.0-7.5) 12/27/21 18:31 Ur Specific [place] 1.015 (1.002-1.030) 12/27/21 18:31 Urine Protein NEGATIVE mg/dL (NEGATIVE) 12/27/21 18:31 Urine Glucose (UA) >=1000 mg/dL (NEGATIVE) H 12/27/21 18:31 Urine Ketones NEGATIVE mg/dL (NEGATIVE) 12/27/21 18:31 Urine Occult Blood NEGATIVE (NEGATIVE) 12/27/21 18:31 Urine Nitrite NEGATIVE (NEGATIVE) 12/27/21 18:31 Urine Bilirubin NEGATIVE (NEGATIVE) 12/27/21 18:31 Urine Urobilinogen 0.2 (NORMAL) E.U./dL (NORMAL) 12/27/21 18:31 Ur Leukocyte Esterase NEGATIVE (NEGATIVE) 12/27/21 18:31 Urine RBC 0-5 /HPF (0-5) 12/27/21 18:31 Urine WBC 0-3 /HPF (0-3) 12/27/21 18:31 Ur Squamous Epith Cells RARE Squamous (<= Few) 12/27/21 18:31 Urine Bacteria Rare /HPF (None Seen) 12/27/21 18:31 Urine Culture Comments NOT INDICATED 12/27/21 18:31 Nasal Adenovirus (PCR) NOT DETECTED 12/27/21 19:40 Nasal B. parapertussis DNA (PCR) NOT DETECTED 12/27/21 19:40 Nasal Coronavir 229E PCR NOT DETECTED 12/27/21 19:40 Nasal Coronavir HKU1 PCR NOT DETECTED 12/27/21 19:40 Nasal Coronavir NL63 PCR NOT DETECTED 12/27/21 19:40 Nasal Coronavir OC43 PCR NOT DETECTED 12/27/21 19:40 Nasal Enterovir/Rhinovir PCR DETECTED A 12/27/21 19:40 Nasal Influenza B PCR NOT DETECTED 12/27/21 19:40 Nasal Influenza A PCR NOT DETECTED 12/27/21 19:40 Nasal Parainfluen 1 PCR NOT DETECTED 12/27/21 19:40 Nasal Parainfluen 2 PCR NOT DETECTED 12/27/21 19:40 Nasal Parainfluen 3 PCR NOT DETECTED 12/27/21 19:40 Nasal Parainfluen 4 PCR NOT DETECTED 12/27/21 19:40 Nasal RSV (PCR) NOT DETECTED 12/27/21 19:40 Nasal B.pertussis DNA PCR NOT DETECTED 12/27/21 19:40 Nasal C.pneumoniae (PCR) NOT DETECTED 12/27/21 19:40 [place] Human Metapneumo PCR NOT DETECTED 12/27/21 19:40 Nasal M.pneumoniae (PCR) NOT DETECTED 12/27/21 19:40 Nasal SARS-CoV-2 (PCR) NOT DETECTED 12/27/21 19:40 Digoxin < 0.2 ng/mL 12/27/21 18:15
[2021-12-29] MEDS: MULTIVITAMIN W/MINERALS TABLET PO SCH (09:23)
[2021-12-29] MEDS: SACCHAROMYCES BOULARDII 250 MG CAPSULE PO SCH ×2 (09:24→15:47)
[2021-12-29] MEDS: CALCIUM CARBONATE CHEW 500 MG TABLET PO SCH ×2 (09:25→20:54)
[2021-12-29] MEDS: cefTRIAXone 1 GM in SODIUM CHLORIDE 0.9% MINIBAG 100 ML IV SCH (10:11)
[2021-12-29] MEDS: HYDROCORTISONE SUCCINATE 100 MG/2 ML VIAL IVP SCH ×3 (10:23→20:55)
[2021-12-29] MEDS: FOLIC ACID 1 MG TABLET PO SCH (10:24)
[2021-12-29] MEDS: SODIUM CHLORIDE FLUSH 0.9% 10 ML SYRINGE IVP PRN ×2 (10:25→13:03)
[2021-12-29] MEDS: AZITHROMYCIN INJ 500 MG in SODIUM CHLORIDE 0.9% 250 ML IV SCH (10:58)
[2021-12-29] MEDS ORDERED: ATORVASTATIN 40 MG TABLET PO SCH (21:00)
[2021-12-29] MEDS: APIXABAN 5 MG TABLET PO SCH (21:50)
[2021-12-30] MEDS: SODIUM CHLORIDE FLUSH 0.9% 10 ML SYRINGE IVP SCH ×2 (01:04→10:38)
[2021-12-30] MEDS: SODIUM CHLORIDE FLUSH 0.9% 10 ML SYRINGE IVP PRN ×2 (05:47→13:29)
[2021-12-30] MEDS: HYDROCORTISONE SUCCINATE 100 MG/2 ML VIAL IVP SCH ×2 (05:47→13:28)
[2021-12-30] MEDS: diltiaZEM 30 MG TABLET PO SCH (05:47)
[2021-12-30 06:06] LABS: BASOPHILS % (AUTO) 0.2 %; EOSINOPHILS % (AUTO) 0.2 %; HCT - HEMATOCRIT 34.1 % (42.0-52.0); HGB - HEMOGLOBIN 12.6 g/dL (14.0-18.0); LYMPHOCYTES % (AUTO) 7.7 %; MEAN CORPUSCULAR HEMOGLOBIN 43.2 pg (27.0-31.0); MEAN CORPUSCULAR VOLUME 116.8 fL (80.0-94.0); MEAN PLATELET VOLUME 10.9 fL (7.4-11.4); MONOCYTES # (AUTO) 0.7 10^3/uL (0.0-1.0); MONOCYTES % (AUTO) 5.7 %; NEUTROPHILS % (AUTO) 85.3 %; PLT - PLATELET COUNT 115 10^3/uL (130-450); RED BLOOD COUNT 2.92 10^6/uL (4.70-6.10); RED CELL DISTRIBUTION WIDTH 16.2 % (12.0-15.0); WHITE BLOOD COUNT 12.9 x10^3/uL (4.8-10.8)
[2021-12-30 06:13] LABS: CALCIUM 9.1 mg/dL (8.5-10.3); POTASSIUM 4.3 mmol/L (3.5-5.0)
[2021-12-30 06:14] LABS: SLIDE REVIEW? Indicated
[2021-12-30 06:27] LABS: PLATELET ESTIMATE, MANUAL DECREASED (<130,000) (NORMAL); PLATELET MORPHOLOGY NORMAL APPEARANCE (NORMAL); RBC MORPHOLOGY (MULTIPLE) 2+ MACROCYTOSIS (NORMAL); WBC MORPHOLOGY (MULTIPLE) NORMAL APPEARANCE (NORMAL)
[2021-12-30] MEDS: LEVALBUTEROL 1.25 MG/3 ML NEB INH SCH ×2 (07:29→13:36)
[2021-12-30] MEDS: BUDESONIDE 0.5 MG/2 ML NEB INH SCH (07:29)
[2021-12-30 08:15] VITALS: BP 94/62
[2021-12-30] MEDS ORDERED: diltiaZEM CD 180 MG CAPSULE PO SCH (09:00)
[2021-12-30] MEDS ORDERED: CHOLECALCIFEROL 25 MCG TABLET PO SCH (09:00)
[2021-12-30] MEDS: cefTRIAXone 1 GM in SODIUM CHLORIDE 0.9% MINIBAG 100 ML IV SCH (09:47)
[2021-12-30] MEDS: SACCHAROMYCES BOULARDII 250 MG CAPSULE PO SCH (09:48)
[2021-12-30] MEDS: FOLIC ACID 1 MG TABLET PO SCH (09:49)
[2021-12-30] MEDS: METOPROLOL SUCCINATE 50 MG TABLET PO SCH (09:50)
[2021-12-30] MEDS: APIXABAN 5 MG TABLET PO SCH (09:50)
[2021-12-30] MEDS: MULTIVITAMIN W/MINERALS TABLET PO SCH (09:50)
[2021-12-30] MEDS: CALCIUM CARBONATE CHEW 500 MG TABLET PO SCH (10:38)
--- NOTE | 2021-12-30 12:54 | Discharge Plan ---
Discharge Plan Problem Reviewed?: Yes Disposition: Home, Self Care Condition: Stable Prescriptions: Amox/Clav 875/125 [Augmentin 875/125 Tab] 1 tablet PO Q12H 10 Days #8 tablet Ipratropium/Albuterol [Combivent Respimat] 4 gm IH QID #1 inh Diet: Low Sodium Activity Restrictions: Activity as Tolerated Shower Restrictions: No Assistance Devices: Walker Health Concerns: You were hospitalized because of low blood pressure which was due to being dehydrated, from taking your Torsemide (water pill) while having poor oral intake since you were mostly in bed ill. We found you to have a pneumonia. You received 3 days of IV antibiotics. You are being discharged to take 4 more days of oral antibiotic (Augmentin). You also had a COPD (emphysema) exacerbation. You are also being prescribed new Combivent to now take 4 times a day, and use your Albuterol inhaler as a rescue inhaler now only. All new prescriptions were electronically sent to your [facility] pharmacy in [place]. Please restart all your usual medications and stop smoking. Because of having borderline low blood pressure, restart your Torsemide after another 24-36 hours. All other heart medications can be started tomorrow morning. You were tested to see if you qualify to get a new order for home oxygen and your oxygen level remained 95% or higher even with activity therefore a home oxygen order would not be paid for by your insurance therefore it was not ordered. A referral has been sent to a Home Health agency for you to have in-home physical therapy and a bath aide was requested if you would need it. Plan of Treatment: As above. Care Goals: Improvement in symptoms and stabilization are the goals. Assessment: The patient understands and is agreeable with the plan. Additional Instructions or Follow Up instructions: Please see your Primary Care Provider in the next 1 to 2 weeks for a hospital follow-up visit. If you have new or worsening symptoms, call your PCP for advice or come to the Emergency Room. No Smoking: If you smoke, Please STOP! Call for help. Follow-up with: ALTON BALLARD MD [Primary Care Provider] -
--- NOTE | 2021-12-30 13:01 | DISCHARGE SUMMARY ---
Discharge Summary Admit Date: 12/27/21 Discharge Date: 12/30/21 Discharging Provider: Dr Liss Vergara Primary Care Provider: Dr Lucrecia Sharp Condition at Discharge: Stable Discharge Disposition: 01 Home, Self Care - HPI History of Present Illness: From the admission H&P of Dr Lloyd Kay: Patient is a 76-year-old male with medical history significant for CHF, COPD, Valve disorder, CVA, atrial fibrillation on Xarelto and rheumatoid arthritis who presented to the ED with complaint of hypotension and weakness. Normally his blood pressure runs around 120s. This morning it was 95 and later in the day the systolic blood pressure was 74. After talking with his doctor he was advised to go to the ED so he called EMS. He reports feeling weak and "slower" lately. He denies dizziness. His blood pressure was confirmed to be 72 in the emergency department. He is on several cardiac/antihypertensive medications which include metoprolol succinate, diltiazem and torsemide which he reports taking this morning. He has also had fairly decreased oral intake for the past couple of days because he has mostly been in bed due to weakness. Work-up in the ED also showed a WBC of 14.9. Normal Lactic Acid level. BUN/creat elevated at 25/1.7. Chest x-ray with possible pneumonia. At bedside he denied chest pain, dyspnea at rest, abdominal pain, nausea, vomiting, fever or chills. He had no wheezing or desaturations. He received iv saline in the ED but BP remained low, thus he was admitted. - HOSPITAL COURSE Hospital Course: (1) Hypotension His BP was 80-100 systolic even when supine. This was presumably due to poor po intake (from staying in bed when feeling weak) while taking daily meds (including loop diuretic). His BP meds were put on hold. He was given 1.5L of saline in ED at admission then an additional 500 cc of saline. This did lead to ankle edema. The patient felt he was worse due to that ankle edema. It was explained to him at length, that he has a narrow range of proper volume status t o keep BP up but to avoid edema. We ordered stress-dose steroids for 3 days to prevent Addisonian crisis, since he is on daily Prednisone 20 mg. He was seen by PT. At discharge, his Prednsione 20 mg dose was resumed, but he was told to not resume his diuretic, LUCIAN-I, Cardizem and Metoprolol for 1 more day. (2) Afib with RVR This was due to not dosing his Cardizem and Metoprolol, because of 2 days of hypotension. He got a dose of iv Dig x1. We continued his DOAC. (3) Pre-renal azotemia He was dehydrated due to poor po intake (from staying in bed) while taking daily meds (including loop diuretic). He was given 1.5L of saline in ED then 500 cc additional of saline slowly. His BUN/creat of 25/1.7 at admission slowly improved and were 18/1.1 at discharge. (4) Hypokalemia This was due to his loop diuretic use, and we replaced his Potassium. (5) Community acquired pneumonia This was noted on Chest x-ray done at admission. O2 sats were adequate on room air. He tested Covid neg. He was put on Rocephin and azithromycin. Blood cultures remained neg. No sputum was produce. At discharge several more days of Augmentin plus a probiotic were prescribed. (6) COPD He had mild wheezing, but not a full blown COPD exacerbation. He did c/o SOB with activity. We ordered inhaled steroid (Budesonide) b.i.d. and also Xopenex t.i.d. and prn q4h. He also got stress dose steroids for 3 days. On the day of discharge, a walking oximetry test was done and he did not desaturate to need home O2. He was discharged with new Combivent Respimat to use q.i.d. and his usual meds were to be resumed. (7) Chronic diastolic heart failure We did not give the patient's diuretic and LUCIAN-I for 2 days, while he was hypotensive. We ordered a lower dose of Metoprolol succinate. His usual meds were to be resumed after discharge. (8) Rheumatoid arthritis Patient normally takes prednisone and methotrexate. MTX was on hold, and he usually takes it only once a week. He got 3 days of stress doses, to prevent Addisonian crisis, then his usual Prednisone was to be resumed after discharge. (9) Hyperlipidemia He was kept on atorvastatin 40 mg p.o. every evening. (10) Tobacco use We ordered a Nicotine patch while here prn cigarette cravings. He stated he only smokes 2-3 cigarettes a day and is not planning on quitting. - ALLERGIES Allergies/Adverse Reactions: Allergies Allergy/AdvReac Type Severity Reaction Status Date / Time No Known Drug Allergies Allergy Verified 11/01/21 14:22 - MEDICATIONS Home Medications: Ambulatory Orders Medication Instructions Recorded Confirmed Folic Acid 2 mg PO DAILY 07/06/15 12/29/21 Methotrexate [Methotrexate Sodium] 15 mg PO MO@1400 07/06/15 12/28/21 Atorvastatin Calcium 40 mg PO QPM 05/07/19 12/28/21 Albuterol Sulfate [Albuterol 2 puffs INH Q4H PRN 12/20/19 12/28/21 Sulfate Hfa] Gabapentin 600 mg PO TID PRN 12/20/19 12/28/21 predniSONE [Prednisone] 2 mg PO QDBREAKFAST 12/20/19 12/28/21 Cholecalciferol (Vitamin D3) 50 mcg PO DAILY 01/16/20 12/28/21 [Vitamin D3] Multivitamin W/Minerals [Theragran 1 tab PO DAILY 01/16/20 12/28/21 M] Metoprolol Succinate 200 mg PO BID #0 04/09/20 12/28/21 lisinopriL [Prinivil] 10 mg PO DAILY 12/23/20 12/28/21 Empagliflozin [Jardiance] 12.5 mg PO DAILY 12/28/21 12/28/21 Fluticasone Propion/Salmeterol 1 each IH BID 12/28/21 12/28/21 [Fluticasone-Salmeterol 250-50] Loratadine [Claritin] 10 mg PO DAILY 12/28/21 12/28/21 Melatonin 3 mg PO HS PRN 12/28/21 12/28/21 Ondansetron HCl 4 mg PO TID PRN 12/28/21 12/28/21 Rivaroxaban [Xarelto] 20 mg PO DAILY 12/28/21 12/28/21 Sodium Chloride [Saline Nasal 2 spray .ROUTE DAILY PRN 12/28/21 12/28/21 [place]] Torsemide 60 mg PO DAILY 12/28/21 12/28/21 dilTIAZem HCL [Diltiazem 24Hr ER 360 mg PO DAILY 12/28/21 12/28/21 (Xr)] guaiFENesin [Chest Congestion 400 mg PO BID PRN 12/28/21 12/28/21 Relief] Amox/Clav 875/125 [Augmentin 1 tablet PO Q12H 10 Days #8 tablet 12/30/21 875/125 Tab] Ipratropium/Albuterol [Combivent 4 gm IH QID #1 inh 12/30/21 Respimat] - PHYSICAL EXAM AT DISCHARGE General Appearance: positive: No acute distress, Alert, Other (Long dacosta) Eyes Bilateral: positive: Normal inspection ENT: positive: ENT inspection nml, No signs of dehydration Neck: positive: Other (Not visualized due to long hair and long dacosta.) Respiratory: positive: No respiratory distress, Other (Poor air movement, prolonged exp phase, scattered wheeze.) Cardiovascular: positive: No murmur, Irregularly irregular Abdomen: positive: Non-tender, Nml bowel sounds, Other (Obese ) Skin: positive: Warm, Dry Extremities: positive: Non-tender, Other (1+ ankle edema) Neurologic/Psychiatric: positive: Oriented x3 (Non-focal) - LABS Result Diagrams: 12/30/21 04:46 12/30/21 04:46 - DIAGNOSTIC IMAGING Diagnostic Imaging Results: Final report reviewed - FOLLOW UP Follow Up: See PCP for hospital follow-up visit in 1-2 weeks. - TIME SPENT Time Spent in Discharge (Minutes): 45
[2021-12-31] MEDS ORDERED: predniSONE 20 MG TABLET PO SCH (09:00)
== END 2021-12-30 13:45 | disposition home or self-care (01) | DRG 314 ==
LOC: EDBD → EDUNIT# → ED 16:45 → MS2 21:06
PROVIDERS: ADMIT Internal Medicine; ATTEND Internal Medicine
DX: I95.9 Hypotension, unspecified (principal); J18.9 Pneumonia, unspecified organism; I50.32 Chronic diastolic (congestive) heart failure; I48.91 Unspecified atrial fibrillation; I11.0 Hypertensive heart disease with heart failure; M06.9 Rheumatoid arthritis, unspecified; Z20.822 Contact with and (suspected) exposure to COVID-19; F41.9 Anxiety disorder, unspecified; F17.210 Nicotine dependence, cigarettes, uncomplicated; R79.89 Other specified abnormal findings of blood chemistry; E87.6 Hypokalemia; E78.5 Hyperlipidemia, unspecified; R53.1 Weakness; E86.0 Dehydration; J43.9 Emphysema, unspecified; Z79.01 Long term (current) use of anticoagulants; Z86.73 Personal history of transient ischemic attack (TIA), and cerebral infarction without residual deficits; Z95.0 Presence of cardiac pacemaker; Z79.899 Other long term (current) drug therapy
CPT/HCPCS: 36415; 71045; 80048; 80053; 80162; 81001; 83605; 83690; 83735; 85025; 87040; 87633; 93005; 94640; 94761; 96361; 96365; 96367; 97161; 99283; 99285; A6250; A9270; J7512; J7626; 87086

== ENCOUNTER 2022-01-10 21:25 | Outpatient (CLI) | payer OTHER | END 2022-01-10 21:26 | disposition critical access hospital (66) | LOC: EMS 21:25 | DX: R62.7 Adult failure to thrive (principal) | CPT/HCPCS: A0425; A0429 ==

== ENCOUNTER 2022-01-10 21:35 | Emergency (ER) | payer OTHER ==
[2022-01-10 22:19] LABS: BASOPHILS % (AUTO) 0.5 %; EOSINOPHILS # (AUTO) 0.2 10^3/uL (0.0-0.7); HCT - HEMATOCRIT 42.2 % (42.0-52.0); HGB - HEMOGLOBIN 14.8 g/dL (14.0-18.0); LYMPHOCYTES # (AUTO) 1.4 10^3/uL (1.5-3.5); LYMPHOCYTES % (AUTO) 16.7 %; MEAN CORPUSCULAR HEMOGLOBIN 38.5 pg (27.0-31.0); MEAN CORPUSCULAR HGB CONC 35.1 g/dL (32.0-36.0); MEAN CORPUSCULAR VOLUME 109.9 fL (80.0-94.0); MEAN PLATELET VOLUME 10.6 fL (7.4-11.4); MONOCYTES # (AUTO) 0.2 10^3/uL (0.0-1.0); MONOCYTES % (AUTO) 2.3 %; NEUTROPHILS # (AUTO) 6.5 10^3/uL (1.5-6.6); NEUTROPHILS % (AUTO) 77.3 %; PLT - PLATELET COUNT 118 10^3/uL (130-450); RED BLOOD COUNT 3.84 10^6/uL (4.70-6.10); WHITE BLOOD COUNT 8.4 x10^3/uL (4.8-10.8)
[2022-01-10] MEDS ORDERED: ONDANSETRON 4 MG/2 ML VIAL IVP STA (22:29)
--- NOTE | 2022-01-10 22:29 | ED Physician Documentation ---
History of Present Illness - Stated complaint Stated Complaint: FTT - Chief complaint Chief Complaint: General - History obtained from History obtained from: Patient, EMS - Additonal information Additional information: Patient is a 76-year-old male with multiple medical core morbidities including history of atrial fibrillation presenting for evaluation of generalized weakness. Patient was recently hospitalized for hypotension and pneumonia. He had a follow-up appointment with the [place] last week and after conversation with his PCP he reports entering into hospice and stopping all of his medications. He reports being agreeable to this and states it was a mutual decision. He has not taken any of his medications in at least a week. PatientReports feeling increasingly weak over the last few days and was concerned he was going to fall at home although he has been able to use his cane to walk from his bed to the bathroom. Patient reports feeling anxious and that he was concerned he was going to have a stroke since he is not on his medications. He is unsure of how to reach anybody with the [facility] hospice services and says They told him that he is on his own. Per the paramedics, the patient's daughter is out of town on vacation.When I asked the patient what his wishes are regarding hospice, he continues to report he would like to be on hospice And feels he needs more support. He is wanting to go to an assisted living facility.He says he does not know how to talk to anybody at the [facility] about doing this.He denies fever, headache, head injury, chest pain, difficulty breathing, abdominal pain, Dysuria. He reports having nausea. Review of Systems Constitutional: denies: Fever Nose: denies: Congestion Cardiac: denies: Chest pain / pressure Respiratory: denies: Dyspnea, Cough GI: reports: Nausea. denies: Abdominal Pain, Vomiting : denies: Dysuria Musculoskeletal: reports: Other (Chronic all over body pain) Neurologic: reports: Generalized weakness. denies: Syncope, Headache, Head injury Psychiatric: reports: Anxiety PD PAST MEDICAL HISTORY - Past Medical History Past Medical History: Yes Cardiovascular: Hypertension, Atrial fibrillation, Murmur, Arrhythmia, Valve disorder Respiratory: None Neuro: CVA Endocrine/Autoimmune: None GI: Other : None HEENT: Other Psych: Anxiety Musculoskeletal: Osteoarthritis, Rheumatoid arthritis Derm: None - Past Surgical History Past Surgical History: Yes Ortho: Other Cardiovascular: Pacemaker - Present Medications Home Medications: Ambulatory Orders Medication Instructions Recorded Confirmed Folic Acid 2 mg PO DAILY 07/06/15 12/29/21 Methotrexate [Methotrexate Sodium] 15 mg PO MO@1400 07/06/15 12/28/21 Atorvastatin Calcium 40 mg PO QPM 05/07/19 12/28/21 Albuterol Sulfate [Albuterol 2 puffs INH Q4H PRN 12/20/19 12/28/21 Sulfate Hfa] Gabapentin 600 mg PO TID PRN 12/20/19 12/28/21 predniSONE [Prednisone] 2 mg PO QDBREAKFAST 12/20/19 12/28/21 Cholecalciferol (Vitamin D3) 50 mcg PO DAILY 01/16/20 12/28/21 [Vitamin D3] Multivitamin W/Minerals [Theragran 1 tab PO DAILY 01/16/20 12/28/21 M] Metoprolol Succinate 200 mg PO BID #0 04/09/20 12/28/21 lisinopriL [Prinivil] 10 mg PO DAILY 12/23/20 12/28/21 Empagliflozin [Jardiance] 12.5 mg PO DAILY 12/28/21 12/28/21 Fluticasone Propion/Salmeterol 1 each IH BID 12/28/21 12/28/21 [Fluticasone-Salmeterol 250-50] Loratadine [Claritin] 10 mg PO DAILY 12/28/21 12/28/21 Melatonin 3 mg PO HS PRN 12/28/21 12/28/21 Ondansetron HCl 4 mg PO TID PRN 12/28/21 12/28/21 Rivaroxaban [Xarelto] 20 mg PO DAILY 12/28/21 12/28/21 Sodium Chloride [Saline Nasal 2 spray .ROUTE DAILY PRN 12/28/21 12/28/21 [place]] Torsemide 60 mg PO DAILY 12/28/21 12/28/21 dilTIAZem HCL [Diltiazem 24Hr ER 360 mg PO DAILY 12/28/21 12/28/21 (Xr)] guaiFENesin [Chest Congestion 400 mg PO BID PRN 12/28/21 12/28/21 Relief] Amox/Clav 875/125 [Augmentin 1 tablet PO Q12H 10 Days #8 tablet 12/30/21 875/125 Tab] Ipratropium/Albuterol [Combivent 4 gm IH QID #1 inh 12/30/21 Respimat] - Allergies Allergies/Adverse Reactions: Allergies Allergy/AdvReac Type Severity Reaction Status Date / Time No Known Drug Allergies Allergy Verified 01/10/22 21:44 - Social History Does the pt smoke?: Yes Smoking Status: Current every day smoker Does the pt drink ETOH?: No Does the pt have substance abuse?: No - Immunizations Immunizations are current?: Yes - POLST Patient has POLST: No POLST Status: Full Code PD ED PE NORMAL - General General: Alert and oriented X 3, No acute distress, Well developed/nourished - HEENT HEENT: Atraumatic - Neck Neck: Supple, no meningeal sign - Cardiac Cardiac: No murmur, Strong equal pulses, Other (Irregularly irregular, tachycardic) - Respiratory Respiratory: No respiratory distress, Clear bilaterally - Abdomen Abdomen: Normal bowel sounds, Soft, Non tender, Non distended - Derm Derm: No rash - Extremities Extremities: No edema - Neuro Neuro: Alert and oriented X 3, fruit receiver 2-12 intact, No motor deficit, Normal speech Results - Vitals Vitals: Vital Signs - 24 hr 01/10/22 01/10/22 01/10/22 21:44 22:40 23:21 Temperature 37 C Heart Rate 119 H 111 H 108 H Respiratory 17 17 22 Rate Blood Pressure 105/83 H 100/64 93/51 L O2 Saturation 97 95 95 01/11/22 01/11/22 01/11/22 01:00 02:28 03:47 Temperature 37 C Heart Rate 110 H 112 H 108 H Respiratory 24 22 12 Rate Blood Pressure 90/70 94/74 92/58 L O2 Saturation 96 95 95 01/11/22 01/11/22 01/11/22 04:40 05:33 07:00 Temperature Heart Rate 99 110 H 110 H Respiratory 21 14 12 Rate Blood Pressure 108/88 H 105/60 98/55 L O2 Saturation 97 98 95 01/11/22 01/11/22 08:29 09:42 Temperature Heart Rate 128 H 122 H Respiratory 28 H 16 Rate Blood Pressure 107/64 111/89 H O2 Saturation 95 97 Oxygen O2 Source [] Room air O2 Source [] Room air O2 Source Room air - EKG (time done) 2203 Rate: Rate (enter#) (116) Rhythm: Atrial fibrillation Ischemia: Non specific changes - Labs Labs: Laboratory Tests 01/10/22 01/10/22 01/11/22 22:11 22:11 02:10 WBC 8.4 RBC 3.84 L Hgb 14.8 Hct 42.2 MCV 109.9 H MCH 38.5 H MCHC 35.1 RDW 15.0 Plt Count 118 L MPV 10.6 Neut # (Auto) 6.5 Lymph # (Auto) 1.4 L [place] # (Auto) 0.2 Eos # (Auto) 0.2 Baso # (Auto) 0.0 Absolute Nucleated RBC 0.00 Nucleated RBC % 0.0 Sodium 135 Potassium 3.5 Chloride 103 Carbon Dioxide 20 L Anion Gap 12.0 BUN 20 Creatinine 1.2 Estimated GFR (MDRD) 59 L Glucose 157 H Calcium 9.0 Total Bilirubin 1.3 H AST 25 ALT 27 Alkaline Phosphatase 85 Total Protein 6.8 Albumin 3.5 Globulin 3.3 Albumin/Globulin Ratio 1.1 Lipase 36 Urine Color YELLOW Urine Clarity CLEAR Urine pH 6.0 Ur Specific [place] 1.020 Urine Protein NEGATIVE Urine Glucose (UA) >=1000 H Urine Ketones 15 H Urine Occult Blood NEGATIVE Urine Nitrite NEGATIVE Urine Bilirubin NEGATIVE Urine Urobilinogen 0.2 (NORMAL) Ur Leukocyte Esterase NEGATIVE Urine RBC 0-5 Urine WBC 0-3 Ur Squamous Epith Cells RARE Squamous Urine Bacteria None Seen PD MEDICAL DECISION MAKING - ED course Complexity details: reviewed results, re-evaluated patient ED course: 2250 - Patient feeling better after medications, tolerating crackers and sips of water. He also reports feeling like he is thinking more clearly since he is arrived here. He reports poor sleep in recent days. He would like to talk to social work in the morning regarding assisted living options or additional assistance. He reports going to [facility] in the area but states he ca nnot afford them. He is unsure of What resources are available to him. 0720 - Pt Rested comfortably overnight. HR slightly elevated but pt is not on his meds and believes he may be on hospice. Does not appear symptomatic. Pt is awaiting SW eval in the morning and will be signed out to morning ED physician, Dr. Roman. Departure - Departure Disposition: 01 Home, Self Care Clinical Impression: Generalized weakness, Atrial fibrillation with RVR Condition: Stable Instructions: ED Afib Comments: Your atrial fibrillation has been acting up a little bit today. This can be helped by getting back on your medications if you so choose. Otherwise, if you do not wish to take the medications, you can certainly have this right, but you may end up with a chronically elevated heart rate. No other emergent condition has been identified today. Please continue to work with your clinical social worker and hospice to achieve the best comfort and quality of life at home. You may return to the emergency department at anytime for further concerns. Discharge Date/Time: 01/11/22 10:43
[2022-01-10 22:30] LABS: ALBUMIN 3.5 g/dL (3.2-5.5); ALBUMIN/GLOBULIN RATIO 1.1 (1.0-2.2); BILIRUBIN,TOTAL 1.3 mg/dL (0.2-1.0); CREATININE 1.2 mg/dL (0.6-1.2); POTASSIUM 3.5 mmol/L (3.5-5.0); TOTAL PROTEIN 6.8 g/dL (6.7-8.2)
[2022-01-10] MEDS ORDERED: LORazepam 1 MG TABLET PO STA (22:32)
--- NOTE | 2022-01-10 23:06 | XRAY Report ---
PROCEDURE: Chest 1 View X-Ray INDICATIONS: weak TECHNIQUE: One view of the chest was acquired. COMPARISON: 12/27/2021, 08/24/2021, CT abdomen pelvis 11/01/2021. FINDINGS: Surgical changes and devices: Left chest wall pacemaker redemonstrated with the tip over the right at rium and right ventricle.. Lungs and pleura: There is left basilar pleural thickening and scarring redemonstrated. There is also mild linear scarring right lung base. No definite pleural effusions or pneumothorax. Mediastinum: Mediastinal contours appear unchanged. Heart size is enlarged. Bones and chest wall: No suspicious bony lesions. Overlying soft tissues appear unremarkable. IMPRESSION: 1. Bilateral scarring redemonstrated, left greater than right. Reviewed by: Greg Hadley MD on 01/10/2022 11:04 PM PDT Approved by: Greg Hadley MD on 01/10/2022 11:04 PM PDT Station ID: [id number]
[2022-01-11 03:43] LABS: BILIRUBIN,URINE NEGATIVE (NEGATIVE); GLUCOSE, URINE (UA) >=1000 mg/dL (NEGATIVE); KETONES,URINE (UA) 15 mg/dL (NEGATIVE); LEUKOCYTE ESTERASE, URINE NEGATIVE (NEGATIVE); NITRITE,URINE NEGATIVE (NEGATIVE); OCCULT BLOOD,URINE NEGATIVE (NEGATIVE); PROTEIN,URINE NEGATIVE (NEGATIVE); UROBILINOGEN,URINE 0.2 (NORMAL) E.U./dL (NORMAL)
[2022-01-11 03:50] LABS: CLARITY,URINE CLEAR (CLEAR)
[2022-01-11 03:51] LABS: BACTERIA,URINE None Seen /HPF (None Seen); RBC,URINE 0-5 /HPF (0-5); SQUAMOUS EPITHELIAL CELL,UR RARE Squamous (<= Few); WBC,URINE 0-3 /HPF (0-3)
[2022-01-11 09:44] VITALS: BP 111/89
== END 2022-01-11 10:43 | disposition home or self-care (01) ==
LOC: EDUNIT# → ED 21:35 → SUPCPDRO 21:35 → ED 01-11 10:43
DX: R53.1 Weakness (principal); I48.91 Unspecified atrial fibrillation; F17.200 Nicotine dependence, unspecified, uncomplicated; Z91.14 Patient's other noncompliance with medication regimen
CPT/HCPCS: 36415; 71045; 80053; 81001; 83690; 85025; 93005; 96374; 99282; 99284; J8499

== ENCOUNTER 2022-03-02 12:44 | Outpatient (CLI) | payer MEDICARE | END 2022-03-02 12:45 | disposition critical access hospital (66) | LOC: EMS 12:44 | DX: R06.02 Shortness of breath (principal); R53.1 Weakness; F41.9 Anxiety disorder, unspecified | CPT/HCPCS: A0425; A0429 ==

== ENCOUNTER 2022-03-02 13:41 | Emergency (ER) | payer MEDICARE, OTHER ==
--- NOTE | 2022-03-02 14:06 | ED Physician Documentation ---
PD HPI DYSPNEA - Stated complaint Stated Complaint: SOA - History obtained from History obtained from: Patient - History of Present Illness Timing - onset: Chronic - Additional information Additional information: 76-year-old male with history of A. fib, CHF, COPD presents by EMS from home for 2 days of shortness of breath. Patient states that he is always short of breath, he has never qualified for oxygen because his pulse ox is always been normal. He states that symptoms began to worsen yesterday and have been unchanged since onset. He states that he is currently off of all of his medications because the [place] is arranging for hospice care for him. He states that he has hospice care information at his home and he is in the process of setting up home hospice so that he can be comfortable. Patient states that he is tired of everything and does not want aggressive care anymore. He states he is chronically unwell and is not getting better and so his goal is to be comfortable at the end of his life. Denies chest pain, syncope, leg swelling, abdominal pain, nausea, vomiting, other complaints at this time. Review of Systems Ten Systems: 10 systems reviewed and negative Constitutional: denies: Fever, Chills, Myalgias Cardiac: denies: Chest pain / pressure, Palpitations, Pedal edema Respiratory: reports: Dyspnea (chronic). denies: Cough, Hemoptysis, Wheezing GI: denies: Abdominal Pain, Nausea, Vomiting : denies: Dysuria, Frequency, Hesitancy PD PAST MEDICAL HISTORY - Past Medical History Cardiovascular: Hypertension, Atrial fibrillation, Murmur, Arrhythmia, Valve disorder Respiratory: None Neuro: CVA Endocrine/Autoimmune: None GI: Other : None HEENT: Other Psych: Anxiety Musculoskeletal: Osteoarthritis, Rheumatoid arthritis Derm: None - Past Surgical History Past Surgical History: Yes Ortho: Other Cardiovascular: Pacemaker - Present Medications Home Medications: Ambulatory Orders Medication Instructions Recorded Confirmed Folic Acid 2 mg PO DAILY 07/06/15 12/29/21 Methotrexate [Methotrexate Sodium] 15 mg PO MO@1400 07/06/15 12/28/21 Atorvastatin Calcium 40 mg PO QPM 05/07/19 12/28/21 Albuterol Sulfate [Albuterol 2 puffs INH Q4H PRN 12/20/19 12/28/21 Sulfate Hfa] Gabapentin 600 mg PO TID PRN 12/20/19 12/28/21 predniSONE [Prednisone] 2 mg PO QDBREAKFAST 12/20/19 12/28/21 Cholecalciferol (Vitamin D3) 50 mcg PO DAILY 01/16/20 12/28/21 [Vitamin D3] Multivitamin W/Minerals [Theragran 1 tab PO DAILY 01/16/20 12/28/21 M] Metoprolol Succinate 200 mg PO BID #0 04/09/20 12/28/21 lisinopriL [Prinivil] 10 mg PO DAILY 12/23/20 12/28/21 Empagliflozin [Jardiance] 12.5 mg PO DAILY 12/28/21 12/28/21 Fluticasone Propion/Salmeterol 1 each IH BID 12/28/21 12/28/21 [Fluticasone-Salmeterol 250-50] Loratadine [Claritin] 10 mg PO DAILY 12/28/21 12/28/21 Melatonin 3 mg PO HS PRN 12/28/21 12/28/21 Ondansetron HCl 4 mg PO TID PRN 12/28/21 12/28/21 Rivaroxaban [Xarelto] 20 mg PO DAILY 12/28/21 12/28/21 Sodium Chloride [Saline Nasal 2 spray .ROUTE DAILY PRN 12/28/21 12/28/21 [place]] Torsemide 60 mg PO DAILY 12/28/21 12/28/21 dilTIAZem HCL [Diltiazem 24Hr ER 360 mg PO DAILY 12/28/21 12/28/21 (Xr)] guaiFENesin [Chest Congestion 400 mg PO BID PRN 12/28/21 12/28/21 Relief] Amox/Clav 875/125 [Augmentin 1 tablet PO Q12H 10 Days #8 tablet 12/30/21 875/125 Tab] Ipratropium/Albuterol [Combivent 4 gm IH QID #1 inh 12/30/21 Respimat] QUEtiapine [SEROquel] 25 mg PO QPM PRN #10 tablet 03/02/22 - Allergies Allergies/Adverse Reactions: Allergies Allergy/AdvReac Type Severity Reaction Status Date / Time No Known Drug Allergies Allergy Verified 02/24/22 18:20 - Social History Does the pt smoke?: Yes Smoking Status: Current every day smoker Does the pt drink ETOH?: No Does the pt have substance abuse?: No - Immunizations Immunizations are current?: Yes - POLST Patient has POLST: No POLST Status: Full Code PD ED PE NORMAL - General General: Alert and oriented X 3, No acute distress, Other (chronically unwell appearing) - HEENT HEENT: Atraumatic, PERRL, EOMI - Neck Neck: Supple, no meningeal sign, No bony TTP, No adenopathy - Cardiac Cardiac: No murmur, Strong equal pulses, Other (tachycardia, irregularly irregular) - Respiratory Respiratory: No respiratory distress, Clear bilaterally - Abdomen Abdomen: Soft, Non tender, Non distended - Back Back: No CVA TTP, No spinal TTP, Other - Derm Derm: Normal color, Warm and dry, No rash, Other - Extremities Extremities: No deformity, No tenderness to palpate, Normal ROM s pain, No edema, No calf tenderness / cord, Other - Neuro Neuro: Alert and oriented X 3, disassembler 2-12 intact, No motor deficit, No sensory deficit, Normal speech, Other - Psych Psych: Normal mood, Normal affect, Other Results - Vitals Vitals: Vital Signs - 24 hr 03/02/22 03/02/22 03/02/22 14:11 15:08 16:53 Temperature 36.7 C Heart Rate 145 H 122 H 128 H Respiratory 22 15 25 H Rate Blood Pressure 118/105 H 90/74 104/68 O2 Saturation 100 100 97 Oxygen O2 Source [With Activity] Room air O2 Source [Without Activity] Room air O2 Source Room air - EKG (time done) 1345 Rate: Rate (enter#) (137), Tachy Rhythm: Atrial fibrillation Ischemia: Normal ST segments - Labs Labs: Laboratory Tests 03/02/22 03/02/22 03/02/22 14:14 14:14 14:14 WBC 5.9 RBC 3.08 L Hgb 12.1 L Hct 34.6 L MCV 112.3 H MCH 39.3 H MCHC 35.0 RDW 13.7 Plt Count 7 L* Neut # (Auto) 4.8 Lymph # (Auto) 0.7 L [place] # (Auto) 0.1 Eos # (Auto) 0.2 Baso # (Auto) 0.0 Absolute Nucleated RBC 0.02 Nucleated RBC % 0.3 Manual Slide Review Indicated Platelet Estimate DECREASED (<130,000) Platelet Morphology NORMAL APPEARANCE RBC Morph Micro Appear 2+ MACROCYTOSIS PT 15.1 H INR 1.4 H Sodium 134 L Potassium 3.8 Chloride 98 L Carbon Dioxide 26 Anion Gap 10.0 BUN 15 Creatinine 1.3 H Estimated GFR (MDRD) 54 L Glucose 130 H Calcium 9.5 Magnesium 1.7 Total Bilirubin 1.0 AST 42 ALT 47 Alkaline Phosphatase 79 Troponin I High Sens B-Natriuretic Peptide Total Protein 6.6 L Albumin 3.6 Globulin 3.0 Albumin/Globulin Ratio 1.2 Nasal Adenovirus (PCR) Nasal B. parapertussis DNA (PCR) Nasal Coronavir 229E PCR Nasal Coronavir HKU1 PCR Nasal Coronavir NL63 PCR Nasal Coronavir OC43 PCR Nasal Enterovir/Rhinovir PCR Nasal Influenza B PCR Nasal Influenza A PCR Nasal Parainfluen 1 PCR Nasal Parainfluen 2 PCR Nasal Parainfluen 3 PCR Nasal Parainfluen 4 PCR Nasal RSV (PCR) Nasal B.pertussis DNA PCR Nasal C.pneumoniae (PCR) [place] Human Metapneumo PCR Nasal M.pneumoniae (PCR) Nasal SARS-CoV-2 (PCR) Slides for Path Review Indicated 03/02/22 03/02/22 03/02/22 14:14 14:14 14:25 WBC RBC Hgb Hct MCV MCH MCHC RDW Plt Count Neut # (Auto) Lymph # (Auto) [place] # (Auto) Eos # (Auto) Baso # (Auto) Absolute Nucleated RBC Nucleated RBC % Manual Slide Review Platelet Estimate Platelet Morphology RBC Morph Micro Appear PT INR Sodium Potassium Chloride Carbon Dioxide Anion Gap BUN Creatinine Estimated GFR (MDRD) Glucose Calcium Magnesium Total Bilirubin AST ALT Alkaline Phosphatase Troponin I High Sens 32.0 H* B-Natriuretic Peptide 236 H Total Protein Albumin Globulin Albumin/Globulin Ratio Nasal Adenovirus (PCR) NOT DETECTED Nasal B. parapertussis DNA (PCR) NOT DETECTED Nasal Coronavir 229E PCR NOT DETECTED Nasal Coronavir HKU1 PCR NOT DETECTED Nasal Coronavir NL63 PCR NOT DETECTED Nasal Coronavir OC43 PCR NOT DETECTED Nasal Enterovir/Rhinovir PCR DETECTED A Nasal Influenza B PCR NOT DETECTED Nasal Influenza A PCR NOT DETECTED Nasal Parainfluen 1 PCR NOT DETECTED Nasal Parainfluen 2 PCR NOT DETECTED Nasal Parainfluen 3 PCR NOT DETECTED Nasal Parainfluen 4 PCR NOT DETECTED Nasal RSV (PCR) NOT DETECTED Nasal B.pertussis DNA PCR NOT DETECTED Nasal C.pneumoniae (PCR) NOT DETECTED [place] Human Metapneumo PCR NOT DETECTED Nasal M.pneumoniae (PCR) NOT DETECTED Nasal SARS-CoV-2 (PCR) NOT DETECTED Slides for Path Review PD MEDICAL DECISION MAKING - ED course Complexity details: reviewed old records, reviewed results, re-evaluated patient, considered differential, d/w patient ED course: Patient presenting for shortness of breath, states that he is chronically short of breath. Patient states that he is currently being evaluated for hospice care because of his numerous chronic conditions. He states that he just wants to be comfortable, he states that he does not want any aggressive treatment, he just wants to be comfortable and to sleep.Patient's heart rate 160, he states that he previously was well controlled on metoprolol, will give dose of metoprolol in department Labs are significant for a platelet count of 7, significant drop even from patient's previous levels. Patient mildly tachycardic 110's, irregularly irregular. BP with MAP>65, patient asymptomatic, requesting jello. Patient denies bleeding. Declines transfusion. Patient states that he has hospice information at home and his only concern at this time is medications for pain and to help him sleep when he goes home. Patient states that he would be more comfortable at home and does not want to stay in the hospital. He states that he will call hospice when he gets home to set up definitive care. Short prescriptions for pain and sleep sent with patient upon discharge. Departure - Departure Disposition: 01 Home, Self Care Clinical Impression: Thrombocytopenia, Hospice care Dyspnea Qualifiers: Dyspnea type: other forms of dyspnea Qualified Code(s): R06.09 - Other forms of dyspnea Condition: Stable Instructions: ED Dyspnea Shortness of Breath Prescriptions: QUEtiapine [SEROquel] 25 mg PO QPM PRN #10 tablet PRN Reason: sleep
[2022-03-02] MEDS ORDERED: METOPROLOL 5 MG/5 ML VIAL IVP STA (14:13)
[2022-03-02 14:23] LABS: BASOPHILS % (AUTO) 0.3 %; EOSINOPHILS # (AUTO) 0.2 10^3/uL (0.0-0.7); EOSINOPHILS % (AUTO) 3.1 %; HCT - HEMATOCRIT 34.6 % (42.0-52.0); HGB - HEMOGLOBIN 12.1 g/dL (14.0-18.0); LYMPHOCYTES # (AUTO) 0.7 10^3/uL (1.5-3.5); LYMPHOCYTES % (AUTO) 12.2 %; MEAN CORPUSCULAR HEMOGLOBIN 39.3 pg (27.0-31.0); MEAN CORPUSCULAR VOLUME 112.3 fL (80.0-94.0); MONOCYTES # (AUTO) 0.1 10^3/uL (0.0-1.0); NEUTROPHILS # (AUTO) 4.8 10^3/uL (1.5-6.6); NEUTROPHILS % (AUTO) 81.7 %; NRBC ABSOLUTE COUNT (AUTO) 0.02 x10^3/uL; NUCLEATED RED BLOOD CELLS AUTO 0.3 /100WBC; RED BLOOD COUNT 3.08 10^6/uL (4.70-6.10); RED CELL DISTRIBUTION WIDTH 13.7 % (12.0-15.0); WHITE BLOOD COUNT 5.9 x10^3/uL (4.8-10.8)
[2022-03-02 14:26] LABS: SLIDE REVIEW? Indicated
--- NOTE | 2022-03-02 14:33 | XRAY Report ---
PROCEDURE: Chest 1 View X-Ray INDICATIONS: Dyspnea TECHNIQUE: One view of the chest was acquired. COMPARISON: 02/24/2022 FINDINGS: Surgical changes and devices: Dual-lead left chest wall cardiac pacing device. Lungs and pleura: No pleural effusions or pneumothorax. Lungs are clear. Mediastinum: Mediastinal contours appear normal. Heart size is normal. Bones and chest wall: No suspicious bony lesions. Overlying soft tissues appear unremarkable. IMPRESSION: No acute cardiopulmonary process demonstrated radiographically. Reviewed by: Raúl Norris MD on 03/02/2022 2:32 PM PDT Approved by: Raúl Norris MD on 03/02/2022 2:32 PM PDT Station ID: [id number]
[2022-03-02 14:34] LABS: INR 1.4 (0.8-1.2); PT - PROTHROMBIN TIME 15.1 secs (9.9-12.6)
[2022-03-02 14:35] LABS: ALBUMIN 3.6 g/dL (3.2-5.5); ALBUMIN/GLOBULIN RATIO 1.2 (1.0-2.2); CALCIUM 9.5 mg/dL (8.5-10.3); CREATININE 1.3 mg/dL (0.6-1.2); MAGNESIUM 1.7 mg/dL (1.7-2.8); POTASSIUM 3.8 mmol/L (3.5-5.0); TOTAL PROTEIN 6.6 g/dL (6.7-8.2)
[2022-03-02 14:42] LABS: PLATELET ESTIMATE, MANUAL DECREASED (<130,000) (NORMAL); PLATELET MORPHOLOGY NORMAL APPEARANCE (NORMAL); PLT - PLATELET COUNT 7 10^3/uL (130-450); RBC MORPHOLOGY (MULTIPLE) 2+ MACROCYTOSIS (NORMAL)
[2022-03-02 14:43] LABS: SLIDE SENT FOR PATH REVIEW? Indicated
[2022-03-02 15:19] LABS: B. PARAPERTUSSIS- RESP PCR PAN NOT DETECTED; B. PERTUSSIS- RESP PCR PANEL NOT DETECTED; C. PNEUMONIAE- RESP PCR PANEL NOT DETECTED; CORONAVIRUS 229E-RESP PCR NOT DETECTED; CORONAVIRUS HKU1-RESP PCR NOT DETECTED; CORONAVIRUS NL63-RESP PCR NOT DETECTED; CORONAVIRUS OC43-RESP PCR NOT DETECTED; HUMAN METAPNEUMOVIRUS NOT DETECTED; INFLUENZA A- RESP PCR PANEL NOT DETECTED; INFLUENZA B - RESP PCR PANEL NOT DETECTED; M. PNEUMONIAE- RESP PCR PANEL NOT DETECTED; PARAINFLUENZA VIRUS 1 NOT DETECTED; PARAINFLUENZA VIRUS 2 NOT DETECTED; PARAINFLUENZA VIRUS 3 NOT DETECTED; PARAINFLUENZA VIRUS 4 NOT DETECTED; RHINOVIRUS/ENTEROVIRUS DETECTED; RSV- RESP PCR PANEL NOT DETECTED; SARS-CoV-2 -RESP PCR PANEL NOT DETECTED
[2022-03-02] MEDS ORDERED: fentaNYL 100 MCG/2 ML VIAL IVP STA (17:15)
[2022-03-02] MEDS ORDERED: oxyCODONE/ACET 5/325 Prepack 4 PO STA (17:16)
[2022-03-02] MEDS ORDERED: fentaNYL 100 MCG/2 ML VIAL IM STA (17:59)
[2022-03-02 18:14] VITALS: BP 99/73
[2022-03-02] MEDS ORDERED: diphenhydrAMINE 25 MG CAPSULE PO STA (18:23)
[2022-03-02] MEDS ORDERED: QUEtiapine 25 MG TABLET PO SCH (21:00)
[2022-03-06 08:59] LABS: PATHOLOGIST SLIDE COMMENTS SEE SEPARATE REPORT
== END 2022-03-02 18:43 | disposition home or self-care (01) ==
LOC: EDUNIT# → ED 13:41
DX: D69.6 Thrombocytopenia, unspecified (principal); R06.09 Other forms of dyspnea; F17.200 Nicotine dependence, unspecified, uncomplicated; Z20.822 Contact with and (suspected) exposure to COVID-19
CPT/HCPCS: 36415; 71045; 80053; 83735; 83880; 84484; 85025; 85610; 86850; 86900; 86901; 87633; 93005; 96372; 96374; 99283; 99284; A9270